=== PATIENT | male | born 1965 | race Hispanic/Latino ===

== ENCOUNTER 2018-06-25 13:35 | Inpatient (IN) | payer OTHER ==
[~2018-06-25] VITALS: Ht 177.8 cm; Wt 107.7 kg
[~2018-06-25 13:35] MED LIST: ASPIR 8181 MG PO; HUMALOG100 UNIT/1; LANTUS 3ML100 UNITS/; LASIX20 MG PO; LOSARTAN POTASS25 MG PO; METFORMIN HCL1000 MG PO; METOPROLOL SUCC50 MG PO; MUCINEX DM ER1 EACH PO; PROAIR HFA INH8.5 GM; SIMVASTATIN40 MG PO; TUSSIN100 MG/51
[2018-06-25] MEDS ORDERED: FENTANYL CITRATE/PF 100MCG/2 ML INJ IV ONE (14:45)
[2018-06-25] MEDS ORDERED: JARDIANCE PO (15:05)
[2018-06-25] MEDS ORDERED: FERROUS SULFAT325 MG PO (15:05)
[2018-06-25] MEDS ORDERED: NITROGLYCERIN0.4 MG PO (15:05)
[2018-06-25] MEDS ORDERED: LEVEMIR SC (15:05)
[2018-06-25] MEDS ORDERED: OMEGA-3-ACID PO (15:05)
[2018-06-25 15:24] LABS: BASOPHILS # (AUTO) 0.1 (0.0-0.1); BASOPHILS % 0.3 % (0.0-1.0); EOSINOPHILS % 0.2 % (0.0-6.0); HEMATOCRIT 36.1 % (38.2-49.6); LYMPHOCYTES # (AUTO) 1.3 (1.0-3.2); LYMPHOCYTES % 7.8 % (18.0-39.1); MEAN CORPUSCULAR HEMOGLOBIN 28.4 pg (28-32); MEAN CORPUSCULAR HGB CONC 33.2 g/dL (31-35); MEAN CORPUSCULAR VOLUME 85.3 fL (81-99); MONOCYTES # (AUTO) 1.4 (0.2-0.8); MONOCYTES % 8.7 % (4.4-11.3); NEUTROPHILS # (AUTO) 13.5 (2.1-6.9); NEUTROPHILS % 82.5 % (38.7-80.0); PLATELET COUNT 309 x10e3/uL (140-360); RED BLOOD COUNT 4.23 x10e6/uL (4.3-5.7); RED CELL DISTRIBUTION WIDTH 12.9 % (11.7-14.4)
[2018-06-25 15:33] LABS: BILIRUBIN,URINE NEGATIVE (NEGATIVE); CLARITY,URINE HAZY (CLEAR); COLOR,URINE YELLOW (YELLOW); KETONES,URINE NEGATIVE (NEGATIVE); LEUKOCYTE ESTERASE ,URINE TRACE (NEGATIVE); NITRITE,URINE NEGATIVE (NEGATIVE); PROTEIN,URINE DIPSTICK NEGATIVE (NEGATIVE); URINE UROBILINOGEN 0.2 mg/dL (0.2 - 1)
[2018-06-25 15:35] LABS: INR 1.14; PROTHROMBIN TIME 13.7 seconds (11.9-14.5)
[2018-06-25 15:45] LABS: ALANINE AMINOTRANSFERASE 12 IU/L (0-55); ALBUMIN 3.8 g/dL (3.5-5.0); ALKALINE PHOSPHATASE 59 IU/L (40-150); ANION GAP 13.9 mmol/L (8-16); BLOOD UREA NITROGEN 17 mg/dL (7-26); BUN/CREATININE RATIO 16 (6-25); CALCIUM 10.1 mg/dL (8.4-10.2); CARBON DIOXIDE 26 mmol/L (22-29); CHLORIDE 100 mmol/L (98-107); CREATININE, SERUM 1.04 mg/dL (0.72-1.25); EST GLOMERULAR FILTRATION RATE > 60 ML/MIN (60-); GLUCOSE 96 mg/dL (74-118); MAGNESIUM 1.8 MG/DL (1.3-2.1); PHOSPHORUS 2.2 MG/DL (2.3-4.7); POTASSIUM 3.9 mmol/L (3.5-5.1); SODIUM 136 mmol/L (136-145)
[2018-06-25 15:49] LABS: BACTERIA,URINE MANY /HPF; EPITHELIAL CELLS,URINE RARE /LPF
[2018-06-25] MEDS: CEFTRIAXONE SOD 1 GM VIAL IV SCH (16:39)
[2018-06-25] MEDS ORDERED: SPIRONOLACTONE25 MG PO (17:04)
[2018-06-25] MEDS ORDERED: FOLIC ACID1 MG PO (17:04)
[2018-06-25] MEDS ORDERED: CLOPIDOGREL75 MG PO (17:04)
[2018-06-25] MEDS ORDERED: GABAPENTIN100 MG PO (17:04)
[2018-06-25] MEDS ORDERED: NOVOLOG100 UNITS1 (17:04)
[2018-06-25] MEDS ORDERED: ATORVASTATIN CA40 MG PO (17:04)
[2018-06-25] MEDS ORDERED: ISOSORBIDE MONO30 MG PO (17:04)
--- NOTE | 2018-06-25 17:55 | Diagnostic Imaging Report ---
EXAM: CT Abdomen and Pelvis WITHOUT contrast INDICATION: \S\Hematuria, right flank pain \[id number] \S\1512 COMPARISON: Chest radiograph 12 02/03/2015 and 06/25/2018 TECHNIQUE: Abdomen and pelvis were scanned utilizing a multidetector helical scanner from the lung base to the pubic symphysis without administration of IV contrast. Absence of intravenous contrast decreases sensitivity for detection of focal lesions and vascular pathology. Coronal and sagittal reformations were obtained. Routine protocol was performed. IV CONTRAST: None. ORAL CONTRAST: Water RADIATION DOSE: Total DLP: 751.2 mGy*cm Estimated effective dose: (DLP x 0.015 x size factor) mSv COMPLICATIONS: None FINDINGS: LINES and TUBES: Partially visualized device in the left lower chest. LOWER THORAX: Trace pericardial effusion. Coronary artery calcifications. Lung bases are clear. HEPATOBILIARY: Hepatic steatosis. No focal hepatic lesions. No biliary ductal dilation. GALLBLADDER: No radio-opaque stones or sludge. No wall thickening. SPLEEN: No splenomegaly. PANCREAS: No focal masses or ductal dilatation. ADRENALS: No adrenal nodules KIDNEYS/URETERS: No hydronephrosis. No cystic or solid mass lesions. No stones. Mild bilateral perinephric fat stranding. GI TRACT: No abnormal distention, wall thickening, or evidence of bowel obstruction. Appendix is surgically absent. PELVIC ORGANS/BLADDER: Diffuse circumferential wall thickening of the urinary bladder. LYMPH NODES: No lymphadenopathy. VESSELS: Gastroesophageal varices. Abdominal aorta normal in caliber and associated with mild to moderate atherosclerotic calcifications. PERITONEUM / RETROPERITONEUM: No free air or fluid. BONES: Partially visualized median sternotomy wires. SOFT TISSUES: Fat stranding within the anterior abdominal and pelvic wall. A small right paracentral ventral fat-containing hernia. Surgical clips within the right inguinal region. IMPRESSION: 1. Diffuse circumferential wall thickening of the urinary bladder may be inflammatory, infectious, or neoplastic. Recommend consult dictation. 2. No calcified renal stones or hydronephrosis. 3. Hepatic steatosis. Signed by: Dr. Angie Squires M.D. on 06/25/2018 4:17 PM
--- NOTE | 2018-06-25 17:55 | Diagnostic Imaging Report ---
EXAMINATION: CHEST SINGLE (PORTABLE) INDICATION: \S\SOB \S\[id number] \S\1515 COMPARISON: None FINDINGS: AP view TUBES and LINES: Partially the generalized device in the left lower hemithorax with lead overlying the lower cardiac silhouette. LUNGS: Lungs are well inflated. Lungs are clear. There is no evidence of pneumonia or pulmonary edema. PLEURA: No pleural effusion or pneumothorax. HEART AND MEDIASTINUM: The cardiomediastinal silhouette is unremarkable.. BONES AND SOFT TISSUES: No acute osseous lesion. Soft tissues are unremarkable. UPPER ABDOMEN: No free air under the diaphragm. IMPRESSION: No acute thoracic abnormality. Signed by: Dr. Angie Squires M.D. on 06/25/2018 4:18 PM
[2018-06-25] MEDS ORDERED: ONDANSETRON HCL INJ 2 MG/ML VIAL IV PRN (18:15)
[2018-06-25] MEDS ORDERED: HYOSCYAMINE SULFATE 0.5 MG/ML AMP IV PRN (18:15)
[2018-06-25] MEDS ORDERED: SODIUM CHLORIDE FLUSH 10 ML SYR INJ PRN (18:15)
[2018-06-25] MEDS ORDERED: DEXTROSE 50% SYRINGE 50 ML IV PRN (18:30)
[2018-06-25] MEDS ORDERED: MORPHINE SULFATE INJ 4 MG/ML INJ IV PRN (18:30)
[2018-06-25] MEDS ORDERED: MORPHINE SULFATE 2 MG/ML SYR IV PRN (19:00)
[2018-06-25 19:42] VITALS: BP 113/65
[2018-06-25 20:16] VITALS: BP 113/65
[2018-06-25] MEDS: INSULIN REGULAR, HUMAN 100 UNIT/1 ML 3ML VIAL SQ SCH (21:43)
[2018-06-26] VITALS (9 sets, daily range): BP systolic 99–118; BP diastolic 54–71
[2018-06-26] MEDS ORDERED: ACETAMINOPHEN 325 MG TAB PO PRN (01:00)
[2018-06-26] MEDS: CEFTRIAXONE SOD 1 GM VIAL IV SCH ×2 (04:21→16:45)
[2018-06-26 05:22] LABS: BASOPHILS % 0.2 % (0.0-1.0); EOSINOPHILS # (AUTO) 0.1 (0.0-0.4); EOSINOPHILS % 0.6 % (0.0-6.0); HEMATOCRIT 34.8 % (38.2-49.6); HEMOGLOBIN 11.4 g/dL (14.0-18.0); LYMPHOCYTES # (AUTO) 2.2 (1.0-3.2); LYMPHOCYTES % 12.7 % (18.0-39.1); MEAN CORPUSCULAR HEMOGLOBIN 28.1 pg (28-32); MEAN CORPUSCULAR HGB CONC 32.8 g/dL (31-35); MEAN CORPUSCULAR VOLUME 85.7 fL (81-99); MONOCYTES # (AUTO) 1.6 (0.2-0.8); MONOCYTES % 9.2 % (4.4-11.3); NEUTROPHILS # (AUTO) 13.5 (2.1-6.9); NEUTROPHILS % 76.5 % (38.7-80.0); PLATELET COUNT 272 x10e3/uL (140-360); RED BLOOD COUNT 4.06 x10e6/uL (4.3-5.7); RED CELL DISTRIBUTION WIDTH 12.8 % (11.7-14.4)
[2018-06-26 05:47] LABS: BLOOD UREA NITROGEN 19 mg/dL (7-26); BUN/CREATININE RATIO 19 (6-25); CALCIUM 9.9 mg/dL (8.4-10.2); CARBON DIOXIDE 25 mmol/L (22-29); CHLORIDE 102 mmol/L (98-107); EST GLOMERULAR FILTRATION RATE > 60 ML/MIN (60-); GLUCOSE 144 mg/dL (74-118); SODIUM 140 mmol/L (136-145)
[2018-06-26] MEDS: INSULIN REGULAR, HUMAN 100 UNIT/1 ML 3ML VIAL SQ SCH ×4 (07:30→20:23)
[2018-06-26 08:03] LABS: EOSINOPHILS % (MANUAL) 3 % (0-7); LYMPHOCYTES % (MANUAL) 13 % (19-48); MONOCYTES % (MANUAL) 8 % (3.4-9.0); NEUTROPHILS % (MANUAL) 76 % (40-74)
[2018-06-26 08:04] LABS: PLATELET ESTIMATE ADEQUATE; PLATELET MORPHOLOGY COMMENT NORMAL; RBC MORPHOLOGY COMMENT NORMAL
[2018-06-26] MEDS ORDERED: NITROGLYCERIN 0.4 MG SUBL SL SCH (08:15)
[2018-06-26] MEDS ORDERED: CLOPIDOGREL BISULFATE 75 MG TAB PO SCH (09:00)
[2018-06-26] MEDS ORDERED: ASPIRIN 81 MG CHEW TAB PO SCH (09:00)
[2018-06-26] MEDS: LOSARTAN POTASSIUM 25 MG TAB PO SCH (09:00)
[2018-06-26] MEDS: METOPROLOL SUCCINATE 50 MG TAB XL PO SCH (09:00)
[2018-06-26] MEDS: SPIRONOLACTONE 25 MG TAB PO SCH (09:00)
[2018-06-26] MEDS: FOLIC ACID 1 MG TAB PO SCH (09:00)
[2018-06-26] MEDS: FUROSEMIDE 20 MG TAB PO SCH (09:00)
[2018-06-26] MEDS: OMEGA 3 POLYUNSAT FATTY ACIDS 1000 MG SOFTGEL PO SCH ×2 (09:00→17:00)
[2018-06-26] MEDS: FERROUS SULFATE 325 MG TAB PO SCH (09:00)
[2018-06-26] MEDS: ISOSORBIDE MONONITRATE 30 MG TAB CR PO SCH (09:13)
--- NOTE | 2018-06-26 16:26 | History and Physical ---
HISTORY OF PRESENT ILLNESS: This is a 53-year-old male with past medical history positive for hypertension, diabetes, coronary artery disease, hyperlipidemia. He came to the hospital because he was passing blood in the stools. REVIEW OF SYSTEMS CARDIOVASCULAR: No chest pain or palpitations. RESPIRATORY: No shortness of breath. No cough. GASTROINTESTINAL: No nausea. No vomiting. No diarrhea. GENITOURINARY: He was passing blood in the stools but not anymore. No frequency. No dysuria. PAST MEDICAL HISTORY: Positive for coronary artery disease, hypertension, diabetes mellitus, hyperlipidemia. SOCIAL HISTORY: He does not smoke and does not drink. PHYSICAL EXAMINATION VITAL SIGNS: Blood pressure 117/60, temperature 98.2, heart rate 92 per minute, respiratory rate 20 per minute. Oxygen saturation 95%. HEART: Regular rhythm. Normal S1, S2 sounds. LUNGS: Clear bilaterally. ABDOMEN: Soft, no tenderness, no distention, no visceromegaly. EXTREMITIES: No evidence of cyanosis, edema or trauma. LABS: On the BMP, sodium 140, potassium 4.0, chloride 102, CO2 25, BUN 19, creatinine 1.00. Glucose 144. On the CBC, white blood count 17,600, hemoglobin 11.4, hematocrit 34.8, platelet count 272,000. PT 13.7, INR 1.14, PTT 32.0. AST 12, ALT 12, total bilirubin 0.9, alkaline phosphatase 59. He also had a CT of the abdomen and pelvis which showed diffuse circumferential wall thickening of the urinary bladder. It may be inflammatory, infection, or neoplastic. Recommend consultation. No calcified stones or hydronephrosis. Hepatic steatosis. Also, he had a chest x-ray done which showed normal. FINAL IMPRESSION 1. Hematuria. 2. Uncontrolled diabetes mellitus, type 2, with diabetic neuropathy. 3. History of coronary artery disease. 4. Hypertension. 5. Hyperlipidemia. PLAN OF TREATMENT 1. Continue ceftriaxone 1 gram IV twice a day. 2. Hyoscyamine sulfate 0.25 mg q.6 h. as needed. 3. Zofran 4 mg IV q.4 h. as needed. 4. Continue aspirin 81 mg daily because of history of coronary artery disease. 5. Continue furosemide 20 mg daily. 6. Aldactone 25 mg daily. 7. [place]-3 fatty acid 2,000 mg twice a day. 8. Continue Plavix 75 mg daily. 9. Isosorbide mononitrate 30 mg daily. 10. Gabapentin 100 mg at bedtime. 11. Morphine 4 mg IV q.4 h. as needed. 12. Continue monitoring blood sugar a.c. and at bedtime. 13. Continue ferrous sulfate 325 mg daily. 14. Losartan 25 mg daily. 15. Nitroglycerin 0.4 mg q.5 minutes p.r.n. for chest pain, no more than 3 tablets. 16. Continue Tylenol 650 mg IV q.6 h. as needed. 17. Folic acid 1 mg daily. 18. Metoprolol 50 mg daily. 19. Lipitor 60 mg daily. 20. We are going to resume the home medications also, which are metformin 1,000 mg twice a day, Jardiance 25 mg daily, Levemir 50 units at bedtime. 21. The diet is 1800-calorie diabetic diet. 22. We are going to also consult Dr. Wayne for urology because of hemorrhagic cystitis and Dr. Wallis of cardiology, who was supposed to see him also. Job#: [id number]
[2018-06-26] MEDS: METFORMIN HCL 500 MG TAB PO SCH (17:00)
--- NOTE | 2018-06-26 18:30 | Consultation ---
DATE OF CONSULTATION: June 26, 2018 UROLOGY CONSULTATION REASON FOR CONSULTATION: Gross hematuria. HISTORY OF PRESENT ILLNESS: Pardeep Dumas is a 53-year-old man who has had gross hematuria over the last several months. The patient has an appointment to see us in the office in mid July for an initial evaluation. The patient had worsening hematuria and blood clots. He presented to the emergency room where he was subsequently admitted. The emergency room did not put in a consultation for us. Consultation was placed by the admitting physician following the initial evaluation. The patient denies previous urinary tract infection. Denies any urolithiasis. Denies any urinary incontinence. He reports good urinary force of stream. He does have erectile dysfunction and has seldom erections. He approximately 15 years ago underwent a circumcision. That circumcision "went bad," and attempt at reconstruction of the penile shaft skin resulted in significant penile scarring. The patient denies any urinary incontinence. PAST MEDICAL AND SURGICAL HISTORY 1. Hypertension. 2. Congestive heart failure. 3. Status post defibrillator implantation. 4. Hypercholesterolemia. 5. Status post appendectomy. ALLERGIES: NONE KNOWN. CURRENT MEDICATIONS: Please refer to the MAR. SOCIAL HISTORY: The patient denies smoking, ethanol and drug use. He used to work at a [employer]. He is currently in the process of attempting to obtain disability status. FAMILY HISTORY: Noncontributory to the active urological problems. REVIEW OF SYSTEMS: As discussed above in the history of present illness and past medical history, otherwise negative for all systems. PHYSICAL EXAMINATION GENERAL: Deceptively healthy-appearing, 53-year-old man sitting up in bed and walking around the room in no apparent distress. VITALS: He is currently afebrile, and the vital signs are currently stable. ABDOMEN: Soft, nondistended and nontender without costovertebral angle tenderness. The kidneys are not palpable without hepatosplenomegaly. The patient is obese. GENITOURINARY: Testes are descended bilaterally. Testes and epididymides bilaterally palpably normal. 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 It is difficult to discern the exact location of the meatus, but I think it is in the middle of what is the glans penis. RECTAL: Digital rectal exam is deferred at the present time. For the remaining physical examination systems, please refer to the admission history and physical on the chart. LABORATORY STUDIES: White blood cell count is 17,600, hemoglobin 11.4, platelets 272,000. The patient's creatinine is 1.0. PT is slightly elevated at 13.7 with an INR of 1.14. CT scan of the abdomen and pelvis shows a thick bladder. Urinalysis is significant for pyuria and bacteriuria. Urine culture is positive, but sensitivities are pending. ASSESSMENT 1. Gross hematuria. 2. Urinary tract infection. 3. Erectile dysfunction. 4. 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 5. Obesity. 6. Anemia. 7. Leukocytosis. PLAN 1. We need cardiac clearance to go to the operating room for cystoscopy and retrogrades and indicated procedures. 2. Hold blood thinners due to the fact that the patient is actively bleeding. 3. Recommend awaiting culture and sensitivity and adjusting the patient's antibiotics accordingly. 4. We will follow the patient. Thank you very much for involving us in the care of your patient. We will be happy to follow him along with you, as well as an outpatient. Job#: [id number] cc:DO HYDE MD
[2018-06-26] MEDS: INSULIN DETEMIR 100 UNIT/ML PEN SQ SCH (20:23)
[2018-06-26] MEDS: ATORVASTATIN 40 MG TAB PO SCH (20:24)
[2018-06-26] MEDS: GABAPENTIN 100 MG CAP PO SCH (20:25)
--- NOTE | 2018-06-26 20:30 | Consultation ---
DATE OF CONSULTATION: June 26, 2018 CARDIOLOGY CONSULTATION REQUESTING PHYSICIAN: Dr. Galvan REASON FOR CONSULTATION: Coronary artery disease. HISTORY OF PRESENT ILLNESS: This is a 53-year-old man with severe coronary artery disease, not amenable to revascularization, chronic systolic heart failure status post subcutaneous ICD, diabetes mellitus, and hyperlipidemia, who presented with lightheadedness and hematuria. The patient reports he was in his usual state of health until about 2 weeks ago when he first noted a foul odor from his urine. Last week, he began experiencing dysuria. On Thursday, he noticed his urine was bloody in appearance and he subsequently began to pass clots in his urine on with development of lower abdominal pain. Yesterday, be began to feel lightheaded and dizzy for which he presented to the ER for further evaluation. Of note, he also noted chest pain on Thursday more severe than his baseline, which he described as 7/10 in severity. The pain lasted minutes at a time and was not associated with shortness of breath, nausea, or diaphoresis. REVIEW OF SYSTEMS: Negative except as per HPI. PAST MEDICAL HISTORY: 1. Coronary artery disease, severe, not amenable to revascularization. 2. Chronic systolic heart failure status post subcutaneous ICD. 3. Diabetes mellitus. 4. Hyperlipidemia. PAST SURGICAL HISTORY: Appendectomy. ALLERGIES: PLEASE SEE EMR. MEDICATIONS: Please see medication list. SOCIAL HISTORY: Denies tobacco, alcohol, or illicit drugs. FAMILY HISTORY: Pertinent for siblings with heart disease. PHYSICAL EXAMINATION: VITAL SIGNS: Temperature 97.6 degrees, pulse 86, respiratory rate 20, blood pressure 99/56, oxygen saturation 95% on room air. GENERAL: Obese gentleman, awake and alert, in no acute distress. LUNGS: Clear to auscultation bilaterally. No wheezes or crackles. CARDIOVASCULAR: Normal rate and regular rhythm. 3/6 systolic murmur at left sternal border. Normal S1 and S2. ABDOMEN: Soft, nontender. EXTREMITIES: No edema. NEURO: Nonfocal exam. LABS: WBC 17.61, hemoglobin 11.4, hematocrit 34.8, platelets 272,000. Sodium 140, potassium 4, chloride 102, CO2 25, BUN 19, creatinine 1. PSA 8.2. Troponin 0.008. Urine culture growing gram-negative rods. A chest x-ray, no acute thoracic abnormality. CT abdomen and pelvis, diffuse circumferential wall thickening of the urinary bladder may be inflammatory, infectious, or neoplastic, recommend consult dictation. No calcified renal stones or hydronephrosis, hepatic steatosis. EKG, sinus tachycardia with LVH with QRS widening and repolarization abnormality. IMPRESSIONS: 1. Gram-negative evangelina urinary tract infection, suspect sepsis secondary to above. 2. Hematuria. 3. Lightheadedness. 4. Chronic systolic heart failure status post subcutaneous implantable cardioverter-defibrillator. 5. Severe coronary artery disease, not amenable to revascularization. 6. Diabetes mellitus. 7. Hyperlipidemia. 8. Chest pain. RECOMMENDATIONS: Repeat troponin to rule out myocardial infarction. Check orthostatic vitals. Continue aspirin and Plavix for now given patient's severe coronary artery disease. We will evaluate patient's coronary anatomy on patient's most recent cardiac catheterization. In the meantime, monitor on telemetry, watch blood pressure closely given urinary tract infection. Suspect patient's lightheadedness was due to sepsis. Antibiotics per primary service. Pending urology evaluation. Thank you for this consult. We will continue to follow. Job#: [id number]
[2018-06-27] VITALS (7 sets, daily range): BP systolic 107–126; BP diastolic 59–70
[2018-06-27] MEDS: CEFTRIAXONE SOD 1 GM VIAL IV SCH ×2 (04:40→16:45)
[2018-06-27] MEDS: INSULIN REGULAR, HUMAN 100 UNIT/1 ML 3ML VIAL SQ SCH ×4 (07:30→20:47)
[2018-06-27] MEDS: METFORMIN HCL 500 MG TAB PO SCH ×2 (08:00→17:00)
[2018-06-27] MEDS: FERROUS SULFATE 325 MG TAB PO SCH (09:00)
[2018-06-27] MEDS: ISOSORBIDE MONONITRATE 30 MG TAB CR PO SCH (09:00)
[2018-06-27] MEDS: METOPROLOL SUCCINATE 50 MG TAB XL PO SCH (09:00)
[2018-06-27] MEDS: FOLIC ACID 1 MG TAB PO SCH (09:00)
[2018-06-27] MEDS: FUROSEMIDE 20 MG TAB PO SCH (09:00)
[2018-06-27] MEDS: OMEGA 3 POLYUNSAT FATTY ACIDS 1000 MG SOFTGEL PO SCH ×2 (09:00→17:00)
[2018-06-27] MEDS: LOSARTAN POTASSIUM 25 MG TAB PO SCH (09:00)
[2018-06-27] MEDS: JARDIANCE 25MG PO SCH (09:00)
[2018-06-27] MEDS: SPIRONOLACTONE 25 MG TAB PO SCH (09:00)
--- NOTE | 2018-06-27 15:27 | Progress Note ---
DATE: June 27, 2018 CARDIOLOGY PROGRESS NOTE SUBJECTIVE: Patient denies chest pain or shortness of breath. He reports his urine has cleared up. OBJECTIVE VITAL SIGNS: Temperature 97 degrees, pulse 75, respiratory rate 20, blood pressure 122/65. Oxygen saturation 97% on room air. GENERAL: Obese gentleman in no acute distress, awake and alert. LUNGS: Clear to auscultation bilaterally. No wheezes or crackles. CARDIOVASCULAR: Normal rate and regular rhythm. A 3/6 systolic murmur at left sternal border. Normal S1 and S2. ABDOMEN: Soft, nontender. EXTREMITIES: No edema. CARDIAC MEDICATIONS 1. Fish oil 2,000 mg p.o. b.i.d. 2. Spironolactone 25 mg p.o. daily. 3. Metoprolol succinate 50 mg p.o. daily. 4. Losartan 25 mg p.o. daily. 5. Isosorbide mononitrate 30 mg p.o. daily. 6. Furosemide 20 mg p.o. daily. 7. Atorvastatin 60 mg p.o. nightly. LABS: Urine culture growing Proteus mirabilis. TELEMETRY: Normal sinus rhythm. IMPRESSION 1. Proteus mirabilis urinary tract infection. 2. Sepsis secondary to above. 3. Hematuria. 4. Lightheadedness. 5. Chronic systolic heart failure status post subcutaneous implantable cardioverter-defibrillator. 6. Severe coronary artery disease, not amenable to revascularization. 7. Diabetes mellitus. 8. Hyperlipidemia. 9. Chest pain. RECOMMENDATIONS: Patient ruled out for myocardial infarction with serial cardiac biomarkers. Patient was initially scheduled for echocardiogram in the office tomorrow. We will order while admitted. Urology plans to take the patient for cystoscopy. Once echo is done and the patient's most recent cardiac catheterization is reviewed, we will make determination regarding the patient's surgical risks. In the meantime, continue current cardiac medications. Antibiotics per primary service. Thank you for this consult. We will continue to follow. Job#: [id number]
--- NOTE | 2018-06-27 19:37 | Progress Note ---
DATE: June 27, 2018 INTERNAL MEDICINE PROGRESS NOTE SUBJECTIVE: A 53-year-old male, who came in with hematuria. He is going to go for a cystoscopy once he is cleared by cardiology. PHYSICAL EXAM VITAL SIGNS: Blood pressure 130/62. Temperature 97.0. Heart rate 79 per minute. Respiratory rate is 20 per minute. Oxygen saturation 97%. ABDOMEN: Soft. No tension distention or visceromegaly. EXTREMITIES: Show no evidence of cyanosis or trauma. On the BMP, sodium 140, potassium 4.0, chloride 102, CO2 25. BUN 19, creatinine 1.00, glucose 144, and the CBC, white blood count is elevated at 17,600, hemoglobin 11.4, hematocrit 34.8, platelet count 272,000. PT 13.7, INR 1.14, PTT 32.0. AST 12, ALT 12, total bilirubin 0.9, alkaline phosphatase 59. IMPRESSIONS 1. Episode of hematuria, most likely secondary to hemorrhagic cystitis. 2. Mild anemia. 3. Uncontrolled diabetes mellitus, type 2, with diabetic neuropathy. 4. History of coronary artery disease. 5. History of hypertension. 6. Hyperlipidemia. PLAN OF TREATMENT 1. Continue Rocephin 1 g IV twice a day. 2. Hyoscyamine sulfate 0.5 mg q.6 h. 3. Zofran 4 mg IV q.4 h as needed. 4. Continue ferrous sulfate 325 mg daily. 5. Losartan 25 mg daily. 1. Nitroglycerin 0.4 mg q.5 minutes p.r.n. for chest pain, no more than 3 tablets. 2. Continue with 1 tablet daily. 3. Continue folic acid 1 mg daily. 4. Continue metoprolol 50 mg daily. 5. Lipitor 60 mg at bedtime. 6. Continue Levemir 50 mg at bedtime. 7. Continue monitoring blood sugar a.c. and nightly. 8. Continue diabetic diet. 9. Continue furosemide 20 mg daily. 10. Aldactone 25 mg daily. 11. [place] 3 fatty acid 2000 units q.12 h. 12. Morphine 4 mg IV q.4 h as needed. 13. Tylenol 650 mg q.6 h as needed. 14. Isosorbide mononitrate 30 mg daily. 15. Gabapentin 100 mg at bedtime. 16. Metformin 1000 mg twice a day. Case has been discussed with the family. The patient and the at the bedside. TIME SPENT: 45 minutes. Job#: [id number] CQ
[2018-06-27] MEDS: GABAPENTIN 100 MG CAP PO SCH (20:47)
[2018-06-27] MEDS: ATORVASTATIN 40 MG TAB PO SCH (20:47)
[2018-06-27] MEDS: INSULIN DETEMIR 100 UNIT/ML PEN SQ SCH (20:48)
--- NOTE | 2018-06-27 23:00 | Discharge Summary ---
TRINIDAD ARNDT (00:01) CHRISTIN TOBAR MD Job#: [id number] CQ
[2018-06-28] VITALS (11 sets, daily range): BP systolic 112–151; BP diastolic 56–75
[2018-06-28] MEDS: CEFTRIAXONE SOD 1 GM VIAL IV SCH ×2 (04:59→16:53)
[2018-06-28 05:00] LABS: BASOPHILS % 0.4 % (0.0-1.0); EOSINOPHILS # (AUTO) 0.4 (0.0-0.4); EOSINOPHILS % 3.5 % (0.0-6.0); HEMATOCRIT 34.7 % (38.2-49.6); HEMOGLOBIN 11.4 g/dL (14.0-18.0); LYMPHOCYTES # (AUTO) 2.3 (1.0-3.2); LYMPHOCYTES % 22.9 % (18.0-39.1); MEAN CORPUSCULAR HEMOGLOBIN 28.4 pg (28-32); MEAN CORPUSCULAR HGB CONC 32.9 g/dL (31-35); MEAN CORPUSCULAR VOLUME 86.5 fL (81-99); MONOCYTES # (AUTO) 0.9 (0.2-0.8); MONOCYTES % 9.2 % (4.4-11.3); NEUTROPHILS # (AUTO) 6.3 (2.1-6.9); NEUTROPHILS % 62.7 % (38.7-80.0); PLATELET COUNT 354 x10e3/uL (140-360); RED BLOOD COUNT 4.01 x10e6/uL (4.3-5.7); RED CELL DISTRIBUTION WIDTH 12.6 % (11.7-14.4)
[2018-06-28 05:23] LABS: ANION GAP 13.2 mmol/L (8-16); BLOOD UREA NITROGEN 17 mg/dL (7-26); BUN/CREATININE RATIO 20 (6-25); CALCIUM 9.6 mg/dL (8.4-10.2); CARBON DIOXIDE 26 mmol/L (22-29); CHLORIDE 103 mmol/L (98-107); CREATININE, SERUM 0.87 mg/dL (0.72-1.25); EST GLOMERULAR FILTRATION RATE > 60 ML/MIN (60-); GLUCOSE 130 mg/dL (74-118); POTASSIUM 4.2 mmol/L (3.5-5.1); SODIUM 138 mmol/L (136-145)
[2018-06-28] MEDS: INSULIN REGULAR, HUMAN 100 UNIT/1 ML 3ML VIAL SQ SCH ×4 (07:30→21:00)
[2018-06-28] MEDS: SPIRONOLACTONE 25 MG TAB PO SCH (08:24)
[2018-06-28] MEDS: METFORMIN HCL 500 MG TAB PO SCH ×2 (08:24→16:53)
[2018-06-28] MEDS: FOLIC ACID 1 MG TAB PO SCH (08:25)
[2018-06-28] MEDS: LOSARTAN POTASSIUM 25 MG TAB PO SCH (08:25)
[2018-06-28] MEDS: FERROUS SULFATE 325 MG TAB PO SCH (08:25)
[2018-06-28] MEDS: OMEGA 3 POLYUNSAT FATTY ACIDS 1000 MG SOFTGEL PO SCH ×2 (08:26→16:53)
[2018-06-28] MEDS: FUROSEMIDE 20 MG TAB PO SCH (08:26)
[2018-06-28] MEDS: ISOSORBIDE MONONITRATE 30 MG TAB CR PO SCH (08:26)
[2018-06-28] MEDS: JARDIANCE 25MG PO SCH (08:26)
[2018-06-28] MEDS: METOPROLOL SUCCINATE 50 MG TAB XL PO SCH (08:27)
--- NOTE | 2018-06-28 12:42 | Progress Note ---
DATE: June 28, 2018 CARDIOLOGY PROGRESS NOTE SUBJECTIVE: No major events overnight. No more hematuria. No chest pain. REVIEW OF SYSTEMS: As above, otherwise negative. OBJECTIVE VITAL SIGNS: Temperature 96.6 degrees, pulse 81, respiratory rate 19, blood pressure 116/71. Satting 98% on room air. GENERAL: man, well developed, in no acute distress. CARDIOVASCULAR: Regular rate and rhythm. No murmurs, rubs or gallops. Palpable carotid pulses. Palpable radial pulses. Palpable pedal pulses. RESPIRATORY: Lungs are clear to auscultation bilaterally. No respiratory distress. ABDOMEN: Obese, soft, nontender. No masses. NEURO AND PSYCH: Alert and oriented to person, place and time. Normal affect. LABORATORY DATA: Reviewed. White count improving. IMAGING DATA: Reviewed. CT of the abdomen and pelvis shows thickening of the bladder. TELEMETRY DATA: Reviewed. Shows normal sinus rhythm. MEDICATIONS: Reviewed. IMPRESSION 1. [id number]-bqm urinary tract infection. 2. Hematuria. 3. Chronic systolic heart failure status post subcutaneous implantable cardioverter-defibrillator. 4. Severe coronary artery disease not amenable to revascularization. 5. Diabetes. 6. Hyperlipidemia. 7. Chronic stable angina. RECOMMENDATIONS: Patient has been ruled out for acute myocardial infarction with serial troponins. He is well compensated as far as his heart failure symptoms go. His anginal symptoms are stable with no features of unstable angina. Echo assessment is pending. At this point, the patient is planned for cystoscopy. Patient would be a moderate cardiovascular risk for this procedure. The risk is nonmodifiable, and I do not recommend any further tests or therapies from a cardiovascular standpoint at this time. It is acceptable to hold the patient's Plavix for periprocedural period. Would prefer to continue aspirin if possible. However, if absolutely necessary, can also hold aspirin in the periprocedural period. Continue his statin as well as other cardiovascular medications. Thank you for this consult. We will continue to follow. Job#: [id number]
[2018-06-28] MEDS: INSULIN DETEMIR 100 UNIT/ML PEN SQ SCH (21:00)
[2018-06-28] MEDS: GABAPENTIN 100 MG CAP PO SCH (21:20)
[2018-06-28] MEDS: ATORVASTATIN 40 MG TAB PO SCH (21:20)
[2018-06-29] MEDS: CEFTRIAXONE SOD 1 GM VIAL IV SCH (04:21)
[2018-06-29 07:30] VITALS: BP 140/65
[2018-06-29] MEDS: INSULIN REGULAR, HUMAN 100 UNIT/1 ML 3ML VIAL SQ SCH (07:30)
[2018-06-29 08:00] VITALS: BP 140/65
[2018-06-29] MEDS: SPIRONOLACTONE 25 MG TAB PO SCH (08:27)
[2018-06-29] MEDS: METFORMIN HCL 500 MG TAB PO SCH (08:27)
[2018-06-29] MEDS: LOSARTAN POTASSIUM 25 MG TAB PO SCH (08:30)
[2018-06-29] MEDS: FOLIC ACID 1 MG TAB PO SCH (08:30)
[2018-06-29] MEDS: FERROUS SULFATE 325 MG TAB PO SCH (08:30)
[2018-06-29] MEDS: JARDIANCE 25MG PO SCH (08:31)
[2018-06-29] MEDS: FUROSEMIDE 20 MG TAB PO SCH (08:31)
[2018-06-29] MEDS: OMEGA 3 POLYUNSAT FATTY ACIDS 1000 MG SOFTGEL PO SCH (08:31)
[2018-06-29] MEDS: ISOSORBIDE MONONITRATE 30 MG TAB CR PO SCH (08:31)
[2018-06-29] MEDS: METOPROLOL SUCCINATE 50 MG TAB XL PO SCH (08:32)
== END 2018-06-29 12:25 | disposition home or self-care (01) | DRG 872 ==
LOC: ER 13:35 → ERHOLD 18:35 → MED/SURG2 19:43
DX: A41.89 Other specified sepsis (principal); I50.22 Chronic systolic (congestive) heart failure; E87.1 Hypo-osmolality and hyponatremia; I11.0 Hypertensive heart disease with heart failure; E86.0 Dehydration; R31.0 Gross hematuria; N52.9 Male erectile dysfunction, unspecified; B96.4 Proteus (mirabilis) (morganii) as the cause of diseases classified elsewhere; Z95.810 Presence of automatic (implantable) cardiac defibrillator; E78.5 Hyperlipidemia, unspecified; N48.89 Other specified disorders of penis; E66.9 Obesity, unspecified; Z68.34 Body mass index [BMI] 34.0-34.9, adult; B96.1 Klebsiella pneumoniae [K. pneumoniae] as the cause of diseases classified elsewhere; N30.80 Other cystitis without hematuria; E11.65 Type 2 diabetes mellitus with hyperglycemia; E11.40 Type 2 diabetes mellitus with diabetic neuropathy, unspecified; K76.0 Fatty (change of) liver, not elsewhere classified; I25.119 Atherosclerotic heart disease of native coronary artery with unspecified angina pectoris; D64.9 Anemia, unspecified; Z79.4 Long term (current) use of insulin
CPT/HCPCS: 36415; 71045; 74176; 80048; 80053; 81001; 82948; 83735; 83880; 84100; 84152; 84484; 85025; 85610; 85730; 87040; 87086; 87186; 93005; 93306; 99284; J0696

== ENCOUNTER → 2018-07-23 | Day surgery (SDC) | payer OTHER ==
[~2018-07-23] MED LIST changes: +ASCORBIC ACID500 MG PO; +ATORVASTATIN CA40 MG PO; +CEFTRIAXONE SOD 1 GM VIAL ONE; +CLOPIDOGREL75 MG PO; +DEXAMETHASONE SOD PHOS INJ 4 MG/ML VIAL ONE; +FENTANYL CITRATE/PF 100MCG/2 ML INJ ONE; +FERROUS SULFAT325 MG PO; +FOLIC ACID1 MG PO; +GABAPENTIN100 MG PO; +GENTAMICIN 80MG/NS 100 ML 100 ML IV ONE; +IOPAMIDOL 300MG/ML 50ML INFUS..BTL IV ONE; +ISOSORBIDE MONO30 MG PO; +JARDIANCE PO; +LEVEMIR SC; +LIDOCAINE HCL 2% LOCAL INJ 5 ML SDV VIAL INJ ONE; +MIDAZOLAM HCL 2 MG/2 ML VIAL ONE; +NITROGLYCERIN0.4 MG PO; +NOVOLOG100 UNITS1 SC; +OMEGA-3-ACID PO; +ONDANSETRON HCL INJ 2 MG/ML VIAL ONE; +PROPOFOL IV EMULSION 10 MG/ML 20 ML VIAL ONE; +SEVOFLURANE INHAL SOLN 250 ML PEN BTL ONE; +SPIRONOLACTONE25 MG PO; +TURMERIC PO
[2018-07-23 11:00] VITALS: BP 124/66
--- OUTSIDE RECORDS SUMMARY | 2018-08-17 05:36 | XMS REPORT | Clinical Summary ---
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
--- NOTE | 2018-09-13 04:20 | Operative Report ---
DATE OF PROCEDURE: July 23, 2018 PREOPERATIVE DIAGNOSES: 1. Urethral stricture disease. 2. Gross hematuria. 3. Urinary tract infections. POSTOPERATIVE DIAGNOSES: 1. Urethral stricture disease. 2. Gross hematuria. 3. Urinary tract infections. OPERATIONS PERFORMED: 1. Cystourethroscopy with direct vision internal urethrotomy and urethral stricture dilation that was a very complicated procedure (separate procedure performed for the stricture). 2. Cystourethroscopy with bilateral ureteral catheterization and retrograde ureteropyelography (separate procedure performed for the hematuria and urinary tract infection). 3. Interpretation of retrograde ureteropyelography. 4. Supervision of fluoroscopy, no radiologist present. 5. Very complicated urethral catheterization. ANESTHESIA: General. COMPLICATIONS: None. CLINICAL SUMMARY: Pardeep Dumas is a very complicated 53-year-old man who has urethral stricture disease and severely abnormal penile skin in appearance. The patient underwent a 13-hour surgery that involved the 9 surgeons to what sounds like procedure which sounds like harvesting of dura and reconstruction of the penile shaft. This resulted in distorted skin implants as well as questionable functionality of the patient's penis as far as facilitating his urination. The patient also had multiple cardiac issues and we elected not to stop his aspirin for this procedure. He is aware of the risks of bleeding, infection, injury to adjacent structures, need for additional procedures, and elected to proceed. We are awaiting the patient's successful attempt to obtain medical records from his previous operative report several decades ago at [facility]. OPERATIVE PROCEDURE IN DETAIL: Informed consent was verified. Pardeep Dumas was properly identified, taken to the operating room, and placed on the cystoscopy table in supine position. Anesthesia was uneventfully begun. The patient was then carefully and gently repositioned in the dorsal lithotomy position with all pressure points well padded. His genitalia were prepared and draped in usual sterile fashion. The 22.5-Macanese cystoscope sheath with the visual obturator in place was atraumatically inserted into the patient's urethra where we encountered a stricture. We negotiated a guidewire into this stricture which allowed us to get into the patient's bladder. There were multiple false channels from prior catheterizations attempts. We utilized the cold knife to incise this stricture and create a channel. The 22.5-Macanese cystoscope sheath with the visual obturator in place was atraumatically inserted into patient's urethra. It was guided down the urethra with the stricture disease and we dilated through this dense scar tissue that remained problematic despite being DVIU. We dilated across this region and were able to negotiate through the patient's prostate bed and into the patient's bladder, which exhibited trabeculations throughout. An 8-Macanese catheter was used to cannulate each ureter, and retrograde ureteral pyelograms were performed. Interpretation of retrograde ureteropyelography: Contrast was instilled in retrograde fashion bilaterally. There were no tumors, no stones, and no diverticula. Unobstructed drainage was observed bilaterally fluoroscopically. Throughout this procedure, multiple dilators were required prior to our final and successful attempt of obtaining cystoscopic access to the patient's bladder. Guidewire was left in place and the cystoscope was withdrawn. A 20-Macanese Ojeda catheter that was modified into a [place]-tip was then placed over the guidewire into the patient's bladder, filled with 20 mL of sterile water. Digital rectal examination revealed a 20 g prostate that is smooth, non-fluctuant, and without any nodules; and the patient was uneventfully reversed from anesthesia and taken to recovery room in stable condition. There were no complications to the procedure. He tolerated the procedure well. Plans will be to bring him back to the office in several weeks to remove his Ojeda catheter. We also plan on making additional attempts to obtain his previous operative reports from [facility] in the [facility]. Job#: [id number]
== END | disposition home or self-care (01) ==
LOC: OR 06:50
PROVIDERS: ATTEND Urology
DX: N35.9 Urethral stricture, unspecified (principal); N39.0 Urinary tract infection, site not specified; N32.89 Other specified disorders of bladder; N36.8 Other specified disorders of urethra; N52.9 Male erectile dysfunction, unspecified; N48.89 Other specified disorders of penis; I11.0 Hypertensive heart disease with heart failure; I50.9 Heart failure, unspecified; I25.10 Atherosclerotic heart disease of native coronary artery without angina pectoris; E11.9 Type 2 diabetes mellitus without complications; Z01.812 Encounter for preprocedural laboratory examination; Z79.02 Long term (current) use of antithrombotics/antiplatelets; Z79.82 Long term (current) use of aspirin; Z79.4 Long term (current) use of insulin; Z95.810 Presence of automatic (implantable) cardiac defibrillator
CPT/HCPCS: 36415; 52005; 52276; 74420; 82948; J0696; J1100; J1580; J2001; J2250; J2405; Q9967

== ENCOUNTER → 2018-11-26 | Day surgery (SDC) | payer OTHER ==
[2018-11-23 13:17] LABS: BASOPHILS # (AUTO) 0.1 (0.0-0.1); BASOPHILS % 0.6 % (0.0-1.0); EOSINOPHILS # (AUTO) 0.3 (0.0-0.4); EOSINOPHILS % 3.5 % (0.0-6.0); HEMATOCRIT 40.2 % (38.2-49.6); HEMOGLOBIN 13.1 g/dL (14.0-18.0); LYMPHOCYTES # (AUTO) 2.3 (1.0-3.2); LYMPHOCYTES % 27.5 % (18.0-39.1); MEAN CORPUSCULAR HEMOGLOBIN 27.6 pg (28-32); MEAN CORPUSCULAR HGB CONC 32.6 g/dL (31-35); MEAN CORPUSCULAR VOLUME 84.8 fL (81-99); MONOCYTES # (AUTO) 0.8 (0.2-0.8); MONOCYTES % 9.5 % (4.4-11.3); NEUTROPHILS # (AUTO) 4.8 (2.1-6.9); NEUTROPHILS % 58.4 % (38.7-80.0); PLATELET COUNT 284 x10e3/uL (140-360); RED BLOOD COUNT 4.74 x10e6/uL (4.3-5.7); RED CELL DISTRIBUTION WIDTH 13.3 % (11.7-14.4)
[2018-11-23 13:45] LABS: ANION GAP 14.1 mmol/L (8-16); BLOOD UREA NITROGEN 13 mg/dL (7-26); BUN/CREATININE RATIO 15 (6-25); CALCIUM 9.6 mg/dL (8.4-10.2); CARBON DIOXIDE 25 mmol/L (22-29); CHLORIDE 104 mmol/L (98-107); CREATININE, SERUM 0.87 mg/dL (0.72-1.25); EST GLOMERULAR FILTRATION RATE > 60 ML/MIN (60-); GLUCOSE 73 mg/dL (74-118); POTASSIUM 4.1 mmol/L (3.5-5.1); SODIUM 139 mmol/L (136-145)
[~2018-11-26] MED LIST changes: +BELLADONNA/OPIUM 30 MG SUPP RC ONE; -CEFTRIAXONE SOD 1 GM VIAL ONE; +CEFTRIAXONE SOD 1 GM/NS 50 ML 50 ML IV ONE; -IOPAMIDOL 300MG/ML 50ML INFUS..BTL IV ONE; +IOPAMIDOL 610MG/1ML 300 MG/ML VIAL IV ONE; +METOPROLOL TART50 MG PO; -ONDANSETRON HCL INJ 2 MG/ML VIAL ONE; +ONDANSETRON HCL INJ 2MG/ML 2ML 2 MG/ML VIAL ONE
--- OUTSIDE RECORDS SUMMARY | 2018-11-26 09:51 | XMS REPORT | Clinical Summary ---
Author Author SALLY [facility] Address Unknown Phone Unavailable Care Team Providers Care Mainframe Systems Programmer Name Role Phone PCP Unavailable Allergies No Known Allergies Medications Not on file Active Problems Not on file Social History Date Tobacco Use Types Packs/Day Years Used Never Assessed Sex Assigned at Date Recorded Not on file Industry Job Start Date Occupation Not on file Not on file Not on file Travel End Travel History Travel Start No recent travel history available. Last Filed Vital Signs Not on file Plan of Treatment Not on file Results Not on fileafter 11/25/2017 Insurance Payer Benefit Subscriber ID Type Phone Address Plan / Group [facility] xxxxxxxxxxxx HMO/POS [phone] [facility] CHOICE EXCHANGE
--- OUTSIDE RECORDS SUMMARY | 2018-11-26 09:51 | XMS REPORT | Continuity of Care Document ---
Author Author [facility] Interface Address Unknown Phone Unavailable Problems Problem Status Onset Date Classification Date Reported Comments Source CHF Active 10/06/2015 Problem 06/29/2018 [facility] Acute hemorrhagic cystitis Active Problem 06/29/2018 [facility] Medications Medication Details Route Status Patient Instructions Ordering Provider Order Date Source Albuterol Sulfate (Proair Hfa Inhaler*) 8.5 Gm Inh, Active 06/25/2018 [facility] Insulin Glargine (Lantus 3ML Pen) 100 Units/1 Ml Inj, Active 06/25/2018 [facility] Insulin Lispro (Humalog) 100 Unit/1 Ml Cartridge, Active 06/25/2018 [facility] Simvastatin 40 Mg Tablet, 40 Mg Oral Bedtime Active 06/25/2018 [facility] Furosemide (Lasix) 20 Mg Table[facility] Metoprolol Succinate 50 Mg Tab.er.24h Daily [facility] 10/07/2015 [facility] Guaifenesin (Tussin) 100 Mg/5 Ml Liquid, Active 10/07/2015 [facility] Guaifenesin/Dextromethorphan (Mucinex Dm Er 600-30 Mg Tablet) 1 Each Tab.er.12h, 1 Each Oral Every 12 Hours Active 10/07/2015 [facility] Aspirin (Aspir 81) 81 Mg Tablet.dr Daily Active [facility] Atorvastatin Calcium 40 Mg Tablet Daily Active [facility] Clopidogrel Bisulfate (Clopidogrel) 75 Mg Tablet Daily Active [facility] Ferrous Sulfate 325 Mg Tablet Daily Active [facility] Folic Acid 1 Mg Tablet Daily Active [facility] Gabapentin 100 Mg Capsule Bedtime Active [facility] Insulin Aspart (Novolog) Unknown Strength Inj Active [facility] Isosorbide Mononitrate (Isosorbide Mononitrate Er) 30 Mg Tab.er.24h Daily Active [facility] Jardiance 25MG Daily Active [facility] Levemir Bedtime Active [facility] Losartan Potassium 25 Mg Tablet Daily Active [facility] Metformin Hcl 1,000 Mg Tablet Twice A Day Active [facility] Nitroglycerin 0.4 Mg Tab.subl As Needed Active [facility] Oqlse-0-Psgf Twice A Day Active [facility] Spironolactone 25 Mg Tablet Daily Active [facility] Allergies, Adverse Reactions, Alerts Substance Category Reaction Severity Reaction type Status Date Reported Comments Source Immunizations Immunization Date Given Site Status Last Updated Comments Source Results Order Name Results Value Reference Range Date Interpretation Comments Source Capillary blood glucose measurement by glucometer (mass/volume) Capillary blood glucose measurement by glucometer (mass/volume) 148 70 - 120 06/29/2018 [facility] Automated blood basophil count (count/volume) Automated blood basophil count (count/volume) 0.0 0.0 - 0.1 06/28/2018 [facility] Automated blood basophil count as percentage of total leukocytes Automated blood basophil count as percentage of total leukocytes 0.4 0.0 - 1.0 06/28/2018 [facility] Automated blood eosinophil count Automated blood eosinophil count 0.4 0.0 - 0.4 06/28/2018 [facility] Automated blood eosinophil count as percentage of total leukocytes Automated blood eosinophil count as percentage of total leukocytes 3.5 0.0 - 6.0 06/28/2018 [facility] Automated blood hematocrit (volume fraction) Automated blood hematocrit (volume fraction) 34.7 38.2 - 49.6 06/28/2018 [facility] Automated blood lymphocyte count as percentage ot total leukocytes Automated blood lymphocyte count as percentage ot total leukocytes 22.9 18.0 - 39.1 06/28/2018 [facility] Automated blood monocyte count as percentage of total leukocytes Automated blood monocyte count as percentage of total leukocytes 9.2 4.4 - 11.3 06/28/2018 [facility] Automated blood neutrophil count Automated blood neutrophil count 6.3 2.1 - 6.9 06/28/2018 [facility] Automated blood platelet count (count/volume) Automated blood platelet count (count/volume) 354 140 - 360 06/28/2018 [facility] Automated blood segmented neutrophil count as percentage of total leukocytes Automated blood segmented neutrophil count as percentage of total leukocytes 62.7 38.7 - 80.0 06/28/2018 [facility] Automated erythrocyte mean corpuscular hemoglobin (mass per erythrocyte) Automated erythrocyte mean corpuscular hemoglobin (mass per erythrocyte) 28.4 28 - 32 06/28/2018 [facility] Automated erythrocyte mean corpuscular hemoglobin concentration measurement (mass/volume) Automated erythrocyte mean corpuscular hemoglobin concentration measurement (mass/volume) 32.9 31 - 35 06/28/2018 [facility] Automated erythrocyte mean corpuscular volume Automated erythrocyte mean corpuscular volume 86.5 81 - 99 06/28/2018 [facility] Blood erythrocytes automated count (number/volume) Blood erythrocytes automated count (number/volume) 4.01 4.3 - 5.7 06/28/2018 [facility] Blood hemoglobin measurement (moles/volume) Blood hemoglobin measurement (moles/volume) 11.4 14.0 - 18.0 06/28/2018 [facility] Blood leukocytes automated count (number/volume) Blood leukocytes automated count (number/volume) 10.04 4.8 - 10.8 06/28/2018 [facility] Blood lymphocytes count (number/volume) Blood lymphocytes count (number/volume) 2.3 1.0 - 3.2 06/28/2018 [facility] Blood monocytes automated count (number/volume) Blood monocytes automated count (number/volume) 0.9 0.2 - 0.8 06/28/2018 [facility] Estimated glomerular filtration rate (GFR) determination Estimated glomerular filtration rate (GFR) determination null 60 06/28/2018 [facility] Glucose measurement Glucose measurement 130 74 - 118 06/28/2018 [facility] Serum or plasma anion gap Serum or plasma anion gap 13.2 8 - 16 06/28/2018 [facility] Serum or plasma calcium measurement (mass/volume) Serum or plasma calcium measurement (mass/volume) 9.6 8.4 - 10.2 06/28/2018 [facility] Serum or plasma carbon dioxide, total measurement (moles/volume) Serum or plasma carbon dioxide, total measurement (moles/volume) 26 22 - 29 06/28/2018 [facility] Serum or plasma chloride measurement (moles/volume) Serum or plasma chloride measurement (moles/volume) 103 98 - 107 06/28/2018 [facility] Serum or plasma creatinine measurement (mass/volume) Serum or plasma creatinine measurement (mass/volume) 0.87 0.72 - 1.25 06/28/2018 [facility] Serum or plasma potassium measurement (moles/volume) Serum or plasma potassium measurement (moles/volume) 4.2 3.5 - 5.1 06/28/2018 [facility] Serum or plasma sodium measurement (moles/volume) Serum or plasma sodium measurement (moles/volume) 138 136 - 145 06/28/2018 [facility] Serum or plasma urea nitrogen measurement (mass/volume) Serum or plasma urea nitrogen measurement (mass/volume) 17 7 - 26 06/28/2018 [facility] Serum or plasma urea nitrogen/creatinine mass ratio Serum or plasma urea nitrogen/creatinine mass ratio 20 6 - 25 06/28/2018 [facility] Red Cell Distribution Width 12.6 11.7 - 14.4 06/28/2018 [facility] IM GRANULOCYTES % 1.3 0.0 - 1.0 06/28/2018 [facility] Absolute Immature Granulocyte (auto 0.13 0 - 0.1 06/28/2018 [facility] Blood culture Blood culture NO GROWTH AFTER 48 HOURS 06/26/2018 [facility] Troponin I measurement by highly sensitive enzyme immunoassay Troponin I measurement by highly sensitive enzyme immunoassay 0.006 0 - 0.300 06/26/2018 [facility] Blood platelets count by estimate (number/volume) Blood platelets count by estimate (number/volume) ADEQUATE 06/26/2018 [facility] Manual blood eosinophil count as percentage of total leukocytes Manual blood eosinophil count as percentage of total leukocytes 3 0 - 7 06/26/2018 [facility] Manual blood lymphocytes/100 leukocytes Manual blood lymphocytes/100 leukocytes 13 19 - 48 06/26/2018 [facility] Manual blood monocytes/100 leukocytes Manual blood monocytes/100 leukocytes 8 3.4 - 9.0 06/26/2018 [facility] Manual blood neutrophils/100 leukocytes Manual blood neutrophils/100 leukocytes 76 40 - 74 06/26/2018 [facility] Platelet morphology Platelet morphology NORMAL 06/26/2018 [facility] RBC morphology RBC morphology NORMAL 06/26/2018 [facility] Differential Total Cells Counted 100 06/26/2018 [facility] Activated partial thromboplastin time (aPTT) in platelet poor plasma bycoagulation assay Activated partial thromboplastin time (aPTT) in platelet poor plasma bycoagulation assay 32.0 23.8 - 35.5 06/25/2018 [facility] INR in Platelet poor plasma by Coagulation assay INR in Platelet poor plasma by Coagulation assay 1.14 06/25/2018 [facility] Phosphorus measurement Phosphorus measurement 2.2 2.3 - 4.7 06/25/2018 [facility] Plasma globulin measurement (mass/volume) Plasma globulin measurement (mass/volume) 3.9 2.3 - 3.5 06/25/2018 [facility] Prothrombin time (PT) in platelet poor plasma by coagulation assay Prothrombin time (PT) in platelet poor plasma by coagulation assay 13.7 11.9 - 14.5 06/25/2018 [facility] Serum or plasma alanine aminotransferase measurement (enzymatic activity/volume) Serum or plasma alanine aminotransferase measurement (enzymatic activity/volume) 12 0 - 55 06/25/2018 [facility] Serum or plasma albumin measurement (mass/volume) Serum or plasma albumin measurement (mass/volume) 3.8 3.5 - 5.0 06/25/2018 [facility] Serum or plasma albumin/globulin mass ratio Serum or plasma albumin/globulin mass ratio 1.0 0.8 - 2.0 06/25/2018 [facility] Serum or plasma alkaline phosphatase measurement (enzymatic activity/volume) Serum or plasma alkaline phosphatase measurement (enzymatic activity/volume) 59 40 - 150 06/25/2018 [facility] Serum or plasma magnesium measurement (mass/volume) Serum or plasma magnesium measurement (mass/volume) 1.8 1.3 - 2.1 06/25/2018 [facility] Serum or plasma natriuretic peptide B prohormone N-terminal measurement(mass/volume) Serum or plasma natriuretic peptide B prohormone N-terminal measurement(mass/volume) 568 0 - 121 06/25/2018 [facility] Serum or plasma prostate specific antigen measurement (mass/volume) Serum or plasma prostate specific antigen measurement (mass/volume) 8.2 0.0 - 4.0 06/25/2018 [facility] Serum or plasma protein measurement (mass/volume) Serum or plasma protein measurement (mass/volume) 7.7 6.5 - 8.1 06/25/2018 [facility] Serum or plasma total bilirubin measurement (mass/volume) Serum or plasma total bilirubin measurement (mass/volume) 0.9 0.2 - 1.2 06/25/2018 [facility] Aspartate Amino Transf (AST/SGOT) 12 5 - 34 06/25/2018 [facility] Automated urine sediment leukocyte count by microscopy (number/high power field) Automated urine sediment leukocyte count by microscopy (number/high power field) null 0 - 5 06/25/2018 [facility] Bacteria detection in urine sediment by light microscopy Bacteria detection in urine sediment by light microscopy MANY NONE 06/25/2018 [facility] Epithelial cells detection in urine sediment by light microscopy Epithelial cells detection in urine sediment by light microscopy RARE NONE 06/25/2018 [facility] Erythrocytes detection in urine sediment by light microscopy Erythrocytes detection in urine sediment by light microscopy NONE 0 - 5 06/25/2018 [facility] Specific gravity of Urine by Test strip Specific gravity of Urine by Test strip 1.010 1.010 - 1.025 06/25/2018 [facility] Urine clarity Urine clarity HAZY CLEAR 06/25/2018 [facility] Urine color determination Urine color determination YELLOW YELLOW 06/25/2018 [facility] Urine erythrocytes detection Urine erythrocytes detection TRACE NEGATIVE 06/25/2018 [facility] Urine glucose detection Urine glucose detection 3+ NEGATIVE 06/25/2018 [facility] Urine ketones detection by automated test strip Urine ketones detection by automated test strip NEGATIVE NEGATIVE 06/25/2018 [facility] Urine leukocyte esterase detection by dipstick Urine leukocyte esterase detection by dipstick TRACE NEGATIVE 06/25/2018 [facility] Urine nitrite detection Urine nitrite detection NEGATIVE NEGATIVE 06/25/2018 [facility] Urine pH measurement by automated test strip Urine pH measurement by automated test strip 6 5 - 7 06/25/2018 [facility] Urine protein measurement by test strip (mass/volume) Urine protein measurement by test strip (mass/volume) NEGATIVE NEGATIVE 06/25/2018 [facility] Urine total bilirubin measurement (mass/volume) Urine total bilirubin measurement (mass/volume) NEGATIVE NEGATIVE 06/25/2018 [facility] Urine urobilinogen measurement by test strip (mass/volume) Urine urobilinogen measurement by test strip (mass/volume) 0.2 0.2 - 1 06/25/2018 [facility] Bacterial urine culture Bacterial urine culture Urine Culture [facility] Vital Signs Vital Sign Value Date Comments Source Encounters Location Location Details Encounter Type Encounter Number Reason For Visit Attending Provider ADM Date DC Date Status Source Discharged Inpatient [id number] BARBARA SHAH MD 06/25/2018 06/29/2018 [facility] Procedures Procedure Code Date Perfomer Comments Source CT of abdomen and pelvis without contrast [id number] 06/25/2018 ELIECER [facility]
[2018-11-26 13:30] VITALS: BP 119/63
--- NOTE | 2018-11-26 17:46 | Diagnostic Imaging Report ---
Bilateral retrograde urography Indications: ^[id number] ^[id number] ^C-ARM RETROGRADE PYELOGRAMS, URETHRAL DILATION. Comparison: CT abdomen/pelvis 06/25/2018 RADIATION DOSE: Fluoroscopy Time: 00:00:16 hh:mm:ss Dose (Kerma) Area Product: 233.53 mGycm2 Air Kerma ([place]) value has been reviewed. It is below the limits set by the Radiation Protocol Committee (RPC) committee. Findings: Contrast was injected into the left ureter in a retrograde fashion.The caliber of the left ureter appear normal. Left renal collecting system also filled unremarkably. Contrast was injected into the right ureter in a retrograde fashion.The caliber of the right ureter appear normal. Right renal collecting system also filled unremarkably. IMPRESSION: Unremarkable bilateral retrograde urography. Signed by: Dr. Berny Javier MD on 11/26/2018 5:43 PM
--- NOTE | 2018-12-27 10:08 | Operative Report ---
DATE OF PROCEDURE: 11/26/2018 SURGEON: Andrea Devine MD PREOPERATIVE DIAGNOSES: 1. Urethral stricture disease. 2. Urinary tract infections. POSTOPERATIVE DIAGNOSES: 1. Urethral stricture disease. 2. Urinary tract infections. OPERATIONS PERFORMED: 1. Cystourethroscopy with dilation of urethral stricture (Surgery was performed for the diagnosis of stricture). 2. Cystourethroscopy with bilateral ureteral catheterization and retrograde ureteropyelography (surgery was performed for the urinary tract infections). 3. Interpretation of retrograde ureteropyelography. 4. Supervision of fluoroscopy, no radiologist was present. ANESTHESIA: General. COMPLICATIONS: None. CLINICAL SUMMARY: Pardeep Dumas is a 53-year-old man with complex and recurrent urethral stricture disease. He is brought for dilation. He is aware of the risks of bleeding, infection, injury to the adjacent structures, and need for additional procedures. He also understands that we plan on placing him on a regimen of intermittent catheterizations to prevent stricture recurrence. He understood all of these risks and the future plans and he elected to proceed. PROCEDURE IN DETAIL: Informed consent was verified. Pardeep Dumas was properly identified, taken to the operating room, and placed on the cystoscopy table in the supine position. Anesthesia was uneventfully begun. The 22.5-Wolof cystoscope sheath with the visual obturator in place was atraumatically inserted into the distal urethra. We identified the severe and long stricture. We then placed guidewire and guided the guidewire under direct vision and under fluoroscopic guidance into the region of patient's bladder. We then utilized the cystoscope sheath and dilated the stents urethral stricture to the size of the sheath along side the guidewire, we passed to normal sphincteric region, went through the prostate bed and into the patient's bladder. Panendoscopy revealed trabeculations with no suspicious lesions. An 8-Wolof catheter was used to cannulate each ureter and retrograde ureteropyelograms were performed. Interpretation of Retrograde Ureteropyelography: Contrast was instilled in a retrograde fashion bilaterally. There were no tumors, no stones, and no diverticula. An obstructive drainage was observed bilaterally fluoroscopically. Over the guidewire, it was felt that the Ojeda catheter was placed. It was guided into the patient's bladder and irrigated to further ensure it works properly. Belladonna and Opium suppository was then placed revealing a 30 g prostate that is smooth, nonfunctional without any nodules. The patient was then uneventfully reversed from anesthesia and taken to the recovery room in stable condition. There were no complications with procedure. He tolerated the procedure well. Plans will be to follow the patient up in several weeks to remove his Ojeda and began his regimen of intermittent catheterizations. Andrea MD [place]/MODL /[id number] cc: Lewis Toney MD
== END | disposition home or self-care (01) ==
LOC: OR 09:49
PROVIDERS: ATTEND Urology
DX: N35.919 Unspecified urethral stricture, male, unspecified site (principal); N39.0 Urinary tract infection, site not specified; N32.89 Other specified disorders of bladder; N52.9 Male erectile dysfunction, unspecified; R81 Glycosuria; N45.3 Epididymo-orchitis; E11.9 Type 2 diabetes mellitus without complications; G47.33 Obstructive sleep apnea (adult) (pediatric); I25.10 Atherosclerotic heart disease of native coronary artery without angina pectoris; I11.0 Hypertensive heart disease with heart failure; I50.9 Heart failure, unspecified; E78.5 Hyperlipidemia, unspecified; E78.00 Pure hypercholesterolemia, unspecified; Z01.812 Encounter for preprocedural laboratory examination; Z79.4 Long term (current) use of insulin; Z79.82 Long term (current) use of aspirin; Z79.02 Long term (current) use of antithrombotics/antiplatelets; Z68.34 Body mass index [BMI] 34.0-34.9, adult; Z95.810 Presence of automatic (implantable) cardiac defibrillator
CPT/HCPCS: 36415 ×2; 52281; 74420; 80048; 82948; 85025; 87086; 87186; C1758; J0696; J1100; J1580; J2001; J2250; J2405; J2704; Q9967

== ENCOUNTER 2018-12-31 06:05 | Observation (INO) | payer OTHER ==
[2018-12-30 12:23] LABS: BASOPHILS # (AUTO) 0.1 (0.0-0.1); BASOPHILS % 0.6 % (0.0-1.0); EOSINOPHILS # (AUTO) 0.4 (0.0-0.4); EOSINOPHILS % 4.3 % (0.0-6.0); HEMATOCRIT 39.9 % (38.2-49.6); LYMPHOCYTES # (AUTO) 2.4 (1.0-3.2); LYMPHOCYTES % 24.5 % (18.0-39.1); MEAN CORPUSCULAR HGB CONC 32.6 g/dL (31-35); MEAN CORPUSCULAR VOLUME 82.8 fL (81-99); MONOCYTES # (AUTO) 0.9 (0.2-0.8); MONOCYTES % 8.8 % (4.4-11.3); NEUTROPHILS # (AUTO) 5.9 (2.1-6.9); NEUTROPHILS % 61.4 % (38.7-80.0); PLATELET COUNT 274 x10e3/uL (140-360); RED BLOOD COUNT 4.82 x10e6/uL (4.3-5.7); RED CELL DISTRIBUTION WIDTH 13.7 % (11.7-14.4)
[2018-12-30 12:45] LABS: INR 0.86; PROTHROMBIN TIME 12.6 seconds (11.9-14.5)
[2018-12-30 12:52] LABS: ANION GAP 13.1 mmol/L (8-16); BLOOD UREA NITROGEN 17 mg/dL (7-26); BUN/CREATININE RATIO 15 (6-25); CARBON DIOXIDE 26 mmol/L (22-29); CHLORIDE 102 mmol/L (98-107); CREATININE, SERUM 1.12 mg/dL (0.72-1.25); EST GLOMERULAR FILTRATION RATE > 60 ML/MIN (60-); GLUCOSE 83 mg/dL (74-118); POTASSIUM 4.1 mmol/L (3.5-5.1); SODIUM 137 mmol/L (136-145)
[~2018-12-31] VITALS: Ht 177.8 cm; Wt 111.6 kg
[2018-12-31] VITALS (10 sets, daily range): BP systolic 100–131; BP diastolic 51–67
[~2018-12-31 06:05] MED LIST changes: +AZO STANDARD95 MG PO; -BELLADONNA/OPIUM 30 MG SUPP RC ONE; -CEFTRIAXONE SOD 1 GM/NS 50 ML 50 ML IV ONE; -DEXAMETHASONE SOD PHOS INJ 4 MG/ML VIAL ONE; +ENTRESTO PO; -FENTANYL CITRATE/PF 100MCG/2 ML INJ ONE; -GENTAMICIN 80MG/NS 100 ML 100 ML IV ONE; -IOPAMIDOL 610MG/1ML 300 MG/ML VIAL IV ONE; -LIDOCAINE HCL 2% LOCAL INJ 5 ML SDV VIAL INJ ONE; -MIDAZOLAM HCL 2 MG/2 ML VIAL ONE; -NITROGLYCERIN0.4 MG PO; +NITROGLYCERIN0.4 MG SL; -ONDANSETRON HCL INJ 2MG/ML 2ML 2 MG/ML VIAL ONE; -PROPOFOL IV EMULSION 10 MG/ML 20 ML VIAL ONE; -SEVOFLURANE INHAL SOLN 250 ML PEN BTL ONE
--- OUTSIDE RECORDS SUMMARY | 2018-12-31 06:09 | XMS REPORT | Clinical Summary ---
Author Author SALLY [facility] Address Unknown Phone Unavailable Care Team Providers Care Laundry Agent Name Role Phone PCP Unavailable Allergies No [...] Not on file Results Not on fileafter 12/30/2017 Insurance Payer Benefit Subscriber ID Type Phone Address Plan / Group [facility] xxxxxxxxxxxx HMO/POS [phone] [facility] CHOICE EXCHANGE
[2018-12-31] MEDS ORDERED: MIDAZOLAM HCL 2 MG/2 ML VIAL ONE ×4 (06:37→08:41)
[2018-12-31] MEDS ORDERED: SODIUM CHLORIDE 0.9% 1000ML 2,000 ML ONE (06:37)
[2018-12-31] MEDS ORDERED: SODIUM CHLORIDE 0.9% 500ML 500 ML ONE (06:37)
[2018-12-31] MEDS ORDERED: BACITRACIN 50,000 UNIT VIAL ONE (06:37)
[2018-12-31] MEDS ORDERED: FENTANYL CITRATE/PF 100MCG/2 ML INJ ONE ×3 (06:37→08:42)
[2018-12-31] MEDS ORDERED: LIDOCAINE HCL 1% LOCAL INJ 20 ML VIAL ONE (06:38)
[2018-12-31] MEDS ORDERED: VANCOMYCIN 1GM/NS 250 ML 250 ML ONE (07:31)
[2018-12-31] MEDS ORDERED: SODIUM BICARBONATE 8.4% SYRING 50 ML ONE (08:04)
--- NOTE | 2018-12-31 09:21 | NUR ---
0921 Received pt form veterinarian laboratory animal care Identifierx2 Report from Nate VAZ pt states 9/10 penile pain from castro #[address] Devine Received orders to get Coude #18 for pt dc home. Orientation back to RICCARDO CHAPMAN Family at bedside. Pacer implant with new lead. Resp shallow and regular sat 98% RA . Abdomen Denies necessity to defecate Bilateral PP present. Left iv infusing well w/o s/s infiltration. CXR done Bed order placed receiving room #189 called report to ТАТЬЯНА Mora awaiting clean for trasfer Pacer Dressing left side dry and intact Sling in place.[facility] form sign per family. Catheter order in place. ds/rn
--- NOTE | 2018-12-31 09:55 | NUR ---
Notified Jong in admissions to place patient in virtual bed.
--- NOTE | 2018-12-31 10:13 | NUR ---
Followed up with Freya in admitting. she stated she will place patient into virtual bed.
--- NOTE | 2018-12-31 10:15 | NUR ---
1015 Called report to floor staff in RM 186 Pacemaker insertion completed transported to room on stretcher with tel and nurse Abby given telephone and face to face report. For dc in am Ojeda in place and brush clearing laborer team delivered 18foley for home discharge.Monitor shows pacer rythm1:1. Iv infusing well w/o s/s infiltration.Back to baseline orientation and family at bedside. POC discussed with family and they have discharge info.Pt did received 225 Fentanyl and 7 Versed as well as 1gm vancomycin in brush clearing laborer and delivered by Nate VAZ. CXR was completed and diet tray has been ordered. stable vs and EKG with pacer dressing intact and sling in place. Family and Pt aware of importance to keep arm in sling w/o movement. Left in floor care with bed height down, siderails up and call light at bedside. brad/chu
--- OUTSIDE RECORDS SUMMARY | 2018-12-31 10:17 | XMS REPORT | Clinical Summary ---
Author Author SALLY [facility] Address Unknown Phone Unavailable Care Team Providers Care Gis Administrator Name Role Phone PCP Unavailable Allergies No [...] ID Type Phone Address Plan / Group [facility] xxxxxxxxxxxx HMO/POS [phone] [facility] CHOICE EXCHANGE
--- NOTE | 2018-12-31 10:35 | Diagnostic Imaging Report ---
EXAM: CHEST SINGLE (PORTABLE), AP Portable DATE: 12/31/2018 Time stamp on exam: 10:04 AM INDICATION: Pacemaker insertion COMPARISON: None FINDINGS: LINES/TUBES: Left chest wall triple lead cardiac device noted. LUNGS: No consolidations or edema. PLEURA: No effusions or pneumothorax. HEART AND MEDIASTINUM: Normal size and contour. BONES AND SOFT TISSUES: No acute findings. IMPRESSION: No acute thoracic abnormality. Signed by: Dr. Raghu Urias DO on 12/31/2018 10:32 AM
--- NOTE | 2018-12-31 10:45 | NUR ---
Pt received from recovery s/p BiV ICD lead revision. Dressing to left upper chest wall is clean, dry, and intact. Pt with 20FR Ojeda draining clear, sara urine. Alert and oriented x4. Oriented to staff and surroundings, encouraged to press call [place] if help needed. Emotional support given. Fall precautions maintained. Will monitor
[2018-12-31] MEDS ORDERED: MORPHINE SULFATE INJ 4 MG/ML INJ 1ML IV PRN (11:45)
[2018-12-31] MEDS: MINOCYCLINE HCL 50 MG CAP PO SCH ×2 (12:30→20:36)
[2018-12-31] MEDS ORDERED: NITROGLYCERIN 0.4 MG SUBL SL PRN (15:15)
[2018-12-31] MEDS ORDERED: NON-FORMULARY MEDICATION ([Entresto] 1 TAB) PO SCH (17:00)
[2018-12-31] MEDS ORDERED: NON-FORMULARY MEDICATION (Metformin Hcl 1,000 MG) PO SCH (17:00)
[2018-12-31] MEDS ORDERED: OMEGA ACID PO SCH (17:00)
[2018-12-31] MEDS: METFORMIN HCL 500 MG TAB PO SCH (17:06)
[2018-12-31] MEDS: ASCORBIC ACID 500 MG TAB PO SCH (17:06)
[2018-12-31] MEDS: OMEGA 3 POLYUNSAT FATTY ACIDS 1000 MG SOFTGEL PO SCH (17:06)
[2018-12-31] MEDS: INSULIN LISPRO 100 UNIT/1 ML 3ML VIAL SQ SCH (17:06)
[2018-12-31] MEDS: METOPROLOL TARTRATE 50 MG TAB PO SCH (17:06)
[2018-12-31] MEDS: FERROUS SULFATE 325 MG TAB PO SCH (17:06)
[2018-12-31] MEDS: ACETAMINOPHEN/CODEINE 300MG - 30MG TAB PO PRN ×2 (17:07→21:20)
[2018-12-31] MEDS: PHENAZOPYRIDINE HCL 100 MG TAB PO SCH (17:07)
[2018-12-31] MEDS: ENTRESTO PO SCH (18:00)
[2018-12-31] MEDS ORDERED: ATORVASTATIN 20 MG TAB PO SCH (21:00)
[2018-12-31] MEDS ORDERED: LEVEMIR 50 UNIT SC SCH (21:00)
[2018-12-31] MEDS ORDERED: PHENAZOPYRIDINE HCL PO SCH (21:00)
[2018-12-31] MEDS ORDERED: GABAPENTIN 100 MG CAP PO SCH (21:00)
[2018-12-31] MEDS ORDERED: INSULIN GLARGINE 100 UNITS/ML VIAL SQ SCH (21:00)
[2019-01-01] VITALS: BP 109/54
--- NOTE | 2019-01-01 03:52 | NUR ---
Received patient from day nurse, patient is alert and oriented x 3, patient is on room air. introduced self to patient and patient made aware of the plans for the shift. castro care done, safety and fall precautions maintained as per hospital protocol: bed in lowest position and locked, needed items beside bed and call [place] placed within patient reach, patient instructed to use it to call nurses for any assistance needed, patient verbalized understanding. patient is currently stable will continue to monitor.2000: patient rounded and stable. 2200: patient rounded and stable. 01/01/19: 0200: patient rounded and stable. 0400: patient rounded and stable.
[2019-01-01 04:00] VITALS: BP 148/70
--- NOTE | 2019-01-01 07:20 | NUR ---
patient endorsed to next shift for continuity of care.
[2019-01-01 08:04] VITALS: BP 154/79
[2019-01-01] MEDS ORDERED: NON-FORMULARY MEDICATION ([Jardiance] 25 MG) PO SCH (09:00)
[2019-01-01] MEDS ORDERED: ATORVASTATIN CALCIUM PO SCH (09:00)
[2019-01-01] MEDS ORDERED: ASPIRIN 81 MG CHEW TAB PO SCH (09:00)
[2019-01-01] MEDS ORDERED: SPIRONOLACTONE 25 MG TAB PO SCH (09:00)
[2019-01-01] MEDS ORDERED: CLOPIDOGREL BISULFATE 75 MG TAB PO SCH (09:00)
[2019-01-01] MEDS ORDERED: FOLIC ACID 1 MG TAB PO SCH (09:00)
[2019-01-01] MEDS ORDERED: TURMERIC PO SCH (09:00)
[2019-01-01] MEDS ORDERED: FUROSEMIDE 20 MG TAB PO SCH (09:00)
[2019-01-01] MEDS: ENTRESTO PO SCH ×2 (09:00→17:00)
[2019-01-01] MEDS ORDERED: ISOSORBIDE MONONITRATE 30 MG TAB CR PO SCH (09:00)
[2019-01-01] MEDS: METFORMIN HCL 500 MG TAB PO SCH ×2 (09:13→17:28)
[2019-01-01] MEDS: FERROUS SULFATE 325 MG TAB PO SCH ×2 (09:32→17:28)
[2019-01-01] MEDS: MINOCYCLINE HCL 50 MG CAP PO SCH (09:33)
[2019-01-01] MEDS: ASCORBIC ACID 500 MG TAB PO SCH ×2 (09:33→17:28)
[2019-01-01] MEDS: OMEGA 3 POLYUNSAT FATTY ACIDS 1000 MG SOFTGEL PO SCH ×2 (09:33→17:28)
[2019-01-01] MEDS: METOPROLOL TARTRATE 50 MG TAB PO SCH ×2 (09:33→17:28)
[2019-01-01] MEDS: PHENAZOPYRIDINE HCL 100 MG TAB PO SCH ×2 (09:33→13:41)
[2019-01-01] MEDS: ACETAMINOPHEN/CODEINE 300MG - 30MG TAB PO PRN (09:46)
--- NOTE | 2019-01-01 10:07 | NUR ---
RIVERS CATHETER REMOVED AT THIS TIME. SMALL AMOUNT OF BLOOD OBSERVED AFTER REMOVAL. PRESSURE APPLIED TO SITE.
--- NOTE | 2019-01-01 10:25 | NUR ---
PT AND PT'S REQUESTED FOR NURSE TO INFORM DR. MONK IN REGARDS TO BLEEDING FROM CATHETER REMOVAL.
--- NOTE | 2019-01-01 10:26 | NUR ---
DR. MONK NOTIFIED AT THIS TIME REGARDING BLEEDING FROM PENIS DUE TO CATHETER REMOVAL OF PT. DR MONK GAVE ORDERS TO REINSERT RIVERS CATH WITH 20FR OR AND 18FR COUDE OR TO HAVE PT VOID (2) TIMES BEFORE ABLE TO BE DISCHARGED. DR. MONK INFORMED NURSE THAT PT CAN GO HOME WITH RIVERS CATHETER. PT IS ON TWO ANTICOAGULATION MEDICATIONS AT THIS TIME.
--- NOTE | 2019-01-01 10:30 | NUR ---
NURSE INFORMED PT REGARDING ORDERS FROM DR. MONK. PT STATED HE WILL WAIT AND SEE IF HE CAN PEE BECAUSE HE DOES NOT WANT TO HAVE RIVERS CATHETER REINSERTED. PT IS APPLYING PRESSURE TO PENIS, PT STATED AMOUNT OF BLEEDING HAS GONE DOWN FROM APPLYING PRESSURE. NO C/O PAIN AT THIS TIME.
[2019-01-01 11:31] VITALS: BP 154/79
[2019-01-01] MEDS: INSULIN LISPRO 100 UNIT/1 ML 3ML VIAL SQ SCH ×3 (11:37→18:00)
[2019-01-01 12:04] VITALS: BP 107/60
--- NOTE | 2019-01-01 12:50 | NUR ---
PT INFORMED NURSE FEELING OF PRESSURE IN SUBRAPUBIC AREA, AND FEELING LIKE NEEDING TO VOID BUT UNABLE TO. PT REINSTATED TO NURSE THAT HE WILL NOT HAVE RIVERS CATHETER REINSERTED UNLESS PT IS SEDATED DUE TO PAIN TOLERANCE. PT'S REQUESTED FOR NURSE TO CONTACT DR. MONK OR DR. SCHUSTER INFORMING THEM ABOUT SITUATION. NURSE PAGED DR. SCHUSTER AT THIS TIME.
--- NOTE | 2019-01-01 13:15 | NUR ---
DR. SCHUSTER INFORMED ABOUT PT NOT BEING ABLE TO VOID AND THAT PT REQUESTED TO BE SEDATED FOR CATHETER. DR. SCHUSTER STATED THAT PT WILL NOT BE DUE TO VOID TILL 1600 AND TO CALL BACK IF PT HAS NOT VOIDED BY THEN.
[2019-01-01 15:19] VITALS: BP 128/56
[2019-01-01] MEDS ORDERED: MINOCYCLINE HCL50 MG PO (17:31)
[2019-01-01] MEDS ORDERED: TYLENOL WITH C1 EACH PO (17:33)
--- NOTE | 2019-02-25 18:11 | Operative Report ---
DATE OF PROCEDURE: 12/31/2018 SURGEON: Melvina Ellis MD PREPROCEDURAL DIAGNOSES: 1. Dislodgement of right ventricular pace/sense lead. 2. History of nonischemic cardiomyopathy with left bundle-branch block, QRS duration of 140 milliseconds. 3. History of previous subcutaneous implantable cardioverter-defibrillator, status post explant. POSTPROCEDURAL DIAGNOSES: 1. Dislodgement of right ventricular pace/sense lead. 2. History of nonischemic cardiomyopathy with left bundle-branch block, QRS duration of 140 milliseconds. 3. History of previous subcutaneous implantable cardioverter-defibrillator, status post explant. PROCEDURES PERFORMED: 1. Insertion of new right ventricular single coil implantable cardioverter- defibrillator lead. 2. Explant of old right ventricular implantable cardioverter-defibrillator lead. PROCEDURE IN DETAIL: Mr. Dumas was brought to the cathode builder at [facility] in the fasting and un-sedated state. The left pectoral region was prepped and draped in a sterile manner. The pocket was reopened along the previous incision line with combination of electrocautery, blunt, and sharp dissection. The generator removed from the pocket and the leads freed up from the underlying scar tissue. The right ventricular ICD lead was noted to be dislodged on the fluoroscopy and it was disconnected from the generator. Active fixation was withdrawn and after the lead was removed without complications. Access to the axillary vein was then made through the pocket and a guidewire was placed in the vein with tip in the IVC. A 9-Serbian sheath was then placed over the guidewire through which a [place] 4-Site single coil ICD lead, model #0292, serial #[id number], was implanted in the right ventricular apex without complications. Adequate pacing and sensing parameters were observed and the sheath was peeled away and lead secured to the underlying fascia with 0-silk. Pocket was irrigated with antibiotic containing normal saline and the leads and generators were then placed into the pocket and secured to the underlying fascia with 0-silk. The pocket was closed in 3 layers with 2-0 Vicryl for the deeper subcutaneous layers and 4-0 Vicryl for the skin. Dermabond was placed for additional skin approximation. DEVICE DATA: The right ventricular lead has R waves of 17.6 millivolts with threshold of 0.8 volts with pulse width of 0.4 milliseconds and pacing impedance of 185 ohms. Shock impedance of 70 ohms. Of note, all other device parameters were within normal limits and unchanged from previous device implant. CONCLUSION: 1. Right ventricular ICD lead was noted to be dislodged. 2. Success explant of the right ventricular ICD lead. 3. Success implant of new right ventricular ICD lead. 4. No complications. MD TEETEE Ny/MODSoheila /[id number] MTDD
--- NOTE | 2019-02-26 04:07 | Discharge Summary ---
DISCHARGE CONDITION: Good. REASON FOR ADMISSION: Revision of right ventricular ICD lead. HOSPITAL COURSE: Mr. Pardeep Dumas was brought to the slab depiler operator at [facility] for RV lead revision. He had explant of his old RV lead, which was dislodged and the new RV ICD lead implanted. He tolerated the procedure well and was transferred to his room in stable condition. He had a device interrogated in the morning and was discharged without complications. DISCHARGE DISPOSITION: Home. DISCHARGE CONDITION: Good. DISCHARGE INSTRUCTIONS: Discharge instructions were given to the patient. The patient tolerated the procedure well. DISCHARGE MEDICATIONS: Please see MAR for discharge medications. MD TEETEE Ny/HITESH /[id number]
== END 2019-01-01 18:08 | disposition home or self-care (01) ==
LOC: CATH LAB 06:05 → CATH LAB V 09:02 → IMCU 10:49
PROVIDERS: ADMIT Internal Medicine Clinical Cardiac Electrophysiology; ATTEND Internal Medicine Clinical Cardiac Electrophysiology
DX: T82.110A Breakdown (mechanical) of cardiac electrode, initial encounter (principal); I50.22 Chronic systolic (congestive) heart failure; I42.0 Dilated cardiomyopathy; I44.7 Left bundle-branch block, unspecified; Z95.810 Presence of automatic (implantable) cardiac defibrillator
CPT/HCPCS: 33216; 33234; 36415 ×3; 71045; 80048; 82948 ×2; 85025; 85610; C1769; C1777; G0378 ×2; J1815; J2001; J2250; J2270; J3370; J7030; J7040

== ENCOUNTER 2019-01-02 21:06 | Emergency (ER) | payer OTHER ==
[~2019-01-02] VITALS: Ht 177.8 cm; Wt 111.6 kg
[~2019-01-02 21:06] MED LIST changes: +MINOCYCLINE HCL50 MG PO; +TYLENOL WITH C1 EACH PO
--- OUTSIDE RECORDS SUMMARY | 2019-01-02 21:08 | XMS REPORT | Clinical Summary ---
Author Author SALLY [facility] Address Unknown Phone Unavailable Care Team Providers Care Photographic Equipment Assembler Name Role Phone PCP Unavailable Allergies No [...] Not on file Results Not on fileafter 01/01/2018 Insurance Payer Benefit Subscriber ID Type Phone Address Plan / Group [facility] xxxxxxxxxxxx HMO/POS [phone] [facility] CHOICE EXCHANGE
[2019-01-02] MEDS ORDERED: DIPHENHYDRAMINE HCL INJ 50 MG/ML VIAL IV ONE (21:30)
[2019-01-02] MEDS ORDERED: METHYLPREDNISOLONE SOD SUCC 125 MG/2ML VIAL IV ONE (21:30)
[2019-01-02 21:43] LABS: BASOPHILS % 0.5 % (0.0-1.0); EOSINOPHILS # (AUTO) 0.3 (0.0-0.4); EOSINOPHILS % 3.9 % (0.0-6.0); HEMATOCRIT 39.1 % (38.2-49.6); HEMOGLOBIN 12.7 g/dL (14.0-18.0); LYMPHOCYTES # (AUTO) 1.9 (1.0-3.2); LYMPHOCYTES % 22.3 % (18.0-39.1); MEAN CORPUSCULAR HEMOGLOBIN 27.4 pg (28-32); MEAN CORPUSCULAR HGB CONC 32.5 g/dL (31-35); MEAN CORPUSCULAR VOLUME 84.3 fL (81-99); MONOCYTES # (AUTO) 0.5 (0.2-0.8); MONOCYTES % 5.9 % (4.4-11.3); NEUTROPHILS # (AUTO) 5.6 (2.1-6.9); PLATELET COUNT 261 x10e3/uL (140-360); RED BLOOD COUNT 4.64 x10e6/uL (4.3-5.7)
[2019-01-02 21:53] LABS: INR 0.88; PROTHROMBIN TIME 12.4 seconds (11.9-14.5)
[2019-01-02 21:54] LABS: PARTIAL THROMBOPLASTIN TIME 32.4 seconds (23.8-35.5)
[2019-01-02 22:03] LABS: ALANINE AMINOTRANSFERASE 13 IU/L (0-55); ALBUMIN 3.9 g/dL (3.5-5.0); ALKALINE PHOSPHATASE 69 IU/L (40-150); ANION GAP 14.1 mmol/L (8-16); BLOOD UREA NITROGEN 16 mg/dL (7-26); BUN/CREATININE RATIO 15 (6-25); CALCIUM 9.8 mg/dL (8.4-10.2); CARBON DIOXIDE 26 mmol/L (22-29); CHLORIDE 102 mmol/L (98-107); CREATINE KINASE 64 IU/L (30-200); CREATININE, SERUM 1.09 mg/dL (0.72-1.25); EST GLOMERULAR FILTRATION RATE > 60 ML/MIN (60-); GLUCOSE 182 mg/dL (74-118); POTASSIUM 4.1 mmol/L (3.5-5.1); SODIUM 138 mmol/L (136-145)
--- NOTE | 2019-01-02 22:08 | Diagnostic Imaging Report ---
EXAMINATION: CHEST SINGLE (PORTABLE) COMPARISON: Chest x-ray 12/31/2018 INDICATION: Recent pacemaker pouch adjustment, pain, shortness of breath ^chest pain/sob ^[id number] ^2130 ^Y DISCUSSION: Frontal view of the chest obtained at 2130 hours. HEART AND MEDIASTINUM: Stable cardiomegaly and aortic ectasia. LINES: Pacer/defibrillator battery pack is in stable orientation. Multiple pacer leads in the right atrium and right ventricle are stable. LUNGS: The lungs are well inflated and clear. No pneumonia or pulmonary edema. PLEURA: No pleural effusion or pneumothorax. BONES AND SOFT TISSUES: No focal osseous lesion. The soft tissues are normal. IMPRESSION: No new cardiopulmonary process. Stable pacemaker. Signed by: Dr. Berny Javier MD on 01/02/2019 10:05 PM
[2019-01-02 22:53] VITALS: BP 112/70
== END 2019-01-02 23:23 | disposition home or self-care (01) ==
LOC: ER 21:06
DX: R07.89 Other chest pain (principal); L24.5 Irritant contact dermatitis due to other chemical products; Z95.0 Presence of cardiac pacemaker; I10 Essential (primary) hypertension; E11.9 Type 2 diabetes mellitus without complications; I50.9 Heart failure, unspecified; K86.89 Other specified diseases of pancreas
CPT/HCPCS: 36415; 71045; 80053; 82550; 82553; 83880; 84484; 85025; 85610; 85730; 93005; 99283; J1200; J2930

== ENCOUNTER 2019-01-08 23:36 | Observation (INO) | payer OTHER ==
[~2019-01-08] VITALS: Ht 177.8 cm; Wt 108.9 kg
--- OUTSIDE RECORDS SUMMARY | 2019-01-08 23:39 | XMS REPORT | Clinical Summary ---
Author Author SALLY [facility] Address Unknown Phone Unavailable Care Team Providers Care Risk Management Analyst Name Role Phone PCP Unavailable Allergies No [...] Not on file Results Not on fileafter 01/07/2018 Insurance Payer Benefit Subscriber ID Type Phone Address Plan / Group [facility] xxxxxxxxxxxx HMO/POS [phone] [facility] CHOICE EXCHANGE
--- OUTSIDE RECORDS SUMMARY | 2019-01-08 23:40 | XMS REPORT | Continuity of Care Document ---
Author Author [facility] Interface Address Unknown Phone Unavailable Problems Problem Status Onset Date Classification Date Reported Comments Source CHF Active 10/06/2015 Problem 01/03/2019 [facility] Acute hemorrhagic cystitis Active Problem 01/03/2019 [facility] Medications Medication Details Route Status Patient Instructions Ordering Provider Order Date Source Losartan Potassium 25 Mg Tablet, 25 Mg Oral Daily Active 12/30/2018 [facility] Albuterol Sulfate (Proair Hfa Inhaler*) 8.5 Gm Inh, Active 06/25/2018 [facility] Insulin Glargine (Lantus 3ML Pen) 100 Units/1 Ml Inj, Active 06/25/2018 [facility] Insulin Lispro (Humalog) 100 Unit/1 Ml Cartridge, Active 06/25/2018 [facility] Simvastatin 40 Mg Tablet, 40 Mg Oral Bedtime Active 06/25/2018 [facility] Insulin Glargine (Lantus 3ML Pen) 100 Units/1 Ml Inj, Active 06/25/2018 [facility] Simvastatin 40 Mg Tablet, 40 Mg Oral Bedtime Active 06/25/2018 [facility] Furosemide (Lasix) 20 Mg Tablet Daily Active [facility] 10/07/2015 [facility] Metoprolol Succinate 50 Mg Tab.er.24h Daily Active [facility] 10/07/2015 [facility] Guaifenesin (Tussin) 100 Mg/5 Ml Liquid, Active 10/07/2015 [facility] Guaifenesin/Dextromethorphan (Mucinex Dm Er 600-30 Mg Tablet) 1 Each Tab.er.12h, 1 Each Oral Every 12 Hours Active 10/07/2015 [facility] Furosemide (Lasix) 20 Mg Tablet Daily Active [facility] 10/07/2015 [facility] Guaifenesin (Tussin) 100 Mg/5 Ml Liquid, Active 10/07/2015 [facility] Metoprolol Succinate 50 Mg Tab.er.24h, 50 Mg Oral Daily Active [facility] 10/07/2015 [facility] Aspirin (Aspir 81) 81 Mg Tablet. Daily Active [facility] Atorvastatin Calcium 40 Mg Tablet Daily Active [facility] Clopidogrel Bisulfate (Clopidogrel) 75 Mg Tablet Daily Active [facility] Ferrous Sulfate 325 Mg Tablet Twice A Day Active [facility] Folic Acid 1 Mg Tablet Daily Active [facility] Gabapentin 100 Mg Capsule Bedtime Active [facility] Insulin Aspart (Novolog) Unknown Strength Inj Active [facility] Isosorbide Mononitrate (Isosorbide Mononitrate Er) 30 Mg Tab.er.24h Daily Active [facility] Jardiance 25MG Daily Active [facility] Levemir Bedtime Active [facility] Losartan Potassium 25 Mg Tablet Daily Active [facility] Metformin Hcl 1,000 Mg Tablet Twice A Day Active [facility] Nitroglycerin 0.4 Mg Tab.subl As Needed Active [facility] Ekspo-5-Gyqu Twice A Day Active [facility] Spironolactone 25 Mg Tablet Daily Active [facility] Acetaminophen With Codeine (Tylenol With Codeine #3 Tablet) 1 Each Tablet Every 6 Hours as needed for Pain Active [facility] Ascorbic Acid 500 Mg Tablet Twice A Day Active [facility] Aspirin (Aspir 81) 81 Mg Tablet. Daily Active [facility] Atorvastatin Calcium 40 Mg Tablet Daily Active [facility] Clopidogrel Bisulfate (Clopidogrel) 75 Mg Tablet Daily Active [facility] Entresto 24MG-26MG Tab Twice A Day Active [facility] Folic Acid 1 Mg Tablet Daily Active [facility] Gabapentin 100 Mg Capsule Bedtime Active [facility] Insulin Aspart (Novolog) Unknown Strength Inj Three Times Daily With Meals Active [facility] Isosorbide Mononitrate (Isosorbide Mononitrate Er) 30 Mg Tab.er.24h Daily Active [facility] Metformin Hcl 1,000 Mg Tablet Twice A Day Active [facility] Metoprolol Tartrate 50 Mg Tablet Twice A Day Active [facility] Minocycline Hcl 50 Mg Capsule Twice A Day Active [facility] Nitroglycerin 0.4 Mg Tab.subl As Needed as needed for Chest Pain Active [facility] Phenazopyridine Hcl (Azo Standard) 95 Mg Tablet Three Times A Day Active [facility] Spironolactone 25 Mg Tablet Daily Active [facility] Turmeric Daily Active [facility] Allergies, Adverse Reactions, Alerts Substance Category Reaction Severity Reaction type Status Date Reported Comments Source Immunizations Immunization Date Given Site Status Last Updated Comments Source Results Order Name Results Value Reference Range Date Interpretation Comments Source Blood leukocytes automated count (number/volume) 8.37 4.8 - 10.8 01/02/2019 [facility] Blood erythrocytes automated count (number/volume) 4.64 4.3 - 5.7 01/02/2019 [facility] Blood hemoglobin measurement (moles/volume) 12.7 14.0 - 18.0 01/02/2019 [facility] Automated blood hematocrit (volume fraction) 39.1 38.2 - 49.6 01/02/2019 [facility] Automated erythrocyte mean corpuscular volume 84.3 81 - 99 01/02/2019 [facility] Automated erythrocyte mean corpuscular hemoglobin (mass per erythrocyte) 27.4 28 - 32 01/02/2019 [facility] Automated erythrocyte mean corpuscular hemoglobin concentration measurement (mass/volume) 32.5 31 - 35 01/02/2019 [facility] RDW BldCo-Rto 14.0 11.7 - 14.4 01/02/2019 [facility] Automated blood platelet count (count/volume) 261 140 - 360 01/02/2019 [facility] Automated blood segmented neutrophil count as percentage of total leukocytes 67.0 38.7 - 80.0 01/02/2019 [facility] Automated blood lymphocyte count as percentage ot total leukocytes 22.3 18.0 - 39.1 01/02/2019 [facility] Automated blood monocyte count as percentage of total leukocytes 5.9 4.4 - 11.3 01/02/2019 [facility] Automated blood eosinophil count as percentage of total leukocytes 3.9 0.0 - 6.0 01/02/2019 [facility] Automated blood basophil count as percentage of total leukocytes 0.5 0.0 - 1.0 01/02/2019 [facility] IM GRANULOCYTES % 0.4 0.0 - 1.0 01/02/2019 [facility] Automated blood neutrophil count 5.6 2.1 - 6.9 01/02/2019 [facility] Blood lymphocytes count (number/volume) 1.9 1.0 - 3.2 01/02/2019 [facility] Blood monocytes automated count (number/volume) 0.5 0.2 - 0.8 01/02/2019 [facility] Automated blood eosinophil count 0.3 0.0 - 0.4 01/02/2019 [facility] Automated blood basophil count (count/volume) 0.0 0.0 - 0.1 01/02/2019 [facility] Absolute Immature Granulocyte (auto 0.03 0 - 0.1 01/02/2019 [facility] Prothrombin time (PT) in platelet poor plasma by coagulation assay 12.4 11.9 - 14.5 01/02/2019 [facility] INR in Platelet poor plasma by Coagulation assay 0.88 01/02/2019 [facility] Activated partial thromboplastin time (aPTT) in platelet poor plasma bycoagulation assay 32.4 23.8 - 35.5 01/02/2019 [facility] Serum or plasma sodium measurement (moles/volume) 138 136 - 145 01/02/2019 [facility] Serum or plasma potassium measurement (moles/volume) 4.1 3.5 - 5.1 01/02/2019 [facility] Serum or plasma chloride measurement (moles/volume) 102 98 - 107 01/02/2019 [facility] Serum or plasma carbon dioxide, total measurement (moles/volume) 26 22 - 29 01/02/2019 [facility] Serum or plasma anion gap 14.1 8 - 16 01/02/2019 [facility] Serum or plasma urea nitrogen measurement (mass/volume) 16 7 - 26 01/02/2019 [facility] Serum or plasma creatinine measurement (mass/volume) 1.09 0.72 - 1.25 01/02/2019 [facility] Serum or plasma urea nitrogen/creatinine mass ratio 15 6 - 25 01/02/2019 [facility] Estimated glomerular filtration rate (GFR) determination > 60 60 01/02/2019 [facility] Glucose measurement 182 74 - 118 01/02/2019 [facility] Serum or plasma calcium measurement (mass/volume) 9.8 8.4 - 10.2 01/02/2019 [facility] Serum or plasma total bilirubin measurement (mass/volume) 0.3 0.2 - 1.2 01/02/2019 [facility] Aspartate Amino Transf (AST/SGOT) 13 5 - 34 01/02/2019 [facility] Serum or plasma alanine aminotransferase measurement (enzymatic activity/volume) 13 0 - 55 01/02/2019 [facility] Serum or plasma protein measurement (mass/volume) 7.7 6.5 - 8.1 01/02/2019 [facility] Serum or plasma albumin measurement (mass/volume) 3.9 3.5 - 5.0 01/02/2019 [facility] Plasma globulin measurement (mass/volume) 3.8 2.3 - 3.5 01/02/2019 [facility] Serum or plasma albumin/globulin mass ratio 1.0 0.8 - 2.0 01/02/2019 [facility] Serum or plasma alkaline phosphatase measurement (enzymatic activity/volume) 69 40 - 150 01/02/2019 [facility] BNP Bld-mCnc 71.8 0 - 100 01/02/2019 [facility] Serum or plasma creatine kinase measurement (enzymatic activity/volume) 64 30 - 200 01/02/2019 [facility] Serum or plasma creatine kinase MB measurement (mass/volume) 1.20 0 - 5.0 01/02/2019 [facility] Troponin I measurement by highly sensitive enzyme immunoassay 0.008 0 - 0.300 01/02/2019 [facility] Capillary blood glucose measurement by glucometer (mass/volume) 190 70 - 120 01/01/2019 [facility] Capillary blood glucose measurement by glucometer (mass/volume) Capillary blood glucose measurement by glucometer (mass/volume) 148 70 - 120 06/29/2018 [facility] Automated blood basophil count (count/volume) Automated blood basophil count (count/volume) 0.0 0.0 - 0.1 06/28/2018 [facility] Automated blood basophil count as percentage of total leukocytes Automated blood basophil count as percentage of total leukocytes 0.4 0.0 - 1.0 06/28/2018 [facility] Automated blood eosinophil count Automated blood eosinophil count 0.4 0.0 - 0.4 06/28/2018 [facility] Automated blood eosinophil count as percentage of total leukocytes Automated blood eosinophil count as percentage of total leukocytes 3.5 0.0 - 6.0 06/28/2018 [facility] Automated blood hematocrit (volume fraction) Automated blood hematocrit (volume fraction) 34.7 38.2 - 49.6 06/28/2018 [facility] Automated blood lymphocyte count as percentage ot total leukocytes Automated blood lymphocyte count as percentage ot total leukocytes 22.9 18.0 - 39.1 06/28/2018 [facility] Automated blood monocyte count as percentage of total leukocytes Automated blood monocyte count as percentage of total leukocytes 9.2 4.4 - 11.3 06/28/2018 [facility] Automated blood neutrophil count Automated blood neutrophil count 6.3 2.1 - 6.9 06/28/2018 [facility] Automated blood platelet count (count/volume) Automated blood platelet count (count/volume) 354 140 - 360 06/28/2018 [facility] Automated blood segmented neutrophil count as percentage of total leukocytes Automated blood segmented neutrophil count as percentage of total leukocytes 62.7 38.7 - 80.0 06/28/2018 [facility] Automated erythrocyte mean corpuscular hemoglobin (mass per erythrocyte) Automated erythrocyte mean corpuscular hemoglobin (mass per erythrocyte) 28.4 28 - 32 06/28/2018 [facility] Automated erythrocyte mean corpuscular hemoglobin concentration measurement (mass/volume) Automated erythrocyte mean corpuscular hemoglobin concentration measurement (mass/volume) 32.9 31 - 35 06/28/2018 [facility] Automated erythrocyte mean corpuscular volume Automated erythrocyte mean corpuscular volume 86.5 81 - 99 06/28/2018 [facility] Blood erythrocytes automated count (number/volume) Blood erythrocytes automated count (number/volume) 4.01 4.3 - 5.7 06/28/2018 [facility] Blood hemoglobin measurement (moles/volume) Blood hemoglobin measurement (moles/volume) 11.4 14.0 - 18.0 06/28/2018 [facility] Blood leukocytes automated count (number/volume) Blood leukocytes automated count (number/volume) 10.04 4.8 - 10.8 06/28/2018 [facility] Blood lymphocytes count (number/volume) Blood lymphocytes count (number/volume) 2.3 1.0 - 3.2 06/28/2018 [facility] Blood monocytes automated count (number/volume) Blood monocytes automated count (number/volume) 0.9 0.2 - 0.8 06/28/2018 [facility] Estimated glomerular filtration rate (GFR) determination Estimated glomerular filtration rate (GFR) determination null 60 06/28/2018 [facility] Glucose measurement Glucose measurement 130 74 - 118 06/28/2018 [facility] Serum or plasma anion gap Serum or plasma anion gap 13.2 8 - 16 06/28/2018 [facility] Serum or plasma calcium measurement (mass/volume) Serum or plasma calcium measurement (mass/volume) 9.6 8.4 - 10.2 06/28/2018 [facility] Serum or plasma carbon dioxide, total measurement (moles/volume) Serum or plasma carbon dioxide, total measurement (moles/volume) 26 22 - 29 06/28/2018 [facility] Serum or plasma chloride measurement (moles/volume) Serum or plasma chloride measurement (moles/volume) 103 98 - 107 06/28/2018 [facility] Serum or plasma creatinine measurement (mass/volume) Serum or plasma creatinine measurement (mass/volume) 0.87 0.72 - 1.25 06/28/2018 [facility] Serum or plasma potassium measurement (moles/volume) Serum or plasma potassium measurement (moles/volume) 4.2 3.5 - 5.1 06/28/2018 [facility] Serum or plasma sodium measurement (moles/volume) Serum or plasma sodium measurement (moles/volume) 138 136 - 145 06/28/2018 [facility] Serum or plasma urea nitrogen measurement (mass/volume) Serum or plasma urea nitrogen measurement (mass/volume) 17 7 - 26 06/28/2018 [facility] Serum or plasma urea nitrogen/creatinine mass ratio Serum or plasma urea nitrogen/creatinine mass ratio 20 6 - 25 06/28/2018 [facility] Red Cell Distribution Width 12.6 11.7 - 14.4 06/28/2018 [facility] IM GRANULOCYTES % 1.3 0.0 - 1.0 06/28/2018 [facility] Absolute Immature Granulocyte (auto 0.13 0 - 0.1 06/28/2018 [facility] Blood culture NO GROWTH AFTER 5 DAYS, FINAL REPORT 06/26/2018 [facility] Blood culture Blood culture NO GROWTH AFTER 48 HOURS 06/26/2018 [facility] Troponin I measurement by highly sensitive enzyme immunoassay Troponin I measurement by highly sensitive enzyme immunoassay 0.006 0 - 0.300 06/26/2018 [facility] Differential Total Cells Counted 100 06/26/2018 [facility] Manual blood neutrophils/100 leukocytes 76 40 - 74 06/26/2018 [facility] Manual blood lymphocytes/100 leukocytes 13 - 06/26/2018 [facility] Manual blood monocytes/100 leukocytes 8 3.4 - 9.0 06/26/2018 [facility] Manual blood eosinophil count as percentage of total leukocytes 3 0 - 7 06/26/2018 [facility] Blood platelets count by estimate (number/volume) ADEQUATE 06/26/2018 [facility] Platelet morphology NORMAL 06/26/2018 [facility] RBC morphology NORMAL 06/26/2018 [facility] Blood platelets count by estimate (number/volume) Blood platelets count by estimate (number/volume) ADEQUATE 06/26/2018 [facility] Manual blood eosinophil count as percentage of total leukocytes Manual blood eosinophil count as percentage of total leukocytes 3 0 - 7 06/26/2018 [facility] Manual blood lymphocytes/100 leukocytes Manual blood lymphocytes/100 leukocytes 13 19 - 48 06/26/2018 [facility] Manual blood monocytes/100 leukocytes Manual blood monocytes/100 leukocytes 8 3.4 - 9.0 06/26/2018 [facility] Manual blood neutrophils/100 leukocytes Manual blood neutrophils/100 leukocytes 76 40 - 74 06/26/2018 [facility] Platelet morphology Platelet morphology NORMAL 06/26/2018 [facility] RBC morphology RBC morphology NORMAL 06/26/2018 [facility] Differential Total Cells Counted 100 06/26/2018 [facility] Phosphorus measurement 2.2 2.3 - 4.7 06/25/2018 [facility] Serum or plasma magnesium measurement (mass/volume) 1.8 1.3 - 2.1 06/25/2018 [facility] Serum or plasma natriuretic peptide B prohormone N-terminal measurement(mass/volume) 568 0 - 121 06/25/2018 [facility] Serum or plasma prostate specific antigen measurement (mass/volume) 8.2 0.0 - 4.0 06/25/2018 [facility] Activated partial thromboplastin time (aPTT) in platelet poor plasma bycoagulation assay Activated partial thromboplastin time (aPTT) in platelet poor plasma bycoagulation assay 32.0 23.8 - 35.5 06/25/2018 [facility] INR in Platelet poor plasma by Coagulation assay INR in Platelet poor plasma by Coagulation assay 1.14 06/25/2018 [facility] Phosphorus measurement Phosphorus measurement 2.2 2.3 - 4.7 06/25/2018 [facility] Plasma globulin measurement (mass/volume) Plasma globulin measurement (mass/volume) 3.9 2.3 - 3.5 06/25/2018 [facility] Prothrombin time (PT) in platelet poor plasma by coagulation assay Prothrombin time (PT) in platelet poor plasma by coagulation assay 13.7 11.9 - 14.5 06/25/2018 [facility] Serum or plasma alanine aminotransferase measurement (enzymatic activity/volume) Serum or plasma alanine aminotransferase measurement (enzymatic activity/volume) 12 0 - 55 06/25/2018 [facility] Serum or plasma albumin measurement (mass/volume) Serum or plasma albumin measurement (mass/volume) 3.8 3.5 - 5.0 06/25/2018 [facility] Serum or plasma albumin/globulin mass ratio Serum or plasma albumin/globulin mass ratio 1.0 0.8 - 2.0 06/25/2018 [facility] Serum or plasma alkaline phosphatase measurement (enzymatic activity/volume) Serum or plasma alkaline phosphatase measurement (enzymatic activity/volume) 59 40 - 150 06/25/2018 [facility] Serum or plasma magnesium measurement (mass/volume) Serum or plasma magnesium measurement (mass/volume) 1.8 1.3 - 2.1 06/25/2018 [facility] Serum or plasma natriuretic peptide B prohormone N-terminal measurement(mass/volume) Serum or plasma natriuretic peptide B prohormone N-terminal measurement(mass/volume) 568 0 - 121 06/25/2018 [facility] Serum or plasma prostate specific antigen measurement (mass/volume) Serum or plasma prostate specific antigen measurement (mass/volume) 8.2 0.0 - 4.0 06/25/2018 [facility] Serum or plasma protein measurement (mass/volume) Serum or plasma protein measurement (mass/volume) 7.7 6.5 - 8.1 06/25/2018 [facility] Serum or plasma total bilirubin measurement (mass/volume) Serum or plasma total bilirubin measurement (mass/volume) 0.9 0.2 - 1.2 06/25/2018 [facility] Aspartate Amino Transf (AST/SGOT) 12 5 - 34 06/25/2018 [facility] Urine color determination YELLOW YELLOW 06/25/2018 [facility] Urine clarity HAZY CLEAR 06/25/2018 [facility] Specific gravity of Urine by Test strip 1.010 1.010 - 1.025 06/25/2018 [facility] Urine pH measurement by automated test strip 6 5 - 7 06/25/2018 [facility] Urine leukocyte esterase detection by dipstick TRACE NEGATIVE 06/25/2018 [facility] Urine nitrite detection NEGATIVE NEGATIVE 06/25/2018 [facility] Urine protein measurement by test strip (mass/volume) NEGATIVE NEGATIVE 06/25/2018 [facility] Urine glucose detection 3+ NEGATIVE 06/25/2018 [facility] Urine ketones detection by automated test strip NEGATIVE NEGATIVE 06/25/2018 [facility] Urine urobilinogen measurement by test strip (mass/volume) 0.2 0.2 - 1 06/25/2018 [facility] Urine total bilirubin measurement (mass/volume) NEGATIVE NEGATIVE 06/25/2018 [facility] Urine erythrocytes detection TRACE NEGATIVE 06/25/2018 [facility] Automated urine sediment leukocyte count by microscopy (number/high power field) 11-20 0 - 5 06/25/2018 [facility] Erythrocytes detection in urine sediment by light microscopy NONE 0 - 5 06/25/2018 [facility] Bacteria detection in urine sediment by light microscopy MANY NONE 06/25/2018 [facility] Epithelial cells detection in urine sediment by light microscopy RARE NONE 06/25/2018 [facility] Automated urine sediment leukocyte count by microscopy (number/high power field) Automated urine sediment leukocyte count by microscopy (number/high power field) null 0 - 5 06/25/2018 [facility] Bacteria detection in urine sediment by light microscopy Bacteria detection in urine sediment by light microscopy MANY NONE 06/25/2018 [facility] Epithelial cells detection in urine sediment by light microscopy Epithelial cells detection in urine sediment by light microscopy RARE NONE 06/25/2018 [facility] Erythrocytes detection in urine sediment by light microscopy Erythrocytes detection in urine sediment by light microscopy NONE 0 - 5 06/25/2018 [facility] Specific gravity of Urine by Test strip Specific gravity of Urine by Test strip 1.010 1.010 - 1.025 06/25/2018 [facility] Urine clarity Urine clarity HAZY CLEAR 06/25/2018 [facility] Urine color determination Urine color determination YELLOW YELLOW 06/25/2018 [facility] Urine erythrocytes detection Urine erythrocytes detection TRACE NEGATIVE 06/25/2018 [facility] Urine glucose detection Urine glucose detection 3+ NEGATIVE 06/25/2018 [facility] Urine ketones detection by automated test strip Urine ketones detection by automated test strip NEGATIVE NEGATIVE 06/25/2018 [facility] Urine leukocyte esterase detection by dipstick Urine leukocyte esterase detection by dipstick TRACE NEGATIVE 06/25/2018 [facility] Urine nitrite detection Urine nitrite detection NEGATIVE NEGATIVE 06/25/2018 [facility] Urine pH measurement by automated test strip Urine pH measurement by automated test strip 6 5 - 7 06/25/2018 [facility] Urine protein measurement by test strip (mass/volume) Urine protein measurement by test strip (mass/volume) NEGATIVE NEGATIVE 06/25/2018 [facility] Urine total bilirubin measurement (mass/volume) Urine total bilirubin measurement (mass/volume) NEGATIVE NEGATIVE 06/25/2018 [facility] Urine urobilinogen measurement by test strip (mass/volume) Urine urobilinogen measurement by test strip (mass/volume) 0.2 0.2 - 1 06/25/2018 [facility] Bacterial urine culture Urine Culture [facility] Vital Signs Vital Sign Value Date Comments Source Encounters Location Location Details Encounter Type Encounter Number Reason For Visit Attending Provider ADM Date DC Date Status Source Discharged Inpatient [id number] BARBARA SHAH MD 06/25/2018 06/29/2018 [facility] Registered Surgical Day [facility] [id number] JOSE MONK MD 07/23/2018 [facility] Registered Surgical Day Care [id number] JOSE MONK MD 11/26/2018 [facility] Discharged Inpatient (obs) [id number] BALDEV BENJAMIN MD 12/31/2018 01/01/2019 [facility] Departed Emergency Room [id number] RUBEN HAYES MD 01/02/2019 01/02/2019 [facility] Procedures Procedure Code Date Perfomer Comments Source CYSTOSCOPY AND TREATMENT [id number] 11/26/2018 [facility] CYSTOSCOPY & URETER CATHETER [id number] 07/23/2018 [facility] CYSTOSCOPY AND TREATMENT [id number] 07/23/2018 [facility] CT of abdomen and pelvis without contrast [id number] 06/25/2018 ELIECER ZAVALA [facility]
[2019-01-09] MEDS ORDERED: ASPIRIN 81 MG CHEW TAB PO ONE ×2 (00:15→00:30)
[2019-01-09 00:26] LABS: BASOPHILS # (AUTO) 0.1 (0.0-0.1); BASOPHILS % 0.6 % (0.0-1.0); EOSINOPHILS # (AUTO) 0.4 (0.0-0.4); EOSINOPHILS % 4.1 % (0.0-6.0); HEMATOCRIT 39.2 % (38.2-49.6); HEMOGLOBIN 12.5 g/dL (14.0-18.0); LYMPHOCYTES # (AUTO) 2.8 (1.0-3.2); LYMPHOCYTES % 26.4 % (18.0-39.1); MEAN CORPUSCULAR HEMOGLOBIN 27.2 pg (28-32); MEAN CORPUSCULAR HGB CONC 31.9 g/dL (31-35); MEAN CORPUSCULAR VOLUME 85.4 fL (81-99); MONOCYTES # (AUTO) 0.8 (0.2-0.8); MONOCYTES % 7.5 % (4.4-11.3); NEUTROPHILS # (AUTO) 6.3 (2.1-6.9); NEUTROPHILS % 60.3 % (38.7-80.0); PLATELET COUNT 333 x10e3/uL (140-360); RED BLOOD COUNT 4.59 x10e6/uL (4.3-5.7); RED CELL DISTRIBUTION WIDTH 13.9 % (11.7-14.4)
[2019-01-09 00:47] LABS: ALANINE AMINOTRANSFERASE 11 IU/L (0-55); ALBUMIN 3.9 g/dL (3.5-5.0); ALBUMIN/GLOBULIN RATIO 1.2 (0.8-2.0); ALKALINE PHOSPHATASE 77 IU/L (40-150); ANION GAP 14.8 mmol/L (8-16); BLOOD UREA NITROGEN 20 mg/dL (7-26); BUN/CREATININE RATIO 22 (6-25); CALCIUM 9.7 mg/dL (8.4-10.2); CARBON DIOXIDE 23 mmol/L (22-29); CHLORIDE 104 mmol/L (98-107); CREATINE KINASE 105 IU/L (30-200); EST GLOMERULAR FILTRATION RATE > 60 ML/MIN (60-); GLUCOSE 125 mg/dL (74-118); POTASSIUM 3.8 mmol/L (3.5-5.1); SODIUM 138 mmol/L (136-145)
[2019-01-09] MEDS ORDERED: TYLENOL # 31 EA PO (03:00)
--- NOTE | 2019-01-09 03:25 | NUR ---
SPOKE TO KARL AT [employer], , KARL STATES INTERROGATION FROM [employer] WAS RECEIVED, REP WILL CALL BACK SOON POSSIBLE.
--- OUTSIDE RECORDS SUMMARY | 2019-01-09 04:15 | XMS REPORT | Clinical Summary ---
Author Author SALLY [facility] Address Unknown Phone Unavailable Care Team Providers Care Summer Nanny Name Role Phone PCP Unavailable Allergies No [...] Not on file Results Not on fileafter 01/08/2018 Insurance Payer Benefit Subscriber ID Type Phone Address Plan / Group [facility]LY [facility] xxxxxxxxxxxx HMO/POS [phone] [facility] CHOICE EXCHANGE
--- NOTE | 2019-01-09 06:56 | NUR ---
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
--- NOTE | 2019-01-09 06:56 | NUR ---
REPORT TO ТАТЬЯНА NAZARIO
[2019-01-09] MEDS ORDERED: DEXTROSE 50% SYRINGE 50 ML IV PRN ×2 (07:30→14:45)
[2019-01-09] MEDS ORDERED: ACETAMINOPHEN/CODEINE 300MG - 30MG TAB PO PRN (07:30)
[2019-01-09] MEDS: INSULIN REGULAR, HUMAN 100 UNIT/1 ML 3ML VIAL SQ SCH ×2 (08:25→12:06)
[2019-01-09 08:37] LABS: CREATINE KINASE MB 1.2 ng/mL (0-5.0)
[2019-01-09] MEDS: CLOPIDOGREL BISULFATE 75 MG TAB PO SCH (09:04)
[2019-01-09] MEDS: ISOSORBIDE MONONITRATE 30 MG TAB CR PO SCH (09:04)
[2019-01-09] MEDS: ASPIRIN 81 MG CHEW TAB PO SCH (09:04)
[2019-01-09] MEDS: FERROUS SULFATE 325 MG TAB PO SCH ×2 (09:04→17:47)
[2019-01-09] MEDS: FOLIC ACID 1 MG TAB PO SCH (09:04)
[2019-01-09] MEDS: ASCORBIC ACID 500 MG TAB PO SCH ×2 (09:04→17:48)
[2019-01-09] MEDS: METOPROLOL TARTRATE 50 MG TAB PO SCH ×2 (09:05→17:00)
--- NOTE | 2019-01-09 09:20 | Diagnostic Imaging Report ---
EXAMINATION: CHEST SINGLE (PORTABLE) COMPARISON: Chest x-ray 01/02/2019. INDICATION: DISCUSSION: LINES: Left-sided AICD device with a new AICD lead overlying the right atrium. Additional leads project over the right atrium and right ventricle. LUNGS: Low lung volumes. No pneumonia or pulmonary edema. PLEURA: No pleural effusion or pneumothorax. HEART AND MEDIASTINUM: Stable cardiomegaly and aortic ectasia. BONES AND SOFT TISSUES: No acute osseous abnormality. IMPRESSION: No acute radiographic abnormality. Left-sided AICD device with leads as above. Signed by: Dr. Michelle Olea MD on 01/09/2019 9:17 AM
[2019-01-09] MEDS: FUROSEMIDE 20 MG TAB PO SCH (10:28)
[2019-01-09] MEDS: SPIRONOLACTONE 25 MG TAB PO SCH (10:29)
--- NOTE | 2019-01-09 13:23 | NUR ---
Patient admitted to unit from ER. Patient arrived via stretcher. Patient is AAOx3. Patient c/o his Defibrillator shocking him last night when he was playing pool. Patient had defibrillator placed a week and a half ago. Left chest wall incision noted to be clean and dry. No c/o pain. No chest pain noted. No dizziness. Lung cedeno clear to auscultation. Bowel sounds present x4. No edema noted. Patient ambulates on his own
[2019-01-09 13:40] VITALS: BP 110/54
[2019-01-09] MEDS ORDERED: NITROGLYCERIN 0.4 MG SUBL SL PRN (14:45)
--- NOTE | 2019-01-09 15:00 | NUR ---
[employer] in room interrogating defibrillator. wires noted to be out of place and defibrillator turned off at this time. Will monitor patient
[2019-01-09] MEDS: OMEGA 3 POLYUNSAT FATTY ACIDS 1000 MG SOFTGEL PO SCH (17:00)
[2019-01-09 17:28] VITALS: BP 118/59
[2019-01-09] MEDS: ENTRESTO PO SCH (17:47)
[2019-01-09] MEDS: INSULIN LISPRO 100 UNIT/1 ML 3ML VIAL SQ SCH ×3 (17:54→22:25)
[2019-01-09 18:41] VITALS: BP 110/54
[2019-01-09 19:41] VITALS: BP 116/55
[2019-01-09 21:32] VITALS: BP 116/55
[2019-01-09] MEDS: INSULIN GLARGINE 100 UNITS/ML VIAL SQ SCH (22:25)
[2019-01-09] MEDS: GABAPENTIN 100 MG CAP PO SCH (22:25)
[2019-01-09] MEDS: ATORVASTATIN 40 MG TAB PO SCH (22:25)
[2019-01-09 23:46] LABS: BILIRUBIN,URINE NEGATIVE (NEGATIVE); CLARITY,URINE SL CLOUDY (CLEAR); COLOR,URINE YELLOW (YELLOW); KETONES,URINE NEGATIVE (NEGATIVE); LEUKOCYTE ESTERASE ,URINE 1+ (NEGATIVE); NITRITE,URINE NEGATIVE (NEGATIVE); PROTEIN,URINE DIPSTICK NEGATIVE (NEGATIVE); URINE UROBILINOGEN 0.2 mg/dL (0.2 - 1)
[2019-01-10] VITALS (8 sets, daily range): BP systolic 99–138; BP diastolic 53–61
[2019-01-10 00:14] LABS: BACTERIA,URINE MANY /HPF; EPITHELIAL CELLS,URINE FEW /LPF; TRANSITIONAL EPI CELLS,URINE FEW; WBC,URINE (MAN) >50 /HPF (0-5)
--- NOTE | 2019-01-10 02:17 | Consultation ---
DATE OF CONSULTATION: 01/09/2019 Cardiology Consult Note REASON FOR CONSULTATION: ICD shock. CHIEF COMPLAINT: "My ICD shocked me." HISTORY OF PRESENT ILLNESS: The patient is a 53-year-old man with history of systolic heart failure status post ICD placement and recent ICD lead revision, who presents with ICD shock. Denies any palpitations, dizziness, or syncope. Device was interrogated and there was noted to be dislodgement. Currently, feeling fine. No heart failure symptoms. REVIEW OF SYSTEMS: As above, otherwise, negative. SOCIAL HISTORY: He does not smoke, drink, or abuse drugs. FAMILY HISTORY: Noncontributory. OUTPATIENT MEDICATIONS: Reviewed. ALLERGIES: NO KNOWN DRUG ALLERGIES. OBJECTIVE: VITAL SIGNS: Temperature 96.8, pulse 88, respiratory rate 18, blood pressure 116/55, and saturating 96% on room air. GENERAL: man, in no acute distress, well developed and well nourished. CARDIOVASCULAR: Regular rate and rhythm. No murmurs, rubs, or gallops. Palpable cardiac pulses. Palpable radial pulses. No lower extremity edema or ulceration. LUNGS: Clear to auscultation bilaterally. ABDOMEN: Soft, nontender, nondistended. Obese. NEURO AND PSYCH: Alert and oriented to person, place, and time. Normal affect. INPATIENT MEDICATIONS: Reviewed. LABORATORY DATA: Reviewed. Telemetry data reviewed, shows normal sinus rhythm. ICD interrogation reviewed. IMAGING DATA: Reviewed. ASSESSMENT: 1. Chronic systolic and diastolic heart failure. Ejection fraction 35%. 2. ICD lead dislodgement. 3. Inappropriate ICD shock. PLAN: Continue his home cardiovascular medications for his heart failure. Okay to hold beta blockers if his heart rate is less than 60. Discussed with EP, they will consider lead revision. ICD in the meantime has been turned off to prevent any further inappropriate shocks. We will monitor on telemetry closely. Thank you for this consult. We will continue to follow. MD MILADIS Buck/HITESH /[id number]
[2019-01-10 06:49] LABS: BASOPHILS % 0.5 % (0.0-1.0); EOSINOPHILS # (AUTO) 0.4 (0.0-0.4); EOSINOPHILS % 4.4 % (0.0-6.0); HEMOGLOBIN 11.6 g/dL (14.0-18.0); LYMPHOCYTES # (AUTO) 2.1 (1.0-3.2); LYMPHOCYTES % 25.2 % (18.0-39.1); MEAN CORPUSCULAR HEMOGLOBIN 27.1 pg (28-32); MEAN CORPUSCULAR HGB CONC 32.2 g/dL (31-35); MEAN CORPUSCULAR VOLUME 84.1 fL (81-99); MONOCYTES # (AUTO) 0.7 (0.2-0.8); MONOCYTES % 8.8 % (4.4-11.3); NEUTROPHILS # (AUTO) 4.9 (2.1-6.9); NEUTROPHILS % 60.4 % (38.7-80.0); PLATELET COUNT 266 x10e3/uL (140-360); RED BLOOD COUNT 4.28 x10e6/uL (4.3-5.7); RED CELL DISTRIBUTION WIDTH 13.8 % (11.7-14.4)
[2019-01-10 07:19] LABS: INR 0.97; PROTHROMBIN TIME 13.4 seconds (11.9-14.5)
[2019-01-10] MEDS: INSULIN LISPRO 100 UNIT/1 ML 3ML VIAL SQ SCH ×7 (07:30→21:10)
[2019-01-10 07:34] LABS: CHOL/HDL RATIO 4.1 (3.9-4.7)
[2019-01-10 07:41] LABS: ALANINE AMINOTRANSFERASE 8 IU/L (0-55); ALBUMIN 3.4 g/dL (3.5-5.0); ALBUMIN/GLOBULIN RATIO 1.2 (0.8-2.0); ALKALINE PHOSPHATASE 52 IU/L (40-150); BLOOD UREA NITROGEN 10 mg/dL (7-26); BUN/CREATININE RATIO 14 (6-25); CALCIUM 9.1 mg/dL (8.4-10.2); CARBON DIOXIDE 28 mmol/L (22-29); CHLORIDE 105 mmol/L (98-107); CREATININE, SERUM 0.73 mg/dL (0.72-1.25); EST GLOMERULAR FILTRATION RATE > 60 ML/MIN (60-); GLUCOSE 98 mg/dL (74-118); MAGNESIUM 2.5 MG/DL (1.3-2.1); SODIUM 138 mmol/L (136-145)
[2019-01-10 07:46] LABS: THYROID STIMULATING HORMONE 1.084 uIU/mL (0.350-4.940)
[2019-01-10 08:04] LABS: CREATINE KINASE MB 0.8 ng/mL (0-5.0)
[2019-01-10] MEDS: METOPROLOL TARTRATE 50 MG TAB PO SCH ×2 (08:16→16:28)
[2019-01-10] MEDS: ASPIRIN 81 MG CHEW TAB PO SCH (08:16)
[2019-01-10] MEDS: CLOPIDOGREL BISULFATE 75 MG TAB PO SCH (08:17)
[2019-01-10] MEDS: ISOSORBIDE MONONITRATE 30 MG TAB CR PO SCH (08:54)
[2019-01-10] MEDS: OMEGA 3 POLYUNSAT FATTY ACIDS 1000 MG SOFTGEL PO SCH ×2 (08:54→16:28)
[2019-01-10] MEDS: ASCORBIC ACID 500 MG TAB PO SCH ×2 (08:54→16:28)
[2019-01-10] MEDS: FOLIC ACID 1 MG TAB PO SCH (08:54)
[2019-01-10] MEDS: SPIRONOLACTONE 25 MG TAB PO SCH (08:54)
[2019-01-10] MEDS: ENTRESTO PO SCH ×2 (08:54→16:28)
[2019-01-10] MEDS: JARDIANCE 25MG PO SCH (08:54)
[2019-01-10] MEDS: FUROSEMIDE 20 MG TAB PO SCH (08:54)
[2019-01-10] MEDS: FERROUS SULFATE 325 MG TAB PO SCH ×2 (08:54→16:28)
--- NOTE | 2019-01-10 09:22 | History and Physical ---
LOCATION: Room #108. PRESENTING COMPLAINT: Chest discomfort with feeling of discharge from the defibrillator last night. HISTORY OF PRESENT ILLNESS: A 53-year-old male, who was admitted from the ER. The patient came with his to the ER for chest discomfort with palpitation. The patient told that he felt shock from AICD last night. He denied any shortness of breath. He had defibrillator checkup by Dr. Ellis, clinical specialist earlier this month at this hospital per the patient statement. The patient felt pressure-like sensation about his substernal area without any radiation. He denied any fever, cough, shortness of breath, nausea, vomiting, or dizziness. The patient had a long history of cardiac ailments with multivessel disease, not amenable to surgery , on medical management, along with dilated cardiomyopathy. He had an AICD placed initially 3 years ago, was changed last year as per the patient's statement. The patient is now sitting in chair at the bedside. Denied any symptom. He was initially admitted under Dr. Hummel. The patient tells that his PCP is Dr. Lewis Toney, which he was changed this morning under Dr. Toney. REVIEW OF SYSTEMS: CONSTITUTIONAL: No fevers, chills, or rigors. ENT: No nasal congestion. No sore throat. No earache. CARDIOVASCULAR: Chest discomfort with palpitation and shock from AICD as per HPI. No shortness of breath. PULMONARY: No cough. No hemoptysis. No shortness of breath. GASTROINTESTINAL: No abdominal pain, nausea, or vomiting. There is no bloody stool or black stool. GENITOURINARY: No dysuria. No hematuria. The patient had hematuria due to hemorrhagic cystitis in July 2018 as per electronic medical record. MUSCULOSKELETAL: No joint pain. No joint swelling. No skin rash. No swelling. NEUROLOGIC: No loss of consciousness, seizures, or headache. No dizziness. HISTORY PAST MEDICAL ILLNESS: 1. Chronic systolic CHF. His CAD is not amenable to revascularization, dysrhythmia, status post AICD. 2. Diabetes mellitus type 2. 3. Hyperlipidemia. 4. Hemorrhagic cystitis in July 2018. 5. Urethral stricture on cystoscopy. HISTORY OF PAST SURGERY: Appendectomy, AICD placement and replacement, in December 2018. ALLERGIES: NO KNOWN MEDICATION ALLERGY. HOME MEDICATIONS: As per med reconciliation sheet. List includes Lipitor 60 mg daily, NovoLog 40 units t.i.d. a.c., metformin 1000 mg b.i.d., Jardiance 25 mg daily, Levemir 50 units subcutaneous q.h.s., and Entresto. SOCIAL HISTORY: The patient lives at home with his . is at bedside. HABITS: Denies smoking, drinking, or substance abuse history. FAMILY HISTORY: Positive for diabetes mellitus and hypertension. PHYSICAL EXAMINATION: VITAL SIGNS: Today, blood pressure 110/54, pulse 69, temperature 87.9, T-max 98.9, respirations 18, and SpO2 98% at room air. GENERAL: Alert. Not in acute distress, sitting at bedside in the chair, now feeling better than last night. HEENT: No pallor. No icterus. Pupils equally reacting. Oral mucosa moist. NECK: No JVD. No carotid bruit. No lymphadenopathy. No thyromegaly. HEART: S1 and S2. Regular. AICD palpable in the left infraclavicular subcutaneous location. LUNGS: Clear to auscultation. ABDOMEN: Soft. Nontender. No palpable mass. EXTREMITIES: No edema, cyanosis, or clubbing. NEUROLOGICAL: Motor grossly equal on both sides. LABORATORY DATA: CBC, WBC 10.5, hemoglobin 12.5, hematocrit 39, platelets 333, MCV 85, RDW 13, neutrophils 60, and lymphocytes 26. Chemistry panel, sodium 130, potassium 3.8, chloride 104, CO2 of 23, anion gap 11, BUN 20, creatinine 0.9, glucose 125, and calcium 9.7. Total bilirubin 0.3, AST 13, ALT 11, and alkaline phosphatase 77. CK 89. CK-MB 1.2. Troponin-I 0.054 and 0.022. Total protein 7.2, albumin 3.9, and globulin 3.1. . RADIOLOGICAL DATA: EKG, normal sinus rhythm at the rate of 90 beats per minute, LVH and QRS widening. T-wave inversion in anterolateral leads. No ST-elevation. X-ray, chest, two views, left-sided AICD device with a new AICD lead overlying the right atrium. No consolidation. No effusion or pneumothorax. Cardiomegaly, stable with aortic ectasia. ASSESSMENT AND PLAN: 1. Palpitation and chest discomfort due to AICD malfunctioning. The patient's troponin level is normal. He is kept on telemetry. His EKG did not show any acute change. The patient feels better than last night. His regular cardiology doctor, Dr. Wallis and clinical specialist Dr. Ellis are consulted. We would follow their recommendation. Continue telemetry. 2. Chronic systolic congestive heart failure. The patient does not have any shortness of breath at this time. He has stable chronic congestive heart failure. We will monitor for now. Continue his regular medications. 3. Multivessel coronary artery disease, not amenable to revascularization as per old Cardiology record. We would follow Cardiology's recommendation. Continue aspirin. The patient was also on Plavix in the past. He would continue his regular medication. 4. Hypertension. Continue regular medication. 5. Hyperlipidemia. Continue regular medication. 6. Diabetes mellitus type 2. Continue the patient on his regular anti-diabetic medication. 7. DVT prophylaxis. The patient is ambulatory. If no plan for surgery, we will keep him on DVT prophylaxis with heparin. 8. Advance directive. 9. The patient is full code. 10. Discharge plan would depend upon the patient's response to treatment and Cardiology and an clinical specialist's recommendation. MD MURPHY Kelly/HITESH /[id number] ZACHARY
[2019-01-10 09:26] LABS: B-TYPE NATRIURETIC PEPTIDE2 67.9 pg/mL (0-100)
--- NOTE | 2019-01-10 10:08 | NUR ---
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 PAGED DR. SHARMA AT THIS TIME FOR PROCEDURE ORDERS. SPOKE TO NELLY AWAITING CALL BACK.
--- NOTE | 2019-01-10 11:54 | NUR ---
PER DR. SHARMA PT WILL NOT HAVE A PROCEDURE TODAY. HE CAN D/C HOME FROM HIS STANDPOINT BUT WILL NEED LIFEVEST BEFORE DISCHARGE. PER DR. SHARMA HE WILL HAVE HIS OFFICE SET IT UP.
--- NOTE | 2019-01-10 12:31 | NUR ---
PAGED DR. MORSE, PT WANTS TO KNOW IF HE NEEDS TO CONTINUE HOLDING METOPROLOL AT HOME. AWAITING CALL BACK.
--- NOTE | 2019-01-10 12:40 | NUR ---
PT WANTS TO KNOW IF HE CAN CONTINUE METFORMIN. PAGED DR. Nathaniel HYDE AWAITING CALL BACK.
--- NOTE | 2019-01-10 13:18 | NUR ---
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 STATES WILL VISIT LATER TODAY.
--- NOTE | 2019-01-10 19:13 | NUR ---
BEDSIDE SHIFT REPORT PERFORMED WITH Martha GILL RN. RECEIVED PT SITTING IN CHAIR, AAOX3, RR EVEN AND NON-LABORED, ON RA. NO S/SX OF DISTRESS NOTED. LEFT PT SITTING IN CHAIR, CALL LIGHT WITHIN REACH. FAMILY AT BEDSIDE.
[2019-01-10] MEDS: INSULIN GLARGINE 100 UNITS/ML VIAL SQ SCH (21:10)
[2019-01-10] MEDS: GABAPENTIN 100 MG CAP PO SCH (21:10)
[2019-01-10] MEDS: ATORVASTATIN 40 MG TAB PO SCH (21:10)
[2019-01-11] VITALS (8 sets, daily range): BP systolic 99–124; BP diastolic 51–65
[2019-01-11] MEDS: INSULIN LISPRO 100 UNIT/1 ML 3ML VIAL SQ SCH ×7 (07:30→21:30)
[2019-01-11] MEDS: JARDIANCE 25MG PO SCH (09:00)
[2019-01-11] MEDS ORDERED: NON-FORMULARY MEDICATION (Metformin Hcl 1,000 MG) PO SCH (09:00)
[2019-01-11] MEDS: ENTRESTO PO SCH ×2 (09:00→16:26)
[2019-01-11] MEDS: METOPROLOL TARTRATE 50 MG TAB PO SCH (09:00)
--- NOTE | 2019-01-11 09:20 | NUR ---
PER DR. TOBAR CONTINUE HOLDING METOPROLOL.
[2019-01-11] MEDS ORDERED: METFORMIN HCL 500 MG TAB ONE (09:51)
[2019-01-11] MEDS: ISOSORBIDE MONONITRATE 30 MG TAB CR PO SCH (10:10)
[2019-01-11] MEDS: FOLIC ACID 1 MG TAB PO SCH (10:10)
[2019-01-11] MEDS: SPIRONOLACTONE 25 MG TAB PO SCH (10:10)
[2019-01-11] MEDS: FUROSEMIDE 20 MG TAB PO SCH (10:10)
[2019-01-11] MEDS: OMEGA 3 POLYUNSAT FATTY ACIDS 1000 MG SOFTGEL PO SCH ×2 (10:10→16:26)
[2019-01-11] MEDS: ASPIRIN 81 MG CHEW TAB PO SCH (10:10)
[2019-01-11] MEDS: ASCORBIC ACID 500 MG TAB PO SCH ×2 (10:10→16:26)
[2019-01-11] MEDS: CLOPIDOGREL BISULFATE 75 MG TAB PO SCH (10:10)
[2019-01-11] MEDS: FERROUS SULFATE 325 MG TAB PO SCH ×2 (10:10→16:26)
[2019-01-11] MEDS: METFORMIN HCL 500 MG TAB PO SCH ×2 (10:11→16:26)
--- NOTE | 2019-01-11 13:33 | NUR ---
LINDA WITH [employer] OBTAINING SIGNATURE FROM DR. Kaitlyn HYDE ON HIS PROGRESS NOTE SO HE CAN GET LIFEVEST FOR PT.
--- NOTE | 2019-01-11 13:55 | Consultation ---
DATE OF CONSULTATION: 01/10/2019 REASON FOR CONSULTATION: Defibrillator lead dislodgement. HISTORY OF PRESENT ILLNESS: This is a 53-year-old gentleman with history of nonischemic cardiomyopathy, who underwent biventricular cardiac defibrillator placement in September 2018. The patient was recently evaluated because he had a lead dislodgement. He underwent lead revision; however, he had difficult anatomy and limited amount of branches for coronary sinus lead placement. He presented with an episode of ICD shock. Interrogation demonstrated the RV lead both sensing and delivered the shock. The patient is currently hemodynamically stable. The ICD was found to be completely dislodged. REVIEW OF SYSTEMS: See chart for details. PAST MEDICAL HISTORY: See chart for details. PHYSICAL EXAMINATION: VITAL SIGNS: As per chart. GENERAL: No acute distress. HEENT: Moist mucous membranes. CARDIOVASCULAR: Regular. RESPIRATORY: Clear. ABDOMEN: Soft and nontender. IMPRESSION: 1. ICD dislodgement with right ventricular and left ventricular leads dislodged. 2. History of nonischemic cardiomyopathy and left bundle-branch block. RECOMMENDATIONS: The patient has been evaluated previously by Dr. Ellis, who is planning for a procedure that is on the works to be scheduled in the [facility] for an epicardial lead placement, so explained to the family that at this time the ICD detections and therapies are turned off. The patient can be discharged from the Electrophysiology standpoint. We will order a LifeVest before discharge and he is to follow up with Dr. Ellis to arrange for procedure. Thank you for letting us participate in [place]. MD BABAK Lopes/HITESH /[id number] MTDCourtney
--- NOTE | 2019-01-11 15:15 | Progress Note ---
DATE: 01/11/2019 Cardiology Progress Note SUBJECTIVE: The patient denies chest pain or shortness of breath. OBJECTIVE: VITAL SIGNS: Temperature 97.2 degrees, pulse 73, respiratory rate 18, blood pressure 112/50, and oxygen 96% on room air. GENERAL: Awake, alert, in no acute distress. LUNGS: Clear to auscultation bilaterally. No wheezes or crackles. CARDIOVASCULAR: Normal rate, regular rhythm. No murmur. Normal S1, S2. ABDOMEN: Soft, nontender. EXTREMITIES : No edema. CARDIAC MEDICATIONS: Isosorbide mononitrate 30 mg p.o. daily, spironolactone 25 mg p.o. daily, fish oil 2000 mg p.o. b.i.d., Plavix 75 mg p.o. daily, aspirin 81 mg p.o. daily, and atorvastatin 60 mg p.o. at bedtime. LABORATORY DATA: None today. Telemetry, normal sinus rhythm. IMPRESSION: 1. Chronic systolic and diastolic heart failure. 2. ICD lead dislodgement. 3. Inappropriate ICD shock. RECOMMENDATIONS: The patient's ICD has been turned off. He is pending delivery on [facility] for discharge. Plan is for the patient to follow up as an outpatient with EP for lead extraction and ICD implantation. Thank you for this consult. We will continue to follow. Milla Magaña MD ABS/MODL /[id number]
--- NOTE | 2019-01-11 15:30 | NUR ---
JUAN R MCKEON WITH LIFEVEST, AWAITING APPROVAL FROM INSURANCE.
--- NOTE | 2019-01-11 16:30 | NUR ---
Nutrition Screen Note RD Recommendation for Physician: -Rec adding cardiac to ADA diet as medically appropriate Plan of Care: RD following, monitoring for tolerance and adequacy Nutrition reason for involvement: Nutrition Risk Trigger MST Primary Diagnose(s): 1. Chronic systolic and diastolic heart failure. 2. ICD lead dislodgement. 3. Inappropriate ICD shock. PMH: CHF, DM, HLD Ht: 70in Wt: 240lb BMI: 34.4kg/m2 IBW: 166lb RD Assessment: (01/11) Chart reviewed. Labs and meds reviewed. 53yo M, who was admitted for chest discomfort. Pt was discussed during AM rounds. Pending delivery on [place] for discharge. 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 Pt denied chewing/swallowing problems and nausea/vomiting. Tech recorded 75-100% meal intake since admission. Will cont to monitor. Please consult as needed. Current Diet: ADA diet Malnutrition Evaluation (01/11) The patient does not meet criteria for a specified degree of malnutrition at this time. Will re-evaluate at follow-up as appropriate. Diet Education Needs Assessment: Diet education not indicated. Nutrition Care Level: low Signed: Lynette Godfrey, MS, RD, LD
[2019-01-11] MEDS ORDERED: METFORMIN HCL 500 MG TAB PO SCH ×2 (17:00)
--- NOTE | 2019-01-11 19:03 | NUR ---
BEDSIDE SHIFT REPORT PERFORMED WITH Martha GILL RN. RECEIVED PT AMBULATING IN [place] WITH FAMILY AT SIDE, STEADY GAIT NOTED, AAOX3, RR EVEN AND NON-LABORED, ON RA. NO S/SX OF DISTRESS NOTED. LEFT PT AMBULATING IN FAMILY.
--- NOTE | 2019-01-11 19:20 | NUR ---
PAGE PLACED FOR MD Nathaniel HYDE CONCERNING PT REPORTS ITCHING FROM TELEMETRY ELECTRODE. WAITING FOR CALLBACK.
--- NOTE | 2019-01-11 19:38 | NUR ---
SPOKE WITH MD Nathaniel HYDE CONCERNING PT REPORTS OF ITCHING. NEW ORDERS RECEIVED.
[2019-01-11] MEDS: INSULIN GLARGINE 100 UNITS/ML VIAL SQ SCH (21:30)
[2019-01-11] MEDS: DIPHENHYDRAMINE HCL 25 MG CAP PO PRN (21:30)
[2019-01-11] MEDS: ATORVASTATIN 40 MG TAB PO SCH (21:30)
[2019-01-11] MEDS: GABAPENTIN 100 MG CAP PO SCH (21:30)
[2019-01-12] VITALS: BP 99/50
[2019-01-12 04:00] VITALS: BP 111/55
--- NOTE | 2019-01-12 07:17 | NUR ---
Rcvd patient in report this am. Patient is asleep in bed at this time. No s/s of distress noted
[2019-01-12] MEDS: INSULIN LISPRO 100 UNIT/1 ML 3ML VIAL SQ SCH ×4 (07:30→12:41)
[2019-01-12 08:00] VITALS: BP 103/53
[2019-01-12] MEDS: JARDIANCE 25MG PO SCH (08:44)
[2019-01-12] MEDS: SPIRONOLACTONE 25 MG TAB PO SCH (08:44)
[2019-01-12] MEDS: ENTRESTO PO SCH (08:44)
[2019-01-12] MEDS: ASPIRIN 81 MG CHEW TAB PO SCH (08:44)
[2019-01-12] MEDS: FOLIC ACID 1 MG TAB PO SCH (08:44)
[2019-01-12] MEDS: FERROUS SULFATE 325 MG TAB PO SCH (08:44)
[2019-01-12] MEDS: METFORMIN HCL 500 MG TAB PO SCH (08:44)
[2019-01-12] MEDS: ISOSORBIDE MONONITRATE 30 MG TAB CR PO SCH (08:44)
[2019-01-12] MEDS: ASCORBIC ACID 500 MG TAB PO SCH (08:45)
[2019-01-12] MEDS: FUROSEMIDE 20 MG TAB PO SCH (08:45)
[2019-01-12] MEDS: OMEGA 3 POLYUNSAT FATTY ACIDS 1000 MG SOFTGEL PO SCH (08:45)
[2019-01-12] MEDS: CLOPIDOGREL BISULFATE 75 MG TAB PO SCH (08:45)
[2019-01-12] MEDS ORDERED: METOPROLOL SUCCINATE 25 MG TAB XL PO SCH (09:00)
[2019-01-12] MEDS: DIPHENHYDRAMINE HCL 25 MG CAP PO PRN (09:08)
--- NOTE | 2019-01-12 10:00 | NUR ---
Patient is AAOx3. Patient lung cedeno clear to auscultation. Bowel sounds present x4. No edema noted. No c/o chest pain. Patient waiting for a life vest at this time.
[2019-01-12 10:11] VITALS: BP 103/53
[2019-01-12 12:00] VITALS: BP 107/55
[2019-01-12] MEDS ORDERED: METOPROLOL SUCC25 MG PO (14:46)
--- NOTE | 2019-01-12 15:41 | NUR ---
Patient discharged from facility. Patient received his life vest. Removed IV from right AC. Pressure dressing applied. Reviewed all discharge instructions, follow up appts, and RX's given.
--- NOTE | 2019-01-12 18:27 | Progress Note ---
DATE: 01/12/2019 Cardiology Progress Note SUBJECTIVE: The patient denies chest pain or shortness of breath. His LifeVest will be delivered today. OBJECTIVE: VITAL SIGNS: Temperature 97.2 degrees, pulse 75, respiratory rate 16, blood pressure 107/55, and oxygen saturation 98% on room air. GENERAL: Obese gentleman, in no acute distress, awake and alert. LUNGS: Clear to auscultation bilaterally. No wheezes or crackles. CARDIOVASCULAR: Normal rate. Regular rhythm. No murmur. Normal S1, S2. ABDOMEN: Soft, nontender. EXTREMITIES: No edema. CARDIAC MEDICATIONS: Fish oil 2000 mg p.o. b.i.d., furosemide 20 mg p.o. daily, Plavix 75 mg p.o. daily, spironolactone 25 mg p.o. daily, isosorbide mononitrate 30 mg p.o. daily, aspirin 81 mg p.o. daily, atorvastatin 60 mg p.o. at bedtime, and metoprolol succinate 25 mg p.o. daily. LABORATORY DATA: None today. TELEMETRY: Normal sinus rhythm. IMPRESSION: 1. Chronic systolic and diastolic heart failure. 2. Implantable cardioverter-defibrillator lead dislodgement. 3. Inappropriate implantable cardioverter-defibrillator shock. RECOMMENDATIONS: The patient's ICD has been turned off. LifeVest is to be delivered today. The patient was instructed to follow up as an outpatient with EP for lead extraction and ICD reimplantation. Continue current cardiac medications. He was instructed to follow up in the office with Dr. Wallis in two weeks. Thank you for this consult. We will continue to follow. Milla Magaña MD ABS/MODL /[id number]
== END 2019-01-12 15:42 | disposition home or self-care (01) ==
LOC: ER 23:36 → ERHOLD 01-09 03:43 → MED/SURG 01-09 13:24
PROVIDERS: ADMIT Internal Medicine; ATTEND Internal Medicine
DX: T82.110A Breakdown (mechanical) of cardiac electrode, initial encounter (principal); R00.2 Palpitations; I11.0 Hypertensive heart disease with heart failure; E11.9 Type 2 diabetes mellitus without complications; E78.5 Hyperlipidemia, unspecified; I25.10 Atherosclerotic heart disease of native coronary artery without angina pectoris; I50.42 Chronic combined systolic (congestive) and diastolic (congestive) heart failure; Z95.810 Presence of automatic (implantable) cardiac defibrillator; Z79.4 Long term (current) use of insulin
CPT/HCPCS: 36415 ×4; 71045; 80053 ×2; 80061; 81001; 82550 ×2; 82553 ×2; 82948 ×4; 83036; 83735; 83880; 84152; 84443; 84484 ×2; 85025 ×2; 85610; 93005; 99284; G0378 ×4; J1815; J1817

== ENCOUNTER 2019-04-29 15:12 | Observation (INO) | payer OTHER ==
[~2019-04-29] VITALS: Ht 177.8 cm; Wt 104.3 kg
[~2019-04-29 15:12] MED LIST changes: +METOPROLOL SUCC25 MG PO; +TYLENOL # 31 EA PO
--- OUTSIDE RECORDS SUMMARY | 2019-04-29 15:16 | XMS REPORT | Clinical Summary ---
Author Author SALLY [facility] Address Unknown Phone Unavailable Care Team Providers Care Hub Lead Name Role Phone PCP Unavailable Allergies No [...] Not on file Results Not on fileafter 04/28/2018 Insurance Payer Benefit Subscriber ID Type Phone Address Plan / Group [facility] COMMUNITY xxxxxxxxxxxx HMO/POS [phone] [facility] CHOICE EXCHANGE
--- OUTSIDE RECORDS SUMMARY | 2019-04-29 15:19 | XMS REPORT | Continuity of Care Document ---
Author Author [facility] Address Unknown Phone Unavailable Care Team Providers Care Lab Rep Name Role Phone [employer] Unavailable Unavailable Problems Problem Status Onset Date Classification Date Reported Comments Source DX: URINARY TRACT INFECTION, SITE NOT SP Active 03/30/2019 [facility] FOLLOW UP SURGERY ON 02/09 Active 02/28/2019 [facility] DISPLACEMENT OF CARDIAC ELECTRODE, INITI Active 01/17/2019 [facility] PER DR/PALPITATIONS Active 01/17/2019 [facility] Dilated cardiomyopathy 10/19/2018 04/21/2019 [facility] Atherosclerotic heart disease of [place] coronary artery without angina pectoris 10/01/2018 04/13/2019 [facility] ACUTE CHEST PAIN Active 09/23/2018 [facility] CHEST PAINS Active 09/23/2018 [facility] ICD UPGRADE Active 09/17/2018 [facility] LT HEART CATH Active 09/13/2018 [facility] Benign neoplasm of colon, unspecified 05/25/2018 12/06/2018 [facility] D50.9 / A04.8 / D12.6 / E66.9 / I25.10 / Active 04/28/2018 [facility] UNK Active 01/28/2018 [facility] Discharge Diagnosis: Change in blood pressure 09/17/2017 09/20/2017 [facility] SENT BY PCP/LOW BLOOD PRESSURE Active 09/17/2017 [facility] CHEST PAIN Active 07/21/2017 [facility] FOLLOW UP Active 07/14/2017 [facility] DX: I25.10=/ I73.9= W/VEIN MAPPING Active 07/08/2017 [facility] 3 WEEK FOLLOW UP Active 06/02/2017 [facility] FOLLOW UP. PT IS DOING A CPX ON THE SAME Active 05/25/2017 [facility] PET SCAN RESULTS Active 04/27/2017 [facility] CHF Active 02/18/2017 [facility] Discharge Diagnosis: Atypical chest pain 08/20/2016 08/23/2016 [facility] LEFT SIDE PAIN Active 08/20/2016 [facility] Discharge Diagnosis: Acute pain of right shoulder 07/13/2016 07/16/2016 [facility] BACK PAIN Active 07/12/2016 [facility] E11.9 Active 01/31/2016 [facility] I50.22/I42.0 Active 01/21/2016 [facility] CHF, CAD Active 12/12/2015 [facility] CHF Active 10/06/2015 Problem 01/12/2019 [facility] APNEA Active 11/02/2000 [facility] Appendectomy Resolved Problem 04/21/2019 [facility] Cholesterol Active Problem 04/21/2019 [facility] Diabetes Active Problem 04/21/2019 [facility] Diabetes mellitus type 2 Active Problem 04/21/2019 [facility] Hypertension Active Problem 04/21/2019 [facility] Obesity Active Problem 04/21/2019 [facility] Operation on penis Resolved Problem 02/13/2017 [facility] Chronic systolic heart failure Active Problem 04/21/2019 [facility] Final: Chest pain, unspecified 07/25/2017 [facility] Anemia Active Problem 04/21/2019 [facility] Sleep apnea Active Problem 04/21/2019 [facility] AP (Confirmed) Active Problem 04/21/2019 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 Hypertensive heart disease with heart failure 04/21/2019 [facility] Acute on chronic systolic heart failure 04/21/2019 [facility] Left bundle-branch block, unspecified 04/21/2019 [facility] Atherosclerotic heart disease of [place] coronary artery with other forms of angina pectoris 04/21/2019 [facility] Type 2 diabetes mellitus without complications 04/21/2019 [facility] Pure hypercholesterolemia, unspecified 04/21/2019 [facility] Obstructive sleep apnea (pediatric) 04/21/2019 [facility] 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 04/21/2019 [facility] half-way use of antithrombotics/antiplatelets 04/21/2019 [facility] 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 insulin 04/21/2019 [facility] Other alf drug therapy 04/21/2019 [facility] Chronic systolic heart failure 04/13/2019 [facility] Obesity, unspecified 04/13/2019 [facility] Hyperlipidemia, unspecified 04/13/2019 [facility] Chronic total occlusion of coronary artery 04/13/2019 [facility] Body mass index 34.0-34.9, adult 04/13/2019 [facility] Other specified bacterial intestinal infections 12/06/2018 [facility] Abnormal findings on diagnostic imaging of other abdominal regions, including retroperitoneum 12/06/2018 [facility] Abnormal radiologic findings on diagnostic imaging of renal pelvis, ureter, or bladder 12/06/2018 [facility] Presence of automatic cardiac defibrillator 12/06/2018 [facility] 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 anticoagulants 12/06/2018 [facility] Heart failure, unspecified 12/06/2018 [facility] Body mass index 36.0-36.9, adult 12/06/2018 [facility] Iron deficiency anemia, unspecified 12/06/2018 [facility] Acute hemorrhagic cystitis Active Problem 01/12/2019 [facility] Encounter for interrogation of cardiac pacemaker Active Problem 01/12/2019 [facility] ACUTE BRONCHITIS Active [facility] CHEST PAIN, UNSPECIFIED Active [facility] DISPLACEMENT OF CARDIAC ELECTRODE, INITI Active [facility] Medications Medication Details Route Status Patient Instructions Ordering Provider Order Date Source Omnipaque 300 injectable solution 100 mL, Route: IVP, Drug Form: SOLN, Dosing Weight 105.085, kg, ONCALL, GFR > 45 mL/min, Start date: 04/08/19 10:00:00 CDT, Duration: 1 doses or times, Stop date: 04/09/19 0:00:00 CDTNotes: (Same as:Omnipaque 300). WASTE: F/P - Black; E - Municipal Trash Bin No Longer Active 04/08/2019 [facility] Omnipaque 300 10 mL, Route: Transurethral, Dosing Weight 105.085, kg, ONCE, Start date: 04/08/19 8:40:00 CDT, Stop date: 04/08/19 8:40:00 CDT Inactive 04/08/2019 [facility] tramadol hydrochloride 50 MG Oral Tablet 50 mg=1 tab, PO, Q8H, PRN Pain Score 1-3, # 30 tab, 0 Refill(s) Active 02/16/2019 [facility] Folic Acid 1 MG Oral Tablet 1 mg=1 tab, PO, Daily, # 90 tab, 4 Refill(s) Active 02/16/2019 [facility] ferrous sulfate 325 mg oral enteric coated tablet 325 mg=1 tab, PO, BID, # 90 tab, 4 Refill(s) Active 02/16/2019 [facility] atorvastatin 40 mg oral tablet 60 mg, PO, Daily, # 90 tab, 4 Refill(s) Active 02/16/2019 [facility] Aspirin 81 MG Enteric Coated Tablet 81 mg, PO, Daily, # 90 tab, 4 Refill(s) Active 02/16/2019 [facility] ascorbic acid 1000 mg oral tablet 1,000 mg=1 tab, PO, BID, # 90 tab, 4 Refill(s) Active 02/16/2019 [facility] Docusate Sodium 100 MG Oral Capsule 100 mg=1 cap, PO, BID, # 90 cap, 4 Refill(s) Active 02/16/2019 [facility] Insulin Glargine 100 UNT/ML Injectable Solution 30 unit, SUB-Q, Daily, # 15 mL, 4 Refill(s) Active 02/16/2019 [facility] Insulin Lispro 100 UNT/ML Injectable Solution 30 unit, SUB-Q, TID-Before Meals, # 15 mL, 4 Refill(s) Active 02/16/2019 [facility] minocycline 100 mg oral capsule 100 mg=1 cap, PO, [id number], X 7 day, # 14 cap, 0 Refill(s) Active 02/16/2019 [facility] potassium chloride 20 mEq oral tablet, extended release 20 mEq=1 tab, PO, Daily, # 90 tab, 4 Refill(s) Active 02/16/2019 [facility] sennosides, FDC 8.6 MG Oral Tablet 8.6 mg=1 tab, PO, Daily, # 90 tab, 4 Refill(s) Active 02/16/2019 [facility] spironolactone 25 mg oral tablet 25 mg=1 tab, PO, Daily, # 90 tab, 4 Refill(s) Active 02/16/2019 [facility] empagliflozin 25 MG Oral Tablet [Jardiance] 25 mg=1 tab, PO, QAM, # 90 tab, 4 Refill(s) Active 02/16/2019 [facility] sacubitril 24 MG / valsartan 26 MG Oral Tablet [Entresto] 1 tab, PO, Q12H, # 180 tab, 4 Refill(s) Active 02/16/2019 [facility] 24 HR Metoprolol Tartrate 25 MG Extended Release Tablet [Toprol] 25 mg=1 tab, PO, BID, # 180 tab, 4 Refill(s) Active 02/16/2019 [facility] Furosemide 20 MG Oral Tablet 60 mg=3 tab, PO, Daily, # 270 tab, 4 Refill(s) Active 02/16/2019 [facility] gabapentin 300 MG Oral Capsule 300 mg=1 cap, PO, TID, # 90 cap, 4 Refill(s) Active 02/16/2019 [facility] 24 HR Metoprolol Tartrate 25 MG Extended Release Tablet [Toprol] 25 mg, 1 tab, Route: PO, Drug form: ERTAB, BID, Start date: 02/15/19 17:00:00 CDT, Duration: 30 day, Stop date: 03/17/19 9:00:00 CDTNotes: (Same as: Toprol XL) Do Not Crush No Longer Active 02/15/2019 [facility] ferrous sulfate 300 mg, 5 mL, Route: PO, Drug form: LIQ, BID, Dosing Weight 107.727, kg, Start date: 02/12/19 10:30:00 CDT, Duration: 30 day, Stop date: 03/14/19 9:00:00 CDTNotes: Give with food. iron elemental 12mg /af=882du/5ml as ferrous sulfate No Longer Active 02/12/2019 [facility] potassium chloride 20 mEq oral tablet, extended release 20 mEq, 1 tab, Route: PO, Drug form: ERTAB, Daily, Dosing Weight 113.778, kg, Start date: 02/12/19 9:00:00 CDT, Duration: 30 day, Stop date: 03/13/19 9:00:00 CDTNotes: (Same as: K-Dur 20) "Do Not Crush" Give with food and full glass of water For patients unable to swallow tablet, dissolve in one half glass of water. Allow about 2 minutes for the tablets to disintegrate. Stir before giving to prepare slurry and administer. Please exclude Patients with feeding tube less than 14 [place] (Dobhoff, J-tube etc) and pediatric and patients. No Longer Active 02/12/2019 [facility] tramadol hydrochloride 50 MG Oral Tablet 50 mg, 1 tab, Route: PO, Drug form: TAB, Q6H, Dosing Weight 113.778, kg, PRN Pain Score 1-3, Start date: 02/11/19 15:47:00 CDT, Duration: 30 day, Stop date: 03/13/19 15:46:00 CDTNotes: Not to exceed 400mg/day. (Same As: Ultram) No Longer Active 02/11/2019 [facility] Tylenol 1,000 mg, 100 mL, Route: IV, Drug form: INJ, ONCE, Dosing Weight 113.778, kg, Start date: 02/11/19 15:47:00 CDT, Stop date: 02/11/19 15:47:00 CDTNotes: Infuse over 15 minutes Do not exceed 4gm/day of a cetaminophen MEDICATION WASTE Product Size: 1000 mg Product Wasted: ___ mg Inactive 02/11/2019 [facility] gabapentin 100 MG Oral Capsule 300 mg, 1 cap, Route: PO, Drug form: CAP, TID, Dosing Weight 107.727, kg, Start date: 02/11/19 13:00:00 CDT, Duration: 30 day, Stop date: 03/13/19 9:00:00 CDTNotes: (Same as: Neurontin) No Longer Active 02/11/2019 [facility] sennosides, FDC 8.6 MG Oral Tablet 8.6 mg, 1 tab, Route: PO, Drug Form: TAB, Dosing Weight 113.778, kg, Daily, Start date: 02/11/19 11:03:00 CDT, Duration: 30 day, Stop date: 03/13/19 9:00:00 CDTNotes: (Same as: Senokot) No Longer Active 02/11/2019 [facility] Docusate Sodium 100 MG Oral Capsule 100 mg, 1 cap, Route: PO, Drug form: CAP, BID, Dosing Weight 113.778, kg, Start date: 02/11/19 11:03:00 CDT, Duration: 30 day, Stop date: 03/13/19 9:00:00 CDTNotes: (Same as: Colace) (Do Not Crush) No Longer Active 02/11/2019 [facility] Lidocaine 0.05 MG/MG Transdermal Patch 1 patch, Route: TOP, Daily, Drug form: FILM, Start date: 02/11/19 11:02:00 CDT, Duration: 30 day, Stop date: 03/13/19 9:00:00 CDTNotes: Apply only once for up to 12 hours in a 24-hour period (12 hours on and 12 hours off). (Same as: Lidoderm) "Remove old patch before application of new patch" No Longer Active 02/11/2019 [facility] potassium chloride 20 mEq oral tablet, extended release 40 mEq, 2 tab, Route: PO, Drug form: ERTAB, ONCE, Dosing Weight 113.778, kg, Start date: 02/11/19 11:01:00 CDT, Stop date: 02/11/19 11:01:00 CDTNotes: (Same as: K-Dur 20) "Do Not Crush" Give with food and full glass of water For patients unable to swallow tablet, dissolve in one half glass of water. Allow about 2 minutes for the tablets to disintegrate. Stir before giving to prepare slurry and administer. Please exclude Patients with feeding tube less than 14 [place] (Dobhoff, J-tube etc) and pediatric and patients. Inactive 02/11/2019 [facility] ferrous sulfate 325 mg, 1 tab, Route: PO, Drug form: ECTAB, BID, Dosing Weight 107.727, kg, Start date: 02/11/19 10:00:00 CDT, Duration: 30 day, Stop date: 03/13/19 9:00:00 CDT No Longer Active 02/11/2019 [facility] Aspirin 81 mg, 1 tab, Route: PO, Drug form: ECTAB, Daily, Dosing Weight 113.778, kg, Start date: 02/11/19 9:00:00 CDT, Duration: 30 day, Stop date: 03/12/19 9:00:00 CDTNotes: Do not crush or chew. (Same As: Ecotrin) No Longer Active 02/11/2019 [facility] Jardiance 25mg (1 tablet) Jardiance 25mg (1 tablet), 25 mg, Drug form: MISC, Route: PO, Daily, 02/11/19 9:00:00 CDT, Duration: 30 day, Stop date: 03/12/19 9:00:00 CDT No Longer Active 02/11/2019 [facility] 24 HR Metoprolol Tartrate 25 MG Extended Release Tablet [Toprol] 25 mg, 1 tab, Route: PO, Drug form: ERTAB, ONCE, Start date: 02/11/19 2:53:00 CDT, Stop date: 02/11/19 2:53:00 CDTNotes: (Same as: Toprol XL) Do Not Crush Inactive 02/11/2019 [facility] Furosemide 20 MG Oral Tablet 60 mg, 3 tab, Route: PO, Drug form: TAB, Daily, Dosing Weight 113.778, kg, Start date: 02/10/19 13:43:00 CDT, Duration: 30 day, Stop date: 03/12/19 9:00:00 CDTNotes: (Same as: Lasix) May cause GI upset. Give with food or milk. No Longer Active 02/10/2019 [facility] Benadryl 25 mg, 1 cap, Route: PO, Drug form: CAP, PRN, Dosing Weight 113.778, kg, PRN Itching, Start date: 02/10/19 12:07:00 CDT, Duration: 30 day, Stop date: 03/12/19 12:06:00 CDTNotes: (Same as: Benadryl) No Longer Active 02/10/2019 [facility] empagliflozin 25 MG Oral Tablet [Jardiance] 25 mg=1 tab, PO, QAM, 0 Refill(s) No Longer Active 02/10/2019 [facility] Insulin Lispro 5 unit, Route: SUB-Q, TID-Before Meals, Dosing Weight 113.778, kg, Start date: 02/10/19 11:30:00 CDT, Duration: 30 day, Stop date: 03/12/19 7:30:00 CDT Inactive 02/10/2019 [facility] Minocycline 100 mg, 1 cap, Route: PO, Drug form: CAP, [id number], Dosing Weight 113.778, kg, Start date: 02/10/19 10:00:00 CDT, Duration: 14 day, Stop date: 02/23/19 22:00:00 CDTNotes: (Same as:Minocin) No milk/an tacids/iron. No Longer Active 02/10/2019 [facility] Spironolactone 25 mg, 1 tab, Route: PO, Drug form: TAB, Daily, Dosing Weight 113.778, kg, Start date: 02/10/19 9:22:00 CDT, Duration: 30 day, Stop date: 03/12/19 9:00:00 CDTNotes: (Same As: Aldactone) No Longer Active 02/10/2019 [facility] 24 HR Metoprolol Tartrate 25 MG Extended Release Tablet [Toprol] 25 mg, 1 tab, Route: PO, Drug form: ERTAB, Daily, Start date: 02/10/19 9:16:00 CDT, Duration: 30 day, Stop date: 03/12/19 9:00:00 CDTNotes: (Same as: Toprol XL) Do Not Crush No Longer Active 02/10/2019 [facility] insulin glargine 30 unit, 0.3 mL, Route: SUB-Q, Drug form: SOLN, Daily, Start date: 02/10/19 9:00:00 CDT, Duration: 30 day, Stop date: 03/11/19 9:00:00 CDTNotes: (Same as: Lantus) Do not hold insulin without contacting prescriber WASTE: F/P - Black; E - Municipal Trash Bin "single patient use only" No Longer Active 02/10/2019 [facility] gabapentin 100 MG Oral Capsule 100 mg, 1 cap, Route: PO, Drug form: CAP, Daily, Dosing Weight 107.727, kg, Start date: 02/10/19 9:00:00 CDT, Duration: 30 day, Stop date: 03/11/19 9:00:00 CDTNotes: (Same as: Neurontin) No Longer Active 02/10/2019 [facility] Folic Acid 1 mg, 1 tab, Route: PO, Drug form: TAB, Daily, Dosing Weight 107.727, kg, Start date: 02/10/19 9:00:00 CDT, Duration: 30 day, Stop date: 03/11/19 9:00:00 CDTNotes: (Same as: Folvite) No Longer Active 02/10/2019 [facility] ferrous sulfate 325 mg, 1 tab, Route: PO, Drug form: ECTAB, BID, Dosing Weight 107.727, kg, Start date: 02/10/19 9:00:00 CDT, Duration: 30 day, Stop date: 03/11/19 17:00:00 CDT No Longer Active 02/10/2019 [facility] Azo-Cranberry Route: PO, Dosing Weight 107.727, kg, TID, Start date: 02/10/19 9:00:00 CDT, Duration: 30 day, Stop date: 03/11/19 17:00:00 CDT No Longer Active 02/10/2019 [facility] ascorbic acid 1,000 mg, 2 tab, Route: PO, Drug form: TAB, BID, Dosing Weight 107.727, kg, Start date: 02/10/19 9:00:00 CDT, Duration: 30 day, Stop date: 03/11/19 17:00:00 CDTNotes: (Same as: Vitamin C) No Longer Active 02/10/2019 [facility] NovoLog Route: SUB-Q, TID-Before Meals, Dosing Weight 107.727, kg, Start date: 02/10/19 7:30:00 CDT, Duration: 30 day, Stop date: 03/11/19 16:30:00 CDT No Longer Active 02/10/2019 [facility] Humalog 30 unit, 0.3 mL, Route: SUB-Q, Drug form: SOLN, TID-Before Meals, Start date: 02/10/19 7:30:00 CDT, Duration: 30 day, Stop date: 03/11/19 16:30:00 CDTNotes: (Same as: Humalog ) Roll in palms of hands ge ntly; Do not shake `vigorously. "Single Patient Use Only " WASTE: F/P - Black; E - Municipal Trash Bin Stable for 28 days at room temperature. Expires in days from Date No Longer Active 02/10/2019 [facility] sacubitril 24 MG / valsartan 26 MG Oral Tablet [Entresto] 1 tab, Route: PO, Drug Form: TAB, Dosing Weight 107.727, kg, Q12H, Start date: 02/09/19 21:00:00 CDT, Duration: 30 day, Stop date: 03/11/19 9:00:00 CDT No Longer Active 02/10/2019 [facility] Levemir 25 unit, Route: SUB-Q, Bedtime, Dosing Weight 107.727, kg, Start date: 02/09/19 21:00:00 CDT, Duration: 30 day, Stop date: 03/10/19 21:00:00 CDT Inactive 02/10/2019 [facility] atorvastatin 60 mg, 3 tab, Route: PO, Drug form: TAB, Bedtime, Dosing Weight 107.727, kg, Start date: 02/09/19 21:00:00 CDT, Duration: 30 day, Stop date: 03/10/19 21:00:00 CDTNotes: (Same As: Lipitor) No Longer Active 02/10/2019 [facility] Acetaminophen 325 MG / Hydrocodone Bitartrate 10 MG Oral Tablet [[place] 10/325] 2 tab, Route: PO, Drug Form: TAB, Dosing Weight 107.727, kg, Q6H, PRN Pain Score 7-10, Start date: 02/09/19 20:03:00 CDT, Duration: 30 day, Stop date: 03/11/19 20:02:00 CDTNotes: Do not exceed 4gm/day of acetaminophen. (Same as: [place] 325/10) No Longer Active 02/10/2019 [facility] Benadryl 25 mg, 1 cap, Route: PO, Drug form: CAP, ONCE, Dosing Weight 107.727, kg, Start date: 02/09/19 19:49:00 CDT, Stop date: 02/09/19 19:49:00 CDTNotes: (Same as: Benadryl) Inactive 02/10/2019 [facility] Calcium Gluconate 3 gm, 30 mL, Route: IVPB, Drug form: INJ, PRN, Dosing Weight 107.727, kg, PRN Abnormal Lab Result, For NON-ICU Patients Only., Start date: 02/09/19 19:40:00 CDT, Duration: 30 day, Stop date: 03/11/19 19:39:00 CDTNotes: WASTE: F/P - Sink; E - Municipal Trash Bin No Longer Active 02/10/2019 [facility] Potassium Chloride 20 mEq, 15 mL, Route: [place], Drug form: LIQ, PRN, Dosing Weight 107.727, kg, PRN Abnormal Lab Result, For NON-ICU Patients Only, Start date: 02/09/19 19:40:00 CDT, Duration: 30 day, Stop date: 03/11/19 19:39:00 CDTNotes: (Same as: Potassium Chloride) No Longer Active 02/10/2019 [facility] potassium phosphate 15 mmol, 5 mL, Route: IVPB, PRN, Dosing Weight 107.727, kg, PRN Abnormal Lab Result, For NON-ICU Patients Only., Start date: 02/09/19 19:40:00 CDT, Duration: 30 day, Stop date: 03/11/19 19:39:00 CDTN otes: (Same as: K Phosphate.) Do not infuse phosphorous concurrently in the same line as TPN or IVF that contains calcium. For double lumen central lines, phosphorous may be infused in a separate lumen from TPN. 1 mMol phoshate has 1.47 mEq potassium Infuse over 4 hours No Longer Active 02/10/2019 [facility] potassium phosphate-sodium phosphate 250 mg-280 mg-160 mg oral powder for reconstitution 2 pkt, Route: PO, Drug Form: PDR/REC, Dosing Weight 107.727, kg, PRN, PRN Abnormal Lab Result, For NON-ICU Patients Only, Start date: 02/09/19 19:40:00 CDT, Duration: 30 day, Stop date: 03/11/19 19:39:00 CDTNotes: (Same as: Phos-NaK) Each 1.5 gm pkt has 250mg phosphorous. Mix w/2.5oz water and stir. No Longer Active 02/10/2019 [facility] sodium phosphate 15 mmol, 5 mL, Route: IVPB, PRN, Dosing Weight 107.727, kg, PRN Abnormal Lab Result, For NON-ICU Patients Only., Start date: 02/09/19 19:40:00 CDT, Duration: 30 day, Stop date: 03/11/19 19:39:00 CDTN otes: Infuse over 4 hour. Do not infuse phosphorous concurrently in the same line as TPN or IVF that contains calcium. For double lumen central lines, phosphorous may be infused in a separate lumen from TPN. No Longer Active 02/10/2019 [facility] Magnesium Sulfate 2 gm, 50 mL, Route: IVPB, Drug form: INJ, PRN, Dosing Weight 107.727, kg, PRN Abnormal Lab Result, For NON-ICU Patients Only., Start date: 02/09/19 19:40:00 CDT, Duration: 30 day, Stop date: 03/11/19 19:39:00 CDTNotes: WASTE: F/P - Sink; E - Municipal Trash Bin No Longer Active 02/10/[facility] [facility] Magnesium Oxide 800 mg, 2 tab, Route: PO, Drug form: TAB, PRN, Dosing Weight 107.727, kg, PRN Abnormal Lab Result, For NON-ICU Patients Only., Start date: 02/09/19 19:40:00 CDT, Duration: 30 day, Stop date: 03/11/19 19:39:00 CDTNotes: (Same as: Mag-Ox 400) Magnesium oxide [id number] elemental magnesium Dose=____mg magnesium oxide (___mg elemental magnesium) No Longer Active 02/10/2019 [facility] Insulin Lispro 4 unit, 0.04 mL, Route: SUB-Q, Drug form: SOLN, Bedtime, Dosing Weight 107.727, kg, PRN Blood Glucose Results, Start date: 02/09/19 18:20:00 CDT, Duration: 30 day, Stop date: 03/11/19 18:19:00 CDTNotes: (Same as: Humalog ) Roll in palms of hands gently; Do not shake `vigorously. "Single Patient Use Only " WASTE: F/P - Black; E - Municipal Trash Bin Stable for 28 days at room temperature. Expires in days from Date No Longer Active 02/09/2019 [facility] Glucagon 1 mg, Route: IM, Drug form: PDR/INJ, PRN, Dosing Weight 107.727, kg, PRN Blood Glucose Results, Start date: 02/09/19 18:20:00 CDT, Duration: 30 day, Stop date: 03/11/19 18:19:00 CDT No Longer Active 02/09/2019 [facility] Dextrose 50% Syringe 12.5 gm, 25 mL, Route: IVP, Drug Form: INJ, Dosing Weight 107.727, kg, PRN, PRN Blood Glucose Results, Start date: 02/09/19 18:20:00 CDT, Duration: 30 day, Stop date: 03/11/19 18:19:00 CDT No Longer Active 02/09/2019 [facility] glycopyrrolate (ANES) Route: IV, Drug form: INJ, ONCE, Stop date: 02/09/19 16:51:00 CDT Inactive 02/09/2019 [facility] neostigmine (ANES) Route: IV, Drug form: INJ, ONCE, Stop date: 02/09/19 16:41:00 CDT Inactive 02/09/2019 [facility] ondansetron (ANES) Route: IV, Drug form: INJ, ONCE, Stop date: 02/09/19 16:01:00 CDT Inactive 02/09/2019 [facility] Hydralazine 10 mg, 0.5 mL, Route: IVP, Drug form: INJ, Q20Min, Dosing Weight 107.727, kg, PRN Elevated BP, Start date: 02/09/19 15:27:00 CDT, Duration: 2 doses or times, Stop date: 02/10/19 0:00:00 CDTNotes: (Same as: Apresoline) Push over 5 minutes No Longer Active 02/09/2019 [facility] esmolol 10 mg, 1 mL, Route: IVP, Drug form: INJ, Q5Min, Dosing Weight 107.727, kg, PRN Other -See Comment, Start date: 02/09/19 15:27:00 CDT, Duration: 5 doses or times, Stop date: 02/10/19 0:00:00 CDTNotes: (Same as: Brevibloc) No Longer Active 02/09/2019 [facility] Oxycodone 10 mg, 2 tab, Route: PO, Drug form: TAB, Q4H, Dosing Weight 107.727, kg, PRN Pain Score 7-10, Start date: 02/09/19 15:27:00 CDT, Stop date: 02/10/19 0:00:00 CDTNotes: (Same as: Roxicodone) No Longer Active 02/09/2019 [facility] Hydromorphone 0.5 mg, Route: IVP, Q5Min, Dosing Weight 107.727, kg, PRN Pain Score 7-10, Start date: 02/09/19 15:27:00 CDT, Duration: 4 doses or times, Stop date: Limited # of times Inactive 02/09/2019 [facility] Labetalol 10 mg, 2 mL, Route: IVP, Drug form: INJ, Q5Min, Dosing Weight 107.727, kg, PRN Elevated BP, Start date: 02/09/19 15:27:00 CDT, Duration: 5 doses or times, Stop date: 02/10/19 0:00:00 CDT No Longer Active 02/09/2019 [facility] Metoprolol 1 mg, 1 mL, Route: IVP, Drug form: INJ, Q5Min, Dosing Weight 107.727, kg, PRN Other -See Comment, Start date: 02/09/19 15:27:00 CDT, Duration: 5 doses or times, Stop date: 02/10/19 0:00:00 CDTNotes: (Same as: Lopressor) Push over 2 minutes No Longer Active 02/09/2019 [facility] Flumazenil 0.2 mg, 2 mL, Route: IVP, Drug form: INJ, PRN, Dosing Weight 107.727, kg, PRN Benzodiazepine Reversal, Initial dose, Start date: 02/09/19 15:27:00 CDT, Stop date: 02/10/19 0:00:00 CDTNotes: (Same as: Romazicon) No Longer Active 02/09/2019 [facility] Naloxone 0.4 mg, 1 mL, Route: IVP, Drug form: INJ, Q2MIN, Dosing Weight 107.727, kg, PRN Narcotic Reversal, Start date: 02/09/19 15:27:00 CDT, Duration: 8 doses or times, Stop date: 02/10/19 0:00:00 CDTNotes: Same as Narcan No Longer Active 02/09/2019 [facility] Ondansetron 4 mg, 2 mL, Route: IVP, Drug form: INJ, ONCE, Dosing Weight 107.727, kg, PRN Nausea & Vomiting, Start date: 02/09/19 15:27:00 CDTNotes: (Same as: Zofran) MEDICATION WASTE Product Size: 4 mg Product Wasted: ___ mg No Longer Active 02/09/2019 [facility] acetaminophen (ANES) Route: IV, Drug form: INJ, ONCE, Stop date: 02/09/19 15:16:00 CDT Inactive 02/09/2019 [facility] niCARdipine (ANES) Route: IV, Drug form: INJ, ONCE, Stop date: 02/09/19 14:21:00 CDT Inactive 02/09/2019 [facility] propofol (ANES) Route: IV, Drug form: INJ, ONCE, Stop date: 02/09/19 12:05:00 CDT Inactive 02/09/2019 [facility] lidocaine (ANES) Route: IV, Drug form: INJ, ONCE, Stop date: 02/09/19 11:30:00 CDT Inactive 02/09/2019 [facility] cisatracurium (ANES) Route: IV, Drug form: INJ, ONCE, Stop date: 02/09/19 11:30:00 CDT Inactive 02/09/2019 [facility] fentaNYL (ANES) Route: IV, Drug form: INJ, ONCE, Stop date: 02/09/19 11:30:00 CDT Inactive 02/09/2019 [facility] ceFAZolin (ANES) Route: IV, Drug form: INJ, ONCE, Stop date: 02/09/19 11:30:00 CDT Inactive 02/09/2019 [facility] midazolam (ANES) Route: IV, Drug form: SOLN, ONCE, Stop date: 02/09/19 11:15:00 CDT Inactive 02/09/2019 [facility] Sodium Chloride 0.9% IV (ANES) 1000 mL Route: IV, Total Volume: 1,000, Start date: 02/09/19 10:42:00 CDT, Stop date: 02/09/19 11:42:00 CDT Inactive 02/09/2019 [facility] ascorbic acid 1000 mg oral tablet 1,000 mg=1 tab, PO, BID, # 30 tab, 0 Refill(s) No Longer Active 02/09/2019 [facility] metoprolol succinate 25 mg oral capsule, extended release 25 mg=1 cap, PO, Daily, 0 Refill(s) No Longer Active 02/09/2019 [facility] sacubitril 24 MG / valsartan 26 MG Oral Tablet [Entresto] 1 tab, PO, BID, # 56 tab, 0 Refill(s) No Longer Active 02/09/2019 [facility] Furosemide 60 mg, PO, Daily, 0 Refill(s) No Longer Active 02/09/2019 [facility] Metoprolol Tartrate 50 Mg Tablet, 50 Mg Oral Twice A Day Active 01/12/2019 [facility] Losartan Potassium 25 Mg Tablet, 25 Mg Oral Daily Active 12/30/2018 [facility] Metformin hydrochloride 1000 MG Oral Tablet [Glucophage] 1,000 mg, 2 tab, Route: PO, Drug form: TAB, BID, Dosing Weight 109.091, kg, Start date: 10/02/18 9:00:00 [employer], Duration: 30 day, Stop date: 10/31/18 17:00:00 CSTNotes: (Same as: Glucophage) Take with meal Inactive 10/02/2018 [facility] Imdur 30 mg, 1 tab, Route: PO, Drug form: ERTAB, QAM, Dosing Weight 109.091, kg, Start date: 10/02/18 9:00:00 [employer], Duration: 30 day, Stop date: 10/31/18 9:00:00 CSTNotes: (Same as:Imdur) "Do Not Crush" Take on empty stomach/ full glass of water. Do not crush Inactive 10/02/2018 [facility] Losartan 25 mg, 1 tab, Route: PO, Drug form: TAB, Daily, Dosing Weight 109.091, kg, Start date: 10/02/18 9:00:00 [employer], Duration: 30 day, Stop date: 10/31/18 9:00:00 CSTNotes: (Same as: Ivone) Inactive 10/02/2018 [facility] Levemir 50 unit, Route: SUB-Q, Daily, Dosing Weight 109.091, kg, Start date: 10/02/18 9:00:00 [employer], Duration: 30 day, Stop date: 10/31/18 9:00:00 [employer] No Longer Active 10/02/2018 [facility] gabapentin 100 MG Oral Capsule 100 mg, 1 cap, Route: PO, Drug form: CAP, Daily, Dosing Weight 109.091, kg, Start date: 10/02/18 9:00:00 [employer], Duration: 30 day, Stop date: 10/31/18 9:00:00 CSTNotes: (Same as: Neurontin) Inactive 10/02/2018 [facility] Furosemide 20 MG Oral Tablet [Lasix] 20 mg, 1 tab, Route: PO, Drug form: TAB, Daily, Dosing Weight 109.091, kg, Start date: 10/02/18 9:00:00 [employer], Duration: 30 day, Stop date: 10/31/18 9:00:00 CSTNotes: (Same as: Lasix) May cause GI upset. Give with food or milk. Inactive 10/02/2018 [facility] Folic Acid 1 mg, 1 tab, Route: PO, Drug form: TAB, Daily, Dosing Weight 109.091, kg, Start date: 10/02/18 9:00:00 [employer], Duration: 30 day, Stop date: 10/31/18 9:00:00 CSTNotes: (Same as: Folvite) Inactive 10/02/2018 [facility] ferrous sulfate 325 mg, 1 tab, Route: PO, Drug form: ECTAB, BID, Dosing Weight 109.091, kg, Start date: 10/02/18 9:00:00 [employer], Duration: 30 day, Stop date: 10/31/18 17:00:00 CSTNotes: Give with food. "Do Not Crush" Inactive 10/02/2018 [facility] atorvastatin 60 mg, 1.5 tab, Route: PO, Drug form: TAB, Daily, Dosing Weight 109.091, kg, Start date: 10/02/18 9:00:00 [employer], Duration: 30 day, Stop date: 10/31/18 9:00:00 CSTNotes: (Same as: Lipitor) Inactive 10/02/2018 [facility] Aspirin 81 mg, 1 tab, Route: PO, Drug form: ECTAB, Daily, Dosing Weight 109.091, kg, Start date: 10/02/18 9:00:00 [employer], Duration: 30 day, Stop date: 10/31/18 9:00:00 CSTNotes: Do not crush or chew. (Same As: Ecotrin) Inactive 10/02/2018 [facility] insulin glargine 50 unit, 0.5 mL, Route: SUB-Q, Drug form: SOLN, Daily, Start date: 10/02/18 9:00:00 [employer], Duration: 30 day, Stop date: 10/31/18 9:00:00 CSTNotes: (Same as: Lantus) Do not hold insulin without contacting prescriber WASTE: F/P - Black; E - [employer] Trash Bin "single patient use only" Inactive 10/02/2018 [facility] Spironolactone 25 mg, 1 tab, Route: PO, Drug form: TAB, Daily, Dosing Weight 109.091, kg, Start date: 10/02/18 9:00:00 [employer], Duration: 30 day, Stop date: 10/31/18 9:00:00 CSTNotes: (Same As: Aldactone) Inactive 10/02/2018 [facility] 24 HR Metoprolol Tartrate 50 MG Extended Release Tablet [Toprol] 50 mg, 1 tab, Route: PO, Drug form: ERTAB, Daily, Start date: 10/02/18 9:00:00 [employer], Duration: 30 day, Stop date: 10/31/18 9:00:00 CSTNotes: (Same as: Toprol XL) May split tab, but do not crush. Inactive 10/02/2018 [facility] Minocycline 100 mg, 2 cap, Route: PO, Drug form: CAP, [id number], Dosing Weight 109.091, kg, Start date: 10/02/18 9:00:00 [employer], Duration: 7 day, Stop date: 10/08/18 21:00:00 CSTNotes: (Same as:Minocin) No milk/antacids/iron. Inactive 10/02/2018 [facility] NovoLog Route: SUB-Q, TID-Before Meals, Dosing Weight 109.091, kg, Start date: 10/02/18 7:30:00 [employer], Duration: 30 day, Stop date: 10/31/18 16:30:00 [employer] No Longer Active 10/02/2018 [facility] Humalog 40 unit, 0.4 mL, Route: SUB-Q, Drug form: SOLN, TID-Before Meals, Start date: 10/02/18 7:30:00 [employer], Duration: 30 day, Stop date: 10/31/18 16:30:00 CSTNotes: (Same as: Humalog ) Roll in palms of hands ge ntly; Do not shake `vigorously. "Single Patient Use Only " WASTE: F/P - Black; E - Municipal Trash Bin Stable for 28 days at room temperature. Expires in days from Date Inactive 10/02/2018 [facility] Cefazolin 1 gm, Route: IVP, [id number], Dosing Weight 109.091, kg, Start date: 10/01/18 20:00:00 [employer], Duration: 3 doses or times, Stop date: 10/02/18 12:00:00 [employer], ABX Indication: Surgical ProphylaxisNotes: (Same As: Andrew Torres) MEDICATION WASTE Product Size: 1000 mg Product Wasted: ___ mg No Longer Active 10/02/2018 [facility] minocycline 100 mg oral tablet 100 mg, PO, Q12H, X 7 day, # 14 tab, 0 Refill(s) No Longer Active 10/02/2018 [facility] Acetaminophen 300 MG / Codeine Phosphate 30 MG Oral Tablet 2 tab, PO, Q6H, PRN Pain Score 7-10, X 7 day, # 56 tab, 0 Refill(s) No Longer Active 10/02/2018 [facility] acetaminophen-codeine #3 2 tab, Route: PO, Drug Form: TAB, Dosing Weight 109.091, kg, Q4H, PRN Pain Score 7-10, Start date: 10/01/18 19:24:00 [employer], Duration: 30 day, Stop date: 10/31/18 19:23:00 CSTNotes: Do not exceed 4gm/day of acetaminophen. (Same as: Tylenol with Codeine # 3) No Longer Active 10/02/2018 [facility] Morphine 2 mg, 1 mL, Route: IVP, Drug form: SOLN, Q4H, Dosing Weight 109.091, kg, PRN Pain Score 4-6, Start date: 10/01/18 19:24:00 [employer], Duration: 30 day, Stop date: 10/31/18 19:23:00 [employer] No Longer Active 10/02/2018 [facility] Tramadol 100 mg, 2 tab, Route: PO, Drug form: TAB, Q6H, Dosing Weight 109.091, kg, PRN Pain Score 7-10, Start date: 10/01/18 19:24:00 [employer], Duration: 30 day, Stop date: 10/31/18 19:23:00 CSTNotes: Not to exceed 400mg/day. (Same As: Ultram) No Longer Active 10/02/2018 [facility] Bupivacaine liposome 20 mL, Route: InFILtration(local), Drug Form: INJ, Dosing Weight 109.091, kg, ONCE, For Hemorrhoidectomy, NOW, Start date: 10/01/18 12:54:00 [employer], Stop date: 10/01/18 12:54:00 CSTNotes: (Same as: Exparel) NOT FOR IV use Postoperative analgesia: Infiltration (local): Dose is based on surgical site and volume required to cover the area (in general, the maximum total dose is 266 mg). Bunionectomy: 7 mL into the tissues surrounding the osteotomy and 1 mL into the subcutaneous tissue of the surgical site (total dose=8 mL [106 mg]) Hemorrhoidectomy: 30 mL (20 mL vial diluted with 10 mL NS) divided and administered as 6 injections of 5 mL each (total dose=30 mL [266 mg]) Inactive 10/01/2018 [facility] Saline Flush 0.9% 10 ml, Route: IVP, Drug Form: INJ, Dosing Weight 110, kg, Q12H, Start date: 09/24/18 21:00:00 [employer], Duration: 30 day, Stop date: 10/24/18 9:00:00 CSTNotes: (Same as: BD Posiflush) Inactive 09/25/2018 [facility] Saline Flush 0.9% 10 ml, Route: IVP, Drug Form: INJ, Dosing Weight 110, kg, PRN, PRN Line Flush, Start date: 09/24/18 9:12:00 [employer], Duration: 30 day, Stop date: 10/24/18 9:11:00 CSTNotes: (Same as: BD Posiflush) Inactive 09/24/2018 [facility] Acetaminophen 325 MG / Hydrocodone Bitartrate 5 MG Oral Tablet 1 tab, Route: PO, Drug Form: TAB, Dosing Weight 110, kg, Q4H, PRN Pain Score 1-3, Start date: 09/24/18 9:12:00 [employer], Duration: 30 day, Stop date: 10/24/18 9:11:00 CSTNotes: (Same as: [place] 325/5) Do not exceed 4gm/day of acetaminophen. Inactive 09/24/2018 [facility] Morphine 4 mg, 1 mL, Route: IVP, Drug form: SOLN, Q2H, Dosing Weight 110, kg, PRN Pain Score 7-10, Start date: 09/24/18 9:12:00 [employer], Duration: 30 day, Stop date: 10/24/18 9:11:00 CSTNotes: (Same as:MORPhine S ulfate) Inactive 09/24/2018 [facility] Nitroglycerin 0.4 mg, 1 tab, Route: SL, Drug form: TAB, Q5Min, Dosing Weight 110, kg, PRN Chest Pain, Start date: 09/24/18 9:12:00 [employer], Duration: 3 doses or times, Stop date: Limited # of timesNotes: (Same as:Nitroqu ick, Nitrostat) "Do Not Crush" Sublingual tablet Inactive 09/24/2018 [facility] Famotidine 20 mg, 1 tab, Route: PO, Drug form: TAB, Q12H, Dosing Weight 110, kg, Start date: 09/24/18 9:00:00 [employer], Duration: 30 day, Stop date: 10/23/18 21:00:00 CSTNotes: (Same as: Pepcid) Inactive 09/24/2018 [facility] gabapentin 100 MG Oral Capsule 100 mg, 1 cap, Route: PO, Drug form: CAP, Daily, Dosing Weight 110, kg, Start date: 09/24/18 9:00:00 [employer], Duration: 30 day, Stop date: 10/23/18 9:00:00 CSTNotes: (Same as: Neurontin) Inactive 09/24/2018 [facility] Spironolactone 25 mg, 1 tab, Route: PO, Drug form: TAB, Daily, Dosing Weight 110, kg, Start date: 09/24/18 9:00:00 [employer], Duration: 30 day, Stop date: 10/23/18 9:00:00 CSTNotes: (Same As: Aldactone) Inactive 09/24/2018 [facility] [place]-3 Acid Ethyl Esters (FDC) 1000 MG Oral Capsule [Lovaza] 2,000 mg, 2 cap, Route: PO, Drug Form: CAP, Dosing Weight 110, kg, BID, Start date: 09/24/18 9:00:00 [employer], Duration: 30 day, Stop date: 10/23/18 17:00:00 CSTNotes: (Same as: MaxEPA, [place] 3 fish oil ) Non-Formulary Drug Inactive 09/24/2018 [facility] 24 HR Metoprolol Tartrate 50 MG Extended Release Tablet [Toprol] 50 mg, 1 tab, Route: PO, Drug form: ERTAB, Daily, Start date: 09/24/18 9:00:00 [employer], Duration: 30 day, Stop date: 10/23/18 9:00:00 CSTNotes: (Same as: Toprol XL) May split tab, but do not crush. Inactive 09/24/2018 [facility] Losartan 25 mg, 1 tab, Route: PO, Drug form: TAB, Daily, Dosing Weight 110, kg, Start date: 09/24/18 9:00:00 [employer], Duration: 30 day, Stop date: 10/23/18 9:00:00 CSTNotes: (Same as: Cozaar) Inactive 09/24/2018 [facility] Levemir 50 unit, Route: SUB-Q, Daily, Dosing Weight 110, kg, Start date: 09/24/18 9:00:00 [employer], Duration: 30 day, Stop date: 10/23/18 9:00:00 [employer] WORKER Inactive 09/24/2018 [facility] Furosemide 20 MG Oral Tablet [Lasix] 20 mg, 1 tab, Route: PO, Drug form: TAB, Daily, Dosing Weight 110, kg, Start date: 09/24/18 9:00:00 [employer], Duration: 30 day, Stop date: 10/23/18 9:00:00 CSTNotes: (Same as: Lasix) May cause GI upset. Give with food or milk. Inactive 09/24/2018 [facility] Folic Acid 1 mg, 1 tab, Route: PO, Drug form: TAB, Daily, Dosing Weight 110, kg, Start date: 09/24/18 9:00:00 [employer], Duration: 30 day, Stop date: 10/23/18 9:00:00 CSTNotes: (Same as: Folvite) Inactive 09/24/2018 [facility] Plavix 75 mg, 1 tab, Route: PO, Drug form: TAB, Daily, Dosing Weight 110, kg, Start date: 09/24/18 9:00:00 [employer], Duration: 30 day, Stop date: 10/23/18 9:00:00 CSTNotes: (Same As: Plavix) Inactive 09/24/2018 [facility] atorvastatin 60 mg, 1.5 tab, Route: PO, Drug form: TAB, Daily, Dosing Weight 110, kg, Start date: 09/24/18 9:00:00 [employer], Duration: 30 day, Stop date: 10/23/18 9:00:00 CSTNotes: (Same as: Lipitor) Inactive 09/24/2018 [facility] Vitamin C 500 mg, 1 tab, Route: PO, Drug form: TAB, Daily, Dosing Weight 110, kg, Start date: 09/24/18 9:00:00 [employer], Duration: 30 day, Stop date: 10/23/18 9:00:00 CSTNotes: (Same as: Vitamin C) Inactive 09/24/2018 [facility] insulin glargine 50 unit, 0.5 mL, Route: SUB-Q, Drug form: SOLN, Daily, Start date: 09/24/18 9:00:00 [employer], Duration: 30 day, Stop date: 10/23/18 9:00:00 CSTNotes: (Same as: Lantus) Do not hold insulin without contacting prescriber WASTE: F/P - Black; E - [employer] Trash Bin "single patient use only" Inactive 09/24/2018 [facility] ferrous sulfate 325 mg, 1 tab, Route: PO, Drug form: ECTAB, BID-Meals, Dosing Weight 110, kg, Start date: 09/24/18 8:00:00 [employer], Duration: 30 day, Stop date: 10/23/18 17:00:00 CSTNotes: Give with food. "Do Not Crush" Inactive 09/24/2018 [facility] NovoLog Route: SUB-Q, TID-Before Meals, Dosing Weight 110, kg, Start date: 09/24/18 7:30:00 [employer], Duration: 30 day, Stop date: 10/23/18 16:30:00 [employer] WORKER Inactive 09/24/2018 [facility] Humalog 40 unit, 0.4 mL, Route: SUB-Q, Drug form: SOLN, TID-Before Meals, Start date: 09/24/18 7:30:00 [employer] WORK[employer], Duration: 30 day, Stop date: 10/23/18 16:30:00 CSTNotes: (Same as: Humalog ) Roll in palms of hands ge ntly; Do not shake `vigorously. "Single Patient Use Only " WASTE: F/P - Black; E - [employer] Trash Bin Stable for 28 days at room temperature. Expires in days from Date Inactive 09/24/2018 [facility] Imdur 30 mg, 1 tab, Route: PO, Drug form: ERTAB, QAM, Dosing Weight 110, kg, Start date: 09/24/18 6:30:00 [employer] WORK[employer], Duration: 30 day, Stop date: 10/23/18 6:30:00 CSTNotes: (Same as:Imdur) "Do Not Crush" Take on empty stomach/ full glass of water. Do not crush Inactive 09/24/2018 [facility] Lovenox 40 mg, 0.4 mL, Route: SUB-Q, Drug form: INJ, [id number], Dosing Weight 110, kg, Start date: 09/24/18 6:00:00 [employer] RO[employer] WORK[employer], Duration: 30 day, Stop date: 10/23/18 6:00:00 CSTNotes: (Same as: Lovenox) Inactive 09/24/2018 [facility] Insulin Lispro 8 unit, 0.08 mL, Route: SUB-Q, Drug form: SOLN, TID-Before Meals, Dosing Weight 110, kg, PRN Blood Glucose Results, Start date: 09/24/18 5:51:00 [employer], Duration: 30 day, Stop date: 10/24/18 5:50:00 [employer] WORK[employer] Notes: (Same as: Humalog ) Roll in palms of hands gently; Do not shake `vigorously. "Single Patient Use Only " WASTE: F/P - Black; E - [employer] Trash Bin Stable for 28 days at room temperature. Expires in days from Date Inactive 09/24/2018 [facility] Dextrose 50% Syringe 25 gm, 50 mL, Route: IVP, Drug Form: INJ, Dosing Weight 110, kg, PRN, PRN Blood Glucose Results, Start date: 09/24/18 5:51:00 [employer] WORK[employer], Duration: 30 day, Stop date: 10/24/18 5:50:00 [employer] WORKER Inactive 09/24/2018 [facility] Glucagon 1 mg, Route: IM, Drug form: PDR/INJ, PRN, Dosing Weight 110, kg, PRN Blood Glucose Results, Start date: 09/24/18 5:51:00 [employer] RO[employer] WORK[employer], Duration: 30 day, Stop date: 10/24/18 5:50:00 [employer] WORKER Inactive 09/24/2018 [facility] Aspirin 81 MG Chewable Tablet 81 mg, 1 tab, Route: PO, Drug form: CHEWTAB, Daily, Dosing Weight 110, kg, Start date: 09/24/18 3:05:00 [employer], Duration: 30 day, Stop date: 10/23/18 9:00:00 CSTNotes: Take with food. Inactive 09/24/2018 [facility] Morphine 2 mg, 0.5 mL, Route: IVP, Drug form: SOLN, Q2H, Dosing Weight 110, kg, PRN Pain Score 4-6, Start date: 09/24/18 2:55:00 [employer] RO[employer] WORK[employer], Duration: 30 day, Stop date: 10/24/18 2:54:00 CSTNotes: (Same as:MORPhine Sulfate) Inactive 09/24/2018 [facility] Nitroglycerin 0.4 mg, 1 tab, Route: SL, Drug form: TAB, Q5Min, Dosing Weight 110, kg, PRN Chest Pain, Start date: 09/24/18 2:55:00 [employer] RO[employer] WORK[employer], Duration: 3 doses or times, Stop date: Limited # of timesNotes: (Same as:Celena Millertaenzo) "Do Not Crush" Sublingual tablet Inactive 09/24/2018 [facility] Ondansetron 4 mg, Route: IVP, Drug form: INJ, ONCE, Dosing Weight 110, kg, Priority: STAT, Start date: 09/24/18 0:15:00 [employer], Stop date: 09/24/18 0:15:00 [employer] WORKER Inactive 09/24/2018 [facility] Morphine 4 mg, Route: IVP, ONCE, Dosing Weight 110, kg, Priority: STAT, Start date: 09/24/18 0:15:00 [employer] RO[employer] WORKER, Stop date: 09/24/18 0:15:00 [employer] RO[employer] WORKER Inactive 09/24/2018 [facility] Saline Flush 0.9% 10 mL, Route: IVP, Drug Form: INJ, Dosing Weight 110.091, kg, PRN, PRN Line Flush, Start date: 09/23/18 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, Duration: 30 day, Stop date: 10/23/18 23:50:00 CSTNotes: (Same as: BD Posiflush) No Longer Active 09/24/2018 [facility] atorvastatin 60 mg, PO, Daily, 0 Refill(s) No Longer Active 09/16/2018 [facility] empagliflozin 25 MG Oral Tablet [Jardiance] 25 mg=1 tab, PO, QAM, 0 Refill(s) No Longer Active 09/16/2018 [facility] [place]-3 oral capsule 2 tab, PO, BID, 0 Refill(s) Inactive 09/16/2018 [facility] Azo-Cranberry PO, TID, 0 Refill(s) No Longer Active 09/16/2018 [facility] Albuterol Sulfate (Proair Hfa Inhaler*) 8.5 Gm Inh, Active 06/25/2018 [facility] Insulin Glargine (Lantus 3ML Pen) 100 Units/1 Ml Inj, Active 06/25/2018 [facility] Insulin Lispro (Humalog) 100 Unit/1 Ml Cartridge, Active 06/25/2018 [facility] Simvastatin 40 Mg Tablet, 40 Mg Oral Bedtime Active 06/25/2018 [facility] Insulin Glargine (Lantus 3ML Pen) 100 Units/1 Ml Inj, Active 06/25/2018 [facility] Simvastatin 40 Mg Tablet, 40 Mg Oral Bedtime Active 06/25/2018 [facility] Omnipaque 300 injectable solution 100 mL, Route: IVP, Drug Form: SOLN, Dosing Weight 114.545, kg, ONCALL, GFR > 45 mL/min, Start date: 05/19/18 10:00:00 CDT, Duration: 1 day, Stop date: 05/20/18 9:59:00 CDTNotes: (Same as:Omnipaque 300). WASTE: F/P - Black; E - [employer] Trash Bin No Longer Active 05/19/2018 [facility] 24 HR Isosorbide Mononitrate 30 MG Extended Release Tablet [Imdur] 30 mg=1 tab, PO, QAM, # 30 tab, 6 Refill(s), Pharmacy: [facility] Active 10/19/2017 [facility] Heart Failure heparin 5,000 unit, 1 mL, Route: SUB-Q, Drug form: INJ, Q8H, Start date: 07/22/17 16:00:00 CDT, Duration: 30 day, Stop date: 08/21/17 8:00:00 CDTNotes: porcine heparin Inactive 07/22/2017 [facility] clopidogrel 75 MG Oral Tablet [Plavix] 75 mg=1 tab, PO, Daily, # 90 tab, 3 Refill(s) Active 07/22/2017 [facility] Spironolactone 25 mg, 1 tab, Route: PO, Drug form: TAB, Daily, Dosing Weight 114.602, kg, Start date: 07/22/17 9:00:00 CDT, Duration: 30 day, Stop date: 08/20/17 9:00:00 CDTNotes: (Same As: Aldactone) Inactive 07/22/2017 [facility] [place]-3 Acid Ethyl Esters (FDC) 1000 MG Oral Capsule [Lovaza] 2,000 mg, 2 cap, Route: PO, Drug Form: CAP, Dosing Weight 114.602, kg, BID, Start date: 07/22/17 9:00:00 CDT, Duration: 30 day, Stop date: 08/20/17 17:00:00 CDTNotes: (Same as: MaxEPA, [place] 3 fish oil ) Non-Formulary Drug Inactive 07/22/2017 [facility] 24 HR Metoprolol Tartrate 50 MG Extended Release Tablet [Toprol] 50 mg, 1 tab, Route: PO, Drug form: ERTAB, Daily, Start date: 07/22/17 9:00:00 CDT, Duration: 30 day, Stop date: 08/20/17 9:00:00 CDTNotes: (Same as: Toprol XL) May split tab, but do not crush. Inactive 07/22/2017 [facility] Losartan 25 mg, 1 tab, Route: PO, Drug form: TAB, Daily, Dosing Weight 114.602, kg, Start date: 07/22/17 9:00:00 CDT, Duration: 30 day, Stop date: 08/20/17 9:00:00 CDTNotes: (Same as: Cozaar) Inactive 07/22/2017 [facility] Imdur 30 mg, 1 tab, Route: PO, Drug form: ERTAB, QAM, Dosing Weight 114.602, kg, Start date: 07/22/17 9:00:00 CDT, Duration: 30 day, Stop date: 08/20/17 9:00:00 CDTNotes: (Same as:Imdur) "Do Not Crush" Take on empty stomach/ full glass of water. Do not crush Inactive 07/22/2017 [facility] Levemir 40 unit, 0.4 mL, Route: SUB-Q, Drug form: SOLN, Daily, Dosing Weight 114.602, kg, Start date: 07/22/17 9:00:00 CDT, Duration: 30 day, Stop date: 08/20/17 9:00:00 CDTNotes: Non-Formulary Drug (Same as Le vemir) Do not hold insulin without contacting prescriber WASTE: F/P - Black; E - Municipal Trash Bin "single patient use only" Inactive 07/22/2017 [facility] gabapentin 100 MG Oral Capsule 300 mg, 3 cap, Route: PO, Drug form: CAP, Daily, Dosing Weight 114.602, kg, Start date: 07/22/17 9:00:00 CDT, Duration: 30 day, Stop date: 08/20/17 9:00:00 CDTNotes: (Same as: Neurontin) Inactive 07/22/2017 [facility] Furosemide 20 MG Oral Tablet [Lasix] 20 mg, 1 tab, Route: PO, Drug form: TAB, Daily, Dosing Weight 114.602, kg, Start date: 07/22/17 9:00:00 CDT, Duration: 30 day, Stop date: 08/20/17 9:00:00 CDTNotes: (Same as: Lasix) May cause GI upset. Give with food or milk. Inactive 07/22/2017 [facility] Folic Acid 1 mg, 1 tab, Route: PO, Drug form: TAB, Daily, Dosing Weight 114.602, kg, Start date: 07/22/17 9:00:00 CDT, Duration: 30 day, Stop date: 08/20/17 9:00:00 CDTNotes: (Same as: Folvite) Inactive 07/22/2017 [facility] ferrous sulfate 325 mg, 1 tab, Route: PO, Drug form: ECTAB, Daily, Dosing Weight 114.602, kg, Start date: 07/22/17 9:00:00 CDT, Duration: 30 day, Stop date: 08/20/17 9:00:00 CDTNotes: Give with food. "Do Not Crush" Inactive 07/22/2017 [facility] Vitamin C 500 mg, 1 tab, Route: PO, Drug form: TAB, Daily, Dosing Weight 114.602, kg, Start date: 07/22/17 9:00:00 CDT, Duration: 30 day, Stop date: 08/20/17 9:00:00 CDTNotes: (Same as: Vitamin C) Inactive 07/22/2017 [facility] Aspirin 81 mg, 1 tab, Route: PO, Drug form: ECTAB, Daily, Dosing Weight 114.602, kg, Start date: 07/22/17 9:00:00 CDT, Duration: 30 day, Stop date: 08/20/17 9:00:00 CDTNotes: Do not crush or chew. (Same As: Ecotrin) Inactive 07/22/2017 [facility] heparin sodium, porcine 2500 UNT/ML Injectable Solution 5,000 unit, Route: SUB-Q, Drug form: INJ, Q8H, Dosing Weight 114.602, kg, Start date: 07/22/17 8:00:00 CDT, Duration: 30 day, Stop date: 08/21/17 0:00:00 CDT Inactive 07/22/2017 [facility] Magnesium Sulfate 2 gm, 50 mL, Route: IVPB, Drug form: INJ, ONCE, Dosing Weight 114.602, kg, Start date: 07/22/17 6:20:00 CDT, Duration: 2 hr, Stop date: 07/22/17 6:20:00 CDTNotes: WASTE: F/P - Sink; E - Municipal Trash Bin Inactive 07/22/2017 [facility] Levemir 20 unit, 0.2 mL, Route: SUB-Q, Drug form: SOLN, ONCE, Dosing Weight 114.602, kg, Start date: 07/22/17 3:59:00 CDT, Stop date: 07/22/17 3:59:00 CDTNotes: Non-Formulary Drug (Same as Levemir) Do not hold insulin without contacting prescriber WASTE: F/P - Black; E - Municipal Trash Bin "single patient use only" Inactive 07/22/2017 [facility] Dextrose 50% Syringe 12.5 gm, 25 mL, Route: IVP, Drug Form: INJ, Dosing Weight 114.602, kg, PRN, PRN Blood Glucose Results, Start date: 07/22/17 2:32:00 CDT, Duration: 30 day, Stop date: 08/21/17 2:31:00 CDT Inactive 07/22/2017 [facility] Glucagon 1 mg, Route: IM, Drug form: PDR/INJ, PRN, Dosing Weight 114.602, kg, PRN Blood Glucose Results, Priority: STAT, Start date: 07/22/17 2:32:00 CDT, Duration: 30 day, Stop date: 08/21/17 2:31:00 CDT Inactive 07/22/2017 [facility] Insulin regular 5 unit, 0.05 mL, Route: SUB-Q, Drug form: SOLN, Sliding Scale, Dosing Weight 114.602, kg, PRN Blood Glucose Results, Start date: 07/22/17 2:32:00 CDT, Duration: 30 day, Stop date: 08/21/17 2:31:00 CDTNotes: (Same as: Humulin R) Roll in palms of hands gently; Do not shake vigorously. "single patient use only" (Restricted to patients requiring a dose > 60 units) WASTE: F/P - Black; E - Municipal Trash Bin Stable for 28 days at room temperature Expires in days from Date Inactive 07/22/2017 [facility] Nitroglycerin 0.4 MG Sublingual Tablet 0.4 mg, 1 tab, Route: SL, Drug form: TAB, Q5Min, Dosing Weight 114.602, kg, PRN Chest Pain, Start date: 07/22/17 2:16:00 CDT, Duration: 30 day, Stop date: 08/21/17 2:15:00 CDTNotes: (Same as:Nitroquick, Nitrostat) "Do Not Crush" Sublingual tablet Inactive 07/22/2017 [facility] atorvastatin 40 mg, 1 tab, Route: PO, Drug form: TAB, Daily, Dosing Weight 114.602, kg, Start date: 07/22/17 2:16:00 CDT, Duration: 30 day, Stop date: 08/20/17 21:00:00 CDTNotes: (Same as: Lipitor) Inactive 07/22/2017 [facility] Saline Flush 0.9% 5 ml, Route: IVP, Drug Form: INJ, Dosing Weight 114, kg, Q12H, Start date: 07/21/17 21:00:00 CDT, Duration: 30 day, Stop date: 08/20/17 9:00:00 CDTNotes: (Same as: BD Posiflush) No Longer Active 07/22/2017 [facility] Cefazolin 2 gm, 100 mL, Route: IVPB, Drug form: INJ, ONCALL, Dosing Weight 114, kg, Start date: 07/21/17 18:00:00 CDT, Duration: 1 doses or times, ABX Indication: Surgical ProphylaxisNotes: Same as: Ancef No Longer Active 07/21/2017 [facility] Saline Flush 0.9% 5 ml, Route: IVP, Drug Form: INJ, Dosing Weight 114, kg, PRN, PRN Line Flush, Start date: 07/21/17 17:02:00 CDT, Duration: 30 day, Stop date: 08/20/17 17:01:00 CDTNotes: (Same as: BD Posiflush) No Longer Active 07/21/2017 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 Metoprolol 2 mg, 2 mL, Route: IVP, Drug form: INJ, ONCE, Dosing Weight 114, kg, Start date: 07/21/17 17:02:00 CDT, Duration: 1 doses or times, Stop date: 07/21/17 17:02:00 CDTNotes: (Same as: Lopressor) Push over 2 minutes Inactive 07/21/2017 [facility] Vitamin C 500 mg oral capsule 500 mg=1 cap, PO, Daily, 0 Refill(s) Active 06/02/2017 [facility] gabapentin 100 MG Oral Capsule 300 mg=3 cap, PO, Daily, 0 Refill(s) Active 06/02/2017 [facility] ferrous sulfate 325 mg oral enteric coated tablet 325 mg=1 tab, PO, Daily, 0 Refill(s) Active 06/02/2017 [facility] Folic Acid 1 MG Oral Tablet 1 mg=1 tab, PO, Daily, 0 Refill(s) Active 06/02/2017 [facility] atorvastatin 40 mg oral tablet 40 mg=1 tab, PO, Daily, 0 Refill(s) Active 06/02/2017 [facility] ciprofloxacin 500 mg oral tablet 500 mg=1 tab, PO, BID, 0 Refill(s) Active 06/02/2017 [facility] gabapentin 100 MG Oral Capsule 300 mg=3 cap, PO, Daily, 0 Refill(s) Active 05/12/2017 [facility] Nitroglycerin 0.4 MG Sublingual Tablet 0.4 mg=1 tab, SL, Q5Min, PRN Chest Pain, Give up to 3 doses. Call 911 or go to ER if pain persists., # 25 tab, 3 Refill(s), Pharmacy: [facility], PLEASE FAX ALL FUTURE REFILL REQUESTS TO: [phone] Active 03/23/2017 [facility] Heart Failure [place]-3 Acid Ethyl Esters (FDC) 1000 MG Oral Capsule [Lovaza] 2,000 mg=2 cap, PO, BID, # 60 cap, 6 Refill(s), Pharmacy: [facility] Active 03/09/2017 [facility] 24 HR Isosorbide Mononitrate 30 MG Extended Release Tablet [Imdur] 30 mg=1 tab, PO, QAM, # 30 tab, 6 Refill(s), Pharmacy: [facility] Active 03/09/2017 [facility] Nitroglycerin 0.4 MG Sublingual Tablet 0.4 mg=1 tab, SL, Q5Min, PRN Chest Pain, Give up to 3 doses. Call 911 if pain persists., # 25 tab, 3 Refill(s), Pharmacy: [facility] Active 03/09/2017 [facility] omega-3 polyunsaturated fatty acids =1 tab, PO, Daily, 0 Refill(s) Active 03/09/2017 [facility] Nitroglycerin 0.4 mg, 1 tab, Route: SL, Drug form: TAB, Q5Min, Dosing Weight 118.182, kg, PRN Chest Pain, Start date: 02/10/17 12:18:00 CDT, Duration: 3 doses or times, Stop date: Limited # of timesNotes: (Same as :Nitroquick, Nitrostat) "Do Not Crush" Sublingual tablet No Longer Active 02/10/2017 [facility] Sodium Chloride 0.154 MEQ/ML Injectable Solution 250 mL, Rate: 20 ml/hr, Infuse over: 12.5 hr, Route: IV, Dosing Weight 118.182 kg, Total Volume: 250, Start date: 02/10/17 12:18:00 CDT, Duration: 24 hr, Stop date: 02/11/17 12:17:00 CDT No Longer Active 02/10/2017 [facility] sodium chloride 0.9% 1000 ml INJ 1,000 mL 1,000 mL, Rate: 100 ml/hr, Infuse over: 10 hr, Route: IV, Dosing Weight 118.182 kg, Total Volume: 1,000, Start date: 02/10/17 9:50:00 CDT, Duration: 30 day, Stop date: 03/12/17 9:49:00 CDT No Longer Active 02/10/2017 [facility] tramadol hydrochloride 50 MG Oral Tablet [Ultram] 50 mg=1 tab, PO, Q4H, PRN pain, X 3 day, # 20 tab, 0 Refill(s) Active 08/20/2016 [facility] Aspirin 324 mg, Route: PO, ONCE, Dosing Weight 113.636, kg, Priority: STAT, Start date: 08/20/16 8:28:00 CDT, Stop date: 08/20/16 8:28:00 CDT Inactive 08/20/2016 [facility] Ondansetron 4 mg, 2 mL, Route: IVP, Drug form: INJ, ONCE, Dosing Weight 113.636, kg, Priority: STAT, Start date: 08/20/16 8:28:00 CDT, Stop date: 08/20/16 8:28:00 CDTNotes: (Same as: Alfonso) MEDICATION WASTE Product Size: 4 mg Product Wasted: ___ mg Inactive 08/20/2016 [facility] Metoprolol 5 mg, Route: IVP, Q5Min, Dosing Weight 113.636, kg, Priority: STAT, Start date: 08/20/16 8:28:00 CDT, Duration: 3 doses or times, Stop date: 08/20/16 8:38:00 CDT Inactive 08/20/2016 [facility] Saline Flush 0.9% 10 mL, Route: IVP, Drug Form: INJ, Dosing Weight 113.636, kg, PRN, PRN Line Flush, Start date: 08/20/16 8:28:00 CDT, Duration: 30 day, Stop date: 09/19/16 7:27:00 [employer]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/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 [facility] Diazepam 5 MG Oral Tablet [Valium] 5 mg=1 tab, PO, QID, PRN msk spasm, X 7 day, # 20 tab, 0 Refill(s) Active 07/13/2016 [facility] Acetaminophen 300 MG / Codeine Phosphate 30 MG Oral Tablet [Tylenol with Codeine #3] 1 tab, PO, Q6H, PRN Pain Score 4-6, X 5 day, # 30 tab, 0 Refill(s) Active 07/13/2016 [facility] Valium 5 mg, Route: PO, ONCE, Dosing Weight 113.636, kg, Priority: STAT, Start date: 07/13/16 1:17:00 CDT, Stop date: 07/13/16 1:17:00 CDT Inactive 07/13/2016 [facility] Tylenol 975 mg, Route: PO, Drug form: TAB, ONCE, Dosing Weight 113.636, kg, Priority: STAT, Start date: 07/13/16 1:17:00 CDT, Stop date: 07/13/16 1:17:00 CDT Inactive 07/13/2016 [facility] 24 HR Metoprolol Tartrate 50 MG Extended Release Tablet [Toprol] 50 mg, 1 tab, Route: PO, Drug form: ERTAB, Daily, Start date: 02/02/16 9:00:00, Duration: 30 day, Stop date: 03/02/16 9:00:00Notes: (Same as: Toprol XL) May split tab, but do not crush. Inactive 02/02/2016 [facility] Metformin 1,000 mg, 2 tab, Route: PO, Drug form: TAB, BID, Dosing Weight 113.636, kg, Start date: 02/02/16 9:00:00, Duration: 30 day, Stop date: 03/02/16 17:00:00Notes: (Same as: Glucophage) Take with meal Inactive 02/02/2016 [facility] Losartan 25 mg, 1 tab, Route: PO, Drug form: TAB, Daily, Dosing Weight 113.636, kg, Start date: 02/02/16 9:00:00, Duration: 30 day, Stop date: 03/02/16 9:00:00Notes: (Same as: Cozaar) Inactive 02/02/2016 [facility] Furosemide 20 MG Oral Tablet [Lasix] 20 mg, 1 tab, Route: PO, Drug form: TAB, Daily, Dosing Weight 113.636, kg, Start date: 02/02/16 9:00:00, Duration: 30 day, Stop date: 03/02/16 9:00:00Notes: (Same as: Lasix) May cause GI upset. Give with food or milk. Inactive 02/02/2016 [facility] Spironolactone 25 mg, 1 tab, Route: PO, Drug form: TAB, Daily, Dosing Weight 113.636, kg, Start date: 02/02/16 9:00:00, Duration: 30 day, Stop date: 03/02/16 9:00:00Notes: (Same As: Aldactone) Inactive 02/02/2016 [facility] NovoLog 30 unit, 0.3 mL, Route: SUB-Q, Drug form: SOLN, TID-Before Meals, Dosing Weight 113.636, kg, Start date: 02/02/16 7:30:00, Duration: 30 day, Stop date: 03/02/16 16:30:00Notes: Roll in palms of hands gen tly; Do not shake vigorously. (Same as: NovoLOG) "single patient use only" WASTE: F/P - Black; E - Municipal Trash Bin Stable for 28 days at room temperature. Expires in days from Date Inactive 02/02/2016 [facility] Vancomycin 1.5 gm, 250 mL, Route: IV, Drug form: INJ, ONCE, Dosing Weight 113.636, kg, Start date: 02/02/16 7:00:00, Stop date: 02/02/16 7:00:00Notes: TIME CRITICAL MEDICATION Same as: Vancocin-NS (premixed) Infusion rate 2001 mg: infuse over 2.5 hours Inactive 02/02/2016 [facility] nitroglycerin 0.4 mg sublingual tablet 0.4 mg, 1 tab, Route: SL, Drug form: TAB, Q5Min, PRN Chest Pain, Start date: 02/02/16 3:57:00, Duration: 30 day, Stop date: 03/03/16 3:56:00Notes: (Same as:Nitroquick, Nitrostat) "Do Not Crush" Sublingual tablet Inactive 02/02/2016 [facility] atropine 0.5 mg, 5 mL, Route: IVP, Drug form: INJ, PRN, PRN Bradycardia, Start date: 02/02/16 3:57:00, Duration: 30 day, Stop date: 03/03/16 3:56:00 Inactive 02/02/2016 [facility] Lantus Route: SUB-Q, Bedtime, Dosing Weight 113.636, kg, Start date: 02/01/16 21:00:00, Duration: 30 day, Stop date: 03/01/16 21:00:00 Inactive 02/02/2016 [facility] Levemir FlexPen 40 unit, 0.4 mL, Route: SUB-Q, Drug form: INJ, Bedtime, Start date: 02/01/16 21:00:00, Duration: 30 day, Stop date: 03/01/16 21:00:00Notes: Same as Levemir Do not hold insulin without contacting prescriber WASTE: F/P - Black; E - [employer] Trash Bin "single patient use only" No Longer Active 02/02/2016 [facility] Simvastatin 40 mg, 1 tab, Route: PO, Drug form: TAB, Bedtime, Dosing Weight 113.636, kg, Start date: 02/01/16 21:00:00, Duration: 30 day, Stop date: 03/01/16 21:00:00Notes: (Same as: Zocor) No Longer Active 02/02/2016 [facility] Zofran 4 mg, Route: IVP, Drug form: INJ, ONCE, Dosing Weight 113.636, kg, Start date: 02/01/16 18:07:00, Stop date: 02/01/16 18:07:00 Inactive 02/01/2016 [facility] Fentanyl 50 microgram, Route: IVP, ONCE, Dosing Weight 113.636, kg, Start date: 02/01/16 18:03:00, Stop date: 02/01/16 18:03:00 Inactive 02/01/2016 [facility] Fentanyl 50 microgram, Route: IVP, ONCE, Dosing Weight 113.636, kg, Start date: 02/01/16 17:57:00, Stop date: 02/01/16 17:57:00 Inactive 02/01/2016 [facility] 24 HR Metoprolol Tartrate 50 MG Extended Release Tablet [Toprol] 50 mg=1 tab, PO, Daily, 0 Refill(s) Active 02/01/2016 [facility] minocycline 100 mg oral tablet 100 mg=1 tab, PO, Daily, # 10 tab, 0 Refill(s), given to patient Active 02/01/2016 [facility] Acetaminophen 300 MG / Codeine Phosphate 30 MG Oral Tablet [Tylenol with Codeine #3] 1 tab, Route: PO, Drug Form: TAB, Dosing Weight 113.636, kg, Q4H, PRN Pain Score 1-3, Start date: 02/01/16 17:46:00, Duration: 30 day, Stop date: 03/02/16 17:45:00Notes: Do not exceed 4gm/day of acetaminophen. (Same as: Tylenol with Codeine # 3) No Longer Active 02/01/2016 [facility] Morphine 4 mg, 2 mL, Route: IVP, Drug form: INJ, Q4H, Dosing Weight 113.636, kg, PRN Pain Score 7-10, Start date: 02/01/16 17:45:00, Duration: 30 day, Stop date: 03/02/16 17:44:00Notes: (Same as:MORPhine Sulfate) No Longer Active 02/01/2016 [facility] Marcaine HCl 150 mg, 30 mL, Route: INJ, Drug Form: INJ, Dosing Weight 113.636, kg, ONCE, Start date: 02/01/16 14:19:00, Stop date: 02/01/16 14:19:00Notes: Preservative free. (Same As: Marcaine-MPF) Inactive 02/01/2016 [facility] metoprolol tartrate 50 mg oral tablet 50 mg=1 tab, PO, Bedtime, 0 Refill(s) No Longer Active 01/31/2016 [facility] spironolactone 25 mg oral tablet 25 mg=1 tab, PO, Daily, # 30 tab, 3 Refill(s) Active 01/31/2016 [facility] Nitroglycerin 0.4 mg, 1 tab, Route: SL, Drug form: TAB, Q5Min, Dosing Weight 115.455, kg, PRN Chest Pain, Start date: 11/27/15 11:08:00, Duration: 3 doses or times, Stop date: Limited # of timesNotes: (Same as:Nitroquick, Nitrostat) "Do Not Crush" Sublingual tablet Inactive 11/27/2015 [facility] Morphine 2 mg, 1 mL, Route: IVP, Drug form: INJ, Q15Min, Dosing Weight 115.455, kg, PRN Chest Pain, Start date: 11/27/15 11:08:00, Duration: 2 doses or times, Stop date: Limited # of timesNotes: (Same as:MORP chiquis Sulfate) Inactive 11/27/2015 [facility] Acetaminophen 325 MG / Hydrocodone Bitartrate 5 MG Oral Tablet 2 tab, Route: PO, Drug Form: TAB, Dosing Weight 115.455, kg, Q4H, PRN Pain Score 6-10, Start date: 11/27/15 11:08:00, Duration: 30 day, Stop date: 12/27/15 11:07:00Notes: (Same as: [place] 325/5) Do not exceed 4gm/day of acetaminophen. Inactive 11/27/2015 [facility] Metformin 1,000 mg, PO, BID, 0 Refill(s) Active 11/27/2015 [facility] Lantus 40 units, SUB-Q, Bedtime, 0 Refill(s) Active 11/27/2015 [facility] Aspirin 81 mg, PO, Daily, 0 Refill(s) Active 11/27/2015 [facility] simvastatin 40 mg oral tablet 40 mg=1 tab, PO, Bedtime, 0 Refill(s) Active 11/27/2015 [facility] Tussin 100 mg/5 mL oral liquid 100 mg=5 mL, PO, Daily, 0 Refill(s) Active 11/27/2015 [facility] losartan 25 mg oral tablet 25 mg=1 tab, PO, Daily, # 30 tab, 0 Refill(s) Active 11/27/2015 [facility] NovoLog 25 unit, SUB-Q, TID-Before Meals, 0 Refill(s) Active 11/27/2015 [facility] Furosemide 20 MG Oral Tablet [Lasix] 20 mg=1 tab, PO, Daily, 0 Refill(s) Active 11/27/2015 [facility] metoprolol tartrate 25 mg oral tablet 25 mg=1 tab, PO, Daily, 0 Refill(s) Active 11/27/2015 [facility] Furosemide (Lasix) 20 Mg Tablet Daily Active [facility] 10/07/2015 [facility] Metoprolol Succinate 50 Mg Tab.er.24h Daily Active [facility] 10/07/2015 [facility] Guaifenesin (Tussin) 100 Mg/5 Ml Liquid, Active 10/07/2015 [facility] Guaifenesin/Dextromethorphan (Mucinex Dm Er 600-30 Mg Tablet) 1 Each Tab.er.12h, 1 Each Oral Every 12 Hours Active 10/07/2015 [facility] Furosemide (Lasix) 20 Mg Tablet Daily Active [facility] 10/07/2015 [facility] Guaifenesin (Tussin) 100 Mg/5 Ml Liquid, Active 10/07/2015 [facility] Metoprolol Succinate 50 Mg Tab.er.24h, 50 Mg Oral Daily Active [facility] 10/07/2015 [facility] Aspirin (Aspir 81) 81 Mg Tablet. Daily Active [facility] Atorvastatin Calcium 40 Mg Tablet Daily Active [facility] Clopidogrel Bisulfate (Clopidogrel) 75 Mg Tablet Daily Active [facility] [facility] Ferrous Sulfate 325 Mg Tablet Twice A Day Active [facility] Folic Acid 1 Mg Tablet Daily Active [facility] Gabapentin 100 Mg Capsule Bedtime Active [facility] Insulin Aspart (Novolog) Unknown Strength Inj Active [facility] Isosorbide Mononitrate (Isosorbide Mononitrate Er) 30 Mg Tab.er.24h Daily Active [facility] Jardiance 25MG Daily Active [facility] Levemir Bedtime Active [facility] Losartan Potassium 25 Mg Tablet Daily Active [facility] Metformin Hcl 1,000 Mg Tablet Twice A Day Active [facility] Nitroglycerin 0.4 Mg Tab.subl As Needed Active [facility] Xaxyy-[id number] Twice A Day Active [facility] Spironolactone 25 Mg Tablet Daily Active [facility] Acetaminophen With Codeine (Tylenol With Codeine #3 Tablet) 1 Each Tablet Every 6 Hours as needed for Pain Active [facility] Ascorbic Acid 500 Mg Tablet Twice A Day Active [facility] Aspirin (Aspir 81) 81 Mg Tablet.dr Daily Active [facility] Atorvastatin Calcium 40 Mg Tablet Daily Active [facility] Clopidogrel Bisulfate (Clopidogrel) 75 Mg Tablet Daily Active [facility] Entresto 24MG-26MG Tab Twice A Day Active [facility] Folic Acid 1 Mg Tablet Daily Active [facility] Gabapentin 100 Mg Capsule Bedtime Active [facility] Insulin Aspart (Novolog) Unknown Strength Inj Three Times Daily With Meals Active [facility] Isosorbide Mononitrate (Isosorbide Mononitrate Er) 30 Mg Tab.er.24h Daily Active [facility] Metformin Hcl 1,000 Mg Tablet Twice A Day Active [facility] Metoprolol Tartrate 50 Mg Tablet Twice A Day Active [facility] Minocycline Hcl 50 Mg Capsule Twice A Day Active [facility] Nitroglycerin 0.4 Mg Tab.subl As Needed as needed for Chest Pain Active [facility] Phenazopyridine Hcl (Azo Standard) 95 Mg Tablet Three Times A Day Active [facility] Spironolactone 25 Mg Tablet Daily Active [facility] Turmeric Daily Active [facility] Acetaminophen/Codeine Phosphate (Tylenol # 3*) 1 Ea Tab Every 6 Hours as needed for Pain Active [facility] Metoprolol Succinate 25 Mg Tab.er.24h Daily Active [facility] Allergies, Adverse Reactions, Alerts Substance Category Reaction Severity Reaction type Status Date Reported Comments Source No Known Medication Allergies Assertion Drug allergy [facility] Immunizations No Data Provided for This Section Results Order Name Results Value Reference Range Date Interpretation Comments Source CHEM PANEL eGFR 108 04/08/2019 Result Comment: The eGFR is calculated using the CKD-EPI formula. In most young, healthy individuals the eGFR will be >90 mL/min/1.73m2. The eGFR declines with age. An eGFR of 60-89 may be normal in some populations, particularly the elderly, for whom the CKD-EPI formula has not been extensively validated. Use of the eGFR is not recommended in the following populations:

Individuals with unstable creatinine concentrations, including patients and those with serious co-morbid conditions.

Patients with extremes in muscle mass or diet.

The data above are obtained from the National Kidney Disease Education Program (NKDEP) which additionally recommends that when the eGFR is used in patients with extremes of body mass index for purposes of drug dosing, the eGFR should be multiplied by the estimated BMI. [facility] CHEM PANEL POC Creatinine 0.7 0.5 - 1.4 04/08/2019 [facility] CHEM PANEL Magnesium Lvl 2.5 1.8 - 2.4 02/16/2019 [facility] CHEM PANEL eGFR 106 02/16/2019 Result Comment: The eGFR is calculated using the CKD-EPI formula. In most young, healthy individuals the eGFR will be >90 mL/min/1.73m2. The eGFR declines with age. An eGFR of 60-89 may be normal in some populations, particularly the elderly, for whom the CKD-EPI formula has not been extensively validated. Use of the eGFR is not recommended in the following populations:

Individuals with unstable creatinine concentrations, including patients and those with serious co-morbid conditions.

Patients with extremes in muscle mass or diet.

The data above are obtained from the National Kidney Disease Education Program (NKDEP) which additionally recommends that when the eGFR is used in patients with extremes of body mass index for purposes of drug dosing, the eGFR should be multiplied by the estimated BMI. [facility] CHEM PANEL CO2 28 24 - 32 02/16/2019 [facility] CHEM PANEL Chloride Lvl 105 95 - 109 02/16/2019 [facility] CHEM PANEL Calcium Lvl 8.6 8.5 - 10.5 02/16/2019 [facility] CHEM PANEL Sodium Lvl 138 135 - 145 02/16/2019 [facility] CHEM PANEL Potassium Lvl 4.6 3.5 - 5.1 02/16/2019 [facility] CHEM PANEL Glucose Lvl 104 70 - 99 02/16/2019 [facility] CHEM PANEL BUN 21 7 - 22 02/16/2019 [facility] CHEM PANEL Creatinine Lvl 0.74 0.50 - 1.40 02/16/2019 [facility] CHEM PANEL AGAP 9.6 10.0 - 20.0 02/16/2019 [facility] CHEM PANEL Phosphorus 4.1 2.5 - 4.5 02/16/2019 [facility] HEMATOLOGY Hgb 10.4 14.0 - 18.0 02/16/2019 [facility] HEMATOLOGY Hct 31.9 42.0 - 54.0 02/16/2019 [facility] HEMATOLOGY MCV 82.7 80.0 - 94.0 02/16/2019 [facility] HEMATOLOGY RDW 15.2 11.5 - 14.5 02/16/2019 [facility] HEMATOLOGY Platelet 407 133 - 450 02/16/2019 [facility] HEMATOLOGY MCH 26.8 27.0 - 31.0 02/16/2019 [facility] HEMATOLOGY MCHC 32.4 32.0 - 36.0 02/16/2019 [facility] HEMATOLOGY MPV 6.3 7.4 - 10.4 02/16/2019 [facility] HEMATOLOGY WBC 12.1 3.7 - 10.4 02/16/2019 [facility] HEMATOLOGY RBC 3.86 4.70 - 6.10 02/16/2019 [facility] HEMATOLOGY Basophils 0.5 0.0 - 1.0 02/16/2019 [facility] HEMATOLOGY Basophils # 0.1 0.0 - 0.2 02/16/2019 [facility] HEMATOLOGY Segs 67.6 45.0 - 75.0 02/16/2019 [facility] HEMATOLOGY Lymphocytes 20.5 20.0 - 40.0 02/16/2019 [facility] HEMATOLOGY Monocytes 8.7 2.0 - 12.0 02/16/2019 [facility] HEMATOLOGY Eosinophils 2.7 0.0 - 4.0 02/16/2019 [facility] HEMATOLOGY Neutrophils # 8.2 1.5 - 8.1 02/16/2019 [facility] HEMATOLOGY Lymphocytes # 2.5 1.0 - 5.5 02/16/2019 [facility] HEMATOLOGY Monocytes # 1.1 0.0 - 0.8 02/16/2019 [facility] HEMATOLOGY Eosinophils # 0.3 0.0 - 0.5 02/16/2019 [facility] CHEM PANEL Magnesium Lvl 2.5 1.8 - 2.4 02/15/2019 [facility] CHEM PANEL Phosphorus 4.4 2.5 - 4.5 02/15/2019 [facility] ELECTROLYTES CO2 29 24 - 32 02/15/2019 [facility] ELECTROLYTES Calcium Lvl 9.1 8.5 - 10.5 02/15/2019 [facility] ELECTROLYTES Chloride Lvl 103 95 - 109 02/15/2019 [facility] ELECTROLYTES eGFR 94 02/15/2019 Result Comment: The eGFR is calculated using the CKD-EPI formula. In most young, healthy individuals the eGFR will be >90 mL/min/1.73m2. The eGFR declines with age. An eGFR of 60-89 may be normal in some populations, particularly the elderly, for whom the CKD-EPI formula has not been extensively validated. Use of the eGFR is not recommended in the following populations:

Individuals with unstable creatinine concentrations, including patients and those with serious co-morbid conditions.

Patients with extremes in muscle mass or diet.

The data above are obtained from the National Kidney Disease Education Program (NKDEP) which additionally recommends that when the eGFR is used in patients with extremes of body mass index for purposes of drug dosing, the eGFR should be multiplied by the estimated BMI. [facility] ELECTROLYTES Glucose Lvl 136 70 - 99 02/15/2019 [facility] ELECTROLYTES BUN 25 7 - 22 02/15/2019 [facility] ELECTROLYTES Creatinine Lvl 0.93 0.50 - 1.40 02/15/2019 [facility] ELECTROLYTES Sodium Lvl 137 135 - 145 02/15/2019 [facility] ELECTROLYTES Potassium Lvl 3.9 3.5 - 5.1 02/15/2019 [facility] ELECTROLYTES AGAP 8.9 10.0 - 20.0 02/15/2019 [facility] HEMATOLOGY MCHC 33.2 32.0 - 36.0 02/15/2019 [facility] HEMATOLOGY MCH 27.2 27.0 - 31.0 02/15/2019 [facility] HEMATOLOGY RDW 15.2 11.5 - 14.5 02/15/2019 [facility] HEMATOLOGY MPV 6.5 7.4 - 10.4 02/15/2019 [facility] HEMATOLOGY Platelet 462 133 - 450 02/15/2019 [facility] HEMATOLOGY WBC 10.4 3.7 - 10.4 02/15/2019 [facility] HEMATOLOGY RBC 3.90 4.70 - 6.10 02/15/2019 [facility] HEMATOLOGY Hgb 10.6 14.0 - 18.0 02/15/2019 [facility] HEMATOLOGY Hct 32.0 42.0 - 54.0 02/15/2019 [facility] HEMATOLOGY MCV 82.0 80.0 - 94.0 02/15/2019 [facility] HEMATOLOGY Neutrophils # 6.6 1.5 - 8.1 02/15/2019 [facility] HEMATOLOGY Lymphocytes # 2.5 1.0 - 5.5 02/15/2019 [facility] HEMATOLOGY Monocytes # 0.9 0.0 - 0.8 02/15/2019 [facility] HEMATOLOGY Eosinophils # 0.3 0.0 - 0.5 02/15/2019 [facility] HEMATOLOGY Basophils # 0.1 0.0 - 0.2 02/15/2019 [facility] HEMATOLOGY Basophils 0.8 0.0 - 1.0 02/15/2019 [facility] HEMATOLOGY Eosinophils 2.6 0.0 - 4.0 02/15/2019 [facility] HEMATOLOGY Monocytes 9.0 2.0 - 12.0 02/15/2019 [facility] HEMATOLOGY Lymphocytes 24.4 20.0 - 40.0 02/15/2019 [facility] HEMATOLOGY Segs 63.2 45.0 - 75.0 02/15/2019 [facility] CHEM PANEL Magnesium Lvl 2.6 1.8 - 2.4 02/14/2019 [facility] CHEM PANEL Phosphorus 3.4 2.5 - 4.5 02/14/2019 [facility] CHEM PANEL eGFR 105 02/14/2019 Result Comment: The eGFR is calculated using the CKD-EPI formula. In most young, healthy individuals the eGFR will be >90 mL/min/1.73m2. The eGFR declines with age. An eGFR of 60-89 may be normal in some populations, particularly the elderly, for whom the CKD-EPI formula has not been extensively validated. Use of the eGFR is not recommended in the following populations:

Individuals with unstable creatinine concentrations, including patients and those with serious co-morbid conditions.

Patients with extremes in muscle mass or diet.

The data above are obtained from the National Kidney Disease Education Program (NKDEP) which additionally recommends that when the eGFR is used in patients with extremes of body mass index for purposes of drug dosing, the eGFR should be multiplied by the estimated BMI. [facility] CHEM PANEL AGAP 9.2 10.0 - 20.0 02/14/2019 [facility] CHEM PANEL Calcium Lvl 8.6 8.5 - 10.5 02/14/2019 [facility] CHEM PANEL Potassium Lvl 4.2 3.5 - 5.1 02/14/2019 [facility] CHEM PANEL CO2 28 24 - 32 02/14/2019 [facility] CHEM PANEL Chloride Lvl 106 95 - 109 02/14/2019 [facility] CHEM PANEL Creatinine Lvl 0.75 0.50 - 1.40 02/14/2019 [facility] CHEM PANEL Sodium Lvl 139 135 - 145 02/14/2019 [facility] CHEM PANEL BUN 19 7 - 22 02/14/2019 [facility] CHEM PANEL Glucose Lvl 52 70 - 99 02/14/2019 [facility] HEMATOLOGY Eosinophils # 0.2 0.0 - 0.5 02/14/2019 [facility] HEMATOLOGY Monocytes # 0.8 0.0 - 0.8 02/14/2019 [facility] HEMATOLOGY Lymphocytes # 1.9 1.0 - 5.5 02/14/2019 [facility] HEMATOLOGY Lymphocytes 20.7 20.0 - 40.0 02/14/2019 [facility] HEMATOLOGY Eosinophils 1.7 0.0 - 4.0 02/14/2019 [facility] HEMATOLOGY Monocytes 9.3 2.0 - 12.0 02/14/2019 [facility] HEMATOLOGY Neutrophils # 6.1 1.5 - 8.1 02/14/2019 [facility] HEMATOLOGY Basophils 0.5 0.0 - 1.0 02/14/2019 [facility] HEMATOLOGY Segs 67.8 45.0 - 75.0 02/14/2019 [facility] HEMATOLOGY RDW 15.5 11.5 - 14.5 02/14/2019 [facility] HEMATOLOGY MCHC 33.3 32.0 - 36.0 02/14/2019 [facility] HEMATOLOGY Hct 30.6 42.0 - 54.0 02/14/2019 [facility] HEMATOLOGY MPV 6.8 7.4 - 10.4 02/14/2019 [facility] HEMATOLOGY Platelet 426 133 - 450 02/14/2019 [facility] HEMATOLOGY MCH 27.4 27.0 - 31.0 02/14/2019 [facility] HEMATOLOGY MCV 82.1 80.0 - 94.0 02/14/2019 [facility] HEMATOLOGY Hgb 10.2 14.0 - 18.0 02/14/2019 [facility] HEMATOLOGY RBC 3.73 4.70 - 6.10 02/14/2019 [facility] HEMATOLOGY WBC 9.0 3.7 - 10.4 02/14/2019 [facility] PARATHYROID PROFILE Ca Norm WB 1.08 1.05 - 1.25 02/12/2019 [facility] PARATHYROID PROFILE Ca Ion WB 1.08 1.05 - 1.25 02/12/2019 [facility] CHEM PANEL ALT 12 0 - 65 02/12/2019 [facility] CHEM PANEL AST 11 0 - 37 02/12/2019 [facility] CHEM PANEL Total Protein 6.4 6.4 - 8.4 02/12/2019 [facility] CHEM PANEL Albumin Lvl 2.7 3.5 - 5.0 02/12/2019 [facility] CHEM PANEL Alk Phos 43 39 - 136 02/12/2019 [facility] CHEM PANEL Bili Total 0.4 0.2 - 1.3 02/12/2019 [facility] CHEM PANEL Globulin 3.7 2.7 - 4.2 02/12/2019 [facility] CHEM PANEL B/C Ratio 33 6 - 25 02/12/2019 [facility] CHEM PANEL A/G Ratio 0.7 0.7 - 1.6 02/12/2019 [facility] CHEM PANEL ALT 14 0 - 65 02/11/2019 [facility] CHEM PANEL AST 17 0 - 37 02/11/2019 [facility] CHEM PANEL A/G Ratio 0.9 0.7 - 1.6 02/11/2019 [facility] CHEM PANEL Globulin 3.2 2.7 - 4.2 02/11/2019 [facility] CHEM PANEL Alk Phos 43 39 - 136 02/11/2019 [facility] CHEM PANEL Bili Total 0.3 0.2 - 1.3 02/11/2019 [facility] CHEM PANEL Total Protein 6.2 6.4 - 8.4 02/11/2019 [facility] CHEM PANEL Albumin Lvl 3.0 3.5 - 5.0 02/11/2019 [facility] CHEM PANEL B/C Ratio 37 6 - 25 02/11/2019 [facility] HEMATOLOGY PT 13.7 12.0 - 14.7 02/11/2019 [facility] HEMATOLOGY PTT 33.1 22.9 - 35.8 02/11/2019 [facility] HEMATOLOGY INR 1.07 0.85 - 1.17 02/11/2019 [facility] LIPIDS VLDL 23 02/11/2019 [facility] LIPIDS LDL (Calculated) 44 <=99 mg/dL 02/11/2019 [facility] LIPIDS HDL 45 >=61 mg/dL 02/11/2019 [facility] LIPIDS Chol 112 <=199 mg/dL 02/11/2019 [facility] LIPIDS Trig 116 <=149 mg/dL 02/11/2019 [facility] LIPIDS CHD Risk 2.49 4.00 - 7.30 02/11/2019 [facility] CHEM PANEL Alk Phos 46 39 - 136 02/10/2019 [facility] CHEM PANEL Bili Total 0.5 0.2 - 1.3 02/10/2019 [facility] CHEM PANEL AST 19 0 - 37 02/10/2019 [facility] CHEM PANEL ALT 14 0 - 65 02/10/2019 [facility] CHEM PANEL A/G Ratio 1.0 0.7 - 1.6 02/10/2019 [facility] CHEM PANEL B/C Ratio 26 6 - 25 02/10/2019 [facility] CHEM PANEL Total Protein 6.6 6.4 - 8.4 02/10/2019 [facility] CHEM PANEL Globulin 3.3 2.7 - 4.2 02/10/2019 [facility] CHEM PANEL Albumin Lvl 3.3 3.5 - 5.0 02/10/2019 [facility] HEMATOLOGY PTT 31.5 22.9 - 35.8 02/10/2019 [facility] HEMATOLOGY PT 14.1 12.0 - 14.7 02/10/2019 [facility] HEMATOLOGY INR 1.11 0.85 - 1.17 02/10/2019 [facility] SPECIAL CHEMISTRY Hgb A1C 6.1 <=5.6 % 02/10/2019 [facility] HEMATOLOGY POC Activated Clotting Time 139 02/10/2019 [facility] BLOOD BANK RESULTS FFP product Product available (02/09/19 1:49 PM) 02/09/2019 [facility] BLOOD BANK RESULTS RBC product Product available (02/09/19 1:48 PM) 02/09/2019 [facility] BLOOD BANK RESULTS Antibody Scrn Negative (02/09/19 8:04 AM) 02/09/2019 [facility] BLOOD BANK RESULTS ABO/Rh O POS 02/09/2019 [facility] HEMATOLOGY PTT 33.0 22.9 - 35.8 02/09/2019 [facility] HEMATOLOGY PT 13.2 12.0 - 14.7 02/09/2019 [facility] HEMATOLOGY INR 1.02 0.85 - 1.17 02/09/2019 [facility] CARDIAC ENZYMES Troponin-I 0.05 0.00 - 0.40 01/18/2019 [facility] CARDIAC ENZYMES CK MB 1.5 0.5 - 3.6 01/18/2019 [facility] CARDIAC ENZYMES BNP 75 <=100 pg/mL 01/18/2019 [facility] CHEM PANEL eGFR 87 01/18/2019 Result Comment: The eGFR is calculated using the CKD-EPI formula. In most young, healthy individuals the eGFR will be >90 mL/min/1.73m2. The eGFR declines with age. An eGFR of 60-89 may be normal in some populations, particularly the elderly, for whom the CKD-EPI formula has not been extensively validated. Use of the eGFR is not recommended in the following populations:

Individuals with unstable creatinine concentrations, including patients and those with serious co-morbid conditions.

Patients with extremes in muscle mass or diet.

The data above are obtained from the National Kidney Disease Education Program (NKDEP) which additionally recommends that when the eGFR is used in patients with extremes of body mass index for purposes of drug dosing, the eGFR should be multiplied by the estimated BMI. [facility] CHEM PANEL Bili Total 0.2 0.2 - 1.3 01/18/2019 [facility] CHEM PANEL Alk Phos 101 39 - 136 01/18/2019 [facility] CHEM PANEL Potassium Lvl 4.3 3.5 - 5.1 01/18/2019 [facility] CHEM PANEL Sodium Lvl 138 135 - 145 01/18/2019 [facility] CHEM PANEL Creatinine Lvl 0.99 0.50 - 1.40 01/18/2019 [facility] CHEM PANEL BUN 13 7 - 22 01/18/2019 [facility] CHEM PANEL ALT 17 0 - 65 01/18/2019 [facility] CHEM PANEL Albumin Lvl 3.8 3.5 - 5.0 01/18/2019 [facility] CHEM PANEL Total Protein 7.4 6.4 - 8.4 01/18/2019 [facility] CHEM PANEL AST 16 0 - 37 01/18/2019 [facility] CHEM PANEL CO2 29 24 - 32 01/18/2019 [facility] CHEM PANEL Chloride Lvl 107 95 - 109 01/18/2019 [facility] CHEM PANEL Calcium Lvl 8.9 8.5 - 10.5 01/18/2019 [facility] CHEM PANEL Glucose Lvl 163 70 - 99 01/18/2019 [facility] CHEM PANEL A/G Ratio 1.1 0.7 - 1.6 01/18/2019 [facility] CHEM PANEL AGAP 6.3 10.0 - 20.0 01/18/2019 [facility] CHEM PANEL Globulin 3.6 2.7 - 4.2 01/18/2019 [facility] CHEM PANEL B/C Ratio 13 6 - 25 01/18/2019 [facility] HEMATOLOGY PT 12.4 12.0 - 14.7 01/18/2019 [facility] HEMATOLOGY INR 0.94 0.85 - 1.17 01/18/2019 [facility] HEMATOLOGY RDW 15.4 11.5 - 14.5 01/18/2019 [facility] HEMATOLOGY MCV 84.3 80.0 - 94.0 01/18/2019 [facility] HEMATOLOGY MCHC 32.1 32.0 - 36.0 01/18/2019 [facility] MCH 27.0 27.0 - 31.0 01/18/2019 [facility] HEMATOLOGY Hct 39.0 42.0 - 54.0 01/18/2019 [facility] Hgb 12.5 14.0 - 18.0 01/18/2019 [facility] RBC 4.63 4.70 - 6.10 01/18/2019 [facility] HEMATOLOGY WBC 7.9 3.7 - 10.4 01/18/2019 [facility] Platelet 317 133 - 450 01/18/2019 [facility] MPV 6.6 7.4 - 10.4 01/18/2019 [facility] PTT 30.8 22.9 - 35.8 01/18/2019 [facility] Eosinophils # 0.5 0.0 - 0.5 01/18/2019 [facility] Basophils # 0.1 0.0 - 0.2 01/18/2019 [facility] Monocytes 9.9 2.0 - 12.0 01/18/2019 [facility] Neutrophils # 4.6 1.5 - 8.1 01/18/2019 [facility] Lymphocytes 25.4 20.0 - 40.0 01/18/2019 [facility] Segs 57.9 45.0 - 75.0 01/18/2019 [facility] Basophils 0.9 0.0 - 1.0 01/18/2019 [facility] Eosinophils 5.9 0.0 - 4.0 01/18/2019 [facility] Monocytes # 0.8 0.0 - 0.8 01/18/2019 [facility] Lymphocytes # 2.0 1.0 - 5.5 01/18/2019 [facility] Capillary blood glucose measurement by glucometer (mass/volume) 103 70 - 120 01/12/2019 [facility] Blood leukocytes automated count (number/volume) 8.14 4.8 - 10.8 01/10/2019 [facility] Blood erythrocytes automated count (number/volume) 4.28 4.3 - 5.7 01/10/2019 [facility] Blood hemoglobin measurement (moles/volume) 11.6 14.0 - 18.0 01/10/2019 [facility] Automated blood hematocrit (volume fraction) 36.0 38.2 - 49.6 01/10/2019 [facility] Automated erythrocyte mean corpuscular volume 84.1 81 - 99 01/10/2019 [facility] Automated erythrocyte mean corpuscular hemoglobin (mass per erythrocyte) 27.1 28 - 32 01/10/2019 [facility] Automated erythrocyte mean corpuscular hemoglobin concentration measurement (mass/volume) 32.2 31 - 35 01/10/2019 [facility] RDW BldCo-Rto 13.8 11.7 - 14.4 01/10/2019 [facility] Automated blood platelet count (count/volume) 266 140 - 360 01/10/2019 [facility] Automated blood segmented neutrophil count as percentage of total leukocytes 60.4 38.7 - 80.0 01/10/2019 [facility] Automated blood lymphocyte count as percentage ot total leukocytes 25.2 18.0 - 39.1 01/10/2019 [facility] Automated blood monocyte count as percentage of total leukocytes 8.8 4.4 - 11.3 01/10/2019 [facility] Automated blood eosinophil count as percentage of total leukocytes 4.4 0.0 - 6.0 01/10/2019 [facility] Automated blood basophil count as percentage of total leukocytes 0.5 0.0 - 1.0 01/10/2019 [facility] IM GRANULOCYTES % 0.7 0.0 - 1.0 01/10/2019 [facility] Automated blood neutrophil count 4.9 2.1 - 6.9 01/10/2019 [facility] Blood lymphocytes count (number/volume) 2.1 1.0 - 3.2 01/10/2019 [facility] Blood monocytes automated count (number/volume) 0.7 0.2 - 0.8 01/10/2019 [facility] Automated blood eosinophil count 0.4 0.0 - 0.4 01/10/2019 [facility] Automated blood basophil count (count/volume) 0.0 0.0 - 0.1 01/10/2019 [facility] Absolute Immature Granulocyte (auto 0.06 0 - 0.1 01/10/2019 [facility] Prothrombin time (PT) in platelet poor plasma by coagulation assay 13.4 11.9 - 14.5 01/10/2019 [facility] INR in Platelet poor plasma by Coagulation assay 0.97 01/10/2019 [facility] Serum or plasma sodium measurement (moles/volume) 138 136 - 145 01/10/2019 [facility] Serum or plasma potassium measurement (moles/volume) 4.0 3.5 - 5.1 01/10/2019 [facility] Serum or plasma chloride measurement (moles/volume) 105 98 - 107 01/10/2019 [facility] Serum or plasma carbon dioxide, total measurement (moles/volume) 28 22 - 29 01/10/2019 [facility] Serum or plasma anion gap 9.0 8 - 16 01/10/2019 [facility] Serum or plasma urea nitrogen measurement (mass/volume) 10 7 - 26 01/10/2019 [facility] Serum or plasma creatinine measurement (mass/volume) 0.73 0.72 - 1.25 01/10/2019 [facility] Serum or plasma urea nitrogen/creatinine mass ratio 14 6 - 25 01/10/2019 [facility] Estimated glomerular filtration rate (GFR) determination > 60 60 01/10/2019 [facility] Glucose measurement 98 74 - 118 01/10/2019 [facility] Serum or plasma calcium measurement (mass/volume) 9.1 8.4 - 10.2 01/10/2019 [facility] Hemoglobin A1c Percent 6.3 4.0 - 7.0 01/10/2019 [facility] Serum or plasma magnesium measurement (mass/volume) 2.5 1.3 - 2.1 01/10/2019 [facility] Serum or plasma total bilirubin measurement (mass/volume) 0.4 0.2 - 1.2 01/10/2019 [facility] Aspartate Amino Transf (AST/SGOT) 12 5 - 34 01/10/2019 [facility] Serum or plasma alanine aminotransferase measurement (enzymatic activity/volume) 8 0 - 55 01/10/2019 [facility] Serum or plasma protein measurement (mass/volume) 6.3 6.5 - 8.1 01/10/2019 [facility] Serum or plasma albumin measurement (mass/volume) 3.4 3.5 - 5.0 01/10/2019 [facility] Plasma globulin measurement (mass/volume) 2.9 2.3 - 3.5 01/10/2019 [facility] Serum or plasma albumin/globulin mass ratio 1.2 0.8 - 2.0 01/10/2019 [facility] Serum or plasma alkaline phosphatase measurement (enzymatic activity/volume) 52 40 - 150 01/10/2019 [facility] Serum or plasma triglyceride measurement (mass/volume) 101 0 - 149 01/10/2019 [facility] Serum or plasma cholesterol measurement (mass/volume) 182 0 - 199 01/10/2019 [facility] Serum or plasma cholesterol in LDL measurement (mass/volume) 118 60 - 130 01/10/2019 [facility] Serum or plasma cholesterol in HDL measurement (mass/volume) 44 40 - 60 01/10/2019 [facility] Serum or plasma total cholesterol/cholesterol in HDL mass ratio 4.1 3.9 - 4.7 01/10/2019 [facility] BNP Bld-mCnc 67.9 0 - 100 01/10/2019 [facility] Serum or plasma creatine kinase measurement (enzymatic activity/volume) 61 30 - 200 01/10/2019 [facility] Serum or plasma creatine kinase MB measurement (mass/volume) 0.80 0 - 5.0 01/10/2019 [facility] Troponin I measurement by highly sensitive enzyme immunoassay 0.005 0 - 0.300 01/10/2019 [facility] Serum or plasma thyrotropin measurement by detection limit <=0.005 miu/l (units/volume) 1.084 0.350 - 4.940 01/10/2019 [facility] Serum or plasma prostate specific antigen measurement (mass/volume) 0.4 0.0 - 4.0 01/10/2019 [facility] Urine color determination YELLOW YELLOW 01/09/2019 [facility] Urine clarity SL CLOUDY CLEAR 01/09/2019 [facility] Specific gravity of Urine by Test strip 1.005 1.010 - 1.025 01/09/2019 [facility] Urine pH measurement by automated test strip 6 5 - 7 01/09/2019 [facility] Urine leukocyte esterase detection by dipstick 1+ NEGATIVE 01/09/2019 [facility] Urine nitrite detection NEGATIVE NEGATIVE 01/09/2019 [facility] Urine protein measurement by test strip (mass/volume) NEGATIVE NEGATIVE 01/09/2019 [facility] Urine glucose detection 3+ NEGATIVE 01/09/2019 [facility] Urine ketones detection by automated test strip NEGATIVE NEGATIVE 01/09/2019 [facility] Urine urobilinogen measurement by test strip (mass/volume) 0.2 0.2 - 1 01/09/2019 [facility] Urine total bilirubin measurement (mass/volume) NEGATIVE NEGATIVE 01/09/2019 [facility] Urine erythrocytes detection TRACE NEGATIVE 01/09/2019 [facility] Automated urine sediment leukocyte count by microscopy (number/high power field) >50 0 - 5 01/09/2019 [facility] Erythrocytes detection in urine sediment by light microscopy 11-20 0 - 5 01/09/2019 [facility] Bacteria detection in urine sediment by light microscopy MANY NONE 01/09/2019 [facility] Epithelial cells detection in urine sediment by light microscopy FEW NONE 01/09/2019 [facility] Transitional cells detection in urine sediment by light microscopy FEW NONE 01/09/2019 [facility] Blood leukocytes automated count (number/volume) 8.37 4.8 - 10.8 01/02/2019 [facility] Blood erythrocytes automated count (number/volume) 4.64 4.3 - 5.7 01/02/2019 [facility] Blood hemoglobin measurement (moles/volume) 12.7 14.0 - 18.0 01/02/2019 [facility] Automated blood hematocrit (volume fraction) 39.1 38.2 - 49.6 01/02/2019 [facility] Automated erythrocyte mean corpuscular volume 84.3 81 - 99 01/02/2019 [facility] Automated erythrocyte mean corpuscular hemoglobin (mass per erythrocyte) 27.4 28 - 32 01/02/2019 [facility] Automated erythrocyte mean corpuscular hemoglobin concentration measurement (mass/volume) 32.5 31 - 35 01/02/2019 [facility] RDW BldCo-Rto 14.0 11.7 - 14.4 01/02/2019 [facility] Automated blood platelet count (count/volume) 261 140 - 360 01/02/2019 [facility] Automated blood segmented neutrophil count as percentage of total leukocytes 67.0 38.7 - 80.0 01/02/2019 [facility] Automated blood lymphocyte count as percentage ot total leukocytes 22.3 18.0 - 39.1 01/02/2019 [facility] Automated blood monocyte count as percentage of total leukocytes 5.9 4.4 - 11.3 01/02/2019 [facility] Automated blood eosinophil count as percentage of total leukocytes 3.9 0.0 - 6.0 01/02/2019 [facility] Automated blood basophil count as percentage of total leukocytes 0.5 0.0 - 1.0 01/02/2019 [facility] IM GRANULOCYTES % 0.4 0.0 - 1.0 01/02/2019 [facility] Automated blood neutrophil count 5.6 2.1 - 6.9 01/02/2019 [facility] Blood lymphocytes count (number/volume) 1.9 1.0 - 3.2 01/02/2019 [facility] Blood monocytes automated count (number/volume) 0.5 0.2 - 0.8 01/02/2019 [facility] Automated blood eosinophil count 0.3 0.0 - 0.4 01/02/2019 [facility] Automated blood basophil count (count/volume) 0.0 0.0 - 0.1 01/02/2019 [facility] Absolute Immature Granulocyte (auto 0.03 0 - 0.1 01/02/2019 [facility] Prothrombin time (PT) in platelet poor plasma by coagulation assay 12.4 11.9 - 14.5 01/02/2019 [facility] INR in Platelet poor plasma by Coagulation assay 0.88 01/02/2019 [facility] Activated partial thromboplastin time (aPTT) in platelet poor plasma bycoagulation assay 32.4 23.8 - 35.5 01/02/2019 [facility] Serum or plasma sodium measurement (moles/volume) 138 136 - 145 01/02/2019 [facility] Serum or plasma potassium measurement (moles/volume) 4.1 3.5 - 5.1 01/02/2019 [facility] Serum or plasma chloride measurement (moles/volume) 102 98 - 107 01/02/2019 [facility] Serum or plasma carbon dioxide, total measurement (moles/volume) 26 22 - 29 01/02/2019 [facility] Serum or plasma anion gap 14.1 8 - 16 01/02/2019 [facility] Serum or plasma urea nitrogen measurement (mass/volume) 16 7 - 26 01/02/2019 [facility] Serum or plasma creatinine measurement (mass/volume) 1.09 0.72 - 1.25 01/02/2019 [facility] Serum or plasma urea nitrogen/creatinine mass ratio 15 6 - 25 01/02/2019 [facility] Estimated glomerular filtration rate (GFR) determination > 60 60 01/02/2019 [facility] Glucose measurement 182 74 - 118 01/02/2019 [facility] Serum or plasma calcium measurement (mass/volume) 9.8 8.4 - 10.2 01/02/2019 [facility] Serum or plasma total bilirubin measurement (mass/volume) 0.3 0.2 - 1.2 01/02/2019 [facility] Aspartate Amino Transf (AST/SGOT) 13 5 - 34 01/02/2019 [facility] Serum or plasma alanine aminotransferase measurement (enzymatic activity/volume) 13 0 - 55 01/02/2019 [facility] Serum or plasma protein measurement (mass/volume) 7.7 6.5 - 8.1 01/02/2019 [facility] Serum or plasma albumin measurement (mass/volume) 3.9 3.5 - 5.0 01/02/2019 [facility] Plasma globulin measurement (mass/volume) 3.8 2.3 - 3.5 01/02/2019 [facility] Serum or plasma albumin/globulin mass ratio 1.0 0.8 - 2.0 01/02/2019 [facility] Serum or plasma alkaline phosphatase measurement (enzymatic activity/volume) 69 40 - 150 01/02/2019 [facility] BNP Bld-mCnc 71.8 0 - 100 01/02/2019 [facility] Serum or plasma creatine kinase measurement (enzymatic activity/volume) 64 30 - 200 01/02/2019 [facility] Serum or plasma creatine kinase MB measurement (mass/volume) 1.20 0 - 5.0 01/02/2019 [facility] Troponin I measurement by highly sensitive enzyme immunoassay 0.008 0 - 0.300 01/02/2019 [facility] Activated partial thromboplastin time (aPTT) in platelet poor plasma bycoagulation assay 32.4 23.8 - 35.5 01/02/2019 [facility] Capillary blood glucose measurement by glucometer (mass/volume) 190 70 - 120 01/01/2019 [facility] ELECTROLYTES AGAP 13.1 10.0 - 20.0 10/02/2018 [facility] ELECTROLYTES BUN 16 7 - 22 10/02/2018 [facility] ELECTROLYTES Creatinine Lvl 0.68 0.50 - 1.40 10/02/2018 [facility] ELECTROLYTES Sodium Lvl 141 135 - 145 10/02/2018 [facility] ELECTROLYTES Chloride Lvl 106 95 - 109 10/02/2018 [facility] ELECTROLYTES Potassium Lvl 4.1 3.5 - 5.1 10/02/2018 [facility] ELECTROLYTES eGFR 110 10/02/2018 Result Comment: The eGFR is calculated using the CKD-EPI formula. In most young, healthy individuals the eGFR will be >90 mL/min/1.73m2. The eGFR declines with age. An eGFR of 60-89 may be normal in some populations, particularly the elderly, for whom the CKD-EPI formula has not been extensively validated. Use of the eGFR is not recommended in the following populations:

Individuals with unstable creatinine concentrations, including patients and those with serious co-morbid conditions.

Patients with extremes in muscle mass or diet.

The data above are obtained from the National Kidney Disease Education Program (NKDEP) which additionally recommends that when the eGFR is used in patients with extremes of body mass index for purposes of drug dosing, the eGFR should be multiplied by the estimated BMI. [facility] ELECTROLYTES Calcium Lvl 8.2 8.5 - 10.5 10/02/2018 [facility] ELECTROLYTES CO2 26 24 - 32 10/02/2018 [facility] ELECTROLYTES Glucose Lvl 117 70 - 99 10/02/2018 [facility] CHEM PANEL eGFR 97 09/28/2018 Result Comment: The eGFR is calculated using the CKD-EPI formula. In most young, healthy individuals the eGFR will be >90 mL/min/1.73m2. The eGFR declines with age. An eGFR of 60-89 may be normal in some populations, particularly the elderly, for whom the CKD-EPI formula has not been extensively validated. Use of the eGFR is not recommended in the following populations:

Individuals with unstable creatinine concentrations, including patients and those with serious co-morbid conditions.

Patients with extremes in muscle mass or diet.

The data above are obtained from the National Kidney Disease Education Program (NKDEP) which additionally recommends that when the eGFR is used in patients with extremes of body mass index for purposes of drug dosing, the eGFR should be multiplied by the estimated BMI. [facility] CHEM PANEL Sodium Lvl 141 135 - 145 09/28/2018 [facility] CHEM PANEL Potassium Lvl 4.4 3.5 - 5.1 09/28/2018 [facility] CHEM PANEL Creatinine Lvl 0.91 0.50 - 1.40 09/28/2018 [facility] CHEM PANEL BUN 14 7 - 22 09/28/2018 [facility] CHEM PANEL CO2 29 24 - 32 09/28/2018 [facility] CHEM PANEL Chloride Lvl 105 95 - 109 09/28/2018 [facility] CHEM PANEL Calcium Lvl 9.4 8.5 - 10.5 09/28/2018 [facility] CHEM PANEL Glucose Lvl 132 70 - 99 09/28/2018 [facility] CHEM PANEL AGAP 11.4 10.0 - 20.0 09/28/2018 [facility] HEMATOLOGY Basophils # 0.1 0.0 - 0.2 09/28/2018 [facility] HEMATOLOGY Eosinophils # 0.4 0.0 - 0.5 09/28/2018 [facility] HEMATOLOGY Monocytes # 0.7 0.0 - 0.8 09/28/2018 [facility] HEMATOLOGY Lymphocytes # 2.2 1.0 - 5.5 09/28/2018 [facility] HEMATOLOGY Neutrophils # 5.1 1.5 - 8.1 09/28/2018 [facility] HEMATOLOGY Eosinophils 5.1 0.0 - 4.0 09/28/2018 [facility] HEMATOLOGY Basophils 0.8 0.0 - 1.0 09/28/2018 [facility] HEMATOLOGY Monocytes 7.8 2.0 - 12.0 09/28/2018 [facility] HEMATOLOGY Lymphocytes 25.6 20.0 - 40.0 09/28/2018 [facility] HEMATOLOGY Segs 60.7 45.0 - 75.0 09/28/2018 [facility] HEMATOLOGY MPV 6.9 7.4 - 10.4 09/28/2018 [facility] HEMATOLOGY Platelet 317 133 - 450 09/28/2018 [facility] HEMATOLOGY RDW 15.1 11.5 - 14.5 09/28/2018 [facility] MCH 27.4 27.0 - 31.0 09/28/2018 [facility] HEMATOLOGY MCV 84.3 80.0 - 94.0 09/28/2018 [facility] HEMATOLOGY Hct 41.4 42.0 - 54.0 09/28/2018 [facility] HEMATOLOGY Hgb 13.5 14.0 - 18.0 09/28/2018 [facility] HEMATOLOGY WBC 8.4 3.7 - 10.4 09/28/2018 [facility] HEMATOLOGY MCHC 32.5 32.0 - 36.0 09/28/2018 [facility] HEMATOLOGY RBC 4.90 4.70 - 6.10 09/28/2018 [facility] HEMATOLOGY INR 0.98 0.85 - 1.17 09/28/2018 [facility] HEMATOLOGY PTT 32.7 22.9 - 35.8 09/28/2018 [facility] HEMATOLOGY PT 12.8 12.0 - 14.7 09/28/2018 [facility] SPECIAL CHEMISTRY Hgb A1C 6.1 <=5.6 % 09/28/2018 [facility] CARDIAC ENZYMES Troponin-I <0.02 0.00 - 0.40 09/24/2018 [facility] CARDIAC ENZYMES BNP 66 <=100 pg/mL 09/24/2018 [facility] CARDIAC ENZYMES Troponin-I <0.02 0.00 - 0.40 09/24/2018 [facility] CARDIAC ENZYMES Total CK 81 12 - 191 09/24/2018 [facility] CHEM PANEL A/G Ratio 1.0 0.7 - 1.6 09/24/2018 [facility] CHEM PANEL B/C Ratio 17 6 - 25 09/24/2018 [facility] CHEM PANEL Globulin 3.8 2.7 - 4.2 09/24/2018 [facility] CHEM PANEL AGAP 14.1 10.0 - 20.0 09/24/2018 [facility] CHEM PANEL ALT 20 0 - 65 09/24/2018 [facility] CHEM PANEL AST 15 0 - 37 09/24/2018 [facility] CHEM PANEL Albumin Lvl 3.7 3.5 - 5.0 09/24/2018 [facility] CHEM PANEL Total Protein 7.5 6.4 - 8.4 09/24/2018 [facility] CHEM PANEL BUN 18 7 - 22 09/24/2018 [facility] CHEM PANEL Creatinine Lvl 1.03 0.50 - 1.40 09/24/2018 [facility] CHEM PANEL Sodium Lvl 138 135 - 145 09/24/2018 [facility] CHEM PANEL Glucose Lvl 172 70 - 99 09/24/2018 [facility] CHEM PANEL Alk Phos 83 39 - 136 09/24/2018 [facility] CHEM PANEL Bili Total 0.2 0.2 - 1.3 09/24/2018 [facility] CHEM PANEL eGFR 83 09/24/2018 Result Comment: The eGFR is calculated using the CKD-EPI formula. In most young, healthy individuals the eGFR will be >90 mL/min/1.73m2. The eGFR declines with age. An eGFR of 60-89 may be normal in some populations, particularly the elderly, for whom the CKD-EPI formula has not been extensively validated. Use of the eGFR is not recommended in the following populations:

Individuals with unstable creatinine concentrations, including patients and those with serious co-morbid conditions.

Patients with extremes in muscle mass or diet.

The data above are obtained from the National Kidney Disease Education Program (NKDEP) which additionally recommends that when the eGFR is used in patients with extremes of body mass index for purposes of drug dosing, the eGFR should be multiplied by the estimated BMI. [facility] CHEM PANEL CO2 25 24 - 32 09/24/2018 [facility] CHEM PANEL Calcium Lvl 9.1 8.5 - 10.5 09/24/2018 [facility] CHEM PANEL Potassium Lvl 4.1 3.5 - 5.1 09/24/2018 [facility] CHEM PANEL Chloride Lvl 103 95 - 109 09/24/2018 [facility] MCHC 33.4 32.0 - 36.0 09/24/2018 [facility] Hct 37.3 42.0 - 54.0 09/24/2018 [facility] Hgb 12.5 14.0 - 18.0 09/24/2018 [facility] MCH 28.0 27.0 - 31.0 09/24/2018 [facility] MCV 84.0 80.0 - 94.0 09/24/2018 [facility] WBC 9.0 3.7 - 10.4 09/24/2018 [facility] RBC 4.45 4.70 - 6.10 09/24/2018 [facility] RDW 14.6 11.5 - 14.5 09/24/2018 [facility] MPV 6.7 7.4 - 10.4 09/24/2018 [facility] Platelet 304 133 - 450 09/24/2018 [facility] PTT 31.0 22.9 - 35.8 09/24/2018 [facility] PT 12.6 12.0 - 14.7 09/24/2018 [facility] HEMATOLOGY INR 0.94 0.85 - 1.17 09/24/2018 [facility] HEMATOLOGY Lymphocytes # 2.4 1.0 - 5.5 09/24/2018 [facility] HEMATOLOGY Monocytes # 0.7 0.0 - 0.8 09/24/2018 [facility] HEMATOLOGY Eosinophils # 0.4 0.0 - 0.5 09/24/2018 [facility] HEMATOLOGY Basophils # 0.1 0.0 - 0.2 09/24/2018 [facility] HEMATOLOGY Monocytes 7.9 2.0 - 12.0 09/24/2018 [facility] HEMATOLOGY Lymphocytes 27.1 20.0 - 40.0 09/24/2018 [facility] HEMATOLOGY Basophils 0.9 0.0 - 1.0 09/24/2018 [facility] HEMATOLOGY Eosinophils 4.3 0.0 - 4.0 09/24/2018 [facility] HEMATOLOGY Neutrophils # 5.4 1.5 - 8.1 09/24/2018 [facility] HEMATOLOGY Segs 59.8 45.0 - 75.0 09/24/2018 [facility] CHEM PANEL eGFR 92 09/16/2018 Result Comment: The eGFR is calculated using the CKD-EPI formula. In most young, healthy individuals the eGFR will be >90 mL/min/1.73m2. The eGFR declines with age. An eGFR of 60-89 may be normal in some populations, particularly the elderly, for whom the CKD-EPI formula has not been extensively validated. Use of the eGFR is not recommended in the following populations:

Individuals with unstable creatinine concentrations, including patients and those with serious co-morbid conditions.

Patients with extremes in muscle mass or diet.

The data above are obtained from the National Kidney Disease Education Program (NKDEP) which additionally recommends that when the eGFR is used in patients with extremes of body mass index for purposes of drug dosing, the eGFR should be multiplied by the estimated BMI. [facility] CHEM PANEL ALT 22 0 - 65 09/16/2018 [facility] CHEM PANEL Alk Phos 91 39 - 136 09/16/2018 [facility] CHEM PANEL AST 16 0 - 37 09/16/2018 [facility] CHEM PANEL Albumin Lvl 3.7 3.5 - 5.0 09/16/2018 [facility] CHEM PANEL Total Protein 7.4 6.4 - 8.4 09/16/2018 [facility] CHEM PANEL Calcium Lvl 9.1 8.5 - 10.5 09/16/2018 [facility] CHEM PANEL Bili Total 0.3 0.2 - 1.3 09/16/2018 [facility] CHEM PANEL CO2 27 24 - 32 09/16/2018 [facility] CHEM PANEL Chloride Lvl 103 95 - 109 09/16/2018 [facility] [facility] PANEL Potassium Lvl 4.1 3.5 - 5.1 09/16/2018 [facility] CHEM PANEL Sodium Lvl 141 135 - 145 09/16/2018 [facility] CHEM PANEL BUN 17 7 - 22 09/16/2018 [facility] CHEM PANEL Creatinine Lvl 0.94 0.50 - 1.40 09/16/2018 [facility] CHEM PANEL Glucose Lvl 89 70 - 99 09/16/2018 [facility] CHEM PANEL Globulin 3.7 2.7 - 4.2 09/16/2018 [facility] CHEM PANEL A/G Ratio 1.0 0.7 - 1.6 09/16/2018 [facility] CHEM PANEL B/C Ratio 18 6 - 25 09/16/2018 [facility] CHEM PANEL AGAP 15.1 10.0 - 20.0 09/16/2018 [facility] HEMATOLOGY MPV 6.9 7.4 - 10.4 09/16/2018 [facility] HEMATOLOGY RDW 15.0 11.5 - 14.5 09/16/2018 [facility] HEMATOLOGY Platelet 315 133 - 450 09/16/2018 [facility] HEMATOLOGY MCV 84.0 80.0 - 94.0 09/16/2018 [facility] HEMATOLOGY MCH 28.1 27.0 - 31.0 09/16/2018 [facility] HEMATOLOGY MCHC 33.4 32.0 - 36.0 09/16/2018 [facility] HEMATOLOGY Hct 39.1 42.0 - 54.0 09/16/2018 [facility] HEMATOLOGY RBC 4.66 4.70 - 6.10 09/16/2018 [facility] HEMATOLOGY Hgb 13.1 14.0 - 18.0 09/16/2018 [facility] HEMATOLOGY WBC 8.3 3.7 - 10.4 09/16/2018 [facility] HEMATOLOGY Eosinophils # 0.4 0.0 - 0.5 09/16/2018 [facility] HEMATOLOGY Basophils # 0.1 0.0 - 0.2 09/16/2018 [facility] HEMATOLOGY Lymphocytes 26.9 20.0 - 40.0 09/16/2018 [facility] HEMATOLOGY Monocytes 9.4 2.0 - 12.0 09/16/2018 [facility] HEMATOLOGY Segs 58.4 45.0 - 75.0 09/16/2018 [facility] HEMATOLOGY Monocytes # 0.8 0.0 - 0.8 09/16/2018 [facility] HEMATOLOGY Eosinophils 4.5 0.0 - 4.0 09/16/2018 [facility] HEMATOLOGY Basophils 0.8 0.0 - 1.0 09/16/2018 [facility] HEMATOLOGY Neutrophils # 4.8 1.5 - 8.1 09/16/2018 [facility] HEMATOLOGY Lymphocytes # 2.2 1.0 - 5.5 09/16/2018 [facility] Capillary blood glucose measurement by glucometer (mass/volume) Capillary blood glucose measurement by glucometer (mass/volume) 148 70 - 120 06/29/2018 [facility] Automated blood basophil count (count/volume) Automated blood basophil count (count/volume) 0.0 0.0 - 0.1 06/28/2018 [facility] Automated blood basophil count as percentage of total leukocytes Automated blood basophil count as percentage of total leukocytes 0.4 0.0 - 1.0 06/28/2018 [facility] Automated blood eosinophil count Automated blood eosinophil count 0.4 0.0 - 0.4 06/28/2018 [facility] Automated blood eosinophil count as percentage of total leukocytes Automated blood eosinophil count as percentage of total leukocytes 3.5 0.0 - 6.0 06/28/2018 [facility] Automated blood hematocrit (volume fraction) Automated blood hematocrit (volume fraction) 34.7 38.2 - 49.6 06/28/2018 [facility] Automated blood lymphocyte count as percentage ot total leukocytes Automated blood lymphocyte count as percentage ot total leukocytes 22.9 18.0 - 39.1 06/28/2018 [facility] Automated blood monocyte count as percentage of total leukocytes Automated blood monocyte count as percentage of total leukocytes 9.2 4.4 - 11.3 06/28/2018 [facility] Automated blood neutrophil count Automated blood neutrophil count 6.3 2.1 - 6.9 06/28/2018 [facility] Automated blood platelet count (count/volume) Automated blood platelet count (count/volume) 354 140 - 360 06/28/2018 [facility] Automated blood segmented neutrophil count as percentage of total leukocytes Automated blood segmented neutrophil count as percentage of total leukocytes 62.7 38.7 - 80.0 06/28/2018 [facility] Automated erythrocyte mean corpuscular hemoglobin (mass per erythrocyte) Automated erythrocyte mean corpuscular hemoglobin (mass per erythrocyte) 28.4 28 - 32 06/28/2018 [facility] Automated erythrocyte mean corpuscular hemoglobin concentration measurement (mass/volume) Automated erythrocyte mean corpuscular hemoglobin concentration measurement (mass/volume) 32.9 31 - 35 06/28/2018 [facility] Automated erythrocyte mean corpuscular volume Automated erythrocyte mean corpuscular volume 86.5 81 - 99 06/28/2018 [facility] Blood erythrocytes automated count (number/volume) Blood erythrocytes automated count (number/volume) 4.01 4.3 - 5.7 06/28/2018 [facility] Blood hemoglobin measurement (moles/volume) Blood hemoglobin measurement (moles/volume) 11.4 14.0 - 18.0 06/28/2018 [facility] Blood leukocytes automated count (number/volume) Blood leukocytes automated count (number/volume) 10.04 4.8 - 10.8 06/28/2018 [facility] Blood lymphocytes count (number/volume) Blood lymphocytes count (number/volume) 2.3 1.0 - 3.2 06/28/2018 [facility] Blood monocytes automated count (number/volume) Blood monocytes automated count (number/volume) 0.9 0.2 - 0.8 06/28/2018 [facility] Estimated glomerular filtration rate (GFR) determination Estimated glomerular filtration rate (GFR) determination >60 60 06/28/2018 [facility] Glucose measurement Glucose measurement 130 74 - 118 06/28/2018 [facility] Serum or plasma anion gap Serum or plasma anion gap 13.2 8 - 16 06/28/2018 [facility] Serum or plasma calcium measurement (mass/volume) Serum or plasma calcium measurement (mass/volume) 9.6 8.4 - 10.2 06/28/2018 [facility] Serum or plasma carbon dioxide, total measurement (moles/volume) Serum or plasma carbon dioxide, total measurement (moles/volume) 26 22 - 29 06/28/2018 [facility] Serum or plasma chloride measurement (moles/volume) Serum or plasma chloride measurement (moles/volume) 103 98 - 107 06/28/2018 [facility] Serum or plasma creatinine measurement (mass/volume) Serum or plasma creatinine measurement (mass/volume) 0.87 0.72 - 1.25 06/28/2018 [facility] Serum or plasma potassium measurement (moles/volume) Serum or plasma potassium measurement (moles/volume) 4.2 3.5 - 5.1 06/28/2018 [facility] Serum or plasma sodium measurement (moles/volume) Serum or plasma sodium measurement (moles/volume) 138 136 - 145 06/28/2018 [facility] Serum or plasma urea nitrogen measurement (mass/volume) Serum or plasma urea nitrogen measurement (mass/volume) 17 7 - 26 06/28/2018 [facility] Serum or plasma urea nitrogen/creatinine mass ratio Serum or plasma urea nitrogen/creatinine mass ratio 20 6 - 25 06/28/2018 [facility] Red Cell Distribution Width 12.6 11.7 - 14.4 06/28/2018 [facility] IM GRANULOCYTES % 1.3 0.0 - 1.0 06/28/2018 [facility] Absolute Immature Granulocyte (auto 0.13 0 - 0.1 06/28/2018 [facility] Blood culture NO GROWTH AFTER 5 DAYS, FINAL REPORT 06/26/2018 [facility] Blood culture Blood culture NO GROWTH AFTER 48 HOURS 06/26/2018 [facility] Troponin I measurement by highly sensitive enzyme immunoassay Troponin I measurement by highly sensitive enzyme immunoassay 0.006 0 - 0.300 06/26/2018 [facility] Differential Total Cells Counted 100 06/26/2018 [facility] Manual blood neutrophils/100 leukocytes 76 40 - 74 06/26/2018 [facility] Manual blood lymphocytes/100 leukocytes 13 19 - 48 06/26/2018 [facility] Manual blood monocytes/100 leukocytes 8 3.4 - 9.0 06/26/2018 [facility] Manual blood eosinophil count as percentage of total leukocytes 3 0 - 7 06/26/2018 [facility] Blood platelets count by estimate (number/volume) ADEQUATE 06/26/2018 [facility] Platelet morphology NORMAL 06/26/2018 [facility] RBC morphology NORMAL 06/26/2018 [facility] Blood platelets count by estimate (number/volume) Blood platelets count by estimate (number/volume) ADEQUATE 06/26/2018 [facility] Manual blood eosinophil count as percentage of total leukocytes Manual blood eosinophil count as percentage of total leukocytes 3 0 - 7 06/26/2018 [facility] Manual blood lymphocytes/100 leukocytes Manual blood lymphocytes/100 leukocytes 13 19 - 48 06/26/2018 [facility] Manual blood monocytes/100 leukocytes Manual blood monocytes/100 leukocytes 8 3.4 - 9.0 06/26/2018 [facility] Manual blood neutrophils/100 leukocytes Manual blood neutrophils/100 leukocytes 76 40 - 74 06/26/2018 [facility] Platelet morphology Platelet morphology NORMAL 06/26/2018 [facility] RBC morphology RBC morphology NORMAL 06/26/2018 [facility] Differential Total Cells Counted 100 06/26/2018 [facility] Phosphorus measurement 2.2 2.3 - 4.7 06/25/2018 [facility] Serum or plasma magnesium measurement (mass/volume) 1.8 1.3 - 2.1 06/25/2018 [facility] Serum or plasma natriuretic peptide B prohormone N-terminal measurement(mass/volume) 568 0 - 121 06/25/2018 [facility] Serum or plasma prostate specific antigen measurement (mass/volume) 8.2 0.0 - 4.0 06/25/2018 [facility] Phosphorus measurement 2.2 2.3 - 4.7 06/25/2018 [facility] Serum or plasma natriuretic peptide B prohormone N-terminal measurement(mass/volume) 568 0 - 121 06/25/2018 [facility] Activated partial thromboplastin time (aPTT) in platelet poor plasma bycoagulation assay Activated partial thromboplastin time (aPTT) in platelet poor plasma bycoagulation assay 32.0 23.8 - 35.5 06/25/2018 [facility] INR in Platelet poor plasma by Coagulation assay INR in Platelet poor plasma by Coagulation assay 1.14 06/25/2018 [facility] Phosphorus measurement Phosphorus measurement 2.2 2.3 - 4.7 06/25/2018 [facility] Plasma globulin measurement (mass/volume) Plasma globulin measurement (mass/volume) 3.9 2.3 - 3.5 06/25/2018 [facility] Prothrombin time (PT) in platelet poor plasma by coagulation assay Prothrombin time (PT) in platelet poor plasma by coagulation assay 13.7 11.9 - 14.5 06/25/2018 [facility] Serum or plasma alanine aminotransferase measurement (enzymatic activity/volume) Serum or plasma alanine aminotransferase measurement (enzymatic activity/volume) 12 0 - 55 06/25/2018 [facility] Serum or plasma albumin measurement (mass/volume) Serum or plasma albumin measurement (mass/volume) 3.8 3.5 - 5.0 06/25/2018 [facility] Serum or plasma albumin/globulin mass ratio Serum or plasma albumin/globulin mass ratio 1.0 0.8 - 2.0 06/25/2018 [facility] Serum or plasma alkaline phosphatase measurement (enzymatic activity/volume) Serum or plasma alkaline phosphatase measurement (enzymatic activity/volume) 59 40 - 150 06/25/2018 [facility] Serum or plasma magnesium measurement (mass/volume) Serum or plasma magnesium measurement (mass/volume) 1.8 1.3 - 2.1 06/25/2018 [facility] Serum or plasma natriuretic peptide B prohormone N-terminal measurement(mass/volume) Serum or plasma natriuretic peptide B prohormone N-terminal measurement(mass/volume) 568 0 - 121 06/25/2018 [facility] Serum or plasma prostate specific antigen measurement (mass/volume) Serum or plasma prostate specific antigen measurement (mass/volume) 8.2 0.0 - 4.0 06/25/2018 [facility] Serum or plasma protein measurement (mass/volume) Serum or plasma protein measurement (mass/volume) 7.7 6.5 - 8.1 06/25/2018 [facility] Serum or plasma total bilirubin measurement (mass/volume) Serum or plasma total bilirubin measurement (mass/volume) 0.9 0.2 - 1.2 06/25/2018 [facility] Aspartate Amino Transf (AST/SGOT) 12 5 - 34 06/25/2018 [facility] Urine color determination YELLOW YELLOW 06/25/2018 [facility] Urine clarity HAZY CLEAR 06/25/2018 [facility] Specific gravity of Urine by Test strip 1.010 1.010 - 1.025 06/25/2018 [facility] Urine pH measurement by automated test strip 6 5 - 7 06/25/2018 [facility] Urine leukocyte esterase detection by dipstick TRACE NEGATIVE 06/25/2018 [facility] Urine nitrite detection NEGATIVE NEGATIVE 06/25/2018 [facility] Urine protein measurement by test strip (mass/volume) NEGATIVE NEGATIVE 06/25/2018 [facility] Urine glucose detection 3+ NEGATIVE 06/25/2018 [facility] Urine ketones detection by automated test strip NEGATIVE NEGATIVE 06/25/2018 [facility] Urine urobilinogen measurement by test strip (mass/volume) 0.2 0.2 - 1 06/25/2018 [facility] Urine total bilirubin measurement (mass/volume) NEGATIVE NEGATIVE 06/25/2018 [facility] Urine erythrocytes detection TRACE NEGATIVE 06/25/2018 [facility] Automated urine sediment leukocyte count by microscopy (number/high power field) 11-20 0 - 5 06/25/2018 [facility] Erythrocytes detection in urine sediment by light microscopy NONE 0 - 5 06/25/2018 [facility] Bacteria detection in urine sediment by light microscopy MANY NONE 06/25/2018 [facility] Epithelial cells detection in urine sediment by light microscopy RARE NONE 06/25/2018 [facility] Automated urine sediment leukocyte count by microscopy (number/high power field) Automated urine sediment leukocyte count by microscopy (number/high power field) <20 0 - 5 06/25/2018 [facility] Bacteria detection in urine sediment by light microscopy Bacteria detection in urine sediment by light microscopy MANY NONE 06/25/2018 [facility] Epithelial cells detection in urine sediment by light microscopy Epithelial cells detection in urine sediment by light microscopy RARE NONE 06/25/2018 [facility] Erythrocytes detection in urine sediment by light microscopy Erythrocytes detection in urine sediment by light microscopy NONE 0 - 5 06/25/2018 [facility] Specific gravity of Urine by Test strip Specific gravity of Urine by Test strip 1.010 1.010 - 1.025 06/25/2018 [facility] Urine clarity Urine clarity HAZY CLEAR 06/25/2018 [facility] Urine color determination Urine color determination YELLOW YELLOW 06/25/2018 [facility] Urine erythrocytes detection Urine erythrocytes detection TRACE NEGATIVE 06/25/2018 [facility] Urine glucose detection Urine glucose detection 3+ NEGATIVE 06/25/2018 [facility] Urine ketones detection by automated test strip Urine ketones detection by automated test strip NEGATIVE NEGATIVE 06/25/2018 [facility] Urine leukocyte esterase detection by dipstick Urine leukocyte esterase detection by dipstick TRACE NEGATIVE 06/25/2018 [facility] Urine nitrite detection Urine nitrite detection NEGATIVE NEGATIVE 06/25/2018 [facility] Urine pH measurement by automated test strip Urine pH measurement by automated test strip 6 5 - 7 06/25/2018 [facility] Urine protein measurement by test strip (mass/volume) Urine protein measurement by test strip (mass/volume) NEGATIVE NEGATIVE 06/25/2018 [facility] Urine total bilirubin measurement (mass/volume) Urine total bilirubin measurement (mass/volume) NEGATIVE NEGATIVE 06/25/2018 [facility] Urine urobilinogen measurement by test strip (mass/volume) Urine urobilinogen measurement by test strip (mass/volume) 0.2 0.2 - 1 06/25/2018 [facility] CHEM PANEL POC Creatinine 0.8 0.5 - 1.4 05/19/2018 [facility] CHEM PANEL eGFR 103 05/19/2018 Result Comment: The eGFR is calculated using the CKD-EPI formula. In most young, healthy individuals the eGFR will be >90 mL/min/1.73m2. The eGFR declines with age. An eGFR of 60-89 may be normal in some populations, particularly the elderly, for whom the CKD-EPI formula has not been extensively validated. Use of the eGFR is not recommended in the following populations:

Individuals with unstable creatinine concentrations, including patients and those with serious co-morbid conditions.

Patients with extremes in muscle mass or diet.

The data above are obtained from the National Kidney Disease Education Program (NKDEP) which additionally recommends that when the eGFR is used in patients with extremes of body mass index for purposes of drug dosing, the eGFR should be multiplied by the estimated BMI. [facility] BLOOD BANK RESULTS ABO/Rh O POS 07/22/2017 [facility] BLOOD BANK RESULTS Antibody Scrn Negative (07/22/17 2:23 AM) 07/22/2017 [facility] URINE AND STOOL UA Sq Epi RARE 07/22/2017 [facility] URINE AND STOOL UA [place] Yeast Occasional /HPF None Seen /HPF 07/22/2017 [facility] URINE AND STOOL UA WBC 10 0 - 5 07/22/2017 [facility] URINE AND STOOL UA Bacteria Occasional /HPF None Seen /HPF 07/22/2017 [facility] URINE AND STOOL UA Mucus Few /LPF None Seen /LPF 07/22/2017 [facility] URINE AND STOOL UA RBC <1 0 - 2 07/22/2017 [facility] URINE AND STOOL UA Protein Negative (07/22/17 2:19 AM) Negative 07/22/2017 [facility] URINE AND STOOL UA Ketones Negative *NA* (07/22/17 2:19 AM) Negative 07/22/2017 [facility] URINE AND STOOL UA Urobilinogen 1.0 0.1 - 1.0 07/22/2017 [facility] URINE AND STOOL UA Bili Negative *NA* (07/22/17 2:19 AM) Negative 07/22/2017 [facility] URINE AND STOOL UA Blood Negative (07/22/17 2:19 AM) Negative 07/22/2017 [facility] URINE AND STOOL UA Nitrite Negative (07/22/17 2:19 AM) Negative 07/22/2017 [facility] URINE AND STOOL UA Leuk Est Trace *ABN* (07/22/17 2:19 AM) Negative 07/22/2017 [facility] URINE AND STOOL UA Spec Grav 1.015 <=1.030 07/22/2017 [facility] URINE AND STOOL UA pH 6.0 5.0 - 8.0 07/22/2017 [facility] URINE AND STOOL UA Glucose 100 mg/dL Negative mg/dL 07/22/2017 [facility] URINE AND STOOL UA Color Yellow *NA* (07/22/17 2:19 AM) Yellow 07/22/2017 [facility] URINE AND STOOL UA Turbidity Clear (07/22/17 2:19 AM) Clear 07/22/2017 [facility] BACTERIAL - SEROLOGY MRSA by PCR Negative (07/22/17 1:00 AM) 07/22/2017 [facility] CHEM PANEL eGFR 103 07/22/2017 Result Comment: The eGFR is calculated using the CKD-EPI formula. In most young, healthy individuals the eGFR will be >90 mL/min/1.73m2. The eGFR declines with age. An eGFR of 60-89 may be normal in some populations, particularly the elderly, for whom the CKD-EPI formula has not been extensively validated. Use of the eGFR is not recommended in the following populations:

Individuals with unstable creatinine concentrations, including patients and those with serious co-morbid conditions.

Patients with extremes in muscle mass or diet.

The data above are obtained from the National Kidney Disease Education Program (NKDEP) which additionally recommends that when the eGFR is used in patients with extremes of body mass index for purposes of drug dosing, the eGFR should be multiplied by the estimated BMI. [facility] CHEM PANEL Glucose Lvl 74 70 - 99 07/22/2017 [facility] CHEM PANEL BUN 14 7 - 22 07/22/2017 [facility] CHEM PANEL Creatinine Lvl 0.81 0.50 - 1.40 07/22/2017 [facility] CHEM PANEL Potassium Lvl 3.7 3.5 - 5.1 07/22/2017 [facility] CHEM PANEL Sodium Lvl 141 135 - 145 07/22/2017 [facility] CHEM PANEL Calcium Lvl 9.1 8.5 - 10.5 07/22/2017 [facility] CHEM PANEL Chloride Lvl 105 95 - 109 07/22/2017 [facility] CHEM PANEL CO2 26 24 - 32 07/22/2017 [facility] CHEM PANEL Total Protein 6.6 6.4 - 8.4 07/22/2017 [facility] CHEM PANEL AST 9 0 - 37 07/22/2017 [facility] CHEM PANEL ALT 18 0 - 65 07/22/2017 [facility] CHEM PANEL Albumin Lvl 3.4 3.5 - 5.0 07/22/2017 [facility] CHEM PANEL Bili Total 0.2 0.2 - 1.3 07/22/2017 [facility] CHEM PANEL Alk Phos 74 39 - 136 07/22/2017 [facility] CHEM PANEL A/G Ratio 1.1 0.7 - 1.6 07/22/2017 [facility] CHEM PANEL Globulin 3.2 2.7 - 4.2 07/22/2017 [facility] CHEM PANEL AGAP 13.7 10.0 - 20.0 07/22/2017 [facility] CHEM PANEL B/C Ratio 17 6 - 25 07/22/2017 [facility] CHEM PANEL Magnesium Lvl 1.9 1.8 - 2.4 07/22/2017 [facility] CHEM PANEL Phosphorus 3.8 2.5 - 4.5 07/22/2017 [facility] HEMATOLOGY Monocytes # 0.8 0.0 - 0.8 07/22/2017 [facility] HEMATOLOGY Lymphocytes # 2.1 1.0 - 5.5 07/22/2017 [facility] HEMATOLOGY Eosinophils # 0.3 0.0 - 0.5 07/22/2017 [facility] HEMATOLOGY Basophils # 0.1 0.0 - 0.2 07/22/2017 [facility] HEMATOLOGY Monocytes 8.0 2.0 - 12.0 07/22/2017 [facility] HEMATOLOGY Eosinophils 3.4 0.0 - 4.0 07/22/2017 [facility] HEMATOLOGY Basophils 0.6 0.0 - 1.0 07/22/2017 [facility] HEMATOLOGY Segs-Bands # 6.5 1.5 - 8.1 07/22/2017 [facility] HEMATOLOGY Lymphocytes 21.4 20.0 - 40.0 07/22/2017 [facility] HEMATOLOGY Segs 66.6 45.0 - 75.0 07/22/2017 [facility] HEMATOLOGY PTT 31.8 22.9 - 35.8 07/22/2017 [facility] HEMATOLOGY MCHC 33.7 32.0 - 36.0 07/22/2017 [facility] HEMATOLOGY MCH 27.2 27.0 - 31.0 07/22/2017 [facility] HEMATOLOGY RDW 14.7 11.5 - 14.5 07/22/2017 [facility] HEMATOLOGY MPV 7.1 7.4 - 10.4 07/22/2017 [facility] HEMATOLOGY Platelet 249 133 - 450 07/22/2017 [facility] HEMATOLOGY WBC 9.7 3.7 - 10.4 07/22/2017 [facility] HEMATOLOGY MCV 80.7 80.0 - 94.0 07/22/2017 [facility] HEMATOLOGY RBC 3.97 4.70 - 6.10 07/22/2017 [facility] [facility] HEMATOLOGY Hct 32.0 42.0 - 54.0 07/22/2017 [facility] HEMATOLOGY Hgb 10.8 14.0 - 18.0 07/22/2017 [facility] HEMATOLOGY INR 0.96 0.85 - 1.17 07/22/2017 [facility] HEMATOLOGY PT 13.0 12.0 - 14.7 07/22/2017 [facility] ELECTROLYTES AGAP 14.1 10.0 - 20.0 02/10/2017 [facility] ELECTROLYTES eGFR 102 02/10/2017 Result Comment: The eGFR is calculated using the CKD-EPI formula. In most young, healthy individuals the eGFR will be >90 mL/min/1.73m2. The eGFR declines with age. An eGFR of 60-89 may be normal in some populations, particularly the elderly, for whom the CKD-EPI formula has not been extensively validated. Use of the eGFR is not recommended in the following populations:

Individuals with unstable creatinine concentrations, including patients and those with serious co-morbid conditions.

Patients with extremes in muscle mass or diet.

The data above are obtained from the National Kidney Disease Education Program (NKDEP) which additionally recommends that when the eGFR is used in patients with extremes of body mass index for purposes of drug dosing, the eGFR should be multiplied by the estimated BMI. [facility] ELECTROLYTES Calcium Lvl 8.9 8.5 - 10.5 02/10/2017 [facility] ELECTROLYTES CO2 26 24 - 32 02/10/2017 [facility] ELECTROLYTES Chloride Lvl 101 95 - 109 02/10/2017 [facility] ELECTROLYTES Potassium Lvl 4.1 3.5 - 5.1 02/10/2017 [facility] ELECTROLYTES Glucose Lvl 144 70 - 99 02/10/2017 [facility] ELECTROLYTES Creatinine Lvl 0.84 0.50 - 1.40 02/10/2017 [facility] ELECTROLYTES BUN 14 7 - 22 02/10/2017 [facility] ELECTROLYTES Sodium Lvl 137 135 - 145 02/10/2017 [facility] HEMATOLOGY Segs 69.2 45.0 - 75.0 02/10/2017 [facility] HEMATOLOGY Lymphocytes 19.7 20.0 - 40.0 02/10/2017 [facility] HEMATOLOGY Eosinophils 3.1 0.0 - 4.0 02/10/2017 [facility] HEMATOLOGY Monocytes 6.8 2.0 - 12.0 02/10/2017 [facility] HEMATOLOGY Basophils 1.2 0.0 - 1.0 02/10/2017 [facility] HEMATOLOGY Basophils # 0.1 0.0 - 0.2 02/10/2017 [facility] HEMATOLOGY Lymphocytes # 1.8 1.0 - 5.5 02/10/2017 [facility] HEMATOLOGY Segs-Bands # 6.2 1.5 - 8.1 02/10/2017 [facility] HEMATOLOGY Monocytes # 0.6 0.0 - 0.8 02/10/2017 [facility] HEMATOLOGY Eosinophils # 0.3 0.0 - 0.5 02/10/2017 [facility] Platelet 320 133 - 450 02/10/2017 [facility] RDW 15.7 11.5 - 14.5 02/10/2017 [facility] MPV 6.9 7.4 - 10.4 02/10/2017 [facility] WBC 8.9 3.7 - 10.4 02/10/2017 [facility] Hgb 11.9 14.0 - 18.0 02/10/2017 [facility] RBC 4.57 4.70 - 6.10 02/10/2017 [facility] Hct 36.2 42.0 - 54.0 02/10/2017 [facility] MCHC 33.0 32.0 - 36.0 02/10/2017 [facility] MCH 26.1 27.0 - 31.0 02/10/2017 [facility] MCV 79.2 80.0 - 94.0 02/10/2017 [facility] LIPIDS VLDL 38 02/10/2017 [facility] LIPIDS LDL (Calculated) 118 <=99 mg/dL 02/10/2017 [facility] LIPIDS HDL 43 >=61 mg/dL 02/10/2017 [facility] LIPIDS Chol 199 <=199 mg/dL 02/10/2017 [facility] LIPIDS Trig 191 <=149 mg/dL 02/10/2017 [facility] LIPIDS CHD Risk 4.63 4.00 - 7.30 02/10/2017 [facility] CARDIAC ENZYMES Troponin-I <0.02 0.00 - 0.40 08/20/2016 [facility] CARDIAC ENZYMES CK MB 2.1 0.5 - 3.6 08/20/2016 [facility] CARDIAC ENZYMES Total CK 97 12 - 191 08/20/2016 [facility] CARDIAC ENZYMES BNP 82 <=100 pg/mL 08/20/2016 [facility] CARDIAC ENZYMES CK MB Index 2.2 0.0 - 2.5 08/20/2016 [facility] CHEM PANEL A/G Ratio 0.9 0.7 - 1.6 08/20/2016 [facility] CHEM PANEL eGFR 104 08/20/2016 Result Comment: The eGFR is calculated using the CKD-EPI formula. In most young, healthy individuals the eGFR will be >90 mL/min/1.73m2. The eGFR declines with age. An eGFR of 60-89 may be normal in some populations, particularly the elderly, for whom the CKD-EPI formula has not been extensively validated. Use of the eGFR is not recommended in the following populations:

Individuals with unstable creatinine concentrations, including patients and those with serious co-morbid conditions.

Patients with extremes in muscle mass or diet.

The data above are obtained from the National Kidney Disease Education Program (NKDEP) which additionally recommends that when the eGFR is used in patients with extremes of body mass index for purposes of drug dosing, the eGFR should be multiplied by the estimated BMI. [facility] CHEM PANEL Glucose Lvl 111 70 - 99 08/20/2016 [facility] CHEM PANEL Total Protein 7.5 6.4 - 8.4 08/20/2016 [facility] CHEM PANEL Calcium Lvl 8.9 8.5 - 10.5 08/20/2016 [facility] CHEM PANEL CO2 26 24 - 32 08/20/2016 [facility] CHEM PANEL BUN 19 7 - 22 08/20/2016 [facility] CHEM PANEL ALT 14 0 - 65 08/20/2016 [facility] CHEM PANEL Albumin Lvl 3.6 3.5 - 5.0 08/20/2016 [facility] CHEM PANEL Potassium Lvl 4.1 3.5 - 5.1 08/20/2016 [facility] CHEM PANEL Chloride Lvl 102 95 - 109 08/20/2016 [facility] CHEM PANEL Sodium Lvl 135 135 - 145 08/20/2016 [facility] CHEM PANEL Creatinine Lvl 0.81 0.50 - 1.40 08/20/2016 [facility] CHEM PANEL AGAP 11.1 10.0 - 20.0 08/20/2016 [facility] CHEM PANEL B/C Ratio 23 6 - 25 08/20/2016 [facility] CHEM PANEL Bili Total 0.3 0.2 - 1.3 08/20/2016 [facility] CHEM PANEL Globulin 3.9 2.7 - 4.2 08/20/2016 [facility] CHEM PANEL Alk Phos 73 39 - 136 08/20/2016 [facility] CHEM PANEL AST 12 0 - 37 08/20/2016 [facility] HEMATOLOGY MPV 6.6 7.4 - 10.4 08/20/2016 [facility] HEMATOLOGY MCH 26.2 27.0 - 31.0 08/20/2016 [facility] HEMATOLOGY MCV 80.7 80.0 - 94.0 08/20/2016 [facility] HEMATOLOGY RDW 14.0 11.5 - 14.5 08/20/2016 [facility] HEMATOLOGY MCHC 32.5 32.0 - 36.0 08/20/2016 [facility] HEMATOLOGY RBC 4.39 4.70 - 6.10 08/20/2016 [facility] HEMATOLOGY Hgb 11.5 14.0 - 18.0 08/20/2016 [facility] HEMATOLOGY Hct 35.4 42.0 - 54.0 08/20/2016 [facility] HEMATOLOGY WBC 8.6 3.7 - 10.4 08/20/2016 [facility] HEMATOLOGY Platelet 313 133 - 450 08/20/2016 [facility] HEMATOLOGY Segs 71.7 45.0 - 75.0 08/20/2016 [facility] HEMATOLOGY Segs-Bands # 6.1 1.5 - 8.1 08/20/2016 [facility] HEMATOLOGY Lymphocytes # 1.5 1.0 - 5.5 08/20/2016 [facility] HEMATOLOGY Eosinophils # 0.3 0.0 - 0.5 08/20/2016 [facility] HEMATOLOGY Monocytes # 0.6 0.0 - 0.8 08/20/2016 [facility] HEMATOLOGY Basophils # 0.1 0.0 - 0.2 08/20/2016 [facility] HEMATOLOGY Lymphocytes 17.1 20.0 - 40.0 08/20/2016 [facility] HEMATOLOGY Eosinophils 2.9 0.0 - 4.0 08/20/2016 [facility] HEMATOLOGY Monocytes 7.4 2.0 - 12.0 08/20/2016 [facility] HEMATOLOGY Basophils 0.9 0.0 - 1.0 08/20/2016 [facility] URINE AND STOOL UA pH 5.0 5.0 - 8.0 08/20/2016 [facility] URINE AND STOOL UA Spec Grav 1.010 <=1.030 08/20/2016 [facility] URINE AND STOOL UA Turbidity Clear (08/20/16 8:43 AM) Clear 08/20/2016 [facility] URINE AND STOOL UA Protein Negative mg/dL Negative mg/dL 08/20/2016 [facility] URINE AND STOOL UA Color Ltyellow 08/20/2016 [facility] URINE AND STOOL UA Urobilinogen <=1.0 mg/dL 0.1 - 1.0 08/20/2016 [facility] URINE AND STOOL UA RBC 2 0 - 2 08/20/2016 [facility] URINE AND STOOL UA WBC 2 0 - 5 08/20/2016 [facility] URINE AND STOOL UA Blood Negative (08/20/16 8:43 AM) Negative 08/20/2016 [facility] URINE AND STOOL UA Bili Negative *NA* (08/20/16 8:43 AM) Negative 08/20/2016 [facility] URINE AND STOOL UA Ketones Negative mg/dL Negative mg/dL 08/20/2016 [facility] URINE AND STOOL UA Glucose Negative mg/dL Negative mg/dL 08/20/2016 [facility] URINE AND STOOL UA Sq Epi Occasional /LPF Few /LPF 08/20/2016 [facility] URINE AND STOOL UA Leuk Est Negative (08/20/16 8:43 AM) Negative 08/20/2016 [facility] URINE AND STOOL UA Nitrite Negative (08/20/16 8:43 AM) Negative 08/20/2016 [facility] HEMATOLOGY Segs-Bands # 6.9 1.5 - 8.1 02/02/2016 [facility] HEMATOLOGY Lymphocytes # 1.3 1.0 - 5.5 02/02/2016 [facility] HEMATOLOGY Monocytes # 0.8 0.0 - 0.8 02/02/2016 [facility] HEMATOLOGY Basophils 0.5 0.0 - 1.0 02/02/2016 [facility] HEMATOLOGY Eosinophils 2.3 0.0 - 4.0 02/02/2016 [facility] HEMATOLOGY Monocytes 8.5 2.0 - 12.0 02/02/2016 [facility] HEMATOLOGY Eosinophils # 0.2 0.0 - 0.5 02/02/2016 [facility] HEMATOLOGY Segs 74.3 45.0 - 75.0 02/02/2016 [facility] HEMATOLOGY Lymphocytes 14.4 20.0 - 40.0 02/02/2016 [facility] Hct 33.7 42.0 - 54.0 02/02/2016 [facility] RBC 4.23 4.70 - 6.10 02/02/2016 [facility] HEMATOLOGY Hgb 11.2 14.0 - 18.0 02/02/2016 [facility] WBC 9.3 3.7 - 10.4 02/02/2016 [facility] HEMATOLOGY Platelet 240 133 - 450 02/02/2016 [facility] HEMATOLOGY MPV 7.3 7.4 - 10.4 02/02/2016 [facility] MCV 79.7 80.0 - 94.0 02/02/2016 [facility] MCH 26.5 27.0 - 31.0 02/02/2016 [facility] RDW 16.4 11.5 - 14.5 02/02/2016 [facility] MCHC 33.3 32.0 - 36.0 02/02/2016 [facility] CHEM PANEL Bili Indirect 0.6 0.0 - 1.0 01/31/2016 [facility] CHEM PANEL Bili Total 0.7 0.2 - 1.3 01/31/2016 [facility] CHEM PANEL Bili Direct 0.1 0.0 - 0.3 01/31/2016 [facility] CHEM PANEL ALT 21 0 - 65 01/31/2016 [facility] CHEM PANEL A/G Ratio 0.9 0.7 - 1.6 01/31/2016 [facility] CHEM PANEL Total Protein 7.6 6.4 - 8.4 01/31/2016 [facility] CHEM PANEL Globulin 4.0 2.0 - 4.0 01/31/2016 [facility] CHEM PANEL Albumin Lvl 3.6 3.5 - 5.0 01/31/2016 [facility] CHEM PANEL Alk Phos 82 39 - 136 01/31/2016 [facility] CHEM PANEL AST 11 0 - 37 01/31/2016 [facility] LIPIDS CHD Risk 5.76 4.00 - 7.30 01/31/2016 [facility] LIPIDS LDL (Calculated) 103 <=99 mg/dL 01/31/2016 [facility] LIPIDS VLDL 73 01/31/2016 [facility] LIPIDS Trig 364 <=149 mg/dL 01/31/2016 [facility] LIPIDS Chol 213 <=199 mg/dL 01/31/2016 [facility] LIPIDS HDL 37 >=61 mg/dL 01/31/2016 [facility] SPECIAL CHEMISTRY Hgb A1C 8.2 <=5.6 % 01/31/2016 [facility] CHEM PANEL eGFR 102 01/31/2016 Result Comment: The eGFR is calculated using the CKD-EPI formula. In most young, healthy individuals the eGFR will be >90 mL/min/1.73m2. The eGFR declines with age. An eGFR of 60-89 may be normal in some populations, particularly the elderly, for whom the CKD-EPI formula has not been extensively validated. Use of the eGFR is not recommended in the following populations:

Individuals with unstable creatinine concentrations, including patients and those with serious co-morbid conditions.

Patients with extremes in muscle mass or diet.

The data above are obtained from the National Kidney Disease Education Program (NKDEP) which additionally recommends that when the eGFR is used in patients with extremes of body mass index for purposes of drug dosing, the eGFR should be multiplied by the estimated BMI. [facility] CHEM PANEL CO2 27 24 - 32 01/31/2016 [facility] CHEM PANEL Chloride Lvl 103 95 - 109 01/31/2016 [facility] CHEM PANEL Potassium Lvl 4.3 3.5 - 5.1 01/31/2016 [facility] CHEM PANEL Calcium Lvl 8.6 8.5 - 10.5 01/31/2016 [facility] CHEM PANEL Glucose Lvl 168 70 - 99 01/31/2016 [facility] CHEM PANEL BUN 19 7 - 22 01/31/2016 [facility] CHEM PANEL Sodium Lvl 139 135 - 145 01/31/2016 [facility] CHEM PANEL Creatinine Lvl 0.85 0.50 - 1.40 01/31/2016 [facility] CHEM PANEL AGAP 13.3 10.0 - 20.0 01/31/2016 [facility] HEMATOLOGY Platelet 272 133 - 450 01/31/2016 [facility] MCHC 32.8 32.0 - 36.0 01/31/2016 [facility] RDW 15.8 11.5 - 14.5 01/31/2016 [facility] HEMATOLOGY MPV 7.3 7.4 - 10.4 01/31/2016 [facility] MCV 80.0 80.0 - 94.0 01/31/2016 [facility] Hct 38.6 42.0 - 54.0 01/31/2016 [facility] Hgb 12.6 14.0 - 18.0 01/31/2016 [facility] RBC 4.82 4.70 - 6.10 01/31/2016 [facility] WBC 9.3 3.7 - 10.4 01/31/2016 [facility] MCH 26.2 27.0 - 31.0 01/31/2016 [facility] HEMATOLOGY INR 0.97 0.85 - 1.17 01/31/2016 [facility] HEMATOLOGY PT 13.2 12.0 - 14.7 01/31/2016 [facility] HEMATOLOGY PTT 32.9 22.9 - 35.8 01/31/2016 [facility] Lymphocytes # 1.7 1.0 - 5.5 01/31/2016 [facility] Eosinophils # 0.4 0.0 - 0.5 01/31/2016 [facility] Basophils # 0.1 0.0 - 0.2 01/31/2016 [facility] HEMATOLOGY Monocytes # 0.7 0.0 - 0.8 01/31/2016 [facility] HEMATOLOGY Basophils 0.9 0.0 - 1.0 01/31/2016 [facility] Segs-Bands # 6.5 1.5 - 8.1 01/31/2016 [facility] HEMATOLOGY Eosinophils 3.9 0.0 - 4.0 01/31/2016 [facility] Segs 69.5 45.0 - 75.0 01/31/2016 [facility] HEMATOLOGY Monocytes 7.4 2.0 - 12.0 01/31/2016 [facility] Lymphocytes 18.3 20.0 - 40.0 01/31/2016 [facility] CHEM PANEL eGFR 88 12/17/2015 Result Comment: The eGFR is calculated using the CKD-EPI formula. In most young, healthy individuals the eGFR will be >90 mL/min/1.73m2. The eGFR declines with age. An eGFR of 60-89 may be normal in some populations, particularly the elderly, for whom the CKD-EPI formula has not been extensively validated. Use of the eGFR is not recommended in the following populations:

Individuals with unstable creatinine concentrations, including patients and those with serious co-morbid conditions.

Patients with extremes in muscle mass or diet.

The data above are obtained from the National Kidney Disease Education Program (NKDEP) which additionally recommends that when the eGFR is used in patients with extremes of body mass index for purposes of drug dosing, the eGFR should be multiplied by the estimated BMI. [facility] CHEM PANEL POC Creatinine 1.0 0.5 - 1.4 12/17/2015 [facility] CHEM PANEL eGFR 100 11/27/2015 Result Comment: The eGFR is calculated using the CKD-EPI formula. In most young, healthy individuals the eGFR will be >90 mL/min/1.73m2. The eGFR declines with age. An eGFR of 60-89 may be normal in some populations, particularly the elderly, for whom the CKD-EPI formula has not been extensively validated. Use of the eGFR is not recommended in the following populations:

Individuals with unstable creatinine concentrations, including patients and those with serious co-morbid conditions.

Patients with extremes in muscle mass or diet.

The data above are obtained from the National Kidney Disease Education Program (NKDEP) which additionally recommends that when the eGFR is used in patients with extremes of body mass index for purposes of drug dosing, the eGFR should be multiplied by the estimated BMI. [facility] CHEM PANEL Creatinine Lvl 0.89 0.50 - 1.40 11/27/2015 [facility] CHEM PANEL BUN 19 7 - 22 11/27/2015 [facility] CHEM PANEL Glucose Lvl 174 70 - 99 11/27/2015 [facility] CHEM PANEL CO2 30 24 - 32 11/27/2015 [facility] CHEM PANEL Potassium Lvl 5.3 3.5 - 5.1 11/27/2015 [facility] CHEM PANEL Chloride Lvl 107 95 - 109 11/27/2015 [facility] CHEM PANEL Sodium Lvl 139 135 - 145 11/27/2015 [facility] CHEM PANEL Calcium Lvl 8.4 8.5 - 10.5 11/27/2015 [facility] CHEM PANEL AGAP 7.3 10.0 - 20.0 11/27/2015 [facility] HEMATOLOGY Platelet 269 133 - 450 11/27/2015 [facility] MPV 7.4 7.4 - 10.4 11/27/2015 [facility] Hgb 11.9 14.0 - 18.0 11/27/2015 [facility] Hct 37.6 42.0 - 54.0 11/27/2015 [facility] MCV 79.6 80.0 - 94.0 11/27/2015 [facility] RBC 4.72 4.70 - 6.10 11/27/2015 [facility] WBC 7.4 3.7 - 10.4 11/27/2015 [facility] MCHC 31.7 32.0 - 36.0 11/27/2015 [facility] MCH 25.3 27.0 - 31.0 11/27/2015 [facility] RDW 15.8 11.5 - 14.5 11/27/2015 [facility] Segs-Bands # 4.7 1.5 - 8.1 11/27/2015 [facility] Monocytes # 0.7 0.0 - 0.8 11/27/2015 [facility] Lymphocytes # 1.6 1.0 - 5.5 11/27/2015 [facility] HEMATOLOGY Eosinophils # 0.3 0.0 - 0.5 11/27/2015 [facility] Basophils # 0.1 0.0 - 0.2 11/27/2015 [facility] HEMATOLOGY Segs 63.1 45.0 - 75.0 11/27/2015 [facility] HEMATOLOGY Monocytes 9.8 2.0 - 12.0 11/27/2015 [facility] HEMATOLOGY Eosinophils 3.5 0.0 - 4.0 11/27/2015 [facility] HEMATOLOGY Basophils 1.4 0.0 - 1.0 11/27/2015 [facility] HEMATOLOGY Lymphocytes 22.2 20.0 - 40.0 11/27/2015 [facility] LIPIDS VLDL 29 11/27/2015 [facility] LIPIDS LDL (Calculated) 118 <=99 mg/dL 11/27/2015 [facility] HDL 41 >=61 mg/dL 11/27/2015 [facility] LIPIDS Chol 188 <=199 mg/dL 11/27/2015 [facility] LIPIDS Trig 146 <=149 mg/dL 11/27/2015 [facility] LIPIDS CHD Risk 4.59 4.00 - 7.30 11/27/2015 [facility] Bacterial urine culture Urine Culture [facility] Pathology Reports No Data Provided for This Section Diagnostic Reports Report Value Date Source Abdomen/Pelvis w/wo IV contrast CT CT ABDOMEN PELVIS PRE AND POST CONTRAST: HISTORY: Ureteral stricture, urinary tract infection. TECHNIQUE: Multislice axial acquisitions of the abdomen and pelvis was done before and after IV contrast. Sagittal and coronal reconstructions were done. Delayed images through the urinary tract were also obtained. Oral contrast was not administered. DLP 3152 mGycm. FINDINGS: There is no evidence of urinary tract calculus or hydronephrosis. Tiny cysts in the kidneys are noted without other significant renal abnormalities. There is faint opacification of urine in the bladder related to the earlier retrograde urethrogram. There is mild thickening of the bladder wall. There are no other significant bladder abnormalities. The prostate is mildly enlarged. The liver appears normal in size without focal abnormalities or surface nodularity. The portal veins are patent. There appears to be a distal splenic vein occlusion with multiple perigastric varices. These findings are unchanged compared to the previous abdominal CT on 05/19/2018. No significant lower esophageal varices are seen. The remainder of the portal system is unremarkable. The spleen is normal in size. There is no ascites. The gallbladder is within normal limits. There is no evidence of biliary dilatation. There are stable changes in the tail the pancreas suggesting previous pancreatitis, unchanged from previous abdominal CT. There are no other significant pancreatic abnormalities. Small calcified soft tissue nodules are seen in the left anterior pararenal space, unchanged from the previous CT. There is no other intra-abdominal mass or free fluid. There is mild atherosclerotic calcification in the aorta and iliac arteries without other significant retroperitoneal abnormalities. There are no significant gastrointestinal tract abnormalities. There is a 5 mm lung nodule in the peripheral lateral right upper lobe not included on the previous abdominal CT, but stable compared to the recent chest CT of 02/12/2019. There is another 2 mm nodule in the lateral right lower lobe showing no change from previous abdominal study. There are no other significant abnormalities in the visible lung bases or lower pleural spaces. There are no significant osseous abnormalities. A presternal lead is noted with a generator pack in the left lateral chest wall. IMPRESSION: 1. No significant upper urinary tract abnormalities. See the retrograde urethrogram report on the same date for additional findings. 2. 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 There is no CT evidence of cirrhosis. 3. 5 mm lung nodule in the right upper lobe. See the previous CT chest report of 02/12/2019 for follow-up recommendations. 4. No other acute CT abnormalities in the abdomen or pelvis. DLAWRENCE-PC 04/08/2019 [facility] Urethrogram retrograde DX EXAM: Retrograde urethrogram HISTORY: Urethral stricture COMPARISON: None TECHNIQUE: Approximately 20 mL Omnipaque administered. Fluoroscopy time 46 seconds. Reference air kerma 58 mGy FINDINGS: Focal approximately 4 cm stricture of the proximal penile urethra. The remainder of the urethra appears intact. Contrast opacifies the bladder. 13 04/08/2019 [facility] Chest 1view DX EXAM: XR CHEST 1 VIEW DATE: 02/15/2019 10:36 CDT INDICATION: - follow up COMPARISON: 02/14/2019 TECHNIQUE: AP chest. FINDINGS: Stable cardiomediastinal silhouette, life support lines and tubes. Stable small left pleural effusion. Improved patchy left lower lobe opacities may represent atelectasis, aspiration or pneumonia. Displaced fracture of the left 6th rib laterally. IMPRESSION: 1. Stable small left pleural effusion. 2. Improved patchy left lower lobe opacities may represent atelectasis, aspiration or pneumonia. 3. Displaced fracture of the left 6th rib laterally. 02/15/2019 [facility] Chest 1view DX EXAM: XR CHEST 1 VIEW DATE: 02/14/2019 11:17 CDT INDICATION: - Post-op, eval L pleural effusion COMPARISON: 02/13/2019 TECHNIQUE: AP chest IMPRESSION: 1. Left chest wall cardiac pacing devices are stable in position. 2. While evaluation is limited given semi-erect positioning, no distinct pneumothorax is identified. 3. Cardiomediastinal silhouette is enlarged, unchanged. 4. Small left pleural effusion is again seen is left basilar atelectatic changes. 5. Osseous structures are stable including the left lower rib fractures. 02/14/2019 [facility] Chest 1view DX EXAM: XR CHEST 1 VIEW DATE: 02/13/2019 3:00 CDT INDICATION: - Recent thoracotomy. FINDINGS: Comparison is made to yesterday. Cardiomediastinal silhouette, life support lines and tubes are stable. There is a small left pleural effusion. Patchy left lower lobe opacity could be due to atelectasis, aspiration or pneumonia. There is platelike atelectasis in the left upper lobe and right lower lobe. Displaced fracture of the left 6th rib laterally. IMPRESSION: 1. Small left pleural effusion. 2. Patchy left lower lobe opacity could be due to atelectasis or consolidation. Left upper lobe and right lower lobe platelike atelectasis. 3. Displaced fracture of the left 6th rib laterally. 02/13/2019 [facility] Chest 1view DX EXAM: XR CHEST 1 VIEW DATE: 02/12/2019 16:00 CDT INDICATION: - removal of LP chest tube. FINDINGS: Comparison is made to yesterday. Cardiomediastinal silhouette, life support lines and tubes are stable. Subsegmental atelectasis in the bilateral lower lobes. Increasing left retrocardiac opacity. No definite pleural effusions. IMPRESSION: 1. Bilateral lower lobe subsegmental atelectasis. 2. Increasing left retrocardiac opacity could be due to atelectasis, aspiration or pneumonia. 02/12/2019 [facility] Chest wo contrast CT EXAM: CT CHEST WITHOUT CONTRAST DATE: 02/12/2019 11:40 CDT INDICATION: Hemoptysis - s/p VATS and AICD lead revision TECHNIQUE: Volumetric CT acquisition of the chest was obtained without contrast. Sagittal, coronal and axial MIP reformatted images were reconstructed and obtained at the workstation. Total Exam DLP: 757.90 mGy-- cm COMPARISON: No prior chest CT is available for comparison. FINDINGS: Cardiothoracic ratio measures 15/26.3 cm. Ascending aorta does not measure enlarged. Pulmonary trunk is borderline size at 29 mm. Calcifications throughout the left main, left anterior descending, left circumflex and right coronary arteries. Aortic calcifications. No significant pericardial effusion. A pulse generator has been implanted in the left upper anterior chest wall with surrounding soft tissue stranding and subcutaneous emphysema. One lead has its tip in the right atrial appendage and there are 2 epicardial pacing leads adjacent to the left cardiac margin. There is also a pulse generator in the left lower chest wall laterally with surrounding soft tissue stranding and subcutaneous emphysema; there is a transcutaneous ICD lead in the presternal chest wall surrounded by soft tissue stranding and subcutaneous emphysema. Several subcentimeter mediastinal lymph nodes. No significant pericardial effusion. There is a small left hemothorax associated with a few tiny foci air in the pleural space, which may be partially loculated. Subsegmental atelectasis is scattered in the lungs bilaterally, especially the bilateral lower lobes and left upper lobe, to a lesser degree the right upper lobe. Pulmonary nodules, as follows (series 5): * A 5 mm nodule in the periphery of the right upper lobe image 91 * A 3 mm nodule right lower lobe image 134 Limited imaging through the upper abdomen shows several prominent vessels adjacent to the stomach which may be varices or collaterals. There are calcified mesenteric lesions measuring 25 x 20 mm on axial image 211 and 20 x 17 mm on axial image 217, similar to the prior abdomen and pelvis CT from 05/19/2018. Mild perinephric stranding. Adrenal glands are unremarkable. Scattered thoracic spine osteophytes. There is a slightly displaced fracture of the left lateral 6th rib with mild surrounding hematoma. IMPRESSION: 1. Pulse generators in the left upper anterior chest wall and left lateral lower chest wall with their respective leads in the right atrial appendage, 2 epicardial, and one transcutaneous in the presternal chest wall. They are surrounded by soft tissue stranding and subcutaneous emphysema, presumably related to recent placement. 2. Small left hemothorax, partially loculated and containing a few tiny scattered foci of air. 3. Abundant subsegmental atelectasis scattered in the lungs bilaterally, especially the bilateral lower lobes and left upper lobe. 4. Two small pulmonary nodules identified, ranging in size from 3 to 5 mm. -- According to the Fleischner Society 2017 Guidelines for management of pulmonary nodules, a low risk patient with multiple nodules measuring less than 6 mm does not require routine follow-up. For a high risk patient, multiple nodules measuring less than 6 mm can be followed with a repeat chest CT at 12 months. 5. Cardiomegaly. Aortic and coronary artery calcifications. 6. Slightly displaced fracture of the left lateral 6th rib with mild surrounding hematoma. 02/12/2019 [facility] Chest 1view DX EXAM: XR CHEST 1 VIEW DATE: 02/12/2019 3:00 CDT INDICATION: - Recent thoracotomy. FINDINGS: Comparison is made to yesterday. Cardiomediastinal silhouette, life support lines and tubes are stable. Small left pleural effusion. Left lower lobe opacity could be due to atelectasis, aspiration or pneumonia. There is right lower lobe subsegmental atelectasis. IMPRESSION: 1. Small left pleural effusion. 2. Patchy left lower lobe opacity could be due to atelectasis or consolidation. 3. Right lower lobe subsegmental atelectasis. 02/12/2019 [facility] Chest 1view DX EXAM: XR CHEST 1 VIEW DATE: 02/11/2019 15:47 CDT INDICATION: - Post left thoracotomy. FINDINGS: Comparison is made to February 11 at 4:16 AM. Cardiomediastinal silhouette is unchanged. Life support lines and tubes remain in place. Patchy left lower lobe opacity could be due to atelectasis, aspiration or pneumonia. There is right lower lobe subsegmental atelectasis. Small left pleural effusion. Tiny left apical pneumothorax. IMPRESSION: 1. Tiny left hydropneumothorax. 2. Patchy left lower lobe opacity could be due to atelectasis or consolidation. 3. Right lower lobe subsegmental atelectasis. 02/11/2019 [facility] Chest 1view DX EXAM: XR CHEST 1 VIEW DATE: 02/11/2019 3:00 CDT INDICATION: - Recent thoracotomy COMPARISON: 02/10/2019 TECHNIQUE: AP chest IMPRESSION: 1. Left chest wall cardiac pacing devices are stable in position. 2. Left thoracostomy tube again seen with stable position. 3. While evaluation is limited given semi-erect positioning, no distinct pneumothorax is identified. 4. Cardiomediastinal silhouette is enlarged, unchanged. 5. Few bilateral lower lung zone subsegmental platelike atelectatic changes. Otherwise, lungs are clear. 6. Costophrenic sulci are sharp. 7. Osseous structures are stable. 02/11/2019 [facility] Chest 1view DX EXAM: XR CHEST 1 VIEW DATE: 02/10/2019 10:11 CDT INDICATION: - post op left thoracotomy COMPARISON: 02/09/2019 TECHNIQUE: AP chest. FINDINGS: Stable life support lines and tubes. No lung volumes with bronchovascular crowding. Increased bibasilar opacities are likely atelectatic, although superimposed infection cannot be excluded. No definitive pleural effusions. Trace left apical pneumothorax. IMPRESSION: 1. Low lung volumes with vascular crowding. 2. Increased bibasilar opacities are likely atelectatic, though superimposed infection cannot be excluded. 3. Trace left apical pneumothorax. 02/10/2019 [facility] Chest 1 v for Placement DX EXAM: XR CHEST 1 VIEW DATE: 02/09/2019 5:40 PM CDT INDICATION: Line Placement - Chest 1 view for line placement COMPARISON: 02/09/2019 at 1625 TECHNIQUE: AP chest FINDINGS: Lines and tubes: The patient has been extubated. A triple lead left chest wall cardiac pacemaker/defibrillator is visualized with lead tips projected over the right atrium and left side of the heart. Another single lead defibrillator is seen with its lead tip projected over the left mid mediastinum. A left-sided pleural drain is in place. EKG leads. Lungs and pleura: No pulmonary or pleural based abnormality is identified. No pneumothoraces or pleural effusions are seen. Heart and mediastinum: The heart size remains mildly enlarged for technique. The mediastinal contours are normal. Bones: A left sixth anterolateral rib fracture is present, possibly surgically created. IMPRESSION: 1. Lines, tubes, devices in place as above. The patient has been extubated. 2. Stable mild cardiomegaly. 3. No pneumothoraces or pleural effusions are seen. 4. Left lateral sixth rib fracture, possibly surgically created. 02/09/2019 [facility] Chest 2 views DX EXAM: Chest radiograph 1 view DATE: 02/09/2019 16:23 CDT INDICATION: OR chest radiograph, no incorrect count. COMPARISON: 01/18/2018 TECHNIQUE: One image AP view of the chest. BODY CAVITY ENTERED: Chest. SIZE/TYPE OF OBJECT FOR WHICH THERE IS AN INCORRECT COUNT: None. Previously reported missing forceps was found by OR team, according to health care technician Jl and Dr Bautista. DISCUSSION: - Lines/Tubes/devices: Partially imaged left subclavian approach pacemaker with its leads projecting over the right atrium. Automatic implantable cardiac defibrillator lead projects over the mediastinum. Tip of ET tube projects 4.0 cm above the oscar. - Other findings: Stable enlarged cardiomediastinal silhouette. Small left pleural effusion possible. Limited view of the chest without pneumothorax, given limitation of a supine study. Patchy opacities bilaterally may represent vascular crowding or edema. IMPRESSION: No unexpected radiopaque foreign object. Other findings as described above. This finding was communicated to Dr. Bautista by telephone on 02/09/2019 at 4:54 PM. 02/09/2019 [facility] Chest 1view DX Clinical Indication: - CP Comparison: 10/02/2018 FINDINGS: Single frontal radiograph of the chest is performed. Cardiac automatic implantable cardiac defibrillator leads are unchanged in position. Heart size is within normal limits. Mediastinal contours are unremarkable. Lungs are clear without infiltrate or mass. No pleural effusion or pneumothorax. No acute osseous abnormality. IMPRESSION: 1. No radiographic evidence for acute process in the chest. SL: [id number] 01/18/2019 [facility] Chest 2 views DX Study: Chest 2 views DX Clinical Indication: Line Placement - Status post PPM/ICD Implantation Comparison: Chest x-ray from 10/01/2018 FINDINGS: The cardiac silhouette is normal in size. Left-sided AICD device is noted with tips in the regions of the right atrium, right ventricle, and coronary sinus. The lungs are clear and without consolidation or congestion. No pleural effusion or pneumothorax is seen. The osseous structures are unremarkable. IMPRESSION: No acute cardiopulmonary disease. Stable appearance of a left-sided AICD device. SL: [id number] 10/02/2018 [facility] Chest 1 v for Placement DX Study: Chest x-ray, single view Clinical Indication: Line Placement - Status post PPM/ICD Implantation Comparison: Chest x-ray from 09/24/2018 FINDINGS: There has been placement of a left-sided automatic implantable cardiac defibrillator device with tips in the regions of the right atrium, right ventricle, and coronary sinus. No pneumothorax is seen. Cardiac silhouette is normal in size. Lungs are without consolidation or congestion. There is no pleural effusion. Bony thorax is unremarkable. IMPRESSION: Left-sided automatic implantable cardiac defibrillator device in position. No pneumothorax is seen. SL: [id number] 10/01/2018 [facility] Chest 1view DX Clinical Indication: Chest pain. Comparison: 12/21/2016 FINDINGS: AP view of the chest submitted for interpretation. Lungs are clear. Heart size is normal. Central pulmonary vasculature appears normal. No effusion. No pneumothorax. No radiographically apparent acute osseous abnormality. Stable appearance of presternal stimulator lead in IMPRESSION: 1. No radiographically apparent acute cardiopulmonary process. SL: [id number] 09/23/2018 [facility] Abdomen/Pelvis w/wo IV contrast CT CT ABDOMEN PELVIS PRE AND POST CONTRAST: HISTORY: Abdominal pain, history of thrombocytopenia and internal bleeding. TECHNIQUE: Multislice acquisition of the abdomen and pelvis was done before and after IV contrast. Oral contrast was also administered. Sagittal and coronal reconstructions were also done. DLP 1861 mGycm. FINDINGS: The tail of the pancreas appears truncated with adjacent changes suggesting the residua of previous pancreatitis. The splenic vein is not visualized with small varices in the splenic hilum, around the the tail of the pancreas, and left upper quadrant omentum. There is a small calcification in the tail of the pancreas and mild focal thickening of the left anterior pararenal space with small calcifications. There is no pancreatic mass, ductal dilatation or other significant pancreatic abnormalities. The liver and gallbladder are within normal limits. There is no evidence of biliary dilatation. The spleen is normal in size and otherwise unremarkable. The kidneys and adrenal glands show no significant abnormalities. There is marked circumferential thickening of the bladder wall. The prostate is normal in size. The appendix is not visualized. There is no significant diverticular disease. There are no significant gastrointestinal tract abnormalities. There is no intra-abdominal mass or free fluid. Atherosclerotic changes in the aortoiliac segment are noted without other significant retroperitoneal abnormalities. Postsurgical changes involving the anterior abdominal wall are noted without evidence of hernia. There are no significant osseous abnormalities. A presternal pacemaker lead is noted with the generator over the lower left lateral chest wall. IMPRESSION: 1. 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 This should be correlated with the history. 2. Marked circumferential thickening of the bladder wall. The differential includes muscle hypertrophy due to outlet obstruction, cystitis and neoplastic disease. 3. No other acute CT abnormalities in the abdomen or pelvis. [id number] 05/19/2018 [facility] Chest 1view DX EXAM: XR CHEST 1 VIEW DATE: 07/21/2017 5:02 PM CDT INDICATION: Respiratory distress - POSTOP COMPARISON: 08/20/2016 TECHNIQUE: AP chest IMPRESSION: 1. Cardiomediastinal silhouette is upper limit of normal size. 2. Few scattered atelectatic changes. Otherwise, lungs are clear. 3. Osseous structures are stable. 4. Costophrenic sulci are sharp. 5. Again seen is a left chest wall single presternal lead automatic implantable cardiac defibrillator. 07/21/2017 [facility] Ext Lower Venous Doppler Bilat US Patient Name: SIMI MCGILL : 1965; Age: 52 years Male MR: [id number] Study: Ext Lower Venous Doppler Bilat US 07/10/2017 1:44 PM CDT CLINICAL INDICATION: PVD. preop BLE vein mapping - PVD. preop BLE vein mapping. COMPARISON: None TECHNIQUE: Sonographic evaluation of the bilateral superficial lower extremity veins was performed. FINDINGS: Right greater saphenous vein: Removed. Right lesser saphenous vein: Nonvisualized. Left greater saphenous vein: Proximal thigh: 4.7 mm Mid thigh: 2.4 mm Distal thigh: 1.9 mm At the knee: 2.3 mm Proximal calf: 3 mm Mid calf: 2.1 mm Distal calf: 2.2 mm At the ankle: 2.4 mm Left lesser saphenous vein: Nonvisualized. All visualized veins are compressible without thrombus. IMPRESSION: Vein mapping of the bilateral lower extremity superficial veins as described. : [id number] 07/10/2017 [facility] Carotid artery Doppler bilat US Patient Name: SIMI MCGILL : 1965; Age: 52 years Male MR: [id number] Study: Carotid artery Doppler bilat US 07/10/2017 1:46 PM CDT CLINICAL INDICATION: PAD, CAD - preop for coronary artery bypass graft. COMPARISON: None TECHNIQUE: Posadas-scale, color Doppler and spectral Doppler of the carotid arteries was performed. Any reported ICA stenoses indirectly references the distal internal carotid diameter as the denominator for the stenosis measurement, utilizing consensus panel criteria. FINDINGS: RIGHT: Mild to moderate calcified plaque within the carotid bulb ICA PSV 65 cm/sec CCA PSV 87 cm/sec ICA/CCA ratio 0.74 Vertebral flow is antegrade. External carotid artery is patent. LEFT: Minimal noncalcified plaque within the left carotid bulb ICA PSV 102 cm/sec CCA PSV 106 cm/sec ICA/CCA ratio 0.96 Vertebral flow is antegrade. External carotid artery is patent. IMPRESSION: RIGHT: ICA stenosis <50% by velocity criteria. LEFT: ICA stenosis <50% by velocity criteria. Consensus panel Doppler US criteria for diagnosis of ICA stenosis: Stenosis (%) ICA PSV (cm/sec) ICA/CCA ratio <50 <125 <2.0 50-69 125-230 2.0-4.0 >70 but less than >230 >4.0 near occlusion Near occlusion High, low, or Variable undetectable SL: [id number] 07/10/2017 [facility] Chest 1view DX Patient Name: SIMI MCGILL : 1965; Age: 51 years y/o Male MR: [id number] Study: Chest 1view DX Comparison: 07/13/2016 Clinical Indication: Chest pain; A few scattered interstitial opacities and granulomatous calcifications are noted bilaterally, nonspecific, likely chronic. Cardiac silhouette is mildly enlarged. Implanted cardiac defibrillator device is noted at the ventral chest wall in the midline similar to the previous exam with generator projected over the lateral aspect of the left abdominal pelvic junction. There is no acute consolidation or pleural fluid collection noted. Marginal spurring is noted at the thoracic spine. Pulmonary vasculature is normal. IMPRESSION: No acute cardiopulmonary process. SL: [id number] 08/20/2016 [facility] Chest 2 views DX Patient Name: SIMI MCGILL DOB: 1965; Age: 51 years y/o Male MR: [id number] Study: Chest 2 views DX 07/13/2016 1:17 AM CDT Ordering Physician: Clinical Indication: Cough and fever; Comparison: 06/26/2016 2 views chest Mild cardiomegaly without overt congestive heart failure or pulmonary edema. No pleural effusion or pneumothorax. No acute osseous findings. There is an implanted implantable cardiac defibrillator device present in the left anterolateral chest wall, with a single lead anterior to the sternum, as before. IMPRESSION: No acute finding. JOSE: JUSTICE 07/13/2016 [facility] Chest 2 views DX Chest 2 views DX CLINICAL HISTORY: acute bronchitis COMPARISON: 02/02/2016 FINDINGS: LUNGS: Lungs are reasonably well inflated. No consolidation or any significant effusion. No pneumothorax is evident. CARDIOVASCULAR: Cardiomediastinal silhouette is within normal limits. Stable position of left parasternal lead. Pulmonary vasculature is within normal limits. MEDIASTINUM/JAMES: Trachea is midline. No contour abnormality is noted. OSSEOUS STRUCTURES: No significant bony abnormality is noted. SOFT TISSUES: No significant soft tissue abnormality is noted. IMPRESSION: No acute abnormality is noted in the chest. SL: [id number] 06/26/2016 [facility] Chest 2 views DX PA and lateral chest: A left parasternal lead with left lateral chest wall generator has been placed since 12/05/2013. The cardiomediastinal silhouette, pulmonary vasculature and james are within nor mal limits. The lungs and pleural spaces are clear. There are no significant osseous abnormalities. IMPRESSION: No acute radiographic abnormalities in the chest. 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 There was a dominant septal branch that was arising from the left anterior descending artery, which supplied most of the myocardium with blood. Proximal RCA occluded in its proximal portion with collaterals filling the right PDA. LV ejection fraction 20% with dilated left ventricle, LV end-diastolic pressure of 37. . COMPARISON: None. TECHNIQUE: Multiplanar, multisequence images of the heart were obtained before and after administration of intravenous contrast. The study was transferred to work station where analysis of cardiac function was performed. IV contrast: 20 mL MultiHance The heart rate=70-75 BPM. FINDINGS: Cardiac chambers: Marked enlargement of the left ventricle with mild enlargement of the right ventricle and left atrium. Myocardium: Thickness: Mildly thinned. Edema (TIR): Normal. Perfusion: Normal. Delayed enhancement: Endocardial and subendocardial at the mid and basal anterolateral and inferolateral wall, and at the apical anterior wall. Subcentimeter area of transmural involvement at the mid inferior wall. LV wall motion: Global hypokinesis with relative sparing of the anterior wall at the base and the mid septum. Myocardial Function (normal ranges below): Ejection fraction: 29% Stroke-volume: 80 mL Cardiac output: 6 liters/min Cardiac index: 2.5 liters/min/m2 End-diastolic volume: 272 mL End-systolic volume: 192 mL Normal ranges: Normal ranges for male 40-65 years old: Ejection fraction: 66+/-4 Stroke-volume: 96+/-26 End-diastolic volume: 146+/-38 End-systolic volume: 49+/-15 LV Mass: 154+/-27 Valves: Aortic valve: Normal. Mitral valve: Normal. Pulmonic valve: Normal. Tricuspid valve: Normal. Large vessels: Aorta and branches: Ascending aortic dimension (at level of pulmonary artery): 3.4 cm. Branching pattern: Conventional. Aortic outflow (q-flow) measurements: Stroke Volume: 84 mL Forward Flow: 86 mL Backward Flow: 2 mL Regurgitant Fraction: 2.5% Main pulmonary artery: Patent. MPA caliber 3.7 cm. Coronary arteries: Not evaluated. Pericardium: Normal. Extracardiac: Elsewhere, limited evaluation of the remaining mediastinum, james, lungs, pleura, regional skeleton and upper abdomen is grossly unremarkable. IMPRESSION: 1. Global hypokinesis with ejection fraction of 29%. 2. Endocardial/subendocardial scar of the mid and basal anterolateral and inferolateral wall as well as of the apical anterior wall, but involving less than 50% of the wall thickness. 3. Tiny transmural scar in the mid inferior wall. Reference: FMRI. 2002;17(3):323-9. Normal human left and right ventricular dimensions for MRI as assessed by turbo gradient echo and steady-state free precession imaging sequences. Marzena Simons, et. al. 12/17/2015 [facility] Consultation Notes No Data Provided for This Section Discharge Summaries No Data Provided for This Section History and Physicals No Data Provided for This Section Vital Signs Vital Sign Value Date Comments Source Weight 105.085 03/21/2019 [facility] BMI Calculated 33.72 03/21/2019 [facility] Height 176.53 cm 03/21/2019 [facility] Heart Rate 81 03/21/2019 [facility] Temperature Oral (F) 98.5 F 03/21/2019 [facility] Respitory Rate 18 03/21/2019 [facility] Systolic (mm Hg) 89 03/21/2019 [facility] Diastolic (mm Hg) 57 03/21/2019 [facility] Systolic (mm Hg) 102 02/16/2019 [facility] Diastolic (mm Hg) 66 02/16/2019 [facility] Respitory Rate 18 02/16/2019 [facility] Respitory Rate 18 02/16/2019 [facility] Respitory Rate 20 02/16/2019 [facility] Temperature Oral (F) 97.2 F 02/16/2019 [facility] Systolic (mm Hg) 93 02/16/2019 [facility] Diastolic (mm Hg) 55 02/16/2019 [facility] Systolic (mm Hg) 127 02/16/2019 [facility] Diastolic (mm Hg) 60 02/16/2019 [facility] Temperature Oral (F) 97.0 F 02/16/2019 [facility] Temperature Oral (F) 97.2 F 02/16/2019 [facility] Weight 107.926 02/13/2019 [facility] Weight 113.778 02/10/2019 [facility] Height 179.71 cm 02/09/2019 [facility] Weight 107.727 02/09/2019 [facility] BMI Calculated 33.36 02/09/2019 [facility] Height 177.8 cm 02/09/2019 [facility] BMI Calculated 35.37 02/09/2019 [facility] Height 177.8 cm 02/09/2019 [facility] BMI Calculated 35.37 02/09/2019 [facility] Weight 111.364 01/18/2019 [facility] 80 01/18/2019 [facility] Respitory Rate 18 01/18/2019 [facility] Temperature Oral (F) 98.3 F 01/18/2019 [facility] Systolic (mm Hg) 127 01/18/2019 [facility] Diastolic (mm Hg) 70 01/18/2019 [facility] Systolic (mm Hg) 126 10/02/2018 [facility] Diastolic (mm Hg) 68 10/02/2018 [facility] Heart Rate 72 10/02/2018 [facility] Temperature Oral (F) 98.4 F 10/02/2018 [facility] Respitory Rate 16 10/02/2018 [facility] Temperature Oral (F) 98.5 F 10/02/2018 [facility] Systolic (mm Hg) 117 10/02/2018 [facility] Diastolic (mm Hg) 72 10/02/2018 [facility] Respitory Rate 15 10/02/2018 [facility] Rate 69 10/02/2018 [facility] Systolic (mm Hg) 120 10/02/2018 [facility] Diastolic (mm Hg) 68 10/02/2018 [facility] Respitory Rate 16 10/02/2018 [facility] Rate 71 10/02/2018 [facility] Temperature Oral (F) 98.1 F 10/02/2018 [facility] Height 177.8 cm 09/28/2018 [facility] BMI Calculated 34.51 09/28/2018 [facility] Weight 109.091 09/28/2018 [facility] Rate 74 09/24/2018 [facility] Temperature Oral (F) 97.4 F 09/24/2018 [facility] Systolic (mm Hg) 118 09/24/2018 [facility] Diastolic (mm Hg) 73 09/24/2018 [facility] Respitory Rate 18 09/24/2018 [facility] Respitory Rate 18 09/24/2018 [facility] Systolic (mm Hg) 115 09/24/2018 [facility] Diastolic (mm Hg) 70 09/24/2018 [facility] Heart Rate 61 09/24/2018 [facility] Temperature Oral (F) 97.6 F 09/24/2018 [facility] Temperature Oral (F) 97.4 F 09/24/2018 [facility] Respitory Rate 18 09/24/2018 [facility] Heart Rate 66 09/24/2018 [facility] Systolic (mm Hg) 122 09/24/2018 [facility] Diastolic (mm Hg) 76 09/24/2018 [facility] Weight 110 09/24/2018 [facility] BMI Calculated 34.8 09/24/2018 [facility] Height 177.8 cm 09/24/2018 [facility] Height 177.8 cm 09/24/2018 [facility] BMI Calculated 34.8 09/24/2018 [facility] Weight 110 09/24/2018 [facility] Respitory Rate 20 09/16/2018 [facility] Heart Rate 71 09/16/2018 [facility] Systolic (mm Hg) 104 09/16/2018 [facility] Diastolic (mm Hg) 67 09/16/2018 [facility] Temperature Oral (F) 97.7 F 09/16/2018 [facility] Height 177.8 cm 09/16/2018 [facility] Weight 110.091 09/16/2018 [facility] BMI Calculated 34.82 09/16/2018 [facility] Temperature Oral (F) 98.2 F 09/18/2017 [facility] Respitory Rate 16 09/18/2017 [facility] Heart Rate 85 09/18/2017 [facility] Systolic (mm Hg) 125 09/18/2017 [facility] Diastolic (mm Hg) 72 09/18/2017 [facility] Heart Rate 82 09/17/2017 [facility] Systolic (mm Hg) 127 09/17/2017 [facility] Diastolic (mm Hg) 66 09/17/2017 [facility] Respitory Rate 18 09/17/2017 [facility] Temperature Oral (F) 98.1 F 09/17/2017 [facility] Heart Rate 80 09/17/2017 [facility] Systolic (mm Hg) 128 09/17/2017 [facility] Diastolic (mm Hg) 71 09/17/2017 [facility] Respitory Rate 18 09/17/2017 [facility] Weight 113.636 09/17/2017 [facility] Temperature Oral (F) 98.1 F 09/17/2017 [facility] Height 175.26 cm 09/17/2017 [facility] BMI Calculated 37 09/17/2017 [facility] Systolic (mm Hg) 132 07/22/2017 [facility] Diastolic (mm Hg) 71 07/22/2017 [facility] Respitory Rate 26 07/22/2017 [facility] Respitory Rate 21 07/22/2017 [facility] Temperature Oral (F) 97.4 F 07/22/2017 [facility] Respitory Rate 63 07/22/2017 [facility] Systolic (mm Hg) 138 07/22/2017 [facility] Diastolic (mm Hg) 66 07/22/2017 [facility] Temperature Oral (F) 96.4 F 07/22/2017 [facility] Systolic (mm Hg) 130 07/22/2017 [facility] Diastolic (mm Hg) 69 07/22/2017 [facility] Temperature Oral (F) 96.9 F 07/22/2017 [facility] BMI Calculated 37.31 07/22/2017 [facility] Weight 114.602 07/22/2017 [facility] Height 175.26 cm 07/22/2017 [facility] Height 175.26 cm 06/22/2017 [facility] Weight 114 06/22/2017 [facility] BMI Calculated 37.11 06/22/2017 [facility] Respitory Rate 20 06/22/2017 [facility] Heart Rate 92 06/22/2017 [facility] Temperature Oral (F) 98 F 06/22/2017 [facility] Systolic (mm Hg) 124 06/22/2017 [facility] Diastolic (mm Hg) 72 06/22/2017 [facility] Weight 114.176 06/02/2017 [facility] Systolic (mm Hg) 95 06/02/2017 [facility] Diastolic (mm Hg) 59 06/02/2017 [facility] Temperature Oral (F) 97.2 F 06/02/2017 [facility] Respitory Rate 18 06/02/2017 [facility] Heart Rate 74 06/02/2017 [facility] Height 175.26 cm 06/02/2017 [facility] BMI Calculated 37.17 06/02/2017 [facility] BMI Calculated 36.24 05/12/2017 [facility] Weight 114.574 05/12/2017 [facility] Height 177.8 cm 05/12/2017 [facility] Systolic (mm Hg) 101 05/12/2017 [facility] Diastolic (mm Hg) 60 05/12/2017 [facility] Temperature Oral (F) 97.2 F 05/12/2017 [facility] Respitory Rate 18 05/12/2017 [facility] Heart Rate 72 05/12/2017 [facility] Temperature Oral (F) 97.8 F 03/09/2017 [facility] Weight 116.42 03/09/2017 [facility] BMI Calculated 37.58 03/09/2017 [facility] Height 176.02 cm 03/09/2017 [facility] Respitory Rate 20 03/09/2017 [facility] Heart Rate 87 03/09/2017 [facility] Systolic (mm Hg) 123 03/09/2017 [facility] Diastolic (mm Hg) 75 03/09/2017 [facility] Systolic (mm Hg) 125 02/10/2017 [facility] Diastolic (mm Hg) 62 02/10/2017 [facility] Respitory Rate 20 02/10/2017 [facility] Weight 118.182 02/10/2017 [facility] BMI Calculated 37.38 02/10/2017 [facility] Height 177.8 cm 02/10/2017 [facility] Systolic (mm Hg) 116 08/20/2016 [facility] Diastolic (mm Hg) 62 08/20/2016 [facility] Respitory Rate 16 08/20/2016 [facility] Height 175.26 cm 08/20/2016 [facility] BMI Calculated 38.03 08/20/2016 [facility] Weight 116.818 08/20/2016 [facility] Respitory Rate 10 08/20/2016 [facility] Systolic (mm Hg) 113 08/20/2016 [facility] Diastolic (mm Hg) 58 08/20/2016 [facility] Heart Rate 82 08/20/2016 [facility] Temperature Oral (F) 98 F 07/13/2016 [facility] Heart Rate 78 07/13/2016 [facility] Respitory Rate 19 07/13/2016 [facility] Systolic (mm Hg) 120 07/13/2016 [facility] Diastolic (mm Hg) 69 07/13/2016 [facility] Weight 113.636 07/13/2016 [facility] Temperature Oral (F) 98.3 F 07/13/2016 [facility] Respitory Rate 20 07/13/2016 [facility] Heart Rate 90 07/13/2016 [facility] Systolic (mm Hg) 124 07/13/2016 [facility] Diastolic (mm Hg) 75 07/13/2016 [facility] Heart Rate 85 02/02/2016 [facility] Systolic (mm Hg) 130 02/02/2016 [facility] Diastolic (mm Hg) 85 02/02/2016 [facility] Respitory Rate 18 02/02/2016 [facility] Temperature Oral (F) 97.8 F 02/02/2016 [facility] Systolic (mm Hg) 132 02/02/2016 [facility] Diastolic (mm Hg) 71 02/02/2016 [facility] Respitory Rate 18 02/02/2016 [facility] Heart Rate 82 02/02/2016 [facility] Temperature Oral (F) 98.4 F 02/02/2016 [facility] Temperature Oral (F) 98.6 F 02/02/2016 [facility] Systolic (mm Hg) 116 02/02/2016 [facility] Diastolic (mm Hg) 71 02/02/2016 [facility] Heart Rate 81 02/02/2016 [facility] Respitory Rate 18 02/02/2016 [facility] Height 177.8 cm 01/31/2016 [facility] BMI Calculated 35.95 01/31/2016 [facility] Weight 113.636 01/31/2016 [facility] BMI Calculated 36.52 11/27/2015 [facility] Weight 115.455 11/27/2015 [facility] Height 177.8 cm 11/27/2015 [facility] Encounters Location Location Details Encounter Type Encounter Number Reason For Visit Attending Provider ADM Date DC Date Status Source [facility] Bedded Outpatient [id number] Corinne Awadalla 11/27/2015 11/27/2015 [facility] ([place], [place]) Outpatient [id number] Corinne Kadi 12/10/2015 12/11/2015 [facility] Outpatient [id number] Corinne Kadi 12/17/2015 12/18/2015 [facility] Outpatient [id number] Harjinder Metz 01/31/2016 02/01/2016 [facility] Bedded Outpatient [id number] Baldev Benjamin 02/01/2016 02/02/2016 [facility] Outpatient [id number] Joanne Means 06/26/2016 06/27/2016 [facility] Emergency [id number] Arcadio Hermelindaalov 07/13/2016 07/13/2016 [facility] Emergency [id number] Stacie Tran 08/20/2016 08/20/2016 [facility] Bedded Outpatient [id number] Corinne Wallis 02/10/2017 02/10/2017 [facility] Outpatient [id number] Dorinda Mai 03/09/2017 03/10/2017 [facility] Phone Message [id number] 03/23/2017 03/25/2017 [facility] Phone Message [id number] 04/01/2017 04/03/2017 [facility] Phone Message [id number] 04/01/2017 04/03/2017 [facility] Outpatient [id number] Dorinda Mai 05/12/2017 05/13/2017 [facility] Phone Message [id number] 05/19/2017 05/21/2017 [facility] Phone Message [id number] 05/19/2017 05/21/2017 [facility] Outpatient [id number] Chesterenzo Mai 06/02/2017 06/03/2017 [facility] Outpatient [id number] Chesterenzo Mai 06/22/2017 06/23/2017 [facility] Outpatient [id number] Ozzymadihamistyenzo Mai 07/10/2017 07/11/2017 [facility] Outpatient [id number] Latoya Binghami 07/16/2017 07/17/2017 [facility] Inpatient [id number] Abraham Johnson 07/22/2017 07/22/2017 [facility] Outpatient [id number] Suzanne Morales 08/08/2017 08/09/2017 [facility] Emergency [id number] Dutch Bañuelos 09/17/2017 09/18/2017 [facility] Phone Message [id number] 10/19/2017 10/21/2017 [facility] Outpatient [id number] Tremaine Noble 05/19/2018 05/20/2018 [facility] Discharged Inpatient [id number] BARBARA SHAH MD 06/25/2018 06/29/2018 [facility] [id number] JOSE MONK MD 07/23/2018 [facility] Outpatient [id number] Corinne Wallis 09/16/2018 09/16/2018 [facility] Inpatient [id number] Corinne Wallis 09/24/2018 09/24/2018 [facility] Bedded Outpatient [id number] Baldev Benjamin 10/01/2018 10/02/2018 [facility] [id number] JOSE MONK MD 11/26/2018 [facility] Discharged Inpatient (obs) [id number] BALDEV BENJAMIN MD 12/31/2018 01/01/2019 [facility] Departed Emergency Room [id number] RUBEN HAYES MD 01/02/2019 01/02/2019 [facility] Discharged Inpatient (obs) [id number] DO TONEY MD 01/09/2019 01/12/2019 [facility] Emergency [id number] [place] 01/18/2019 01/18/2019 [facility] [place] Inpatient [id number] Baldev Benjamin 02/10/2019 02/16/2019 [facility] Outpatient [id number] Dorinda Mai 03/21/2019 03/22/2019 [facility] Outpatient [id number] Elvira Gracia 04/08/2019 04/09/2019 [facility] Procedures Procedure Code Date Perfomer Comments Source CYSTOSCOPY AND TREATMENT [id number] 11/26/2018 [facility] CYSTOSCOPY & URETER CATHETER 54316 07/23/2018 [facility] CYSTOSCOPY AND TREATMENT 61692 07/23/2018 [facility] CT of abdomen and pelvis without contrast [id number] 06/25/2018 [facility] Cataract extraction and insertion of intraocular lens<sup>1</sup> [id number] 11/02/2017 bilat [facility] Cataract extraction and insertion of intraocular lens<sup>1</sup> [id number] 11/02/[address] [facility] ICD - Internal cardiac defibrillator procedure [id number] 02/01/2016 [facility] ICD - Internal cardiac defibrillator procedure [id number] 02/01/2016 [facility] Appendectomy [id number] [facility] Penis operations [id number] [facility] Appendectomy [id number] [facility] Penis operations [id number] [facility] Appendectomy [id number] [facility] Penis operations [id number] [facility] Cardiac catheterisation [id number] [facility] Cardiac catheterisation [id number] [facility] Assessment and Plan Assessment and Plan Date Source Extracted from:Title: AHF Progress Note Author: Nichelle Christine MD Date: 02/16/19 History of Present Illness Subjective: No events overnight, on room air. Hemodynamically stable. Ojeda D/Devante, good urine output. Health Status Allergies: Allergic Reactions (Selected) Severity Not Documented NKDA- No reactions were documented., Allergies (1) Active Reaction NKDA None Documented Current medications: (Selected) Inpatient Medications Ordered ANES ondansetron: 4 mg, 2 mL, IVP, ONCE, PRN: Nausea and Vomiting Benadryl: 25 mg, 1 cap, PO, TID, PRN: Itching Dextrose 50% Syringe: 12.5 gm, 25 mL, IVP, PRN, PRN: Blood Glucose Results Dextrose 50% Syringe: 25 gm, 50 mL, IVP, PRN, PRN: Blood Glucose Results Entresto 24 mg-26 mg oral tablet: 1 tab, PO, Q12H [place] unit, 0.3 mL, SUB-Q, TID-Before Meals Jardiance 25mg (1 tablet): 25 mg, PO, Daily [place] 10/325 oral tablet: 1 tab, PO, Q6H, PRN: Pain Score 4-6 [place] 10/325 oral tablet: 2 tab, PO, Q6H, PRN: Pain Score 7-10 Toprol-XL 25 mg oral tablet, extended release: 25 mg, 1 tab, PO, BID ascorbic acid: 1,000 mg, 2 tab, PO, BID aspirin: 81 mg, 1 tab, PO, Daily atorvastatin: 60 mg, 3 tab, PO, Bedtime calcium gluconate + Sodium Chloride 0.9% IV 100 mL: 2 gm, 20 mL, 120 ml/hr, IVPB, PRN, PRN: Abnormal Lab Result calcium gluconate + Sodium Chloride 0.9% IV 100 mL: 3 gm, 30 mL, 130 ml/hr, IVPB, PRN, PRN: Abnormal Lab Result docusate sodium 100 mg oral capsule: 100 mg, 1 cap, PO, BID ferrous sulfate: 300 mg, 5 mL, PO, BID folic acid: 1 mg, 1 tab, PO, Daily furosemide 20 mg oral tablet: 60 mg, 3 tab, PO, Daily gabapentin 100 mg oral capsule: 300 mg, 1 cap, PO, TID glucagon: 1 mg, IM, PRN, PRN: Blood Glucose Results insulin glargine: 30 unit, 0.3 mL, 0 ml/hr, SUB-Q, Daily insulin lispro: 1 unit, 0.01 mL, SUB-Q, Bedtime, PRN: Blood Glucose Results insulin lispro: 10 unit, 0.1 mL, SUB-Q, TID-Before Meals, PRN: Blood Glucose Results insulin lispro: 2 unit, 0.02 mL, SUB-Q, Bedtime, PRN: Blood Glucose Results insulin lispro: 2 unit, 0.02 mL, SUB-Q, TID-Before Meals, PRN: Blood Glucose Results insulin lispro: 3 unit, 0.03 mL, SUB-Q, Bedtime, PRN: Blood Glucose Results insulin lispro: 4 unit, 0.04 mL, SUB-Q, Bedtime, PRN: Blood Glucose Results insulin lispro: 4 unit, 0.04 mL, SUB-Q, TID-Before Meals, PRN: Blood Glucose Results insulin lispro: 6 unit, 0.06 mL, SUB-Q, TID-Before Meals, PRN: Blood Glucose Results insulin lispro: 8 unit, 0.08 mL, SUB-Q, TID-Before Meals, PRN: Blood Glucose Results lidocaine topical patch (5% film): 1 patch, TOP, Daily magnesium oxide: 800 mg, 2 tab, PO, PRN, PRN: Abnormal Lab Result magnesium sulfate: 1 gm, 100 mL, 100 ml/hr, IVPB, PRN, PRN: Abnormal Lab Result magnesium sulfate: 2 gm, 50 mL, 25 ml/hr, IVPB, PRN, PRN: Abnormal Lab Result minocycline: 100 mg, 1 cap, PO, [id number] potassium chloride 20 mEq oral tablet, extended release: 20 mEq, 1 tab, PO, Daily potassium chloride: 10 mEq, 50 mL, 50 ml/hr, IVPB, PRN, PRN: Abnormal Lab Result potassium chloride: 20 mEq, 1 tab, PO, PRN, PRN: Abnormal Lab Result potassium chloride: 20 mEq, 15 mL, NJ, PRN, PRN: Abnormal Lab Result potassium phosphate + Sodium Chloride 0.9% IV 250 mL: 15 mmol, 5 mL, 63.75 ml/hr, IVPB, PRN, PRN: Abnormal Lab Result potassium phosphate + Sodium Chloride 0.9% IV 250 mL: 30 mmol, 10 mL, 65 ml/hr, IVPB, PRN, PRN: Abnormal Lab Result potassium phosphate-sodium phosphate 250 mg-280 mg-160 mg oral powder for reconstitution: 2 pkt, PO, PRN, PRN: Abnormal Lab Result senna 8.6 mg oral tablet: 8.6 mg, 1 tab, PO, Daily sodium phosphate + Sodium Chloride 0.9% IV 250 mL: 15 mmol, 5 mL, 63.75 ml/hr, IVPB, PRN, PRN: Abnormal Lab Result sodium phosphate + Sodium Chloride 0.9% IV 250 mL: 30 mmol, 10 mL, 65 ml/hr, IVPB, PRN, PRN: Abnormal Lab Result spironolactone: 25 mg, 1 tab, PO, Daily tramadol 50 mg oral tablet: 50 mg, 1 tab, PO, Q6H, PRN: Pain Score 1-3 Prescriptions Prescribed Entresto 24 mg-26 mg oral tablet: 1 tab, PO, Q12H, 180 tab, 4 Refill(s) Jardiance 25 mg oral tablet: 25 mg, 1 tab, PO, QAM, 90 tab, 4 Refill(s) Toprol-XL 25 mg oral tablet, extended release: 25 mg, 1 tab, PO, BID, 180 tab, 4 Refill(s) ascorbic acid 1000 mg oral tablet: 1,000 mg, 1 tab, PO, BID, 90 tab, 4 Refill(s) aspirin 81 mg tablet, enteric coated: 81 mg, PO, Daily, 90 tab, 4 Refill(s) atorvastatin 40 mg oral tablet: 60 mg, PO, Daily, 90 tab, 4 Refill(s) docusate sodium 100 mg oral capsule: 100 mg, 1 cap, PO, BID, 90 cap, 4 Refill(s) ferrous sulfate 325 mg oral enteric coated tablet: 325 mg, 1 tab, PO, BID, 90 tab, 4 Refill(s) folic acid 1 mg oral tablet: 1 mg, 1 tab, PO, Daily, 90 tab, 4 Refill(s) furosemide 20 mg oral tablet: 60 mg, 3 tab, PO, Daily, 270 tab, 4 Refill(s) gabapentin 300 mg oral capsule: 300 mg, 1 cap, PO, TID, 90 cap, 4 Refill(s) insulin glargine 100 units/mL subcutaneous solution: 30 unit, SUB-Q, Daily, 15 mL, 4 Refill(s) insulin lispro 100 units/mL injectable solution: 30 unit, SUB-Q, TID-Before Meals, 15 mL, 4 Refill(s) minocycline 100 mg oral capsule: 100 mg, 1 cap, PO, [id number], for 7 day, 14 cap, 0 Refill(s) potassium chloride 20 mEq oral tablet, extended release: 20 mEq, 1 tab, PO, Daily, 90 tab, 4 Refill(s) senna 8.6 mg oral tablet: 8.6 mg, 1 tab, PO, Daily, 90 tab, 4 Refill(s) spironolactone 25 mg oral tablet: 25 mg, 1 tab, PO, Daily, 90 tab, 4 Refill(s) tramadol 50 mg oral tablet: 50 mg, 1 tab, PO, Q8H, PRN: Pain Score 1-3, 30 tab, 0 Refill(s), Medications (48) Active Scheduled: (18) ascorbic acid 500 mg TAB 1,000 mg 2 tab, PO, BID aspirin 81 mg ECT 81 mg 1 tab, PO, Daily atorvastatin 20 mg TAB 60 mg 3 tab, PO, Bedtime docusate sodium 100 mg CAP 100 mg 1 cap, PO, BID ferrous sulfate 300 mg/5 ml (elemental iron 12 mg/mL) UD LIQ 300 mg 5 mL, PO, BID folic acid 1 mg TAB 1 mg 1 tab, PO, Daily furosemide 20 mg TAB 60 mg 3 tab, PO, Daily gabapentin 300 mg CAP 300 mg 1 cap, PO, TID insulin GLARGINE 1 unit/0.01 mL INJ SYR 30 unit 0.3 mL, SUB-Q, Daily insulin lispro 100 unit/ml 3 ml Vial 30 unit 0.3 mL, SUB-Q, TID-Before Meals Jardiance 25mg (1 tablet) 25 mg, PO, Daily lidocaine 5% top patch 1 patch, TOP, Daily metoprolol succinate 25 mg ERT 25 mg 1 tab, PO, BID minocycline 100 mg CAP 100 mg 1 cap, PO, [id number] potassium chloride 20 mEq ERT 20 mEq 1 tab, PO, Daily sacubitril-valsartan 24-26 mg TAB 1 tab, PO, Q12H senna 8.6 mg TAB 8.6 mg 1 tab, PO, Daily spironolactone 25 mg TAB 25 mg 1 tab, PO, Daily Continuous: (0) PRN: (30) acetaminophen-hydrocodone 325 mg-10 mg TAB 1 tab, PO, Q6H acetaminophen-hydrocodone 325 mg-10 mg TAB 2 tab, PO, Q6H calcium gluconate 100mg/ml 10ml VL + sodium chloride 0.9% INJ 100 mL 2 gm 20 mL, IVPB, PRN calcium gluconate 100mg/ml 10ml VL + sodium chloride 0.9% INJ 100 mL 3 gm 30 mL, IVPB, PRN dextrose 50% vial 50ml 12.5 gm 25 mL, IVP, PRN dextrose 50% vial 50ml 25 gm 50 mL, IVP, PRN diphenhydrAMINE 25 mg CAP 25 mg 1 cap, PO, TID glucagon recombinant 1 mg PDR 1 mg, IM, PRN insulin lispro 100 unit/ml 3 ml Vial 2 unit 0.02 mL, SUB-Q, TID-Before Meals insulin lispro 100 unit/ml 3 ml Vial 4 unit 0.04 mL, SUB-Q, TID-Before Meals insulin lispro 100 unit/ml 3 ml Vial 6 unit 0.06 mL, SUB-Q, TID-Before Meals insulin lispro 100 unit/ml 3 ml Vial 8 unit 0.08 mL, SUB-Q, TID-Before Meals insulin lispro 100 unit/ml 3 ml Vial 10 unit 0.1 mL, SUB-Q, TID-Before Meals insulin lispro 100 unit/ml 3 ml Vial 1 unit 0.01 mL, SUB-Q, Bedtime insulin lispro 100 unit/ml 3 ml Vial 2 unit 0.02 mL, SUB-Q, Bedtime insulin lispro 100 unit/ml 3 ml Vial 3 unit 0.03 mL, SUB-Q, Bedtime insulin lispro 100 unit/ml 3 ml Vial 4 unit 0.04 mL, SUB-Q, Bedtime magnesium oxide (242 mg elemental) tab 800 mg 2 tab, PO, PRN magnesium sulfate 1gm/100ml D5W premix 1 gm 100 mL, IVPB, PRN magnesium sulfate 2 gm/H20 50ml soln 2 gm 50 mL, IVPB, PRN ondansetron 4 mg/2ml INJ VL 4 mg 2 mL, IVP, ONCE potassium chloride 10 mEq/50 ml PB 10 mEq 50 mL, IVPB, PRN potassium chloride 20 mEq ERT 20 mEq 1 tab, PO, PRN potassium chloride 20mEq/15ml LIQ ud 20 mEq 15 mL, NJ, PRN potassium phosphate 3mmol/1ml 15ml VL + sodium chloride 0.9% INJ 250 mL 15 mmol 5 mL, IVPB, PRN potassium phosphate 3mmol/1ml 15ml VL + sodium chloride 0.9% INJ 250 mL 30 mmol 10 mL, IVPB, PRN potassium phosphate-sodium phosphate 1.5 gm pkt 2 pkt, PO, PRN sodium phosphate 3 mmol/1 ml 15 ml vial + sodium chloride 0.9% INJ 250 mL 15 mmol 5 mL, IVPB, PRN sodium phosphate 3 mmol/1 ml 15 ml vial + sodium chloride 0.9% INJ 250 mL 30 mmol 10 mL, IVPB, PRN traMADol 50 mg TAB 50 mg 1 tab, PO, Q6H Problem list: All Problems Anemia / SNOMED CT 835900444 / Confirmed AP (angina pectoris) / SNOMED CT 659130068 / Confirmed Cholesterol / SNOMED CT 288520186 / Confirmed Chronic systolic heart failure / SNOMED CT 7691765766 / Confirmed Diabetes mellitus type 2 / SNOMED CT 270895776 / Confirmed Diabetes / SNOMED CT [id number] / Confirmed Hypertension / SNOMED CT [id number] / Confirmed Obesity / SNOMED CT 5027979239 / Confirmed Sleep apnea / SNOMED CT 037166676 / Confirmed 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 / SNOMED CT 616519802 / Confirmed Resolved: Appendectomy / SNOMED CT 527036895 Canceled: Operation on penis / SNOMED CT 146285012, Active Problems (10) Anemia AP (angina pectoris) Cholesterol Chronic systolic heart failure Diabetes Diabetes mellitus type 2 Hypertension Obesity Sleep apnea 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 Family History: Type 1 diabetes mellitus Sister Brother Mother Father Heart disease Sister Heart attack Brother Procedure history: Cataract extraction and insertion of intraocular lens ([id number]) on 11/02/2017 at 52 Years. Comments: 02/09/2019 08:29 - Kemi Kong RN bilat ICD - Internal cardiac defibrillator procedure ([id number]) on 02/01/2016 at 50 Years. Appendectomy (384821091). Penis operations (131733249). Cardiac catheterisation (557164722). Social History Social and Psychosocial Habits Alcohol 02/19/2018 Use: Never 02/09/2019 Use: Past Previous treatment: None Comment: quit 20 years ago - 01/31/2016 11:24 - Jannie Nuñez RN Employment/School 02/09/2019 Status: Unemployed Description: disabled Exercise 02/09/2019 Duration (average number of minutes): 0 Sexual 02/09/2019 What is your current gender identity? Identifies as male Substance Abuse 02/19/2018 Use: None 02/09/2019 Use: None Tobacco 02/19/2018 Use: Never smoker Exposure to Tobacco Smoke Lives with someone who sm Cigarette Smoking Last 365 Days No Reg Smoking Cessation Counseling No 09/16/2018 Use: Never smoker Exposure to Tobacco Smoke None Cigarette Smoking Last 365 Days No Reg Smoking Cessation Counseling No 09/28/2018 Use: Never smoker Exposure to Tobacco Smoke None Cigarette Smoking Last 365 Days No Reg Smoking Cessation Counseling No 02/09/2019 Use: Never smoker Exposure to Tobacco Smoke Lives with someone who sm, Unable to obtain Cigarette Smoking Last 365 Days No Reg Smoking Cessation Counseling No Comment: no chnage - 02/09/2019 08:04 - Kemi Kong RN . Physical Examination VS/Measurements Measurements from flowsheet : Measurements 02/13/2019 06:07 Heparin Dosing Weight (kg) 88.01 02/13/2019 06:06 Weight 107.926 kg Dosing Weight Difference Percent -5.143 % Dosing Weight Collection Method Measured 02/12/2019 05:33 Weight Collection Method Measured Current Weight 110.114 kg Weight Difference Percent -3.945 % , Vital Signs (last 24 hrs) Last Charted Temp Oral 97.2 DegF (FEB 16 12:08) Heart Rate Apical 79 bpm (FEB 16 16:00) Resp Rate 18 BRMIN (FEB 16 16:00) SBP 102 mmHg (FEB 16 16:00) DBP 66 mmHg (FEB 16 16:00) SpO2 99 % (FEB 16 10:00) General: Alert and oriented, No acute distress. Eye: Extraocular movements are intact. HENT: Normocephalic, Oral mucosa is moist. Neck: Supple, Non-tender. Respiratory: Lungs are clear to auscultation. Cardiovascular: Normal rate, Regular rhythm, No murmur, No edema, pressure dressing in place over thoracotomy wound. Gastrointestinal: Soft, Non-tender, Non-distended. Musculoskeletal Normal range of motion. Integumentary: Warm, Dry, Intact. Neurologic: Alert, Oriented, No focal deficits. Psychiatric: Cooperative, Appropriate mood and affect, Normal judgment. Review / Management Results review: Labs (Last four charted values) WBC H 12.1 (FEB 16) 10.4 (JAN 16) 9.0 (JAN 14) 9.9 (JAN 14) Hgb L 10.4 (JAN 17) L 10.6 (JAN 16) L 10.2 (JAN 14) L 9.8 (JAN 14) Hct L 31.9 (JAN 17) L 32.0 (JAN 16) L 30.6 (JAN 14) L 29.0 (JAN 14) Plt 407 (JAN 17) H 462 (JAN 16) 426 (JAN 14) 349 (JAN 14) Na 138 (JAN 17) 137 (JAN 16) 139 (JAN 14) 137 (JAN 14) K 4.6 (JAN 17) 3.9 (JAN 16) 4.2 (JAN 14) 4.5 (JAN 14) CO2 28 (JAN 17) 29 (JAN 16) 28 (JAN 14) 27 (JAN 14) Cl 105 (JAN 17) 103 (JAN 16) 106 (JAN 14) 104 (JAN 14) Cr 0.74 (JAN 17) 0.93 (JAN 16) 0.75 (JAN 14) 0.76 (JAN 14) BUN 21 (JAN 17) H 25 (JAN 16) 19 (JAN 14) H 23 (JAN 14) Glucose Random H 104 (JAN 17) H 136 (JAN 16) L 52 (JAN 14) H 120 (JAN 14) Mg H 2.5 (JAN 17) H 2.5 (JAN 16) H 2.6 (JAN 14) 2.4 (FEB 13) Phos 4.1 (FEB 16) 4.4 (JAN 16) 3.4 (FEB 13) 3.2 (FEB 13) Ca 8.6 (FEB 16) 9.1 (FEB 15) 8.6 (FEB 13) L 8.4 (FEB 13) PT 13.7 (FEB 11) 14.1 (FEB 10) 13.2 (FEB 09) INR 1.07 (FEB 11) 1.11 (FEB 10) 1.02 (FEB 09) PTT 33.1 (FEB 11) 31.5 (FEB 10) 33.0 (FEB 09) . Impression and Plan Mr Mcgill is a 53M with PMHx of ischemic cardiomyopathy diagnosed s/p BiV upgarde 09/2018, diabetes mellitus type II, obesity, hypertension, and CAD. He is admitted following an elective procedure of left thoracotomy, Epicardial Lead placement x2, intercostal nerve block, RV and LV Lead extraction, PPM exchange, Capsulectomy, defibrillator placement. #Chronic SHF s/p BiV Upgrade via left thoracotomy 02/09/19 - TTE with LVEF 40 - 45 % - Per patient, previous device with inappropriate firing -S/p left thoracotomy, Epicardial Lead placement x2, intercostal nerve block, RV and LV Lead extraction, PPM exchange, Capsulectomy, defibrillator placement on 02/09/19 -Pain control with gabapentin, lidocaine patches -CT Chest with displaced rib and hematoma -Continue home Spironolactone, Toprol XL, Entresto -Continue home lasix 60 mg daily -Previously determined to not be good candidate for advanced therapies due to uncontrolled DM and obesity (last seen by Dr. Mai 06/2017). Repeat HbA1C 6.1. BMI here 35.3. At this time, patient is compensated and without evidence of acute systolic heart failure. He has no e/o organ damage and is stable on medical therapy for HF -Minocycline 100 mg BID x 14 days per [facility]/EP (02/10/19 - 02/23/19) -Device interrogation with normal functioning. noted no 100 % pacing of ICD. maura interrogate ICD. -EP consulted ---> Recommend increase BB to opimized LV pacing --> increased Toprol to 25 mg q12h -Pulmonology following --> Recommend repeat CT chest in one year to f/u subcentimeter pulmonary nodules. #Multivessel CAD -Previously has been evaluated for CABG but ultimately was determined not to proceed, as caliber of vessel mid LAD-distal OM not ideal for surgical revascularization. Anatomy of coronaries not condusive to PCI -Continue home statin and ASA -Hold plavix for 30 days per [facility] #HTN: -Continue home Entresto, Toprol XL, spironolactone #Diabetes Mellitus 2 - Levemir 30 units (home dose 50), Novolog 30 u qAC (home dose 30), Jardiance home 25mg - Holding home metformin - HbA1C 6.1 #Obesity/PAYTON: PSG: moderate PAYTON, sleep related hypoventilation - noninvasive positive pressure ventilation as support during the nighttime #Urethral stricture -[facility] following -Underwent cystoscopy dilation with balloon and catheter insertion on 02/09/19- leave in place 7 days per urology - D/Devante Ojeda---> good urine output -Per , patient has dense scar tissue per home urologist and will need additional procedures-- consulted with [facility] and stated can perform as outpatient. Diet: HH/ADA Dispo: discharge today with follow up with HF, HF surgery, EP, Urology and Pulmonology Addendum by Beba Delgado MD on 02/18/2019 02:33 I saw and examined the patient withDr Patrick on 02/16/19 and agree with plan and assessment as above. I personally reviewed the labs, diagnostic imaging and documentation and discussed the plan of care with team and patient. Extracted from:Title: [facility] PCCM Consult H&P * Author: Dave Andersen NP Date: 02/12/19 Impression and Plan Hemotpysis systolic CHF s/p RV and LV Lead extraction, PPM exchange, Capsulectomy, defibrillator placement atelectasis PAYTON CAD Leukocytosis DM obesity. Patient denies prior history of tobacco abuse, recent travel, night sweats or recent weight loss. He reports worsening cough and two episodes of hemoptysis likely less than 5 cc each instance. No significant consolidations or infiltrates noted on chest xray. Given recent VATS and noted sangious chest tube output, will obtain CT chest to fully assess pleura. Cont. CPAP at HS, increase humidification. Cont. VEP add schedule nebs, PT, and ambulation as tolerated. Extracted from:Title: AHF Cardiovascular Admission H&P * Author: Beba Delgado MD Date: 02/09/19 Impression and Plan Mr Mcgill is a 53M with PMHx of ischemic cardiomyopathy diagnosed s/p BiV upgarde 09/2018, diabetes mellitus type II, obesity, hypertension, and CAD. He is admitted following an elective procedure of left thoracotomy, Epicardial Lead placement x2, intercostal nerve block, RV and LV Lead extraction, PPM exchange, Capsulectomy, defibrillator placement. #ICM s/p BiV Upgrade here for Epicardial Lead placement: doing well post procedure -Pressure dressing in place; concerned patient may have skin reaction to tape used based on prior procedures; will give benadryl overnight and wound dressing will need to be reevaluated in AM by surgical team. -Holding lasix and jardiance overnight can restart in AM if stable -Restart entresto tonight -Can restat home Spironolactone, Toprol XL in AM if stable #Multivessel CAD: Previously has been evaluated for CABG but ultimately was determine not to proceed -Continue home statin, -Hold ASA/Plavix overnight as thoracotomy today; can restart tomorrow if stable -Can restart imdur, Toprol XL, in AM if stable #HTN: Currently borderline HOTN - meds as above #Diabetes Mellitus 2 - Levemir 25 units (1/2 normal dose) in qPM as no melas today, can increase to home dose tomorrow - Novolog 40 u qAC is home dose. Will start for tomorrow - Hold Jardiance home 25mg overnight, can restart tomorrow if stable - Holding home metformin - SSI MD + accuchecks - hypoglycemia protocol #Obesity/PAYTON: PSG: moderate PAYTON, sleep related hypoventilation - noninvasive positive pressure ventilation as support during the nighttime Diet: HH/ADA PPx: holding AC overnight due to surgery can restart in AM per surgery team Code: Full Dispo: pending recovery from procedure Pt will be seen and staffed by [facility] in the AM. Pillo Zelaya MD [facility] Cardiovascular Medicine General Box Truck Driver, PGY-4 MSO #: [id number] Extracted from:Title: HF Surgery Author: Juanpablo Bean MD Date: 02/09/19 ADVANCED HEART FAILURE SURGERY BRIEF OP NOTE Preop Diagnosis: Non-ischemic cardiomyopathy, EF 25%, NYHA FC II/III, s/p BSC MOTEL MANAGER-D Postop Diagnosis: same Procedures: Left Thoracotomy, Epicardial Lead placement x2, intercostal nerve block, RV and LV Lead extraction, PPM exchange, Capsulectomy, defibrillator placement (by Dr Benjamin, will be dictated separately) Surgeon: Truong Tnoey MD Bunch Breaker Machine Operator: Juanpablo Bean MD, Marita Lewis PA-C Anesthesia: General Anesthesiologist: Burt Antibiotics: Ancef 2gr at 1306 Incision Time: 1313 Pre-op Beta Nicho: none IVF: 1700cc crystalloid EBL: 600cc Transfusions: none Cell Saver: 250cc Urine Output: 150cc Drains: 1 chest tube (left pleural) Complications: none Findings: none Specimens: leads x2, capsulectomy Meds: none Dictation #: Dr Toney Disposition: PACU 02/16/2019 [facility] Extracted from:Title: BI-VENTRICULAR PACEMAKER IMPLANTATION Author: Tomas Palacios MD Date: 10/01/18 BI-VENTRICULAR PACEMAKER IMPLANTATION PROCEDURE NOTE Procedure Date: 10/01/2018 Operators: Baldev Benjamin MD, attending Amrit Palacios MD, fellow Referring: Corinne Wallis MD History: 53 yo M with hx NICM, HFrEF who presented for new MOTEL MANAGER-D implantation and removal of previous SICD. Shared decision making took place and the case was discussed with Dr Wallis who concurred with the need for the MOTEL MANAGER-D. Pre-Op Diagnosis: Non-ischemic cardiomyopathy, EF 25%, NYHA FC II/III, QRS LBBB 148 Post-Op Diagnosis: Same s/p new BSC MOTEL MANAGER-D and removal of BSC SICD. Procedure: 1. Implantation of MOTEL MANAGER-D 2. Left arm venogram 3. Ultrasound guided access 4. Coronary sinus venogram Procedure Summary/Findings: The risks, benefits, alternatives of the device implant with sedation were explained before the procedure. Risks explained include cardiac tamponade, pneumothorax, bleeding, infection, vascular injury, TN, CVA, emergent sternotomy, intubation, . Written informed consent was obtained. The patient was reassessed prior to the procedure, including airway, physical status and vitals. The patient was deemed appropriate to proceed with moderate conscious sedation. IV antibiotics were given at the beginning of the procedure as standard protocol. Moderate conscious sedation was provided under my direct supervision by an independent sedation-trained nurse who monitored the patient and vitals throughout the procedure. About 130 minutes were spent directly supervising and monitoring the patient receiving sedation between 4:45 and 7:10PM. A total of 13.5 mg of IV Versed and 425 mcg of IV Fentanyl was used for sedation. See nurses sedation sheet that I signed for further details. The patient tolerated the sedation well. After applying standard sterile precautions, local anesthetic with 2% lidocaine with epinephrine was administered to the prepectoral region. A sided venogram showed patency from the axillary vein to the heart. The skin was incised 5 cm and dissected to fascia. A pocket was created over the pectoralis muscle using blunt dissection. Hemostasis was obtained with electrocautery. Left sided axillary venous access was obtained via the modified Seldinger technique with micropuncture technique under fluoroscopic guidance and a wire was advanced to the inferior vena cava. Two additional axillary venipuncture was performed in a similar manner and another wire was advanced to the inferior vena cava. A hemostatic peel-away sheath was inserted over one of the wires and a 9F ventricular lead was advanced. Using a slightly curved stylet, this lead was actively fixed to the right ventricular apex after seeing great injury and confirming adequate numbers on interrogation. LATVIAN showed septal position of the lead. Next a LV lead delivery long sheath was advanced over another wire to the right atrium. An AL2 catheter was used through the long sheath to cannulate the coronary sinus and a Wholey wire was advanced under fluoroscopic guidance. The outer sheath and AL2 was subsequently advanced over wire into the body of the coronary sinus. The AL2 and wire were removed and a CS venogram was performed, which revealed one suitable but small branch. Quadripolar lead was not able to cross proximal segment of the branch and ultimately, a unipolar LV lead was advanced into the branch using a 0.14 mm wire into an optimal location. Testing revealed adequate pacing numbers with no diaphragm stimulation. Fluoroscopy also revealed optimal separation between RV and LV leads. The sheath was then successfully slit without effecting lead position. Next a hemostatic peel-away sheath was advanced over the remaining wire and a 8F atrial lead was advanced. Using a J stylet, this lead was actively fixed to the right atrial appendage after seeing great injury and confirming adequate numbers on interrogation. Pacing at 10V on all these leads did not cause any chest wall or diaphragmatic stimulation. Optimal lead slack was confirmed. The leads were secured to the muscle with silk. The pocket was irrigated thoroughly with antibiotic solution and hemostasis was confirmed. A new generator was brought onto the field and connected to the leads. The generator and leads were introduced into the pocket. The generator was tied to the muscle with silk. In 3-layer standard fashion, the pocket was sutured with Stratafix to provide adequate closure. The wound was dressed with gauze and surgical tape. Pressure dressing was applied. Then we have proceeded to SICD removal. Device was located with palpation and fluoroscopy. SICD was exposed after local anesthesia was administered and disconnected from the lead. Additional midline incision in the proximity of the xyphoid was made and suture sleeve of the SICD lead was localized and released from substantial adhesions and removed. Meticulous hemostasis was ensured and both lateral pocket and midline site were closed in 3 layer fashion with Vicryl and tissue glue. Pressure dressing was applied to the lateral site. At the conclusion of the procedure, fluoroscopy revealed good lead position with no pneumothorax or retained sponges, and a normal heart border on LATVIAN view. The patient tolerated the procedure well and was returned to a telemetry bed in stable condition. Device: [facility] MOTEL MANAGER-D Model G124, Serial # [id number] RA: Model [facility] 7740, Serial # [id number] RV: Model [facility] 0292, Serial # [id number] LV: Model [facility] 4592, Serial # [id number] P wave: 5.0 mV RA pacing impedance: 862 ohms RA threshold: 1.2 V @ 0.5 ms R wave: 13.3 mV RV pacing impedance: 647 ohms RV threshold: 0.6 V @ 0.5 ms LV R wave: 18.9 mV LV pacing impedance: 449 ohms LV threshold: 0.6 V @ 0.5 ms LV tip to RV Settings: DDDR 60/120; VT 170, VF 200 EXPLANTED DEVICE: C [facility] Emblem SICD. Estimated Blood Loss: Minimal Blood Administered: None Grafts or Implants: Device as above Any Specimen Removed: None Complications: None Anesthesia: Moderate conscious sedation Medications: Versed, Fentanyl, Ancef Conclusion: 1. Successful implantation of a MOTEL MANAGER-D and removal of SICD. 2. No apparent immediate complications Post-Procedure Plan: 1. Observe patient overnight as outpatient with extended recovery. 2. Bedrest for 6 hours. 3. Resume cardiac diet. 4. EKG after procedure. 5. Portable CXR now and 2-view CXR tomorrow morning if possible. 6. Device interrogation tomorrow morning. 7. Hold anticoagulants x 48 hours. 8. Pain control: Tylenol and Tylenol #3 as needed. 9. Antibiotics: Minocycline 100mg BID x7 days. 10. Follow-up in 2 weeks in EP Clinic with Dr Benjamin. Device/Wound Care Instructions: 1. Keep wound completely dry for at least 1 week. 2. Not to elevate device-side arm past horizontal for at least 2 weeks. 3. Use sling for at least 2 weeks. 4. No lifting over 10 lbs with device arm for 2 weeks. 5. Remove dressings the day after procedure. Can re-apply fresh dressing as needed. 6. Do not remove Steri-strips or glue. They will come off by itself. 7. No driving until follow-up. CC: _, I was present for all portions of the procedure with Dr. Palacios on 10-01-18 I agree with the procedure note and assessment. 10/02/2018 Kim Extracted from:Title: Consult Note Author: Adal Chauhan MD Date: 09/24/18 53-year-old male patient admitted forworkup of chest pain 1.Acute chest pain(R07.9) This chest pain episodes have been chronic however this got worse recently. He denies any dizzy spellsas per nor did he have diaphoresisbut because of his underlying history of chronicreduced systolic ejection fraction congestive heart failureand his underlying hypertension and diabetes,he was put into the acute medicine service for medical driver evaluation for left heart cath. We will have him continued on as needed morphine for pain control, aspirin therapy and will be put on telemetry.we will trend his troponin. 2.Diabetes(E11.9) We will have him continued on sliding scale insulin for glucose control,carbohydrate restricted diet,and reviewingblood sugar checks before meals and at bedtime. 3.Hypertension(I10) We will continue him on antihypertensive medication and monitor vital signs per unit protocol. 4.Obesity(E66.9) We will have him continue on weight loss as tolerated. 5.Chronic systolic heart failure(I50.22) We will have him continue diuretic therapy as prescribed outpatient. We will continue to monitor strict input and output and weigh him daily. 09/24/2018 Kim Extracted from:Title: Heart Failure IMU H&P Author: Zena Jaramillo MD Date: 07/22/17 Impression and Plan 52 year old M with PMHx of ischemic cardiomyopathy diagnosed s/p ICD (02/2016), diabetes mellitus type II, obesity, hypertension, and CAD (90% proximal LAD, LCX, and distal 90% in both OM branches), who presents for high-risk CABG. #Multivessel CAD - [facility] 02/16: 90% proximal LAD, LCX, and distal 90% in both OM branches. There is a dominant septal branch that arises from the LAD supplying most of the myocardium with blood. The proximal RCA was occluded in the proximal portion with collaterals filling the right PDA. - Cardiac MRI 12/18: Global hypokinesis with ejection fraction of 29%, endocardial/subendocardial scar of the mid and basal anterolateral and inferolateral wall as well as of the apical anterior wall, but involving less than 50% of the wall thickness; tiny transmural scar in the mid inferior wall. - PET last month at [facility] showing inferior, basal, and inferolateral areas that are not viable with other areas of viability. Plan: - NPO after midnight - OR for CABG in AM - BB - ACEi - ARB - Statin #ICM s/p ICD - clinically euvolemic - Echo 05/18: EF 30-35%, LV mildly dilated, normal RV systolic function. Plan: - continue GDMT - Echo post CABG #HTN - BP 122/61mmHg - continue above medications #Diabetes Mellitus 2 Plan: - Levemir 20 units (1/2 normal dose) in qPM - holding short acting insulin - insulin sliding scale - hypoglycemia protocol - gabapetin #Obesity/PAYTON - PSG: moderate PAYTON, sleep related hypoventilation - Postoperatively, he is at risk for hypercapnic respiratory failure Plan: - noninvasive positive pressure ventilation as support during the nighttime after the bypass surgery. #FEN/PPx - NPO - holding Heparin SC for impending surgery - SCD Code: Home no services Dispo: pending CABG. Case discussed with Dr. Mai. Zena Jaramillo PGY 4 [employer] [facility]. #[id number] 07/22/2017 [facility] Extracted from:Title: Heart Failure Surgery Author: Radha Segal Date: 06/22/17 Assessment/Plan 52 year-old gentleman with past medical history of ischemic cardiomyopathy diagnosed s/p ICD (02/2016), diabetes mellitus type II, obesity, hypertension, and CAD with a 90% proximal LAD, LCX, and distal 90% in both OM branches. There is a dominant septal branch that arises from the LAD supplying most of the myocardium with blood. The proximal RCA was occluded in the proximal portion with collaterals filling the right PDA. He had a recent repeat cardiac PET last month at [facility] showing inferior, basal, and inferolateral areas that are not viable with other areas of viability. Patient will need 3 or 4 bypasses Following pending before surgery: vein mapping carotid doppler BL OR after 07/13/[address] sleep study Dr[address] Mai aware of plan Patient seen and discussed with Dr. Johnson. He explained to him in detail the risks and benefits of the operation and the possible need for mechanical circulatory support. STS once other testing complete. 06/23/2017 [facility] Plan of Care Plan of Care Date Source Discharge Date 01/12/19 3:42pm Disposition HOME, SELF-CARE Instructions/Education Provided Bradycardia Prescriptions See Medication Section Referrals CORINNE WALLIS MD (Cardiology) Order Date: 1-2 Weeks Entered Date: 01/12/2019 2:33pm Address: [address] [place] [address] DO TONEY MD (Internal Medicine) Order Date: 1-2 Weeks Entered Date: 01/12/2019 2:33pm Address: [address] [place] [address] BALDEV BENJAMIN MD (Cardiology) Order Date: 1-2 Weeks Entered Date: 01/12/2019 2:33pm Address: [address] [place] [address] Additional Instructions/Education ACTIVITY TOLERATED DO NOT GET THE LIFE VEST WET F/U WITH DR. BENJAMIN WHEN HE RETURNS F/U WITH DR. WALLIS IN 1-2 WEEKS NO STRENUOUS ACTIVITY NO HEAVY LIFTING 01/12/2019 [facility] Discharge Date 01/02/19 11:23pm Disposition HOME, SELF-CARE Condition at Discharge Stable Instructions/Education Provided Dermatitis (Contact) Forms Provided Work/School Excuse Prescriptions See Medication Section Additional Instructions/Education FOLLOW UP WITH DR WALLIS HE INSTRUCTED 01/02/2019 [facility] Discharge Date 06/29/18 12:25pm Disposition HOME, SELF-CARE Instructions/Education Provided Urinary Tract Infection - Men Prescriptions See Medication Section Referrals JOSE MONK MD (Urology) Order Date: 1 Month Entered Date: 06/29/2018 10:38am Address: [facility] [address] [place] [address] Reason(s) for Referral: Acute hemorrhagic cystitis Additional Instructions/Education ADA Diet Needs Cardiac clearerncce prior to Cystoscopy for anesthesia Hold ASA Plavix one week prior to procedure. 06/29/2018 [facility] Social History Social History Date Source Social History TypeResponse Substance Abuse Use: None. Sexual What is your current gender identity? Identifies as male. Exercise Exercise duration: 0. Employment/School Status: Unemployed. Work/School description: disabled. Alcohol Past, Previous treatment: None.1 Smoking Status Never smoker; Lives with someone who smokes; Exposure to Tobacco Smoke Unable to obtain; Cigarette Smoking Last 365 Days No; Reg Smoking Cessation Counseling No2 entered on: 03/21/19 1quit 20 years ago2no chnage 02/09/2019 [facility] Social History TypeResponse Substance Abuse Use: None. Sexual What is your current gender identity? Identifies as male. Exercise Exercise duration: 0. Employment/School Status: Unemployed. Work/School description: disabled. Alcohol Past, Previous treatment: None.1 Smoking Status Never smoker; Lives with someone who smokes; Exposure to Tobacco Smoke Unable to obtain; Cigarette Smoking Last 365 Days No; Reg Smoking Cessation Counseling No2 entered on: 03/21/19 1quit 20 years ago2no chnage 02/09/2019 [facility] Social History Problem Response Recorded Date/Time Onset Date Status Hx Psychiatric Problems No 10/06/2015 3:44am Not Applicable Not Applicable Hx Eating Disorder No 10/06/2015 3:44am Not Applicable Not Applicable Hx Substance Use Disorder No 12/30/2018 11:04am Not Applicable Not Applicable Hx Depression No 10/06/2015 3:44am Not Applicable Not Applicable Hx Alcohol Use No 12/30/2018 11:04am Not Applicable Not Applicable Hx Substance Use Treatment No 10/06/2015 3:44am Not Applicable Not Applicable Hx Physical Abuse No 10/06/2015 3:44am Not Applicable Not Applicable 01/12/2019 [facility] Social History TypeResponse Substance Abuse Use: None. Alcohol Past, Previous treatment: None.1 Smoking Status Never smoker; Lives with someone who smokes; Exposure to Tobacco Smoke Unable to obtain; Cigarette Smoking Last 365 Days No; Reg Smoking Cessation Counseling No 1quit 20 years ago 02/10/2017 [facility] Heart Failure Family History No Data Provided for This Section Advance Directives Order Name Results Value Date Source Advance Directives Advance Directives Directive Response Recorded Date/Time Does the patient have an advance directive? Yes 01/09/19 2:58pm If yes, is advance directive on file with [facility]? No 01/09/19 3:38am If not on file with [facility] will patient provide a copy? No 01/09/19 3:38am Do you have a Directive to Physician? No 01/09/19 3:38am Do you have a Medical Power of Wool Hat Flanger? No 01/09/19 3:38am Do you have an out of hospital Do Not Resuscitate Order? No 01/09/19 3:38am Do you have any special needs we should be aware of? No 01/09/19 3:38am Do you have a support person here with you today? Yes 01/09/19 3:38am Did patient receive Notice of Privacy Practices? Yes 01/09/19 3:38am Did patient receive patient rights and responsibilities? Yes 01/09/19 3:38am 01/12/2019 [facility] Advance Directives Advance Directives Directive Response Recorded Date/Time Does the patient have an advance directive? No 12/31/18 10:45am If yes, is advance directive on file with [facility]? No 12/31/18 10:45am If not on file with [facility] will patient provide a copy? No 12/31/18 10:45am 01/02/2019 [facility] Advance Directives Advance Directives Directive Response Recorded Date/Time Does the patient have an advance directive? Yes 06/25/18 7:42pm If yes, is advance directive on file with [facility]? No 06/25/18 7:42pm If not on file with [facility] will patient provide a copy? Yes 06/25/18 7:42pm Do you have a Directive to Physician? No 06/25/18 3:02pm Do you have a Medical Power of Wool Hat Flanger? No 06/25/18 3:02pm Do you have an out of hospital Do Not Resuscitate Order? No 06/25/18 3:02pm Do you have any special needs we should be aware of? No 06/25/18 3:02pm Do you have a support person here with you today? Yes 06/25/18 3:02pm Did patient receive Notice of Privacy Practices? Yes 06/25/18 3:02pm Did patient receive patient rights and responsibilities? Yes 06/25/18 3:02pm 06/29/2018 [facility] Functional Status No Data Provided for This Section
--- OUTSIDE RECORDS SUMMARY | 2019-04-29 15:21 | XMS REPORT | Summary of Care ---
Author Author [facility] Organization [facility] Address Unknown Phone Unavailable Encounter HQ Angelina(NILSON) [phone] Date(s): 09/23/18 - 09/24/18 [facility] [address] [place] [address]- Encounter Diagnosis Atherosclerotic heart disease of [place] coronary artery without angina pectoris (Final) - 10/01/18 Chronic systolic (congestive) heart failure (Final) - Hypertensive heart disease with heart failure (Final) - Type 2 diabetes mellitus without complications (Final) - custodial (current) use of insulin (Final) - Obesity, unspecified (Final) - Hyperlipidemia, unspecified (Final) - Obstructive sleep apnea (adult) (pediatric) (Final) - Chronic total occlusion of coronary artery (Final) - Body mass index (BMI) 34.0-34.9, adult (Final) - Discharge Disposition: Home or Self Care Attending Physician: Antonio Wallis MD Admitting Physician: Antonio Wallis MD Vital Signs 1 2 3 Most recent to oldest [Reference Range]: 177.8 cm (09/24/18 3:39 AM) 177.8 cm (09/23/18 11:47 PM) Height 97.4 DegF (09/24/18 12:40 PM) 97.6 DegF (09/24/18 8:46 AM) 97.4 DegF (09/24/18 4:00 AM) Temperature Oral [96.4-99.1 DegF] 118/73 mmHg (09/24/18 12:40 PM) 115/70 mmHg (09/24/18 8:46 AM) 122/76 mmHg (09/24/18 4:00 AM) Blood Pressure [90-140/60-90 mmHg] 18 BRMIN (09/24/18 12:40 PM) 18 BRMIN (09/24/18 8:46 AM) 18 BRMIN (09/24/18 4:00 AM) Respiratory Rate [14-20 BRMIN] 74 bpm (09/24/18 12:40 PM) 61 bpm (09/24/18 8:46 AM) 66 bpm (09/24/18 4:00 AM) Peripheral Pulse Rate [60-100 bpm] 110 kg (09/24/18 3:39 AM) 110 kg (09/23/18 11:47 PM) Weight 34.8 m2 (09/24/18 3:39 AM) 34.8 m2 (09/23/18 11:47 PM) Body Mass Index Problem List Condition Effective Dates Status Health Status Informant Anemia(Confirmed) Active AP (angina Active pectoris)(Confirmed) Appendectomy(Confirm Resolved ed) Cholesterol(Confirme Active d) Chronic systolic Active heart failure(Confirmed) Diabetes mellitus Active type 2(Confirmed) Diabetes(Confirmed) Active Hypertension(Confirm Active ed) Obesity(Confirmed) Active Sleep Active apnea(Confirmed) 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 Start Date: 09/24/18 Stop Date: 09/24/18 Status: Discontinued aspirin 81 mg tablet, chewable 81 mg, 1 tab, Route: PO, Drug form: CHEWTAB, Daily, Dosing Weight 110, kg, Start date: 09/24/18 3:05:00 GUEST ASSOCIATE, Duration: 30 day, Stop date: 10/23/18 9:00:00 GUEST ASSOCIATE Notes: Take with food. Start Date: 09/24/18 Stop Date: 09/24/18 Status: Discontinued atorvastatin 60 mg, 1.5 tab, Route: PO, Drug form: TAB, Daily, Dosing Weight 110, kg, Start d ate: 09/24/18 9:00:00 GUEST ASSOCIATE, Duration: 30 day, Stop date: 10/23/18 9:00:00 GUEST ASSOCIATE Notes: (Same as: Lipitor) Start Date: 09/24/18 Stop Date: 09/24/18 Status: Discontinued Dextrose 50% Syringe 25 gm, 50 mL, Route: IVP, Drug Form: INJ, Dosing Weight 110, kg, PRN, PRN Blood Glucose Results, Start date: 09/24/18 5:51:00 GUEST ASSOCIATE, Duration: 30 day, Stop date: 10/24/18 5:50:00 GUEST ASSOCIATE Start Date: 09/24/18 Stop Date: 09/24/18 Status: Discontinued Dextrose 50% Syringe 12.5 gm, 25 mL, Route: IVP, Drug Form: INJ, Dosing Weight 110, kg, PRN, PRN Bloo d Glucose Results, Start date: 09/24/18 5:51:00 GUEST ASSOCIATE, Duration: 30 day, Stop date : 10/24/18 5:50:00 GUEST ASSOCIATE Start Date: 09/24/18 Stop Date: 09/24/18 Status: Discontinued famotidine 20 mg, 1 tab, Route: PO, Drug form: TAB, Q12H, Dosing Weight 110, kg, Start date : 09/24/18 9:00:00 GUEST ASSOCIATE, Duration: 30 day, Stop date: 10/23/18 21:00:00 GUEST ASSOCIATE Notes: (Same as: Pepcid) Start Date: 09/24/18 Stop Date: 09/24/18 Status: Discontinued ferrous sulfate 325 mg, 1 tab, Route: PO, Drug form: ECTAB, BID-Meals, Dosing Weight 110, kg, St art date: 09/24/18 8:00:00 GUEST ASSOCIATE, Duration: 30 day, Stop date: 10/23/18 17:00:[address] Notes: Give with food. "Do Not Crush" Start Date: 09/24/18 Stop Date: 09/24/18 Status: Discontinued folic acid 1 mg, 1 tab, Route: PO, Drug form: TAB, Daily, Dosing Weight 110, kg, Start date : 09/24/18 9:00:00 GUEST ASSOCIATE, Duration: 30 day, Stop date: 10/23/18 9:00:00 GUEST ASSOCIATE Notes: (Same as: Folvite) Start Date: 09/24/18 Stop Date: 09/24/18 Status: Discontinued gabapentin 100 mg oral capsule 100 mg, 1 cap, Route: PO, Drug form: CAP, Daily, Dosing Weight 110, kg, Start da te: 09/24/18 9:00:00 GUEST ASSOCIATE, Duration: 30 day, Stop date: 10/23/18 9:00:00 GUEST ASSOCIATE Notes: (Same as: Neurontin) Start Date: 09/24/18 Stop Date: 09/24/18 Status: Discontinued glucagon 1 mg, Route: IM, Drug form: PDR/INJ, PRN, Dosing Weight 110, kg, PRN Blood Gluco se Results, Start date: 09/24/18 5:51:00 GUEST ASSOCIATE, Duration: 30 day, Stop date: 10/24 5:50:00 GUEST ASSOCIATE Start Date: 09/24/18 Stop Date: 09/24/18 Status: Discontinued Humalog 40 unit, 0.4 mL, Route: SUB-Q, Drug form: SOLN, TID-Before Meals, Start date: 7:30:00 GUEST ASSOCIATE, Duration: 30 day, Stop date: 10/23/18 16:30:00 GUEST ASSOCIATE Notes: (Same as: Humalog ) Roll in palms of hands gently; Do not shake `vigorou sly. "Single Patient Use Only " WASTE: F/P - Black; E - [facility] [address] [address] St able for 28 days at room temperature.Expires in days from Da te Start Date: 09/24/18 Stop Date: 09/24/18 Status: Discontinued Imdur 30 mg, 1 tab, Route: PO, Drug form: ERTAB, QAM, Dosing Weight 110, kg, Start kirti e: 09/24/18 6:30:00 GUEST ASSOCIATE, Duration: 30 day, Stop date: 10/23/18 6:30:00 GUEST ASSOCIATE Notes: (Same as:Imdur)"Do Not Crush" Take on empty stomach/ full glass of water . Do not crush Start Date: 09/24/18 Stop Date: 09/24/18 Status: Discontinued insulin glargine 50 unit, 0.5 mL, Route: SUB-Q, Drug form: SOLN, Daily, Start date: 09/24/18 9:00 :00 GUEST ASSOCIATE, Duration: 30 day, Stop date: 10/23/18 9:00:00 GUEST ASSOCIATE Notes: (Same as: Lantus)Do not hold insulin without contacting prescriberWASTE: F/P - Black; E - Municipal Trash Bin "single patient use only" Start Date: 09/24/18 Stop Date: 09/24/18 Status: Discontinued insulin lispro 8 unit, 0.08 mL, Route: SUB-Q, Drug form: SOLN, TID-Before Meals, Dosing Weight 110, kg, PRN Blood Glucose Results, Start date: 09/24/18 5:51:00 GUEST ASSOCIATE, Duration: 30 day, Stop date: 10/24/18 5:50:00 GUEST ASSOCIATE Notes: (Same as: Humalog ) Roll in palms of hands gently; Do not shake `vigorou sly. "Single Patient Use Only " WASTE: F/P - Black; E - [facility] [address] [address] able for 28 days at room temperature.Expires in days from Da te Start Date: 09/24/18 Stop Date: 09/24/18 Status: Discontinued insulin lispro 2 unit, 0.02 mL, Route: SUB-Q, Drug form: SOLN, TID-Before Meals, Dosing Weight 110, kg, PRN Blood Glucose Results, Start date: 09/24/18 5:51:00 GUEST ASSOCIATE, Duration: 30 day, Stop date: 10/24/18 5:50:00 GUEST ASSOCIATE Notes: (Same as: Humalog ) Roll in palms of hands gently; Do not shake `vigorou sly. "Single Patient Use Only " WASTE: F/P - Black; E - [facility] [address] able for 28 days at room temperature.Expires in days from Da te Start Date: 09/24/18 Stop Date: 09/24/18 Status: Discontinued insulin lispro 4 unit, 0.04 mL, Route: SUB-Q, Drug form: SOLN, TID-Before Meals, Dosing Weight 110, kg, PRN Blood Glucose Results, Start date: 09/24/18 5:51:00 GUEST ASSOCIATE, Duration: 30 day, Stop date: 10/24/18 5:50:00 GUEST ASSOCIATE Notes: (Same as: Humalog ) Roll in palms of hands gently; Do not shake `vigorou sly. "Single Patient Use Only " WASTE: F/P - Black; E - [facility] [address] St able for 28 days at room temperature.Expires in days from Da te Start Date: 09/24/18 Stop Date: 09/24/18 Status: Discontinued insulin lispro 2 unit, 0.02 mL, Route: SUB-Q, Drug form: SOLN, Bedtime, Dosing Weight 110, kg, PRN Blood Glucose Results, Start date: 09/24/18 5:51:00 GUEST ASSOCIATE, Duration: 30 day, S top date: 10/24/18 5:50:00 GUEST ASSOCIATE Notes: (Same as: Humalog ) Roll in palms of hands gently; Do not shake `vigorou sly. "Single Patient Use Only " WASTE: F/P - Black; E - [facility] [address] St able for 28 days at room temperature.Expires in days from Da te Start Date: 09/24/18 Stop Date: 09/24/18 Status: Discontinued insulin lispro 3 unit, 0.03 mL, Route: SUB-Q, Drug form: SOLN, Bedtime, Dosing Weight 110, kg, PRN Blood Glucose Results, Start date: 09/24/18 5:51:00 GUEST ASSOCIATE, Duration: 30 day, S top date: 10/24/18 5:50:00 GUEST ASSOCIATE Notes: (Same as: Humalog ) Roll in palms of hands gently; Do not shake `vigorou sly. "Single Patient Use Only " WASTE: F/P - Black; E - [facility] [address] able for 28 days at room temperature.Expires in days from Da te Start Date: 09/24/18 Stop Date: 09/24/18 Status: Discontinued insulin lispro 10 unit, 0.1 mL, Route: SUB-Q, Drug form: SOLN, TID-Before Meals, Dosing Weight 110, kg, PRN Blood Glucose Results, Start date: 09/24/18 5:51:00 GUEST ASSOCIATE, Duration: 30 day, Stop date: 10/24/18 5:50:00 GUEST ASSOCIATE Notes: (Same as: Humalog ) Roll in palms of hands gently; Do not shake `vigorou sly. "Single Patient Use Only " WASTE: F/P - Black; E - [facility] [address] St able for 28 days at room temperature.Expires in days from Da te Start Date: 09/24/18 Stop Date: 09/24/18 Status: Discontinued insulin lispro 6 unit, 0.06 mL, Route: SUB-Q, Drug form: SOLN, TID-Before Meals, Dosing Weight 110, kg, PRN Blood Glucose Results, Start date: 09/24/18 5:51:00 GUEST ASSOCIATE, Duration: 30 day, Stop date: 10/24/18 5:50:00 GUEST ASSOCIATE Notes: (Same as: Humalog ) Roll in palms of hands gently; Do not shake `vigorou sly. "Single Patient Use Only " WASTE: F/P - Black; E - [facility] [address] able for 28 days at room temperature.Expires in days from Da te Start Date: 09/24/18 Stop Date: 09/24/18 Status: Discontinued insulin lispro 4 unit, 0.04 mL, Route: SUB-Q, Drug form: SOLN, Bedtime, Dosing Weight 110, kg, PRN Blood Glucose Results, Start date: 09/24/18 5:51:00 GUEST ASSOCIATE, Duration: 30 day, S top date: 10/24/18 5:50:00 GUEST ASSOCIATE Notes: (Same as: Humalog ) Roll in palms of hands gently; Do not shake `vigorou sly. "Single Patient Use Only " WASTE: F/P - Black; E - [facility] [address] able for 28 days at room temperature.Expires in days from Da te Start Date: 09/24/18 Stop Date: 09/24/18 Status: Discontinued insulin lispro 1 unit, 0.01 mL, Route: SUB-Q, Drug form: SOLN, Bedtime, Dosing Weight 110, kg, PRN Blood Glucose Results, Start date: 09/24/18 5:51:00 GUEST ASSOCIATE, Duration: 30 day, S top date: 10/24/18 5:50:00 GUEST ASSOCIATE Notes: (Same as: Humalog ) Roll in palms of hands gently; Do not shake `mandeeporou sly. "Single Patient Use Only " WASTE: F/P - Black; E - [facility] [address] able for 28 days at room temperature.Expires in days from Da te Start Date: 09/24/18 Stop Date: 09/24/18 Status: Discontinued Lasix 20 mg oral tablet 20 mg, 1 tab, Route: PO, Drug form: TAB, Daily, Dosing Weight 110, kg, Start kirti e: 09/24/18 9:00:00 GUEST ASSOCIATE, Duration: 30 day, Stop date: 10/23/18 9:00:00 GUEST ASSOCIATE Notes: (Same as: Lasix) May cause GI upset. Give with food or milk. Start Date: 09/24/18 Stop Date: 09/24/18 Status: Discontinued Levemir 50 unit, Route: SUB-Q, Daily, Dosing Weight 110, kg, Start date: 09/24/18 9:00:0 0 GUEST ASSOCIATE, Duration: 30 day, Stop date: 10/23/18 9:00:00 GUEST ASSOCIATE Start Date: 09/24/18 Stop Date: 09/24/18 Status: Deleted losartan 25 mg, 1 tab, Route: PO, Drug form: TAB, Daily, Dosing Weight 110, kg, Start kirti e: 09/24/18 9:00:00 GUEST ASSOCIATE, Duration: 30 day, Stop date: 10/23/18 9:00:00 GUEST ASSOCIATE Notes: (Same as: Cozaar) Start Date: 09/24/18 Stop Date: 09/24/18 Status: Discontinued Lovaza oral capsule 2,000 mg, 2 cap, Route: PO, Drug Form: CAP, Dosing Weight 110, kg, BID, Start da te: 09/24/18 9:00:00 GUEST ASSOCIATE, Duration: 30 day, Stop date: 10/23/18 17:00:00 GUEST ASSOCIATE Notes: (Same as: MaxEPA, [place] 3 fish oil )Non-Formulary Drug Start Date: 09/24/18 Stop Date: 09/24/18 Status: Discontinued Lovenox 40 mg, 0.4 mL, Route: SUB-Q, Drug form: INJ, [id number], Dosing Weight 110, kg, St art date: 09/24/18 6:00:00 GUEST ASSOCIATE, Duration: 30 day, Stop date: 10/23/18 6:00:00 CS T Notes: (Same as: Lovenox) Start Date: 09/24/18 Stop Date: 09/24/18 Status: Discontinued morphine Sulfate 2 mg, 0.5 mL, Route: IVP, Drug form: SOLN, Q2H, Dosing Weight 110, kg, PRN Pain Score 4-6, Start date: 09/24/18 2:55:00 GUEST ASSOCIATE, Duration: 30 day, Stop date: 2:54:00 GUEST ASSOCIATE Notes: (Same as:MORPhine Sulfate) Start Date: 09/24/18 Stop Date: 09/24/18 Status: Discontinued morphine Sulfate 2 mg, 0.5 mL, Route: IVP, Drug form: SOLN, Q15Min, Dosing Weight 110, kg, PRN Ch est Pain, Start date: 09/24/18 2:55:00 GUEST ASSOCIATE, Duration: 2 doses or times, Stop kirti e: Limited # of times Notes: (Same as:MORPhine Sulfate) Start Date: 09/24/18 Stop Date: 09/24/18 Status: Discontinued morphine Sulfate 4 mg, Route: IVP, ONCE, Dosing Weight 110, kg, Priority: STAT, Start date: 09/24 0:15:00 GUEST ASSOCIATE, Stop date: 09/24/18 0:15:00 GUEST ASSOCIATE Start Date: 09/24/18 Stop Date: 09/24/18 Status: Completed morphine Sulfate 4 mg, 1 mL, Route: IVP, Drug form: SOLN, Q2H, Dosing Weight 110, kg, PRN Pain Sc ore 7-10, Start date: 09/24/18 9:12:00 GUEST ASSOCIATE, Duration: 30 day, Stop date: 8 9:11:00 GUEST ASSOCIATE Notes: (Same as:MORPhine Sulfate) Start Date: 09/24/18 Stop Date: 09/24/18 Status: Discontinued nitroglycerin SL Tab 0.4 mg, 1 tab, Route: SL, Drug form: TAB, Q5Min, Dosing Weight 110, kg, PRN Ches t Pain, Start date: 09/24/18 2:55:00 GUEST ASSOCIATE, Duration: 3 doses or times, Stop date: Limited # of times Notes: (Same as:Nitroquick, Nitrostat)"Do Not Crush" Sublingual tablet Start Date: 09/24/18 Stop Date: 09/24/18 Status: Deleted nitroglycerin SL Tab 0.4 mg, 1 tab, Route: SL, Drug form: TAB, Q5Min, Dosing Weight 110, kg, PRN Ches t Pain, Start date: 09/24/18 9:12:00 GUEST ASSOCIATE, Duration: 3 doses or times, Stop date: Limited # of times Notes: (Same as:Nitroquick, Nitrostat)"Do Not Crush" Sublingual tablet Start Date: 09/24/18 Stop Date: 09/24/18 Status: Discontinued NovoLOG Route: SUB-Q, TID-Before Meals, Dosing Weight 110, kg, Start date: 09/24/18 7:30 :00 GUEST ASSOCIATE, Duration: 30 day, Stop date: 10/23/18 16:30:00 GUEST ASSOCIATE Start Date: 09/24/18 Stop Date: 09/24/18 Status: Deleted ondansetron 4 mg, Route: IVP, Drug form: INJ, ONCE, Dosing Weight 110, kg, Priority: STAT, S tart date: 09/24/18 0:15:00 GUEST ASSOCIATE, Stop date: 09/24/18 0:15:00 GUEST ASSOCIATE Start Date: 09/24/18 Stop Date: 09/24/18 Status: Completed Plavix 75 mg, 1 tab, Route: PO, Drug form: TAB, Daily, Dosing Weight 110, kg, Start kirti e: 09/24/18 9:00:00 GUEST ASSOCIATE, Duration: 30 day, Stop date: 10/23/18 9:00:00 GUEST ASSOCIATE Notes: (Same As: Plavix) Start Date: 09/24/18 Stop Date: 09/24/18 Status: Discontinued Saline Flush 0.9% 10 mL, Route: IVP, Drug Form: INJ, Dosing Weight 110.091, kg, PRN, PRN Line Flus h, Start date: 09/23/18 23:51:00 GUEST ASSOCIATE, Duration: 30 day, Stop date: 10/23/18 23:5 0:00 GUEST ASSOCIATE Notes: (Same as: BD Posiflush) Start Date: 09/23/18 Stop Date: 09/24/18 Status: Discontinued Saline Flush 0.9% 10 ml, Route: IVP, Drug Form: INJ, Dosing Weight 110, kg, Q12H, Start date: 09/03 01/17 21:00:00 GUEST ASSOCIATE, Duration: 30 day, Stop date: 10/24/18 9:00:00 GUEST ASSOCIATE Notes: (Same as: BD Posiflush) Start Date: 09/24/18 Stop Date: 09/24/18 Status: Canceled Saline Flush 0.9% 10 ml, Route: IVP, Drug Form: INJ, Dosing Weight 110, kg, PRN, PRN Line Flush, S tart date: 09/24/18 9:12:00 GUEST ASSOCIATE, Duration: 30 day, Stop date: 10/24/18 9:11:[address] Notes: (Same as: BD Posiflush) Start Date: 09/24/18 Stop Date: 09/24/18 Status: Discontinued spironolactone 25 mg, 1 tab, Route: PO, Drug form: TAB, Daily, Dosing Weight 110, kg, Start kirti e: 09/24/18 9:00:00 GUEST ASSOCIATE, Duration: 30 day, Stop date: 10/23/18 9:00:00 GUEST ASSOCIATE Notes: (Same As: Aldactone) Start Date: 09/24/18 Stop Date: 09/24/18 Status: Discontinued Toprol-XL 50 mg oral tablet, extended release 50 mg, 1 tab, Route: PO, Drug form: ERTAB, Daily, Start date: 09/24/18 9:00:[address], Duration: 30 day, Stop date: 10/23/18 9:00:00 GUEST ASSOCIATE Notes: (Same as: Toprol XL) May split tab, but do not crush. Start Date: 09/24/18 Stop Date: 09/24/18 Status: Discontinued Vitamin C 500 mg, 1 tab, Route: PO, Drug form: TAB, Daily, Dosing Weight 110, kg, Start da te: 09/24/18 9:00:00 GUEST ASSOCIATE, Duration: 30 day, Stop date: 10/23/18 9:00:00 GUEST ASSOCIATE Notes: (Same as: Vitamin C) Start Date: 09/24/18 Stop Date: 09/24/18 Status: Discontinued Results Most recent to 1 2 oldest [Reference Range]: Neutrophils # 5.4 K/CMM [1.5-8.1 K/CMM] (09/24/18 12:26 AM) Lymphocytes # 2.4 K/CMM [1.0-5.5 K/CMM] (09/24/18 12:26 AM) Monocytes # [0.0-0.8 0.7 K/CMM K/CMM] (09/24/18 12:26 AM) Eosinophils # 0.4 K/CMM [0.0-0.5 K/CMM] (09/24/18 12:26 AM) Basophils # [0.0-0.2 0.1 K/CMM K/CMM] (09/24/18 12:26 AM) BNP [<=100 pg/mL] 66 pg/mL (09/24/18 12:26 AM) eGFR 83 mL/min/1.73m2 1 *NA* (09/24/18 12:26 AM) A/G Ratio [0.7-1.6] 1.0 (09/24/18 12:26 AM) Albumin Lvl [3.5-5.0 3.7 g/dL g/dL] (09/24/18 12:26 AM) Alk Phos [39-136 83 unit/L unit/L] (09/24/18 12:26 AM) ALT [0-65 unit/L] 20 unit/L (09/24/18 12:26 AM) AGAP [10.0-20.0 14.1 mEq/L mEq/L] (09/24/18 12:26 AM) AST [0-37 unit/L] 15 unit/L (09/24/18 12:26 AM) B/C Ratio [6-25] 17 (09/24/18 12:26 AM) Basophils [0.0-1.0 0.9 % %] (09/24/18 12:26 AM) BUN [7-22 mg/dL] 18 mg/dL (09/24/18 12:26 AM) Calcium Lvl 9.1 mg/dL [8.5-10.5 mg/dL] (09/24/18 AM) Total CK [12-191 81 unit/L unit/L] (09/24/18 AM) Chloride Lvl [95-109 103 mEq/L mEq/L] (09/24/18 AM) CO2 [24-32 mEq/L] 25 mEq/L (09/24/18 AM) Creatinine Lvl 1.03 mg/dL [0.50-1.40 mg/dL] (09/24/18 AM) Eosinophils [0.0-4.0 4.3 % %] *HI* (09/24/18) Globulin [2.7-4.2 3.8 g/dL g/dL] (09/24/18 AM) Glucose Lvl [70-99 172 mg/dL mg/dL] *HI* (09/24/18) Hct [42.0-54.0 %] 37.3 % *LOW* (09/24/18) Hgb [14.0-18.0 g/dL] 12.5 g/dL *LOW* (09/24/18) INR [0.85-1.17] 0.94 (09/24/18 AM) Potassium Lvl 4.1 mEq/L [3.5-5.1 mEq/L] (09/24/18 AM) Lymphocytes 27.1 % [20.0-40.0 %] (09/24/18 AM) MCH [27.0-31.0 pg] 28.0 pg (09/24/18 AM) MCHC [32.0-36.0 33.4 g/dL g/dL] (09/24/18 AM) MCV [80.0-94.0 fL] 84.0 fL (09/24/18 AM) Monocytes [2.0-12.0 7.9 % %] (09/24/18 AM) MPV [7.4-10.4 fL] 6.7 fL *LOW* (11/23/18 12:26 AM) Sodium Lvl [135-145 138 mEq/L mEq/L] (09/24/18 12:26 AM) Platelet [133-450 304 K/CMM K/CMM] (09/24/18 12: AM) Segs [45.0-75.0 %] 59.8 % (09/24/18 12:26 AM) Total Protein 7.5 g/dL [6.4-8.4 g/dL] (09/24/18 12:26 AM) PT [12.0-14.7 12.6 seconds seconds] (09/24/18 12: AM) PTT [22.9-35.8 31.0 seconds seconds] (09/24/18: AM) RBC [4.70-6.10 4.45 M/CMM M/CMM] *LOW* (09/24/18 12: AM) RDW [11.5-14.5 %] 14.6 % *HI* (09/24/18 12:26 AM) Bili Total [0.2-1.3 0.2 mg/dL mg/dL] (09/24/18 12:26 AM) Troponin-I <0.02 ng/mL <0.02 ng/mL [0.00-0.40 ng/mL] (09/24/18 7:11 AM) (09/24/18 12:26 AM) WBC [3.7-10.4 K/CMM] 9.0 K/CMM (09/24/18 12:26 AM) 1Result Comment: The eGFR is calculated using the [...] from the National Kidney Disease Education Program ( NKDEP) which additionally recommends that when the eGFR is used in patients with extremes of body mass index for purposes of drug dosing, the eGFR should be mul tiplied by the estimated BMI. Immunizations No data available for this section Procedures Procedure Date Related Diagnosis Body Site Status Cataract extraction and insertion of 11/02/17 Completed intraocular lens1 ICD - Internal cardiac defibrillator 02/01/16 Completed procedure Appendectomy Completed Cardiac catheterisation Completed Penis operations Completed 1bilat Social History Social History Type Response Substance Abuse Use: None. Sexual What is your current gender identity? Identifies as male. Exercise Exercise duration: 0. Employment/School Status: Unemployed. Work/School description: disabled. Alcohol Past, Previous treatment: None.1 Smoking Status Never smoker; Lives with someone who smokes; Exposure to Tobacco Smoke Unable to obtain; Cigarette Smoking Last 365 Days No; Reg Smoking Cessation Counseling No2 entered on: 03/21/19 1quit 20 years ago 2no jonn Assessment and Plan Extracted from: Title: Consult Note Author: Adal Chauhan MD Date: [...] put into the acute medicine service for research manager evaluation for left heart cath. We will [...]
--- OUTSIDE RECORDS SUMMARY | 2019-04-29 15:21 | XMS REPORT | Summary of Care ---
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 (Final) - Type 2 diabetes mellitus without complications (Final) - Pure hypercholesterolemia, unspecified (Final) - Obstructive sleep apnea (adult) (pediatric) (Final) - 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 (Final) - 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 antithrombotics/antiplatelets (Final) - care home (current) use of insulin (Final) - Other [facility] (current) drug therapy (Final) - Discharge Disposition: Home or Self Care Attending Physician: Melvina Ellis MD Referring Physician: Melvina Ellis MD Vital Signs 1 2 3 Most recent to oldest [Reference Range]: 177.8 cm (09/28/18 9:35 AM) Height 98.4 DegF (10/02/18 8:34 AM) 98.5 DegF (10/02/18 4:51 AM) 98.1 DegF (10/02/18 12:32 AM) Temperature Oral [96.4-99.1 DegF] 126/68 mmHg (10/02/18 8:34 AM) 117/72 mmHg (10/02/18 4:51 AM) 120/68 mmHg (10/02/18 12:32 AM) Blood Pressure [90-140/60-90 mmHg] 16 BRMIN (10/02/18 8:34 AM) 15 BRMIN (10/02/18 4:51 AM) 16 BRMIN (10/02/18 12:32 AM) Respiratory Rate [14-20 BRMIN] 72 bpm (10/02/18 8:34 AM) 69 bpm (10/02/18 4:51 AM) 71 bpm (10/02/18 12:32 AM) Peripheral Pulse Rate [60-100 bpm] 109.091 kg (09/28/18 9:35 AM) Weight 34.51 m2 (09/28/18 9:35 AM) Body Mass Index Problem List Condition Effective Dates Status Health Status Informant Anemia(Confirmed) Active AP (angina Active pectoris)(Confirmed) Appendectomy(Confirm Resolved ed) Cholesterol(Confirme Active d) Chronic systolic Active heart failure(Confirmed) Diabetes mellitus Active type 2(Confirmed) Diabetes(Confirmed) Active Hypertension(Confirm Active ed) Obesity(Confirmed) Active Sleep Active apnea(Confirmed) 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 (Same as: Tylenol with Codeine # 3) Start Date: 10/01/18 Stop Date: 10/02/18 Status: Discontinued acetaminophen-codeine 300 mg-30 mg oral tablet 2 tab, PO, Q6H, PRN Pain Score 7-10, X 7 day, # 56 tab, 0 Refill(s) Start Date: 10/01/18 Stop Date: 10/08/18 Status: Completed aspirin 81 mg, 1 tab, Route: PO, Drug form: ECTAB, Daily, Dosing Weight 109.091, kg, Sta rt date: 10/02/18 9:00:00 RESEARCH ELECTRICIAN, Duration: 30 day, Stop date: 10/31/18 9:00:00 RESEARCH ELECTRICIAN Notes: Do not crush or chew.(Same As: Ecotrin) Start Date: 10/02/18 Stop Date: 10/02/18 Status: Discontinued atorvastatin 60 mg, 1.5 tab, Route: PO, Drug form: TAB, Daily, Dosing Weight 109.091, kg, Sta rt date: 10/02/18 9:00:00 RESEARCH ELECTRICIAN, Duration: 30 day, Stop date: 10/31/18 9:00:00 RESEARCH ELECTRICIAN Notes: (Same as: Lipitor) Start Date: 10/02/18 Stop Date: 10/02/18 Status: Discontinued bupivacaine liposome 20 mL, Route: InFILtration(local), Drug Form: INJ, Dosing Weight 109.091, kg, ON CE, For Hemorrhoidectomy, NOW, Start date: 10/01/18 12:54:00 RESEARCH ELECTRICIAN, Stop date: 12:54:00 RESEARCH ELECTRICIAN Notes: (Same as: Exparel) NOT FOR IV use Postoperative analgesia: Infi ltration (local): Dose is based on surgical site and volume required to cover th e area (in general, the maximum total dose is 266 mg).Bunionectomy: 7 mL into th e tissues surrounding the osteotomy and 1 mL into the subcutaneous tissue of the surgical site (total dose=8 mL [106 mg])Hemorrhoidectomy: 30 mL (20 mL vial dil uted with 10 mL NS) divided and administered as 6 injections of 5 mL each (total dose=30 mL [266 mg]) Start Date: 10/01/18 Stop Date: 10/01/18 Status: Completed ceFAZolin + sterile water 10 mL 1 gm, Route: IVP, [id number], Dosing Weight 109.091, kg, Start date: 10/01/18 20:00: 00 RESEARCH ELECTRICIAN, Duration: 3 doses or times, Stop date: 10/02/18 12:00:00 RESEARCH ELECTRICIAN, ABX Indica tion: Surgical Prophylaxis Notes: (Same As: Ancgerman Kefzol) MEDICATION WASTE Product Size: 1000 mgP roduct Wasted: ___ mg Start Date: 10/01/18 Stop Date: 10/02/18 Status: Completed ferrous sulfate 325 mg, 1 tab, Route: PO, Drug form: ECTAB, BID, Dosing Weight 109.091, kg, Star t date: 10/02/18 9:00:00 RESEARCH ELECTRICIAN, Duration: 30 day, Stop date: 10/31/18 17:00:00 RESEARCH ELECTRICIAN Notes: Give with food. "Do Not Crush" Start Date: 10/02/18 Stop Date: 10/02/18 Status: Discontinued folic acid 1 mg, 1 tab, Route: PO, Drug form: TAB, Daily, Dosing Weight 109.091, kg, Start date: 10/02/18 9:00:00 RESEARCH ELECTRICIAN, Duration: 30 day, Stop date: 10/31/18 9:00:00 RESEARCH ELECTRICIAN Notes: (Same as: Folvite) Start Date: 10/02/18 Stop Date: 10/02/18 Status: Discontinued gabapentin 100 mg oral capsule 100 mg, 1 cap, Route: PO, Drug form: CAP, Daily, Dosing Weight 109.091, kg, Star t date: 10/02/18 9:00:00 RESEARCH ELECTRICIAN, Duration: 30 day, Stop date: 10/31/18 9:00:00 RESEARCH ELECTRICIAN Notes: (Same as: Neurontin) Start Date: 10/02/18 Stop Date: 10/02/18 Status: Discontinued Glucophage 1000 mg oral tablet 1,000 mg, 2 tab, Route: PO, Drug form: TAB, BID, Dosing Weight 109.091, kg, Star t date: 10/02/18 9:00:00 RESEARCH ELECTRICIAN, Duration: 30 day, Stop date: 10/31/18 17:00:00 RESEARCH ELECTRICIAN Notes: (Same as: Glucophage) Take with meal Start Date: 10/02/18 Stop Date: 10/02/18 Status: Discontinued Humalog 40 unit, 0.4 mL, Route: SUB-Q, Drug form: SOLN, TID-Before Meals, Start date: 7:30:00 RESEARCH ELECTRICIAN, Duration: 30 day, Stop date: 10/31/18 16:30:00 RESEARCH ELECTRICIAN Notes: (Same as: Humalog ) Roll in palms of hands gently; Do not shake `vigorou sly. "Single Patient Use Only " WASTE: F/P - Black; E - Municipal Trash Bin St able for 28 days at room temperature.Expires in days from Da te Start Date: 10/02/18 Stop Date: 10/02/18 Status: Discontinued Imdur 30 mg, 1 tab, Route: PO, Drug form: ERTAB, QAM, Dosing Weight 109.091, kg, Start date: 10/02/18 9:00:00 RESEARCH ELECTRICIAN, Duration: 30 day, Stop date: 10/31/18 9:00:00 RESEARCH ELECTRICIAN Notes: (Same as:Imdur)"Do Not Crush" Take on empty stomach/ full glass of water . Do not crush Start Date: 10/02/18 Stop Date: 10/02/18 Status: Discontinued insulin glargine 50 unit, 0.5 mL, Route: SUB-Q, Drug form: SOLN, Daily, Start date: 10/02/18 9:00 :00 RESEARCH ELECTRICIAN, Duration: 30 day, Stop date: 10/31/18 9:00:00 RESEARCH ELECTRICIAN Notes: (Same as: Lanenzous)Do not hold insulin without contacting prescriberWASTE: F/P - Black; E - Municipal Trash Bin "single patient use only" Start Date: 10/02/18 Stop Date: 10/02/18 Status: Discontinued Lasix 20 mg oral tablet 20 mg, 1 tab, Route: PO, Drug form: TAB, Daily, Dosing Weight 109.091, kg, Start date: 10/02/18 9:00:00 RESEARCH ELECTRICIAN, Duration: 30 day, Stop date: 10/31/18 9:00:00 RESEARCH ELECTRICIAN Notes: (Same as: Lasix) May cause GI upset. Give with food or milk. Start Date: 10/02/18 Stop Date: 10/02/18 Status: Discontinued Levemir 50 unit, Route: SUB-Q, Daily, Dosing Weight 109.091, kg, Start date: 10/02/18 9: 00:00 RESEARCH ELECTRICIAN, Duration: 30 day, Stop date: 10/31/18 9:00:00 RESEARCH ELECTRICIAN Start Date: 10/02/18 Stop Date: 10/01/18 Status: Deleted losartan 25 mg, 1 tab, Route: PO, Drug form: TAB, Daily, Dosing Weight 109.091, kg, Start date: 10/02/18 9:00:00 RESEARCH ELECTRICIAN, Duration: 30 day, Stop date: 10/31/18 9:00:00 RESEARCH ELECTRICIAN Notes: (Same as: Ivone) Start Date: 10/02/18 Stop Date: 10/02/18 Status: Discontinued minocycline 100 mg, 2 cap, Route: PO, Drug form: CAP, [id number], Dosing Weight 109.091, kg, St art date: 10/02/18 9:00:00 RESEARCH ELECTRICIAN, Duration: 7 day, Stop date: 10/08/18 21:00:00 CS T Notes: (Same as:Minocin) No milk/antacids/iron. Start Date: 10/02/18 Stop Date: 10/02/18 Status: Discontinued minocycline 100 mg oral tablet 100 mg, PO, Q12H, X 7 day, # 14 tab, 0 Refill(s) Start Date: 10/01/18 Stop Date: 10/08/18 Status: Completed morphine Sulfate 2 mg, 1 mL, Route: IVP, Drug form: SOLN, Q4H, Dosing Weight 109.091, kg, PRN Linda n Score 4-6, Start date: 10/01/18 19:24:00 RESEARCH ELECTRICIAN, Duration: 30 day, Stop date: 19:23:00 RESEARCH ELECTRICIAN Start Date: 10/01/18 Stop Date: 10/02/18 Status: Discontinued NovoLOG Route: SUB-Q, TID-Before Meals, Dosing Weight 109.091, kg, Start date: 10/02/18 7:30:00 RESEARCH ELECTRICIAN, Duration: 30 day, Stop date: 10/31/18 16:30:00 RESEARCH ELECTRICIAN Start Date: 10/02/18 Stop Date: 10/01/18 Status: Deleted spironolactone 25 mg, 1 tab, Route: PO, Drug form: TAB, Daily, Dosing Weight 109.091, kg, Start date: 10/02/18 9:00:00 RESEARCH ELECTRICIAN, Duration: 30 day, Stop date: 10/31/18 9:00:00 RESEARCH ELECTRICIAN Notes: (Same As: Aldactone) Start Date: 10/02/18 Stop Date: 10/02/18 Status: Discontinued Toprol-XL 50 mg oral tablet, extended release 50 mg, 1 tab, Route: PO, Drug form: ERTAB, Daily, Start date: 10/02/18 9:00:[address], Duration: 30 day, Stop date: 10/31/18 9:00:00 RESEARCH ELECTRICIAN Notes: (Same as: Toprol XL) May split tab, but do not crush. Start Date: 10/02/18 Stop Date: 10/02/18 Status: Discontinued tramadol 100 mg, 2 tab, Route: PO, Drug form: TAB, Q6H, Dosing Weight 109.091, kg, PRN Pa in Score 7-10, Start date: 10/01/18 19:24:00 RESEARCH ELECTRICIAN, Duration: 30 day, Stop date: 19:23:00 RESEARCH ELECTRICIAN Notes: Not to exceed 400mg/day. (Same As: Ultram) Start Date: 10/01/18 Stop Date: 10/02/18 Status: Discontinued Results Most recent to 1 2 oldest [Reference Range]: Neutrophils # 5.1 K/CMM [1.5-8.1 K/CMM] (09/28/18 10:10 AM) Lymphocytes # 2.2 K/CMM [1.0-5.5 K/CMM] (09/28/18 10:10 AM) Monocytes # [0.0-0.8 0.7 K/CMM K/CMM] (09/28/18 10:10 AM) Eosinophils # 0.4 K/CMM [0.0-0.5 K/CMM] (09/28/18 10:10 AM) Basophils # [0.0-0.2 0.1 K/CMM K/CMM] (09/28/18 10:10 AM) eGFR 110 mL/min/1.73m2 1 97 mL/min/1.73m2 2 *NA* *NA* (10/02/18 4:52 AM) (09/28/18 10:10 AM) AGAP [10.0-20.0 13.1 mEq/L 11.4 mEq/L mEq/L] (10/02/18 4:52 AM) (09/28/18 10:10 AM) Basophils [0.0-1.0 0.8 % %] (09/28/18 10:10 AM) BUN [7-22 mg/dL] 16 mg/dL 14 mg/dL (10/02/18 4:52 AM) (09/28/18 10:10 AM) Calcium Lvl 8.2 mg/dL 9.4 mg/dL [8.5-10.5 mg/dL] *LOW* (09/28/18 10:10 AM) (10/02/18 4:52 AM) Chloride Lvl [95-109 106 mEq/L 105 mEq/L mEq/L] (10/02/18 4:52 AM) (09/28/18 10:10 AM) CO2 [24-32 mEq/L] 26 mEq/L 29 mEq/L (10/02/18 4:52 AM) (09/28/18 10:10 AM) Creatinine Lvl 0.68 mg/dL 0.91 mg/dL [0.50-1.40 mg/dL] (10/02/18 4:52 AM) (09/28/18 10:10 AM) Eosinophils [0.0-4.0 5.1 % %] *HI* (09/28/18 10:10 AM) Glucose Lvl [70-99 117 mg/dL 132 mg/dL mg/dL] *HI* *HI* (10/02/18 4:52 AM) (09/28/18 10:10 AM) Hct [42.0-54.0 %] 41.4 % *LOW* (09/28/18 10:10 AM) Hgb [14.0-18.0 g/dL] 13.5 g/dL *LOW* (09/28/18 10:10 AM) Hgb A1C [<=5.6 %] 6.1 % *HI* (09/28/18 10:10 AM) INR [0.85-1.17] 0.98 (09/28/18 10:10 AM) Potassium Lvl 4.1 mEq/L 4.4 mEq/L [3.5-5.1 mEq/L] (10/02/18 4:52 AM) (09/28/18 10:10 AM) Lymphocytes 25.6 % [20.0-40.0 %] (09/28/18 10:10 AM) MCH [27.0-31.0 pg] 27.4 pg (09/28/18 10:10 AM) MCHC [32.0-36.0 32.5 g/dL g/dL] (09/28/18 10:10 AM) MCV [80.0-94.0 fL] 84.3 fL (09/28/18 10:10 AM) Monocytes [2.0-12.0 7.8 % %] (09/28/18 10:10 AM) MPV [7.4-10.4 fL] 6.9 fL *LOW* (09/28/18 10:10 AM) Sodium Lvl [135-145 141 mEq/L 141 mEq/L mEq/L] (10/02/18 4:52 AM) (09/28/18 10:10 AM) Platelet [133-450 317 K/CMM K/CMM] (09/28/18 10:10 AM) Segs [45.0-75.0 %] 60.7 % (09/28/18 10:10 AM) PT [12.0-14.7 12.8 seconds seconds] (09/28/18 10:10 AM) PTT [22.9-35.8 32.7 seconds seconds] (09/28/18 10:10 AM) RBC [4.70-6.10 4.90 M/CMM M/CMM] (09/28/18 10:10 AM) RDW [11.5-14.5 %] 15.1 % *HI* (09/28/18 10:10 AM) WBC [3.7-10.4 K/CMM] 8.4 K/CMM (09/28/18 10:10 AM) 1Result Comment: The eGFR is calculated [...] be mul tiplied by the estimated BMI. 2Result Comment: The eGFR is calculated using the [...] on: 03/21/19 1quit 20 years ago 2no chnage Assessment and Plan Extracted from: Title: BI-VENTRICULAR PACEMAKER Author: Tomas Palacios MD Date: 10/01/18 IMPLANTATION BI-VENTRICULAR PACEMAKER IMPLANTATION PROCEDURE NOTE Procedure Date: 10/01/2018 Operators: Melvina Ellis MD, attending Amrit Palacios MD, fellow Referring: Antonio Wallis MD History: 53 yo M with hx NICM, HFrEF who presented for new NECKTIE OPERATOR POCKETS AND PIECES-D implantation and removal of previous SICD. Shared decision making took place and the case was discussed with Dr Wallis who concurred with the need for the NECKTIE OPERATOR POCKETS AND PIECES-D. Pre-Op Diagnosis: Non-ischemic cardiomyopathy, EF 25%, NYHA FC II/III, QRS LBBB 148 Post-Op Diagnosis: Same s/p new BSC NECKTIE OPERATOR POCKETS AND PIECES-D and removal of BSC SICD. Procedure: 1. Implantation of NECKTIE OPERATOR POCKETS AND PIECES-D 2. Left arm venogram 3. Ultrasound guided access 4. Coronary sinus venogram Procedure Summary/Findings: The risks, benefits, alternatives of the device implant with sedation were explained before the procedure. Risks explained include cardiac tamponade, pneumothorax, bleeding, infection, vascular injury, AL, CVA, emergent sternotomy, intubation, . Written informed consent was obtained. The patient was reassessed prior to the procedure, including airway, physical status & vitals. The patient was deemed appropriate to proceed with moderate conscious sedation. IV antibiotics were given at the beginning of the procedure as standard protocol. Moderate conscious sedation was provided under my direct supervision by an independent sedation-trained nurse who monitored the patient & vitals throughout the procedure. About 130 minutes were spent directly supervising & monitoring the patient receiving sedation between 4:45 and 7:10PM. A total of 13.5 mg of IV Versed & 425 mcg of IV Fentanyl was used for sedation. See nurse s sedation sheet that I signed for further details. The patient tolerated the sedation well. After applying standard sterile precautions, local anesthetic with 2% lidocaine with epinephrine was administered to the prepectoral region. A sided venogram showed patency from the axillary vein to the heart. The skin was incised 5 cm & dissected to fascia. A pocket was created [...] right ventricular apex after seeing great injury & confirming adequate numbers on interrogation. CONGOLESE showed septal position of the lead. Next a LV lead delivery long sheath was advanced over another wire to the right atrium. An AL2 catheter was used through the long sheath to cannulate the coronary sinus and a Wholey wire was advanced under fluoroscopic guidance. The outer sheath & AL2 was subsequently advanced over wire into the body of the coronary sinus. The AL2 & wire were removed and a CS venogram [...] Fluoroscopy also revealed optimal separation between RV & LV leads. The sheath was then successfully slit without effecting lead position. Next a hemostatic peel-away sheath was advanced over the remaining wire and a 8F atrial lead was advanced. Using a J stylet, this lead was actively fixed to the right atrial appendage after seeing great injury & confirming adequate numbers on interrogation. Pacing at [...] closure. The wound was dressed with gauze & surgical tape. Pressure dressing was applied. Then [...] sponges, and a normal heart border on CONGOLESE view. The patient tolerated the procedure well and was returned to a telemetry bed in stable condition. Device: [facility] NECKTIE OPERATOR POCKETS AND PIECES-D Model G124, Serial # [id number] RA: Model [facility] 7740, Serial # [id number] RV: Model [facility] 0292, Serial # [id number] LV: Model [facility] 4592, Serial # [id number] P wave: 5.0 mV RA pacing impedance: 862 ohms RA threshold: 1.2 V @ 0.5 ms R wave: 13.3 mV RV pacing impedance: 647 ohms RV threshold: 0.6 V @ 0.5 ms LV R wave: 18.9 mV LV pacing impedance: 449 ohms LV threshold: 0.6 V @ 0.5 ms LV tip to RV Settings: DDDR 60/120; VT 170, VF 200 EXPLANTED DEVICE: [facility] Emblem SICD. Estimated Blood Loss: Minimal Blood Administered: None Grafts or Implants: Device as above Any Specimen Removed: None Complications: None Anesthesia: Moderate conscious sedation Medications: Versed, Fentanyl, Ancef Conclusion: 1. Successful implantation of a NECKTIE OPERATOR POCKETS AND PIECES-D and removal of SICD. 2. No apparent immediate complications Post-Procedure Plan: 1. Observe patient overnight as outpatient with extended recovery. 2. Bedrest for 6 hours. 3. Resume cardiac diet. 4. EKG after procedure. 5. Portable CXR now & 2-view CXR tomorrow morning if possible. 6. Device interrogation tomorrow morning. 7. Hold anticoagulants x 48 hours. 8. Pain control: Tylenol & Tylenol #3 as needed. 9. Antibiotics: Minocycline 100mg BID x7 days. 10. Follow-up in 2 weeks in EP [facility] with Dr Ellis. Device/Wound Care Instructions: 1. Keep wound completely [...]
--- OUTSIDE RECORDS SUMMARY | 2019-04-29 15:21 | XMS REPORT | Summary of Care ---
Author Author [facility] Organization [facility] Address Unknown Phone Unavailable Encounter HQ Angelina(FIN) [id number] Date(s): 09/16/18 - 09/16/18 [facility] [address] [place] [address]- [phone] Encounter Diagnosis Encounter for other preprocedural examination (Final) - 10/15/18 Discharge Disposition: Home or Self Care Attending Physician: Antonio Wallis MD Referring Physician: Antonio Wallis MD Vital Signs Most recent to 1 oldest [Reference Range]: Height 177.8 cm (09/16/18 2:55 PM) Temperature Oral 97.7 DegF [96.4-99.1 DegF] (09/16/18 2:59 PM) Blood Pressure 104/67 mmHg [90-140/60-90 mmHg] (09/16/18 2:59 PM) Respiratory Rate 20 BRMIN [14-20 BRMIN] (09/16/18 2:59 PM) Peripheral Pulse 71 bpm Rate [60-100 bpm] (09/16/18 2:59 PM) Weight 110.091 kg (09/16/18 2:55 PM) Body Mass Index 34.82 m2 (09/16/18 2:55 PM) Problem List Condition Effective Dates Status Health Status Informant Anemia(Confirmed) Active AP (angina Active pectoris)(Confirmed) Appendectomy(Confirm Resolved ed) Cholesterol(Confirme Active d) Chronic systolic Active heart failure(Confirmed) Diabetes mellitus Active type 2(Confirmed) Diabetes(Confirmed) Active Hypertension(Confirm Active ed) Obesity(Confirmed) Active Sleep Active apnea(Confirmed) 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) Allergies, Adverse Reactions, Alerts No Known Medication Allergies Medications atorvastatin 60 mg, PO, Daily, 0 Refill(s) Start Date: 09/16/18 Stop Date: 02/16/19 Status: Discontinued Azo-Cranberry PO, TID, 0 Refill(s) Start Date: 09/16/18 Stop Date: 02/16/19 Status: Discontinued Jardiance 25 mg oral tablet 25 mg=1 tab, PO, QAM, 0 Refill(s) Start Date: 09/16/18 Stop Date: 02/16/19 Status: Discontinued [place]-3 oral capsule 2 tab, PO, BID, 0 Refill(s) Start Date: 09/16/18 Stop Date: 09/16/18 Status: Deleted Results Most recent to 1 oldest [Reference Range]: Neutrophils # 4.8 K/CMM [1.5-8.1 K/CMM] (09/16/18 3:32 PM) Lymphocytes # 2.2 K/CMM [1.0-5.5 K/CMM] (09/16/18 3:32 PM) Monocytes # [0.0-0.8 0.8 K/CMM K/CMM] (09/16/18 3:32 PM) Eosinophils # 0.4 K/CMM [0.0-0.5 K/CMM] (09/16/18 3:32 PM) Basophils # [0.0-0.2 0.1 K/CMM K/CMM] (09/16/18 3:32 PM) eGFR 92 mL/min/1.73m2 1 *NA* (09/16/18 3:32 PM) A/G Ratio [0.7-1.6] 1.0 (09/16/18 3:32 PM) Albumin Lvl [3.5-5.0 3.7 g/dL g/dL] (09/16/18 3:32 PM) Alk Phos [39-136 91 unit/L unit/L] (09/16/18 3:32 PM) ALT [0-65 unit/L] 22 unit/L (09/16/18 3:32 PM) AGAP [10.0-20.0 15.1 mEq/L mEq/L] (09/16/18 3:32 PM) AST [0-37 unit/L] 16 unit/L (09/16/18 3:32 PM) B/C Ratio [6-25] 18 (09/16/18 3:32 PM) Basophils [0.0-1.0 0.8 % %] (09/16/18 3:32 PM) BUN [7-22 mg/dL] 17 mg/dL (09/16/18 3:32 PM) Calcium Lvl 9.1 mg/dL [8.5-10.5 mg/dL] (09/16/18 3:32 PM) Chloride Lvl [95-109 103 mEq/L mEq/L] (09/16/18 3:32 PM) CO2 [24-32 mEq/L] 27 mEq/L (09/16/18 3:32 PM) Creatinine Lvl 0.94 mg/dL [0.50-1.40 mg/dL] (09/16/18 3:32 PM) Eosinophils [0.0-4.0 4.5 % %] *HI* (09/16/18 3:32 PM) Globulin [2.7-4.2 3.7 g/dL g/dL] (09/16/18 3:32 PM) Glucose Lvl [70-99 89 mg/dL mg/dL] (09/16/18 3:32 PM) Hct [42.0-54.0 %] 39.1 % *LOW* (09/16/18 3:32 PM) Hgb [14.0-18.0 g/dL] 13.1 g/dL *LOW* (09/16/18 3:32 PM) Potassium Lvl 4.1 mEq/L [3.5-5.1 mEq/L] (09/16/18 3:32 PM) Lymphocytes 26.9 % [20.0-40.0 %] (09/16/18 3:32 PM) MCH [27.0-31.0 pg] 28.1 pg (09/16/18 3:32 PM) MCHC [32.0-36.0 33.4 g/dL g/dL] (09/16/18 3:32 PM) MCV [80.0-94.0 fL] 84.0 fL (09/16/18 3:32 PM) Monocytes [2.0-12.0 9.4 % %] (09/16/18 3:32 PM) MPV [7.4-10.4 fL] 6.9 fL *LOW* (09/16/18 3:32 PM) Sodium Lvl [135-145 141 mEq/L mEq/L] (09/16/18 3:32 PM) Platelet [133-450 315 K/CMM K/CMM] (09/16/18 3:32 PM) Segs [45.0-75.0 %] 58.4 % (09/16/18 3:32 PM) Total Protein 7.4 g/dL [6.4-8.4 g/dL] (09/16/18 3:32 PM) RBC [4.70-6.10 4.66 M/CMM M/CMM] *LOW* (09/16/18 3:32 PM) RDW [11.5-14.5 %] 15.0 % *HI* (09/16/18 3:32 PM) Bili Total [0.2-1.3 0.3 mg/dL mg/dL] (09/16/18 3:32 PM) WBC [3.7-10.4 K/CMM] 8.3 K/CMM (09/16/18 3:32 PM) 1Result Comment: The eGFR is calculated using [...] on: 03/21/19 1quit 20 years ago 2no na Assessment and Plan No data available for this section
--- OUTSIDE RECORDS SUMMARY | 2019-04-29 15:21 | XMS REPORT | Summary of Care ---
Author Author [facility] Organization [facility] Address Unknown Phone Unavailable Encounter MINE Alfaro(NILSON) [id number] Date(s): 04/08/19 - 04/08/19 [facility] [address] [place] [address]- [phone] Discharge Disposition: Home or Self Care Attending Physician: Elvira Gracia MD Referring Physician: Elvira Gracia MD Vital Signs No data available for this section Problem List Condition Effective Dates Status Health Status Informant Anemia(Confirmed) Active AP (angina Active pectoris)(Confirmed) Appendectomy(Confirm Resolved ed) Cholesterol(Confirme Active d) Chronic systolic Active heart failure(Confirmed) Diabetes mellitus Active type 2(Confirmed) Diabetes(Confirmed) Active Hypertension(Confirm Active ed) Obesity(Confirmed) Active Sleep Active apnea(Confirmed) 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) Allergies, Adverse Reactions, Alerts No Known Medication Allergies Medications Omnipaque 300 10 mL, Route: Transurethral, Dosing Weight 105.085, kg, ONCE, Start date: 8:40:00 CDT, Stop date: 04/08/19 8:40:00 CDT Start Date: 04/08/19 Stop Date: 04/08/19 Status: Deleted Omnipaque 300 injectable solution 100 mL, Route: IVP, Drug Form: SOLN, Dosing Weight 105.085, kg, ONCALL, GFR > 45 mL/min, Start date: 04/08/19 10:00:00 CDT, Duration: 1 doses or times, Stop date: 04/09/19 0:00:00 CDT Notes: (Same as:Omnipaque 300).WASTE: F/P - Black; E - Municipal Trash Bin Start Date: 04/08/19 Stop Date: 04/09/19 Status: Completed Results Most recent to 1 oldest [Reference Range]: eGFR 108 mL/min/1.73m2 1 *NA* (04/08/19 9:37 AM) POC Creatinine 0.7 mg/dL [0.5-1.4 mg/dL] (04/08/19 9:37 AM) 1Result Comment: The eGFR is calculated [...] years ago 2no chnage Assessment and Plan No data available for this section
--- OUTSIDE RECORDS SUMMARY | 2019-04-29 15:22 | XMS REPORT | Summary of Care ---
Author Author [facility] Organization [facility] Address Unknown Phone Unavailable Encounter MINE Alfaro(NILSON) [id number] Date(s): 05/19/18 - 05/19/18 [facility] [address] [place] [address]- Encounter Diagnosis Benign neoplasm of colon, unspecified (Final) - 05/24/18 Other specified bacterial intestinal infections (Final) - Abnormal findings on diagnostic imaging of other abdominal regions, including re troperitoneum (Final) - Abnormal radiologic findings on diagnostic imaging of renal pelvis, ureter, or b ladder (Final) - Atherosclerotic heart disease of [place] coronary artery without angina pectoris (Final) - Presence of automatic (implantable) cardiac defibrillator (Final) - 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 (Final) - Heart failure, unspecified (Final) - Type 2 diabetes mellitus without complications (Final) - Obesity, unspecified (Final) - Body mass index (BMI) 36.0-36.9, adult (Final) - Iron deficiency anemia, unspecified (Final) - Discharge Disposition: Home or Self Care Attending Physician: Tremaine Noble MD Referring Physician: Tremaine Noble MD Vital Signs No data available for this section Problem List Condition Effective Dates Status Health Status Informant Anemia(Confirmed) Active AP (angina Active pectoris)(Confirmed) Appendectomy(Confirm Resolved ed) Cholesterol(Confirme Active d) Chronic systolic Active heart failure(Confirmed) Diabetes mellitus Active type 2(Confirmed) Diabetes(Confirmed) Active Hypertension(Confirm Active ed) Obesity(Confirmed) Active Sleep Active apnea(Confirmed) 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) Allergies, Adverse Reactions, Alerts Substance Reaction Severity Status NKDA Active Medications Omnipaque 300 injectable solution 100 mL, Route: IVP, Drug Form: SOLN, Dosing Weight 114.545, kg, ONCALL, GFR > 45 mL/min, Start date: 05/19/18 10:00:00 CDT, Duration: 1 day, Stop date: 05/20/18 9:59:00 CDT Notes: (Same as:Omnipaque 300).WASTE: F/P - Black; E - Municipal Trash Bin Start Date: 05/19/18 Stop Date: 05/20/18 Status: Completed Results CHEM PANEL Most recent to 1 oldest [Reference Range]: eGFR 103 mL/min/1.73m2 1 *NA* (05/19/18 7:37 AM) POC Creatinine 0.8 mg/dL [0.5-1.4 mg/dL] (05/19/18 7:37 AM) 1Result Comment: The eGFR is calculated [...] Procedure Date Related Diagnosis Body Site Status ICD - Internal cardiac defibrillator 02/01/16 Completed procedure Appendectomy Completed Cardiac catheterisation Completed Penis operations Completed Social History Social History Type Response Substance Abuse Use: None. Alcohol Never Smoking Status Never smoker; Exposure to Tobacco Smoke None; Cigarette Smoking Last 365 Days No; Reg Smoking Cessation Counseling No entered on: 09/28/18 Assessment and Plan No data available for this section
--- OUTSIDE RECORDS SUMMARY | 2019-04-29 15:22 | XMS REPORT | Summary of Care ---
Author Author [facility] Organization [facility] Address Unknown Phone Unavailable Encounter MINE Alfaro(NILSON) [id number] Date(s): 03/21/19 - 03/21/19 [facility] [address] [facility], [address] Discharge Disposition: Home or Self Care Attending Physician: Dorinda Mai MD Referring Physician: Dorinda Mai MD Vital Signs Most recent to 1 oldest [Reference Range]: Height 176.53 cm (03/21/19 9:41 AM) Temperature Oral 98.5 DegF [96.4-99.1 DegF] (03/21/19 9:41 AM) Blood Pressure 89/57 mmHg [90-140/60-90 mmHg] *LOW* (03/21/19 9:41 AM) Respiratory Rate 18 BRMIN [14-20 BRMIN] (03/21/19 9:41 AM) Peripheral Pulse 81 bpm Rate [60-100 bpm] (03/21/19 9:41 AM) Weight 105.085 kg (03/21/19 9:41 AM) Body Mass Index 33.72 m2 (03/21/19 9:41 AM) Problem List Condition Effective Dates Status Health Status Informant Anemia(Confirmed) Active AP (angina Active pectoris)(Confirmed) Appendectomy(Confirm Resolved ed) Cholesterol(Confirme Active d) Chronic systolic Active heart failure(Confirmed) Diabetes mellitus Active type 2(Confirmed) Diabetes(Confirmed) Active Hypertension(Confirm Active ed) Obesity(Confirmed) Active Sleep Active apnea(Confirmed) 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
--- OUTSIDE RECORDS SUMMARY | 2019-04-29 15:22 | XMS REPORT | Summary of Care ---
Author Author [facility] Organization [facility] Address Unknown Phone Unavailable Encounter MINE Alfaro(NILSON) [id number] Date(s): 01/17/19 - 01/18/19 [facility] [address] [place] [address]- [phone] Discharge Disposition: [facility]TC Left B4 Treatment Cmplt-MSE Cmplt Attending Physician: Toney Doe MD Vital Signs Most recent to 1 oldest [Reference Range]: Temperature Oral 98.3 DegF [96.4-99.1 DegF] (01/18/19 12:12 AM) Blood Pressure 127/70 mmHg [90-140/60-90 mmHg] (01/18/19 12:12 AM) Respiratory Rate 18 BRMIN [14-20 BRMIN] (01/18/19 12:12 AM) Peripheral Pulse 80 bpm Rate [60-100 bpm] (01/18/19 12:12 AM) Weight 111.364 kg (01/18/19 12:12 AM) Problem List Condition Effective Dates Status Health Status Informant Anemia(Confirmed) Active AP (angina Active pectoris)(Confirmed) Appendectomy(Confirm Resolved ed) Cholesterol(Confirme Active d) Chronic systolic Active heart failure(Confirmed) Diabetes mellitus Active type 2(Confirmed) Diabetes(Confirmed) Active Hypertension(Confirm Active ed) Obesity(Confirmed) Active Sleep Active apnea(Confirmed) 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) Allergies, Adverse Reactions, Alerts Substance Reaction Severity Status NKDA Active Medications No data available for this section Results ELECTROLYTES Most recent to 1 oldest [Reference Range]: Sodium Lvl [135-145 138 mEq/L mEq/L] (01/18/19 12:18 AM) Potassium Lvl 4.3 mEq/L [3.5-5.1 mEq/L] (01/18/19 12:18 AM) Chloride Lvl [95-109 107 mEq/L mEq/L] (01/18/19 12:18 AM) CO2 [24-32 mEq/L] 29 mEq/L (01/18/19 12:18 AM) AGAP [10.0-20.0 6.3 mEq/L mEq/L] *LOW* (01/18/19 12:18 AM) CHEM PANEL Most recent to 1 oldest [Reference Range]: Creatinine Lvl 0.99 mg/dL [0.50-1.40 mg/dL] (01/18/19 12:18 AM) eGFR 87 mL/min/1.73m2 1 *NA* (01/18/19:18 AM) BUN [7-22 mg/dL] 13 mg/dL (01/18/19 12:18 AM) B/C Ratio [6-25] 13 (01/18/19 12:18 AM) Glucose Lvl [70-99 163 mg/dL mg/dL] *HI* (01/18/19:18 AM) Total Protein 7.4 g/dL [6.4-8.4 g/dL] (01/18/19 12:18 AM) Albumin Lvl [3.5-5.0 3.8 g/dL g/dL] (01/18/19 12:18 AM) Globulin [2.7-4.2 3.6 g/dL g/dL] (01/18/19 12:18 AM) A/G Ratio [0.7-1.6] 1.1 (01/18/19 12:18 AM) Calcium Lvl 8.9 mg/dL [8.5-10.5 mg/dL] (01/18/19 12:18 AM) ALT [0-65 unit/L] 17 unit/L (01/18/19 12:18 AM) AST [0-37 unit/L] 16 unit/L (01/18/19 12:18 AM) Alk Phos [39-136 101 unit/L unit/L] (01/18/19 12:18 AM) Bili Total [0.2-1.3 0.2 mg/dL mg/dL] (01/18/19 12:18 AM) 1Result Comment: The eGFR is calculated [...] be mul tiplied by the estimated BMI. CARDIAC ENZYMES Most recent to 1 oldest [Reference Range]: CK MB [0.5-3.6 1.5 ng/mL ng/mL] (01/18/19 12:18 AM) Troponin-I 0.05 ng/mL [0.00-0.40 ng/mL] (01/18/19:18 AM) BNP [<=100 pg/mL] 75 pg/mL (01/18/19 12:18 AM) HEMATOLOGY Most recent to 1 oldest [Reference Range]: WBC [3.7-10.4 K/CMM] 7.9 K/CMM (01/18/19:18 AM) RBC [4.70-6.10 4.63 M/CMM M/CMM] *LOW* (01/18/19:18 AM) Hgb [14.0-18.0 g/dL] 12.5 g/dL *LOW* (01/18/19:18 AM) Hct [42.0-54.0 %] 39.0 % *LOW* (01/18/19:18 AM) MCV [80.0-94.0 fL] 84.3 fL (01/18/19:18 AM) MCH [27.0-31.0 pg] 27.0 pg (01/18/19:18 AM) MCHC [32.0-36.0 32.1 g/dL g/dL] (01/18/19 12:18 AM) RDW [11.5-14.5 %] 15.4 % *HI* (3/19/19 12:18 AM) MPV [7.4-10.4 fL] 6.6 fL *LOW* (01/18/19 12:18 AM) Platelet [133-450 317 K/CMM K/CMM] (01/18/19 12:18 AM) Segs [45.0-75.0 %] 57.9 % (01/18/19 12:18 AM) Lymphocytes 25.4 % [20.0-40.0 %] (01/18/19 12:18 AM) Monocytes [2.0-12.0 9.9 % %] (01/18/19 12:18 AM) Eosinophils [0.0-4.0 5.9 % %] *HI* (01/18/19 12:18 AM) Basophils [0.0-1.0 0.9 % %] (01/18/19 12:18 AM) Neutrophils # 4.6 K/CMM [1.5-8.1 K/CMM] (01/18/19 12:18 AM) Lymphocytes # 2.0 K/CMM [1.0-5.5 K/CMM] (01/18/19 12:18 AM) Monocytes # [0.0-0.8 0.8 K/CMM K/CMM] (01/18/19 12:18 AM) Eosinophils # 0.5 K/CMM [0.0-0.5 K/CMM] (01/18/19 12:18 AM) Basophils # [0.0-0.2 0.1 K/CMM K/CMM] (01/18/19 12:18 AM) PT [12.0-14.7 12.4 seconds seconds] (01/18/19 12:18 AM) INR [0.85-1.17] 0.94 (01/18/19 12:18 AM) PTT [22.9-35.8 30.8 seconds seconds] (01/18/19 12:18 AM) Immunizations No data available for this section [...]
--- OUTSIDE RECORDS SUMMARY | 2019-04-29 15:22 | XMS REPORT ---
Author Author [facility] Address Unknown Phone Unavailable Care Team Providers Care Financial Market Dealer Name Role Phone BARBARA SHAH Unavailable Unavailable Soheila HAYES Unavailable Unavailable BALDEV BENJAMIN Unavailable Unavailable JOSE MONK Unavailable Unavailable Doris GONZÁLES Unavailable Unavailable ELIZABETH, SERGIO Unavailable Unavailable Problems This patient has no known problems. Allergies, Adverse Reactions, Alerts This patient has no known allergies or adverse reactions. Medications This patient has no known medications. Results Test Description Test Time Test Comments Text Results Atomic Results Result Comments CHEST SINGLE (PORTABLE) 2019-01-09 09:13:00 [place] [address] Patient Name: SIMI MCGILL MR #: [id number] : 1965 Age/Sex: 53/M Req #: [id number] Adm Physician: BARBARA SHAH MD Ordered by: ANDRE SAUNDERS MD Report #: [id number] Location: [facility] Room/Bed: [place] [address] Procedure: [id number] DX/CHEST SINGLE (PORTABLE) Exam Date: 01/09/19 Exam Time: 0845 REPORT STATUS: Signed EXAMINATION: CHEST SINGLE (PORTABLE) COM PARISON: Chest x-ray 01/02/2019. INDICATION: DISCUSSION: LINES: Left-sided AICD device with a new AICD lead overlying the right atrium. Additional leads project over the right atrium and right ventricle. LUNGS: Low lung volumes. No pneumonia or pulmonary edema. PLEURA: No pleural effusion or pneumothorax. HEART AND MEDIASTINUM: Stable cardiomegaly and aortic ectasia. BONES AND SOFT TISSUES: No acute osseous abnormality. IMPRESSION: No acute radiographic abnormality. Left-sided AICD device with leads as above. Signed by: Dr. Altaf Jones MD on 01/09/2019 9:17 AM Dictated By: ALTAF JONES MD 6 Transcribed By: TIGRE on 01/09/19916 COPY TO: ANDRE SAUNDERS MD CHEST SINGLE (PORTABLE) 2019-01-02 22:02:00 [place] [address] Patient Name: SIMI MCGILL MR #: [id number] : 1965 Age/Sex: 53/M Req #: [id number] Adm Physician: Ordered by: RUBEN HAYES MD Report #: [id number] Location: ER Room/Bed: Procedure: [id number] DX/CHEST SINGLE (PORTABLE) Exam Date: 01/02/19 Exam Time: 2129 REPORT STATUS: Signed EXAMINATION: CHEST SINGLE (PORTABLE) COMPARISON: Chest x-ray 12/31/2018 INDICATION: Recent pacemaker pouch adjustment, pain, shortness of breath chest pain/sob [id number] 2130 Y DISCUSSION: Frontal view of the chest obtained at 2130 hours. HEART AND MEDIASTINUM: Stable cardiomegaly and aortic ectasia. LINES: Pacer/defibrillator battery pack is in stable orientation. Multiple pacer leads in the right atrium and right ventricle are stable. LUNGS: The lungs are well inflated and clear. No pneumonia or pulmonary edema. PLEURA: No pleural effusion or pneumothorax. BONES AND SOFT TISSUES: No focal osseous lesion. The soft tissues are normal. IMPRESSION: No new cardiopulmonary process. Stable pacemaker. Signed by: Dr. Ema Javier MD on 01/02/2019 10:05 PM Dictated By: EMA JAVIER MD 04 Transcribed By: TIGRE on 01/02/192204 COPY TO: RUBEN HAYES MD CHEST SINGLE (PORTABLE) 2018-12-31 10:30:00 [place] [address] Patient Name: SIMI MCGILL MR #: [id number] : 1965 Age/Sex: 53/M Req #: [id number] Adm Physician: BALDEV BENJAMIN MD Ordered by: BALDEV BENJAMIN MD Report #: [id number] Location: [facility] Room/Bed: [facility] Procedure: [id number] DX/CHEST SINGLE (PORTABLE) Exam Date: Exam Time: REPORT STATUS: Signed EXAM: CHEST SINGLE (PORTABLE), AP Portable DATE: 12/31/2018 T adalberto stamp on exam: 10:04 AM INDICATION: Pacemaker insertion COMPARISON: None FINDINGS: LINES/TUBES: Left chest wall triple lead cardiac device noted. LUNGS: No consolidations or edema. PLEURA: No effusions or pneumothorax. HEART AND MEDIASTINUM: Normal size and contour. BONES AND SOFT TISSUES: No acute findings. IMPRESSION: No acute thoracic abnormality. Signed by: Dr. Raghu Urias DO on 12/31/2018 10:32 AM Dictated By: RAGHU URIAS DO 1032 Transcribed By: TIGRE on 12/31/18 103 COPY TO: BALDEV BENJAMIN MD RETROGRADE PYELOGRAM 2018-11-26 17:30:00 [place] [address] Patient Name: SIMI MCGILL MR #: [id number] : 1965 Age/Sex: 53/M Req #: [id number] Adm Physician: Ordered by: JOSE MONK MD Report #: [id number] Location: OR Room/Bed: Procedure: [id number] DX/RETROGRADE PYELOGRAM Exam Date: 11/26/18 Exam Time: 1145 REPORT STATUS: Signed Bilateral retrograde urography Indications: [id number] C-ARM RETROGRADE PYELOGRAMS, URETHRAL DILATION. Comparison: CT abdomen/pelvis 06/25/2018 RADIATION DOSE: Fluoroscopy Time: 00:00:16 hh:mm:ss Dose (Kerma) Area Product: 233.53 mGycm2 Air Kerma (AK) value has been reviewed. It is below the limits set by the Radiation Protocol Committee (RPC) committee. Findings: Contrast was injected into the left ureter in a retrograde fashion.The caliber of the left ureter appear normal. Left renal collecting system also filled unremarkably. Contrast was injected into the right ureter in a retrograde fashion.The caliber of the right ureter appear normal. Right renal collecting system also filled unremarkably. IMPRESSION: Unremarkable bilateral retrograde urography. Signed by: Dr. Ema Javier MD on 11/26/2018 5:43 PM Dictated By: EMA JAVIER MD 186 Transcribed By: TIGRE on 11/26/181742 COPY TO: JOSE MONK MD CHEST SINGLE (PORTABLE) 2018-06-25 16:17:00 [place] [id number] [place] [address] Patient Name: SIMI MCGILL MR #: [id number] : 1965 Age/Sex: 53/M Req #: [id number] Adm Physician: Ordered by: BRIGIDA GONZÁLES MD Report #: [id number] Location: ER Room/Bed: Procedure: [id number] DX/CHEST SINGLE (PORTABLE) Exam Date: 06/25/18 Exam Time: 1515 REPORT STATUS: Signed EXAMINATION: CHEST SINGLE (PORTABLE) INDICATION: COMPARISON: None FINDINGS: AP view TUBES and LINES: Partially the generalized device in the left lower hemithorax with lead overlying the lower cardiac silhouette. LUNGS: Lungs are well inflated. Lungs are clear. There is no evidence of pneumonia or pulmonary edema. PLEURA: No pleural effusion or pneumothorax. HEART AND MEDIASTINUM: The cardiomediastinal silhouette is unremarkable.. BONES AND SOFT TISSUES: No acute osseous lesion. Soft tissues are unremarkable. UPPER ABDOMEN: No free air under the diaphragm. IMPRESSION: No acute thoracic abnormality. Signed by: Dr. Angie Jimenez M.D. on 06/25/2018 4:18 PM Dictated By: ANGIE JIMENEZ MD Electr onically Signed By: ANGIE JIMENEZ MD on 06/25/181617 Transcribed By: TIGRE on 06/25/181617 COPY TO: BRIGIDA GONZÁLES MD CT ABDOMEN/PELVIS WO 2018-06-25 15:43:00 [place] [address] Patient Name: SIMI MCGILL MR #: [id number] : 1965 [facility]: 53/[id number] Req #: [id number] Adm Physician: Ordered by: BRIGIDA GONZÁLES MD Report #: [id number] Location: ER Room/Bed: Procedure: [id number] CT/CT ABDOMEN/PELVIS WO Exam Date: 06/25/18 Exam Time: 1511 REPORT STATUS: Signed EXAM: CT Abdomen and Pelvis WITHOUT contrast INDICATION: COMPARISON: Chest radiograph 12 02/03/2015 and 06/25/2018 TECHNIQUE: Abdomen and pelvis were scanned utilizing a multidetector helical scanner from the lung base to the pubic symphysis without administration of IV contrast. Absence of intravenous contrast decreases sensitivity for detection of focal lesions and vascular pathology. Coronal and sagittal reformations were obtained. Routine protocol was performed. IV CONTRAST: None. ORAL CONTRAST: Water RADIATION DOSE: Total DLP: 751.2 mGy*cm Estimated effective dose: (DLP x 0.015 x size factor) mSv COMPLICATIONS: None FINDINGS: LINES and TUBES: Partially visualized device in the left lower chest. LOWER THORAX: Trace pericardial effusion. Coronary artery calcifications. Lung bases are clear. HEPATOBILIARY: Hepatic steatosis. No focal hepatic lesions. No biliary ductal dilation. GALLBLADDER: No radio-opaque stones or sludge. No wall thickening. SPLEEN: No splenomegaly. PANCREAS: No focal masses or ductal dilatation. ADRENALS: No adrenal nodules KIDNEYS/URETERS: No hydronephrosis. No cystic or solid mass lesions. No stones. Mild bilateral perinephric fat stranding. GI TRACT: No abnormal distention, wall thickening, or evidence of bowel obstruction. Appendix is surgically absent. PELVIC ORGANS/BLADDER: Diffuse circumferential wall thickening of the urinary bladder. LYMPH NODES: No lymphadenopathy. VESSELS: Gastroesophageal varices. Abdominal aorta normal in caliber and associated with mild to moderate atherosclerotic calcifications. PERITONEUM / RETROPERITONEUM: No free air or fluid. BONES: Partially visualized median sternotomy wires. SOFT TISSUES: Fat stranding within the anterior abdominal and pelvic wall. A small right paracentral ventral fat-containing hernia. Surgical clips within the right inguinal region. IMPRESSION: 1. Diffuse circumferential wall thickening of the urinary bladder may be inflammatory, infectious, or neoplastic. Recommend consult dictation. 2. No calcified renal stones or hydronephrosis. 3. Hepatic steatosis. Signed by: Dr. Angie Jimenez M.D. on 06/25/2018 4:17 PM Dictated By: ANGIE JIMENEZ MD 16 Transcribed By: TIGRE on 06/25/181616 COPY TO: BRIGIDA GONZÁLES MD POCT-GLUCOSE METER 2017-04-15 16:59:00 POC-GLUCOSE METER (BEAKER) (test rzju=0015) 142 mg/dL 70-110 TESTED AT [place] [id number] [facility] [address] POCT-GLUCOSE [id number] 15:14:00* Test Item Value Reference Range Comments POC-GLUCOSE METER (BEAKER) (test gmsj=5399) 207 mg/dL 70-110 TESTED AT [facility] [address] [facility] [address] POCT-GLUCOSE [id number] 13:23:00* Test Item Value Reference Range Comments POC-GLUCOSE METER (BEAKER) (test mzhv=7007) 158 mg/dL 70-110 TESTED AT [place] [id number] [facility] [address]
--- OUTSIDE RECORDS SUMMARY | 2019-04-29 15:22 | XMS REPORT | Summary of Care ---
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 Name Role Phone EMILY Heller, ALBAROR Unavailable Unavailable BARRETT VILLEGAS, DO Borja Unavailable Unavailable RENETTA TRIVEDI, WHITNEY Unavailable Unavailable ADELA DIAZ MD Unavailable Unavailable YAYO VILLEGAS, JARET Unavailable Unavailable MANDY VILLEGAS, CORINNE Perea Unavailable Unavailable Unavailable Unavailable Functional Status Name Dates Details Functional status health issues are not documented Status: Name Dates Details Cognitive status health issues are not documented Status: Problems Name Dates Details Recurrent UTI (599.0, N39.0) Status: Active 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 * Quantity: 30 Refills: 3 EMILY M.D., HAJAR * Start : 31-Mar-2019 Active Ciprofloxacin HCl - 500 MG Oral Tablet TAKE 2 TABLET DAILY * Quantity: 14 Refills: 0 EMILY M.D., HAJAR * Start : 04-Apr-2019 Active Ciprofloxacin HCl - 500 MG Oral Tablet TAKE 1 TABLET TWICE DAILY. * Quantity: 14 Refills: 0 EMILY M.D., HAJAR * Start : 06-Apr-2019 Active Allergies and Adverse Reactions Name Dates Details No Known Drug Allergies (Allergy) Status: Active Procedures Procedure Dates Details CT Abdomen/Pelvis w/wo contrast 97809 Date: 30-Mar-2019 Bladder Urethrogram retrograde 64836 Date: 08-Apr-2019 Immunization Name Dates Details Immunizations not documented Social History Name Dates Details Unknown if ever smoked Vital Signs Date Test Result Details [id number] BP Systolic 103 mm[Hg] Status: Comments: Location: LUE; Position: Sitting BP Diastolic 58 mm[Hg] Status: Comments: Location: LUE; Position: Sitting Height 70 in Status: Weight 235 lb Status: Body Mass Index Calculated 33.72 kg/m2 Status: Body Surface Area Calculated 2.24 m2 Status: Temperature 97.8 f Status: Comments: Method: Temporal Heart Rate 74 /min Status: Results Date Description Value Details :09 [H] C Urine Transplant Comments: Source: Urine, Clean CatchBody Site: ORGANISM Escherichia coli FINAL REPORT 10,000 - 50,000 CFU/mL Escherichia coli :09 [H] [facility] Comments: Source: Urine, Clean CatchBody Site: ORGANISM Escherichia coli Amikacin - (Susceptible) Ampicillin - (Resistant) Ampicillin/Sulbactam - (Intermediate) Cefazolin - (Susceptible) Ceftriaxone - (Susceptible) Ciprofloxacin - (Susceptible) Cefepime - (Susceptible) ESBL Confirmation - Gentamicin - (Susceptible) Levofloxacin - (Susceptible) Nitrofurantoin - (Susceptible) Piperacillin/Tazobactam - (Susceptible) Trimethoprim/Sulfamethoxazole - (Resistant) Tobramycin - (Susceptible) Cefuroxime - (Susceptible) Meropenem - (Susceptible) Tetracycline SEE NOTES (Resistant) Comments: S=Susceptible, R=Resistant, I=Intermediate, N/A=Not Applicable :29 Bladder Urethrogram retrograde 49876 Bladder Urethrogram retrograde SEE NOTES Comments: EXAM: Retrograde urethrogramHISTORY: Urethral strictureCOMPARISON: NoneTECHNIQUE: Approximately 20 mL Omnipaque administered. Fluoroscopy time 46seconds. Reference air kerma 58 mGyFINDINGS: Focal approximately 4 cm stricture of the proximal penile urethra. Theremainder of the urethra appears intact. Contrast opacifies the bladder.SL 13--Read by: Dustin Cao MDDictated Date/time: 04/08/19 16:45Electronically Signed by: Dustin Cao MD 04/08/1916:55FINAL REPORT :31 CT Abdomen/Pelvis w/wo contrast 92150 Abdomen/Pelvis w/wo contrast CT SEE NOTES Comments: CT ABDOMEN PELVIS PRE AND POST CONTRAST:HISTORY: Ureteral stricture, urinary tract infection.TECHNIQUE: Multislice axial acquisitions of the abdomen and pelvis was donebefore and after IV contrast. Sagittal and coronal reconstructions were done.Delayed images through the urinary tract were also obtained. Oral contrast wasnot administered. DLP 3152 mGycm.FINDINGS: There is no evidence of urinary tract calculus or hydronephrosis.Tiny cysts in the kidneys are noted without other significant renalabnormalities. There is faint opacification of urine in the bladder related tothe earlier retrograde urethrogram. There is mild thickening of the bladderwall. There are no other significant bladder abnormalities. The prostate ismildly enlarged.The liver appears normal in size without focal abnormalities or surfacenodularity. The portal veins are patent. There appears to be a distal splenicvein occlusion with multiple perigastric varices. These findings are unchangedcompared to the previous abdominal CT on 05/19/2018. No significant loweresophageal varices are seen. The remainder of the portal system isunremarkable. The spleen is normal in size. There is no ascites.The gallbladder is within normal limits. There is no evidence of biliarydilatation. There are stable changes in the tail the pancreas suggestingprevious pancreatitis, unchanged from previous abdominal CT. There are no othersignificant pancreatic abnormalities.Small calcified soft tissue nodules are seen in the left anterior pararenalspace, unchanged from the previous CT. There is no other intra-abdominal massor free fluid. There is mild atherosclerotic calcification in the aorta andiliac arteries without other significant retroperitoneal abnormalities.There are no significant gastrointestinal tract abnormalities.There is a 5 mm lung nodule in the peripheral lateral right upper lobe notincluded on the previous abdominal CT, but stable compared to the recent chestCT of 02/12/2019. There is another 2 mm nodule in the lateral right lower lobeshowing no change from previous abdominal study. There are no other significantabnormalities in the visible lung bases or lower pleural spaces.There are no significant osseous abnormalities. A prester nal lead is noted witha generator pack in the left lateral chest wall.IMPRESSION:1. No significant upper urinary tract abnormalities. See the retrogradeurethrogram report on the same date for additional findings.2. 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 There is no CT evidence of cirrhosis.3. 5 mm lung nodule in the right upper lobe. See the previous CT chest reportof 02/12/2019 for follow-up recommendations.4. No other acute CT abnormalities in the abdomen or pelvis.SL DLAWRENCE-PC--Read by: Abad Acevedo MDDictated Date/time: 04/08/19 19:01Electronically Signed by: Abad Acevedo MD 04/08/1919:18FINAL REPORT Plan of Care Name Dates Details Planned Observations Planned Goals not documented Planned Encounters Appointment; ADELA DIAZ M.D. On: 13-May-2019 8:15 Appointment; JARET ZEE M.D. On: 06-Jun-2019 13:30 Instructions Name Dates Details Instructions not documented Encounters Appointment; [facility] Encounter Diagnosis: Problem not documented On: 09-Jun-2017 13:30 Appointment; [facility] Encounter Diagnosis: Problem not documented On: 19-Feb-2018 14:15 Appointment; BALDEV BENJAMIN M.D. Encounter Diagnosis: Problem not documented On: 13-Sep-2018 9:00 Appointment; [facility] Encounter Diagnosis: Problem not documented On: 15-Oct-2018 9:30 Appointment; BALDEV BENJAMIN M.D. Encounter Diagnosis: Problem not documented On: 17-Dec-2018 9:45 Appointment; [facility], [facility] Encounter Diagnosis: Problem not documented On: 04-Jan-2019 11:30 Appointment; [facility], DEVICE Encounter Diagnosis: Problem not documented On: 18-Jan-2019 10:30 Appointment; [facility] Encounter Diagnosis: Problem not documented On: 07-Mar-2019 8:45 Appointment; ADELA DIAZ M.D. Encounter Diagnosis: Problem not documented On: 30-Mar-2019 9:15
--- OUTSIDE RECORDS SUMMARY | 2019-04-29 15:22 | XMS REPORT | Summary of Care ---
Author Author [facility] Organization [facility] Address Unknown Phone Unavailable Encounter HQ Angelina(NILSON) [id number] Date(s): 02/10/19 - 02/16/19 [facility] [address] [facility] provided by [facility] [employer] [facility] [place] [address]- Discharge Disposition: Home or Self Care Attending Physician: Melvina Ellis MD Admitting Physician: Melvina Ellis MD Referring Physician: Melvina Ellis MD Vital Signs 1 2 3 Most recent to oldest [Reference Range]: 179.71 cm (02/09/19 7:52 AM) 177.8 cm (02/08/19 9:28 PM) 177.8 cm (02/08/19 9:21 PM) Height 107.273 kg (02/14/19 5:31 AM) 110.114 kg (02/12/19 5:33 AM) Current Weight 97.2 DegF (02/16/19 12:08 PM) 97.0 DegF (02/16/19 7:33 AM) 97.2 DegF (02/16/19 4:00 AM) Temperature Oral [96.4-99.1 DegF] 102/66 mmHg (02/16/19 4:00 PM) 93/55 mmHg (02/16/19 12:00 PM) 127/60 mmHg (02/16/19 11:00 AM) Blood Pressure [90-140/60-90 mmHg] 18 BRMIN (02/16/19 4:00 PM) 18 BRMIN (02/16/19 3:00 PM) 20 BRMIN (02/16/19 2:00 PM) Respiratory Rate [14-20 BRMIN] 107.926 kg (02/13/19 6:06 AM) 113.778 kg (02/10/19 4:36 AM) 107.727 kg (02/09/19 7:52 AM) Weight 33.36 m2 (02/09/19 7:52 AM) 35.37 m2 (02/08/19 9:28 PM) 35.37 m2 (02/08/19 9:21 PM) Body Mass Index Problem List Condition Effective Dates Status Health Status Informant Anemia(Confirmed) Active AP (angina Active pectoris)(Confirmed) Appendectomy(Confirm Resolved ed) Cholesterol(Confirme Active d) Chronic systolic Active heart failure(Confirmed) Diabetes mellitus Active type 2(Confirmed) Diabetes(Confirmed) Active Hypertension(Confirm Active ed) Obesity(Confirmed) Active Sleep Active apnea(Confirmed) 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) Allergies, Adverse Reactions, Alerts Substance Reaction Severity Status NKDA Active Medications acetaminophen (ANES) Route: IV, Drug form: INJ, ONCE, Stop date: 02/09/19 15:16:00 CDT Start Date: 02/09/19 Stop Date: 02/09/19 Status: Completed ANES esmolol 10 mg, 1 mL, Route: IVP, Drug form: INJ, Q5Min, Dosing Weight 107.727, kg, PRN O ther -See Comment, Start date: 02/09/19 15:27:00 CDT, Duration: 5 doses or times , Stop date: 02/10/19 0:00:00 CDT Notes: (Same as: Brevibloc) Start Date: 02/09/19 Stop Date: 02/10/19 Status: Completed ANES flumazenil 0.2 mg, 2 mL, Route: IVP, Drug form: INJ, PRN, Dosing Weight 107.727, kg, PRN Be nzodiazepine Reversal, Initial dose, Start date: 02/09/19 15:27:00 CDT, Stop kirti e: 02/10/19 0:00:00 CDT Notes: (Same as: Romazicon) Start Date: 02/09/19 Stop Date: 02/10/19 Status: Completed ANES hydrALAZINE 10 mg, 0.5 mL, Route: IVP, Drug form: INJ, Q20Min, Dosing Weight 107.727, kg, NJ N Elevated BP, Start date: 02/09/19 15:27:00 CDT, Duration: 2 doses or times, St op date: 02/10/19 0:00:00 CDT Notes: (Same as: Apresoline)Push over 5 minutes Start Date: 02/09/19 Stop Date: 02/10/19 Status: Completed ANES HYDROmorphone 0.5 mg, Route: IVP, Q5Min, Dosing Weight 107.727, kg, PRN Pain Score 7-10, Start date: 02/09/19 15:27:00 CDT, Duration: 4 doses or times, Stop date: Limited # of times Start Date: 02/09/19 Stop Date: 02/09/19 Status: Completed ANES labetalol 10 mg, 2 mL, Route: IVP, Drug form: INJ, Q5Min, Dosing Weight 107.727, kg, PRN E levated BP, Start date: 02/09/19 15:27:00 CDT, Duration: 5 doses or times, Stop date: 02/10/19 0:00:00 CDT Start Date: 02/09/19 Stop Date: 02/10/19 Status: Completed ANES metoprolol 1 mg, 1 mL, Route: IVP, Drug form: INJ, Q5Min, Dosing Weight 107.727, kg, PRN Ot her -See Comment, Start date: 02/09/19 15:27:00 CDT, Duration: 5 doses or times, Stop date: 02/10/19 0:00:00 CDT Notes: (Same as: Lopressor)Push over 2 minutes Start Date: 02/09/19 Stop Date: 02/10/19 Status: Completed ANES naloxone 0.4 mg, 1 mL, Route: IVP, Drug form: INJ, Q2MIN, Dosing Weight 107.727, kg, PRN Narcotic Reversal, Start date: 02/09/19 15:27:00 CDT, Duration: 8 doses or times , Stop date: 02/10/19 0:00:00 CDT Notes: Same as Narcan Start Date: 02/09/19 Stop Date: 02/10/19 Status: Completed ANES ondansetron 4 mg, 2 mL, Route: IVP, Drug form: INJ, ONCE, Dosing Weight 107.727, kg, PRN Ghanshyam sea & Vomiting, Start date: 02/09/19 15:27:00 CDT Notes: (Same as: Zofran) MEDICATION WASTE Product Size: 4 mgProduct Was opal: ___ mg Start Date: 02/09/19 Stop Date: 02/16/19 Status: Discontinued ANES oxyCODONE 10 mg, 2 tab, Route: PO, Drug form: TAB, Q4H, Dosing Weight 107.727, kg, PRN Linda n Score 7-10, Start date: 02/09/19 15:27:00 CDT, Stop date: 02/10/19 0:00:00 CDT Notes: (Same as: Roxicodone) Start Date: 02/09/19 Stop Date: 02/10/19 Status: Completed ANES oxyCODONE 5 mg, 1 tab, Route: PO, Drug form: TAB, Q4H, Dosing Weight 107.727, kg, PRN Pain Score 4-6, Start date: 02/09/19 15:27:00 CDT, Stop date: 02/10/19 0:00:00 CDT Notes: (Same as: Roxicodone) Start Date: 02/09/19 Stop Date: 02/10/19 Status: Completed ascorbic acid 1,000 mg, 2 tab, Route: PO, Drug form: TAB, BID, Dosing Weight 107.727, kg, Star t date: 02/10/19 9:00:00 CDT, Duration: 30 day, Stop date: 03/11/19 17:00:00 CDT Notes: (Same as: Vitamin C) Start Date: 02/10/19 Stop Date: 02/16/19 Status: Discontinued ascorbic acid 1000 mg oral tablet 1,000 mg=1 tab, PO, BID, # 90 tab, 4 Refill(s) Start Date: 02/16/19 Status: Ordered ascorbic acid 1000 mg oral tablet 1,000 mg=1 tab, PO, BID, # 30 tab, 0 Refill(s) Start Date: 02/09/19 Stop Date: 02/16/19 Status: Discontinued aspirin 81 mg, 1 tab, Route: PO, Drug form: ECTAB, Daily, Dosing Weight 113.778, kg, Sta rt date: 02/11/19 9:00:00 CDT, Duration: 30 day, Stop date: 03/12/19 9:00:00 CDT Notes: Do not crush or chew.(Same As: Ecotrin) Start Date: 02/11/19 Stop Date: 02/16/19 Status: Discontinued aspirin 81 mg tablet, enteric coated 81 mg, PO, Daily, # 90 tab, 4 Refill(s) Start Date: 02/16/19 Status: Ordered atorvastatin 60 mg, 3 tab, Route: PO, Drug form: TAB, Bedtime, Dosing Weight 107.727, kg, Sta rt date: 02/09/19 21:00:00 CDT, Duration: 30 day, Stop date: 03/10/19 21:00:00 C DT Notes: (Same As: Lipitor) Start Date: 02/09/19 Stop Date: 02/16/19 Status: Discontinued atorvastatin 40 mg oral tablet 60 mg, PO, Daily, # 90 tab, 4 Refill(s) Start Date: 02/16/19 Status: Ordered Azo-Cranberry Route: PO, Dosing Weight 107.727, kg, TID, Start date: 02/10/19 9:00:00 CDT, Dur ation: 30 day, Stop date: 03/11/19 17:00:00 CDT Start Date: 02/10/19 Stop Date: 02/09/19 Status: Deleted Benadryl 25 mg, 1 cap, Route: PO, Drug form: CAP, PRN, Dosing Weight 113.778, kg, PRN Itc mignon, Start date: 02/10/19 12:07:00 CDT, Duration: 30 day, Stop date: 03/12/19 1 2:06:00 CDT Notes: (Same as: Benadryl) Start Date: 02/10/19 Stop Date: 02/11/19 Status: Discontinued Benadryl 25 mg, 1 cap, Route: PO, Drug form: CAP, ONCE, Dosing Weight 107.727, kg, Start date: 02/09/19 19:49:00 CDT, Stop date: 02/09/19 19:49:00 CDT Notes: (Same as: Benadryl) Start Date: 02/09/19 Stop Date: 02/09/19 Status: Completed Benadryl 25 mg, 1 cap, Route: PO, Drug form: CAP, TID, Dosing Weight 107.727, kg, PRN Itc mignon, Start date: 02/09/19 19:49:00 CDT, Duration: 30 day, Stop date: 03/11/19 1 9:48:00 CDT Notes: (Same as: Benadryl) Start Date: 02/09/19 Stop Date: 02/16/19 Status: Discontinued calcium gluconate + Sodium Chloride 0.9% IV 100 mL 3 gm, 30 mL, Route: IVPB, Drug form: INJ, PRN, Dosing Weight 107.727, kg, PRN Ab normal Lab Result, For NON-ICU Patients Only., Start date: 02/09/19 19:40:00 CDT , Duration: 30 day, Stop date: 03/11/19 19:39:00 CDT Notes: WASTE: F/P - Sink; E - Municipal Trash Bin Start Date: 02/09/19 Stop Date: 02/16/19 Status: Discontinued calcium gluconate + Sodium Chloride 0.9% IV 100 mL 2 gm, 20 mL, Route: IVPB, Drug form: INJ, PRN, Dosing Weight 107.727, kg, PRN Ab normal Lab Result, For NON-ICU Patients Only., Start date: 02/09/19 19:40:00 CDT , Duration: 30 day, Stop date: 03/11/19 19:39:00 CDT Notes: WASTE: F/P - Sink; E - Municipal Trash Bin Start Date: 02/09/19 Stop Date: 02/16/19 Status: Discontinued ceFAZolin (ANES) Route: IV, Drug form: INJ, ONCE, Stop date: 02/09/19 11:30:00 CDT Start Date: 02/09/19 Stop Date: 02/09/19 Status: Completed cisatracurium (ANES) Route: IV, Drug form: INJ, ONCE, Stop date: 02/09/19 11:30:00 CDT Start Date: 02/09/19 Stop Date: 02/09/19 Status: Completed Dextrose 50% Syringe 12.5 gm, 25 mL, Route: IVP, Drug Form: INJ, Dosing Weight 107.727, kg, PRN, PRN Blood Glucose Results, Start date: 02/09/19 18:20:00 CDT, Duration: 30 day, Stop date: 03/11/19 18:19:00 CDT Start Date: 02/09/19 Stop Date: 02/16/19 Status: Discontinued Dextrose 50% Syringe 25 gm, 50 mL, Route: IVP, Drug Form: INJ, Dosing Weight 107.727, kg, PRN, PRN Bl ood Glucose Results, Start date: 02/09/19 18:20:00 CDT, Duration: 30 day, Stop d ate: 03/11/19 18:19:00 CDT Start Date: 02/09/19 Stop Date: 02/16/19 Status: Discontinued docusate sodium 100 mg oral capsule 100 mg=1 cap, PO, BID, # 90 cap, 4 Refill(s) Start Date: 02/16/19 Status: Ordered docusate sodium 100 mg oral capsule 100 mg, 1 cap, Route: PO, Drug form: CAP, BID, Dosing Weight 113.778, kg, Start date: 02/11/19 11:03:00 CDT, Duration: 30 day, Stop date: 03/13/19 9:00:00 CDT Notes: (Same as: Colace) (Do Not Crush) Start Date: 02/11/19 Stop Date: 02/16/19 Status: Discontinued Entresto 24 mg-26 mg oral tablet 1 tab, Route: PO, Drug Form: TAB, Dosing Weight 107.727, kg, Q12H, Start date: 0 02/09/19 21:00:00 CDT, Duration: 30 day, Stop date: 03/11/19 9:00:00 CDT Start Date: 02/09/19 Stop Date: 02/16/19 Status: Discontinued Entresto 24 mg-26 mg oral tablet 1 tab, PO, Q12H, # 180 tab, 4 Refill(s) Start Date: 02/16/19 Status: Ordered Entresto 24 mg-26 mg oral tablet 1 tab, PO, BID, # 56 tab, 0 Refill(s) Start Date: 02/09/19 Stop Date: 02/16/19 Status: Discontinued fentaNYL (ANES) Route: IV, Drug form: INJ, ONCE, Stop date: 02/09/19 11:30:00 CDT Start Date: 02/09/19 Stop Date: 02/09/19 Status: Completed ferrous sulfate 300 mg, 5 mL, Route: PO, Drug form: LIQ, BID, Dosing Weight 107.727, kg, Start d ate: 02/12/19 10:30:00 CDT, Duration: 30 day, Stop date: 03/14/19 9:00:00 CDT Notes: Give with food.iron elemental 12mg/mh=345hg/5ml as ferrous sulfate Start Date: 02/12/19 Stop Date: 02/16/19 Status: Discontinued ferrous sulfate 325 mg, 1 tab, Route: PO, Drug form: ECTAB, BID, Dosing Weight 107.727, kg, Star t date: 02/10/19 9:00:00 CDT, Duration: 30 day, Stop date: 03/11/19 17:00:00 CDT Start Date: 02/10/19 Stop Date: 02/11/19 Status: Discontinued ferrous sulfate 325 mg, 1 tab, Route: PO, Drug form: ECTAB, BID, Dosing Weight 107.727, kg, Star t date: 02/11/19 10:00:00 CDT, Duration: 30 day, Stop date: 03/13/19 9:00:00 CDT Start Date: 02/11/19 Stop Date: 02/12/19 Status: Discontinued ferrous sulfate 325 mg oral enteric coated tablet 325 mg=1 tab, PO, BID, # 90 tab, 4 Refill(s) Start Date: 02/16/19 Status: Ordered folic acid 1 mg, 1 tab, Route: PO, Drug form: TAB, Daily, Dosing Weight 107.727, kg, Start date: 02/10/19 9:00:00 CDT, Duration: 30 day, Stop date: 03/11/19 9:00:00 CDT Notes: (Same as: Folvite) Start Date: 02/10/19 Stop Date: 02/16/19 Status: Discontinued folic acid 1 mg oral tablet 1 mg=1 tab, PO, Daily, # 90 tab, 4 Refill(s) Start Date: 02/16/19 Status: Ordered furosemide 60 mg, PO, Daily, 0 Refill(s) Start Date: 02/09/19 Stop Date: 02/16/19 Status: Discontinued furosemide 20 mg oral tablet 60 mg, 3 tab, Route: PO, Drug form: TAB, Daily, Dosing Weight 113.778, kg, Start date: 02/10/19 13:43:00 CDT, Duration: 30 day, Stop date: 03/12/19 9:00:00 CDT Notes: (Same as: Lasix) May cause GI upset. Give with food or milk. Start Date: 02/10/19 Stop Date: 02/16/19 Status: Discontinued furosemide 20 mg oral tablet 60 mg=3 tab, PO, Daily, # 270 tab, 4 Refill(s) Start Date: 02/16/19 Status: Ordered gabapentin 100 mg oral capsule 100 mg, 1 cap, Route: PO, Drug form: CAP, Daily, Dosing Weight 107.727, kg, Star t date: 02/10/19 9:00:00 CDT, Duration: 30 day, Stop date: 03/11/19 9:00:00 CDT Notes: (Same as: Neurontin) Start Date: 02/10/19 Stop Date: 02/11/19 Status: Discontinued gabapentin 100 mg oral capsule 300 mg, 1 cap, Route: PO, Drug form: CAP, TID, Dosing Weight 107.727, kg, Start date: 02/11/19 13:00:00 CDT, Duration: 30 day, Stop date: 03/13/19 9:00:00 CDT Notes: (Same as: Neurontin) Start Date: 02/11/19 Stop Date: 02/16/19 Status: Discontinued gabapentin 300 mg oral capsule 300 mg=1 cap, PO, TID, # 90 cap, 4 Refill(s) Start Date: 02/16/19 Status: Ordered glucagon 1 mg, Route: IM, Drug form: PDR/INJ, PRN, Dosing Weight 107.727, kg, PRN Blood G lucose Results, Start date: 02/09/19 18:20:00 CDT, Duration: 30 day, Stop date: 03/11/19 18:19:00 CDT Start Date: 02/09/19 Stop Date: 02/16/19 Status: Discontinued glycopyrrolate (ANES) Route: IV, Drug form: INJ, ONCE, Stop date: 02/09/19 16:51:00 CDT Start Date: 02/09/19 Stop Date: 02/09/19 Status: Completed Humalog 30 unit, 0.3 mL, Route: SUB-Q, Drug form: SOLN, TID-Before Meals, Start date: 7:30:00 CDT, Duration: 30 day, Stop date: 03/11/19 16:30:00 CDT Notes: (Same as: Humalog ) Roll in palms of hands gently; Do not shake `frida sly. "Single Patient Use Only " WASTE: F/P - Black; E - Municipal Trash Bin St able for 28 days at room temperature.Expires in days from Da te Start Date: 02/10/19 Stop Date: 02/16/19 Status: Discontinued insulin glargine 30 unit, 0.3 mL, Route: SUB-Q, Drug form: SOLN, Daily, Start date: 02/10/19 9:00 :00 CDT, Duration: 30 day, Stop date: 03/11/19 9:00:00 CDT Notes: (Same as: Lantus)Do not hold insulin without contacting prescriberWASTE: F/P - Black; E - Municipal Trash Bin "single patient use only" Start Date: 02/10/19 Stop Date: 02/16/19 Status: Discontinued insulin glargine 100 units/mL subcutaneous solution 30 unit, SUB-Q, Daily, # 15 mL, 4 Refill(s) Start Date: 02/16/19 Status: Ordered insulin lispro 5 unit, Route: SUB-Q, TID-Before Meals, Dosing Weight 113.778, kg, Start date: 0 02/10/19 11:30:00 CDT, Duration: 30 day, Stop date: 03/12/19 7:30:00 CDT Start Date: 02/10/19 Stop Date: 02/10/19 Status: Canceled insulin lispro 4 unit, 0.04 mL, Route: SUB-Q, Drug form: SOLN, Bedtime, Dosing Weight 107.727, kg, PRN Blood Glucose Results, Start date: 02/09/19 18:20:00 CDT, Duration: 30 d ay, Stop date: 03/11/19 18:19:00 CDT Notes: (Same as: Humalog ) Roll in palms of hands gently; Do not shake `vigorou sly. "Single Patient Use Only " WASTE: F/P - Black; E - [facility] Trash [facility] St able for 28 days at room temperature.Expires in days from Da te Start Date: 02/09/19 Stop Date: 02/16/19 Status: Discontinued insulin lispro 3 unit, 0.03 mL, Route: SUB-Q, Drug form: SOLN, Bedtime, Dosing Weight 107.727, kg, PRN Blood Glucose Results, Start date: 02/09/19 18:20:00 CDT, Duration: 30 d ay, Stop date: 03/11/19 18:19:00 CDT Notes: (Same as: Humalog ) Roll in palms of hands gently; Do not shake `vigorou sly. "Single Patient Use Only " WASTE: F/P - Black; E - [facility] Trash [facility] St able for 28 days at room temperature.Expires in days from Da te Start Date: 02/09/19 Stop Date: 02/16/19 Status: Discontinued insulin lispro 2 unit, 0.02 mL, Route: SUB-Q, Drug form: SOLN, Bedtime, Dosing Weight 107.727, kg, PRN Blood Glucose Results, Start date: 02/09/19 18:20:00 CDT, Duration: 30 d ay, Stop date: 03/11/19 18:19:00 CDT Notes: (Same as: Humalog ) Roll in palms of hands gently; Do not shake `vigorou sly. "Single Patient Use Only " WASTE: F/P - Black; E - [facility] Tr[facility] St able for 28 days at room temperature.Expires in days from Da te Start Date: 02/09/19 Stop Date: 02/16/19 Status: Discontinued insulin lispro 1 unit, 0.01 mL, Route: SUB-Q, Drug form: SOLN, Bedtime, Dosing Weight 107.727, kg, PRN Blood Glucose Results, Start date: 02/09/19 18:20:00 CDT, Duration: 30 d ay, Stop date: 03/11/19 18:19:00 CDT Notes: (Same as: Humalog ) Roll in palms of hands gently; Do not shake `vigorou sly. "Single Patient Use Only " WASTE: F/P - Black; E - [facility] Tr[facility] St able for 28 days at room temperature.Expires in days from Da te Start Date: 02/09/19 Stop Date: 02/16/19 Status: Discontinued insulin lispro 8 unit, 0.08 mL, Route: SUB-Q, Drug form: SOLN, TID-Before Meals, Dosing Weight 107.727, kg, PRN Blood Glucose Results, Start date: 02/09/19 18:20:00 CDT, Durat ion: 30 day, Stop date: 03/11/19 18:19:00 CDT Notes: (Same as: Humalog ) Roll in palms of hands gently; Do not shake `vigorou sly. "Single Patient Use Only " WASTE: F/P - Black; E - [facility] St able for 28 days at room temperature.Expires in days from Da te Start Date: 02/09/19 Stop Date: 02/16/19 Status: Discontinued insulin lispro 2 unit, 0.02 mL, Route: SUB-Q, Drug form: SOLN, TID-Before Meals, Dosing Weight 107.727, kg, PRN Blood Glucose Results, Start date: 02/09/19 18:20:00 CDT, Durat ion: 30 day, Stop date: 03/11/19 18:19:00 CDT Notes: (Same as: Humalog ) Roll in palms of hands gently; Do not shake `vigorou sly. "Single Patient Use Only " WASTE: F/P - Black; E - [facility] Tr[facility] St able for 28 days at room temperature.Expires in days from Da te Start Date: 02/09/19 Stop Date: 02/16/19 Status: Discontinued insulin lispro 4 unit, 0.04 mL, Route: SUB-Q, Drug form: SOLN, TID-Before Meals, Dosing Weight 107.727, kg, PRN Blood Glucose Results, Start date: 02/09/19 18:20:00 CDT, Durat ion: 30 day, Stop date: 03/11/19 18:19:00 CDT Notes: (Same as: Humalog ) Roll in palms of hands gently; Do not shake `vigorou sly. "Single Patient Use Only " WASTE: F/P - Black; E - [facility] St able for 28 days at room temperature.Expires in days from Da te Start Date: 02/09/19 Stop Date: 02/16/19 Status: Discontinued insulin lispro 10 unit, 0.1 mL, Route: SUB-Q, Drug form: SOLN, TID-Before Meals, Dosing Weight 107.727, kg, PRN Blood Glucose Results, Start date: 02/09/19 18:20:00 CDT, Durat ion: 30 day, Stop date: 03/11/19 18:19:00 CDT Notes: (Same as: Humalog ) Roll in palms of hands gently; Do not shake `vigorou sly. "Single Patient Use Only " WASTE: F/P - Black; E - [facility] Tr[address] [facility] St able for 28 days at room temperature.Expires in days from Da te Start Date: 02/09/19 Stop Date: 02/16/19 Status: Discontinued insulin lispro 6 unit, 0.06 mL, Route: SUB-Q, Drug form: SOLN, TID-Before Meals, Dosing Weight 107.727, kg, PRN Blood Glucose Results, Start date: 02/09/19 18:20:00 CDT, Durat ion: 30 day, Stop date: 03/11/19 18:19:00 CDT Notes: (Same as: Humalog ) Roll in palms of hands gently; Do not shake `vigorou sly. "Single Patient Use Only " WASTE: F/P - Black; E - [facility] Tr[address] [facility] St able for 28 days at room temperature.Expires in days from Da te Start Date: 02/09/19 Stop Date: 02/16/19 Status: Discontinued insulin lispro 100 units/mL injectable solution 30 unit, SUB-Q, TID-Before Meals, # 15 mL, 4 Refill(s) Start Date: 02/16/19 Status: Ordered Jardiance 25 mg oral tablet 25 mg=1 tab, PO, QAM, # 90 tab, 4 Refill(s) Start Date: 02/16/19 Status: Ordered Jardiance 25 mg oral tablet 25 mg=1 tab, PO, QAM, 0 Refill(s) Start Date: 02/10/19 Stop Date: 02/16/19 Status: Discontinued Jardiance 25mg (1 tablet) Jardiance 25mg (1 tablet), 25 mg, Drug form: MISC, Route: PO, Daily, 02/11/19 9: 00:00 CDT, Duration: 30 day, Stop date: 03/12/19 9:00:00 CDT Start Date: 02/11/19 Stop Date: 02/16/19 Status: Discontinued Levemir 25 unit, Route: SUB-Q, Bedtime, Dosing Weight 107.727, kg, Start date: 02/09/19 21:00:00 CDT, Duration: 30 day, Stop date: 03/10/19 21:00:00 CDT Start Date: 02/09/19 Stop Date: 02/09/19 Status: Discontinued lidocaine (ANES) Route: IV, Drug form: INJ, ONCE, Stop date: 02/09/19 11:30:00 CDT Start Date: 02/09/19 Stop Date: 02/09/19 Status: Completed lidocaine topical patch (5% film) 1 patch, Route: TOP, Daily, Drug form: FILM, Start date: 02/11/19 11:02:00 CDT, Duration: 30 day, Stop date: 03/13/19 9:00:00 CDT Notes: Apply only once for up to 12 hours in [id number] period (12 hours on and 12 hours off).(Same as: Lidoderm)"Remove old patch before application of new patch" Start Date: 02/11/19 Stop Date: 02/16/19 Status: Discontinued magnesium oxide 800 mg, 2 tab, Route: PO, Drug form: TAB, PRN, Dosing Weight 107.727, kg, PRN Ab normal Lab Result, For NON-ICU Patients Only., Start date: 02/09/19 19:40:00 CDT , Duration: 30 day, Stop date: 03/11/19 19:39:00 CDT Notes: (Same as: Mag-Ox 400)Magnesium oxide [id number] elemental magnesiumDose= ____mg magnesium oxide (___mg elemental magnesium) Start Date: 02/09/19 Stop Date: 02/16/19 Status: Discontinued magnesium sulfate 2 gm, 50 mL, Route: IVPB, Drug form: INJ, PRN, Dosing Weight 107.727, kg, PRN Ab normal Lab Result, For NON-ICU Patients Only., Start date: 02/09/19 19:40:00 CDT , Duration: 30 day, Stop date: 03/11/19 19:39:00 CDT Notes: WASTE: F/P - Sink; E - Municipal Trash Bin Start Date: 02/09/19 Stop Date: 02/16/19 Status: Discontinued magnesium sulfate 1 gm, 100 mL, Route: IVPB, Drug form: INJ, PRN, Dosing Weight 107.727, kg, PRN A bnormal Lab Result, For NON-ICU Patients Only., Start date: 02/09/19 19:40:00 CD T, Duration: 30 day, Stop date: 03/11/19 19:39:00 CDT Notes: WASTE: F/P - Sink; E - Municipal Trash Bin Start Date: 02/09/19 Stop Date: 02/16/19 Status: Discontinued metoprolol succinate 25 mg oral capsule, extended release 25 mg=1 cap, PO, Daily, 0 Refill(s) Start Date: 02/09/19 Stop Date: 02/16/19 Status: Discontinued midazolam (ANES) Route: IV, Drug form: SOLN, ONCE, Stop date: 02/09/19 11:15:00 CDT Start Date: 02/09/19 Stop Date: 02/09/19 Status: Completed minocycline 100 mg, 1 cap, Route: PO, Drug form: CAP, [id number], Dosing Weight 113.778, kg, St art date: 02/10/19 10:00:00 CDT, Duration: 14 day, Stop date: 02/23/19 22:00:00 CDT Notes: (Same as:Minocin) No milk/antacids/iron. Start Date: 02/10/19 Stop Date: 02/16/19 Status: Discontinued minocycline 100 mg oral capsule 100 mg=1 cap, PO, [id number], X 7 day, # 14 cap, 0 Refill(s) Start Date: 02/16/19 Stop Date: 02/23/19 Status: Ordered neostigmine (ANES) Route: IV, Drug form: INJ, ONCE, Stop date: 02/09/19 16:41:00 CDT Start Date: 02/09/19 Stop Date: 02/09/19 Status: Completed niCARdipine (ANES) Route: IV, Drug form: INJ, ONCE, Stop date: 02/09/19 14:21:00 CDT Start Date: 02/09/19 Stop Date: 02/09/19 Status: Completed Index 10/325 oral tablet 2 tab, Route: PO, Drug Form: TAB, Dosing Weight 107.727, kg, Q6H, PRN Pain Score 7-10, Start date: 02/09/19 20:03:00 CDT, Duration: 30 day, Stop date: 03/11/19 20:02:00 CDT Notes: Do not exceed 4gm/day of acetaminophen. (Same as: Index 325/10) Start Date: 02/09/19 Stop Date: 02/16/19 Status: Discontinued Index 10/325 oral tablet 1 tab, Route: PO, Drug Form: TAB, Dosing Weight 107.727, kg, Q6H, PRN Pain Score 4-6, Start date: 02/09/19 20:03:00 CDT, Duration: 30 day, Stop date: 03/11/19 2 0:02:00 CDT Notes: Do not exceed 4gm/day of acetaminophen. (Same as: Index 325/10) Start Date: 02/09/19 Stop Date: 02/16/19 Status: Discontinued NovoLOG Route: SUB-Q, TID-Before Meals, Dosing Weight 107.727, kg, Start date: 02/10/19 7:30:00 CDT, Duration: 30 day, Stop date: 03/11/19 16:30:00 CDT Start Date: 02/10/19 Stop Date: 02/09/19 Status: Discontinued ondansetron (ANES) Route: IV, Drug form: INJ, ONCE, Stop date: 02/09/19 16:01:00 CDT Start Date: 02/09/19 Stop Date: 02/09/19 Status: Completed potassium chloride 20 mEq, 15 mL, Route: NJ, Drug form: LIQ, PRN, Dosing Weight 107.727, kg, PRN Ab normal Lab Result, For NON-ICU Patients Only, Start date: 02/09/19 19:40:00 CDT, Duration: 30 day, Stop date: 03/11/19 19:39:00 CDT Notes: (Same as: Potassium Chloride) Start Date: 02/09/19 Stop Date: 02/16/19 Status: Discontinued potassium chloride 10 mEq, 50 mL, Route: IVPB, Drug form: INJ, PRN, Dosing Weight 107.727, kg, PRN Abnormal Lab Result, For NON-ICU Patients Only, Start date: 02/09/19 19:40:00 CD T, Duration: 30 day, Stop date: 03/11/19 19:39:00 CDT Notes: (Same as: KCL) Infuse over 2 hours. Start Date: 02/09/19 Stop Date: 02/16/19 Status: Discontinued potassium chloride 20 mEq, 1 tab, Route: PO, Drug form: ERTAB, PRN, Dosing Weight 107.727, kg, PRN Abnormal Lab Result, For NON-ICU Patients Only, Start date: 02/09/19 19:40:00 CD T, Duration: 30 day, Stop date: 03/11/19 19:39:00 CDT Notes: (Same as: K-Dur 20)"Do Not Crush" Give with food and full glass of water For patients unable to swallow tablet, dissolve in one half glass of water. Allo w about 2 minutes for the tablets to disintegrate. Stir before giving to prepare slurry and administer.Please exclude Patients with feeding tube less than 14 [place] (Dobhoff, J-tube etc) and pediatric and patients. Start Date: 02/09/19 Stop Date: 02/16/19 Status: Discontinued potassium chloride 20 mEq oral tablet, extended release 20 mEq=1 tab, PO, Daily, # 90 tab, 4 Refill(s) Start Date: 02/16/19 Status: Ordered potassium chloride 20 mEq oral tablet, extended release 20 mEq, 1 tab, Route: PO, Drug form: ERTAB, Daily, Dosing Weight 113.778, kg, St art date: 02/12/19 9:00:00 CDT, Duration: 30 day, Stop date: 03/13/19 9:00:00 CD T Notes: (Same as: K-Dur 20)"Do Not Crush" Give with food and full glass of water For patients unable to swallow tablet, dissolve in one half glass of water. Allo w about 2 minutes for the tablets to disintegrate. Stir before giving to prepare slurry and administer.Please exclude Patients with feeding tube less than 14 [place] (Dobhoff, J-tube etc) and pediatric and patients. Start Date: 02/12/19 Stop Date: 02/16/19 Status: Discontinued potassium chloride 20 mEq oral tablet, extended release 40 mEq, 2 tab, Route: PO, Drug form: ERTAB, ONCE, Dosing Weight 113.778, kg, Sta rt date: 02/11/19 11:01:00 CDT, Stop date: 02/11/19 11:01:00 CDT Notes: (Same as: K-Dur 20)"Do Not Crush" Give with food and full glass of water For patients unable to swallow tablet, dissolve in one half glass of water. Allo w about 2 minutes for the tablets to disintegrate. Stir before giving to prepare slurry and administer.Please exclude Patients with feeding tube less than 14 [place] (Dobhoff, J-tube etc) and pediatric and patients. Start Date: 02/11/19 Stop Date: 02/11/19 Status: Completed potassium phosphate + Sodium Chloride 0.9% IV 250 mL 15 mmol, 5 mL, Route: IVPB, PRN, Dosing Weight 107.727, kg, PRN Abnormal Lab Res ult, For NON-ICU Patients Only., Start date: 02/09/19 19:40:00 CDT, Duration: 30 day, Stop date: 03/11/19 19:39:00 CDT Notes: (Same as: K Phosphate.)Do not infuse phosphorous concurrently in the same line as TPN or IVF that contains calcium. For double lumen central lines, phosp horous may be infused in a separate lumen from TPN. 1 mMol phoshate has 1.47 mE q potassium Infuse over 4 hours Start Date: 02/09/19 Stop Date: 02/16/19 Status: Discontinued potassium phosphate + Sodium Chloride 0.9% IV 250 mL 30 mmol, 10 mL, Route: IVPB, PRN, Dosing Weight 107.727, kg, PRN Abnormal Lab Re sult, For NON-ICU Patients Only., Start date: 02/09/19 19:40:00 CDT, Duration: 3 0 day, Stop date: 03/11/19 19:39:00 CDT Notes: (Same as: K Phosphate.)Do not infuse phosphorous concurrently in the same line as TPN or IVF that contains calcium. For double lumen central lines, phosp horous may be infused in a separate lumen from TPN. 1 mMol phoshate has 1.47 mE q potassium Infuse over 4 hours Start Date: 02/09/19 Stop Date: 02/16/19 Status: Discontinued potassium phosphate-sodium phosphate 250 mg-280 mg-160 mg oral powder for recons titution 2 pkt, Route: PO, Drug Form: PDR/REC, Dosing Weight 107.727, kg, PRN, PRN Abnorm al Lab Result, For NON-ICU Patients Only, Start date: 02/09/19 19:40:00 CDT, Dur ation: 30 day, Stop date: 03/11/19 19:39:00 CDT Notes: (Same as: Phos-NaK) Each 1.5 gm pkt has 250mg phosphorous. Mix w/2.5oz w ater and stir. Start Date: 02/09/19 Stop Date: 02/16/19 Status: Discontinued propofol (ANES) Route: IV, Drug form: INJ, ONCE, Stop date: 02/09/19 12:05:00 CDT Start Date: 02/09/19 Stop Date: 02/09/19 Status: Completed senna 8.6 mg oral tablet 8.6 mg=1 tab, PO, Daily, # 90 tab, 4 Refill(s) Start Date: 02/16/19 Status: Ordered senna 8.6 mg oral tablet 8.6 mg, 1 tab, Route: PO, Drug Form: TAB, Dosing Weight 113.778, kg, Daily, Star t date: 02/11/19 11:03:00 CDT, Duration: 30 day, Stop date: 03/13/19 9:00:00 CDT Notes: (Same as: Senokot) Start Date: 02/11/19 Stop Date: 02/16/19 Status: Discontinued Sodium Chloride 0.9% IV (ANES) 1000 mL Route: IV, Total Volume: 1,000, Start date: 02/09/19 10:42:00 CDT, Stop date: 11:42:00 CDT Start Date: 02/09/19 Stop Date: 02/09/19 Status: Completed sodium phosphate + Sodium Chloride 0.9% IV 250 mL 15 mmol, 5 mL, Route: IVPB, PRN, Dosing Weight 107.727, kg, PRN Abnormal Lab Res ult, For NON-ICU Patients Only., Start date: 02/09/19 19:40:00 CDT, Duration: 30 day, Stop date: 03/11/19 19:39:00 CDT Notes: Infuse over 4 hour. Do not infuse phosphorous concurrently in the same li ne as TPN or IVF that contains calcium. For double lumen central lines, phosphor ous may be infused in a separate lumen from TPN. Start Date: 02/09/19 Stop Date: 02/16/19 Status: Discontinued sodium phosphate + Sodium Chloride 0.9% IV 250 mL 30 mmol, 10 mL, Route: IVPB, PRN, Dosing Weight 107.727, kg, PRN Abnormal Lab Re sult, For NON-ICU Patients Only., Start date: 02/09/19 19:40:00 CDT, Duration: 3 0 day, Stop date: 03/11/19 19:39:00 CDT Notes: Infuse over 4 hour. Do not infuse phosphorous concurrently in the same li ne as TPN or IVF that contains calcium. For double lumen central lines, phosphor ous may be infused in a separate lumen from TPN. Start Date: 02/09/19 Stop Date: 02/16/19 Status: Discontinued spironolactone 25 mg, 1 tab, Route: PO, Drug form: TAB, Daily, Dosing Weight 113.778, kg, Start date: 02/10/19 9:22:00 CDT, Duration: 30 day, Stop date: 03/12/19 9:00:00 CDT Notes: (Same As: Aldactone) Start Date: 02/10/19 Stop Date: 02/16/19 Status: Discontinued spironolactone 25 mg oral tablet 25 mg=1 tab, PO, Daily, # 90 tab, 4 Refill(s) Start Date: 02/16/19 Status: Ordered Toprol-XL 25 mg oral tablet, extended release 25 mg, 1 tab, Route: PO, Drug form: ERTAB, ONCE, Start date: 02/11/19 2:53:00 CD T, Stop date: 02/11/19 2:53:00 CDT Notes: (Same as: Toprol XL) Do Not Crush Start Date: 02/11/19 Stop Date: 02/11/19 Status: Completed Toprol-XL 25 mg oral tablet, extended release 25 mg, 1 tab, Route: PO, Drug form: ERTAB, BID, Start date: 02/15/19 17:00:00 CD T, Duration: 30 day, Stop date: 03/17/19 9:00:00 CDT Notes: (Same as: Toprol XL) Do Not Crush Start Date: 02/15/19 Stop Date: 02/16/19 Status: Discontinued Toprol-XL 25 mg oral tablet, extended release 25 mg, 1 tab, Route: PO, Drug form: ERTAB, Daily, Start date: 02/10/19 9:16:00 C DT, Duration: 30 day, Stop date: 03/12/19 9:00:00 CDT Notes: (Same as: Toprol XL) Do Not Crush Start Date: 02/10/19 Stop Date: 02/15/19 Status: Discontinued Toprol-XL 25 mg oral tablet, extended release 25 mg=1 tab, PO, BID, # 180 tab, 4 Refill(s) Start Date: 02/16/19 Status: Ordered tramadol 50 mg oral tablet 50 mg=1 tab, PO, Q8H, PRN Pain Score 1-3, # 30 tab, 0 Refill(s) Start Date: 02/16/19 Status: Ordered tramadol 50 mg oral tablet 50 mg, 1 tab, Route: PO, Drug form: TAB, Q6H, Dosing Weight 113.778, kg, PRN Linda n Score 1-3, Start date: 02/11/19 15:47:00 CDT, Duration: 30 day, Stop date: 10/20 15:46:00 CDT Notes: Not to exceed 400mg/day. (Same As: Ultram) Start Date: 02/11/19 Stop Date: 02/16/19 Status: Discontinued Tylenol 1,000 mg, 100 mL, Route: IV, Drug form: INJ, ONCE, Dosing Weight 113.778, kg, St art date: 02/11/19 15:47:00 CDT, Stop date: 02/11/19 15:47:00 CDT Notes: Infuse over 15 minutesDo not exceed 4gm/day of acetaminophen MEDICAT ION WASTE Product Size: 1000 mgProduct Wasted: ___ mg Start Date: 02/11/19 Stop Date: 02/11/19 Status: Completed Results BLOOD BANK RESULTS 1 2 3 Most recent to oldest [Reference Range]: O POS *Unknown* (02/09/19 8:04 AM) ABO/Rh Negative (02/09/19 8:04 AM) Antibody Scrn Product available (02/09/19 1:49 PM) FFP product Product available (02/09/19 1:48 PM) RBC product ELECTROLYTES 1 2 3 Most recent to oldest [Reference Range]: 138 mEq/L (02/16/19 4:34 AM) 137 mEq/L (02/15/19 12:10 AM) 139 mEq/L (02/13/19 11:59 PM) Sodium Lvl [135-145 mEq/L] 4.6 mEq/L (02/16/19 4:34 AM) 3.9 mEq/L (02/15/19 12:10 AM) 4.2 mEq/L (02/13/19 11:59 PM) Potassium Lvl [3.5-5.1 mEq/L] 105 mEq/L (02/16/19 4:34 AM) 103 mEq/L (02/15/19 12:10 AM) 106 mEq/L (02/13/19 11:59 PM) Chloride Lvl [95-109 mEq/L] 28 mEq/L (02/16/19 4:34 AM) 29 mEq/L (02/15/19 12:10 AM) 28 mEq/L (02/13/19 11:59 PM) CO2 [24-32 mEq/L] 9.6 mEq/L *LOW* (02/16/19 4:34 AM) 8.9 mEq/L *LOW* (02/15/19 12:10 AM) 9.2 mEq/L *LOW* (02/13/19 11:59 PM) AGAP [10.0-20.0 mEq/L] CHEM PANEL 1 2 3 Most recent to oldest [Reference Range]: 0.74 mg/dL (02/16/19 4:34 AM) 0.93 mg/dL (02/15/19 12:10 AM) 0.75 mg/dL (02/13/19 11:59 PM) Creatinine Lvl [0.50-1.40 mg/dL] 106 mL/min/1.73m2 1 *NA* (02/16/19 4:34 AM) 94 mL/min/1.73m2 2 *NA* (02/15/19 12:10 AM) 105 mL/min/1.73m2 3 *NA* (02/13/19 11:59 PM) eGFR 21 mg/dL (02/16/19 4:34 AM) 25 mg/dL *HI* (02/15/19 12:10 AM) 19 mg/dL (02/13/19 11:59 PM) BUN [7-22 mg/dL] 33 *HI* (02/12/19 3:10 AM) 37 *HI* (02/11/19 3:00 AM) 26 *HI* (02/10/19 3:48 AM) B/C Ratio [6-25] 104 mg/dL *HI* (02/16/19 4:34 AM) 136 mg/dL *HI* (02/15/19 12:10 AM) 52 mg/dL *LOW* (02/13/19 11:59 PM) Glucose Lvl [70-99 mg/dL] 6.4 g/dL (02/12/19 3:10 AM) 6.2 g/dL *LOW* (02/11/19 3:00 AM) 6.6 g/dL (02/10/19 3:48 AM) Total Protein [6.4-8.4 g/dL] 2.7 g/dL *LOW* (02/12/19 3:10 AM) 3.0 g/dL *LOW* (02/11/19 3:00 AM) 3.3 g/dL *LOW* (02/10/19 3:48 AM) Albumin Lvl [3.5-5.0 g/dL] 3.7 g/dL (02/12/19 3:10 AM) 3.2 g/dL (02/11/19 3:00 AM) 3.3 g/dL (02/10/19 3:48 AM) Globulin [2.7-4.2 g/dL] 0.7 (02/12/19 3:10 AM) 0.9 (02/11/19 3:00 AM) 1.0 (02/10/19 3:48 AM) A/G Ratio [0.7-1.6] 8.6 mg/dL (02/16/19 4:34 AM) 9.1 mg/dL (02/15/19 12:10 AM) 8.6 mg/dL (02/13/19 11:59 PM) Calcium Lvl [8.5-10.5 mg/dL] 4.1 mg/dL (02/16/19 4:34 AM) 4.4 mg/dL (02/15/19 12:10 AM) 3.4 mg/dL (02/13/19 11:59 PM) Phosphorus [2.5-4.5 mg/dL] 2.5 mg/dL *HI* (02/16/19 4:34 AM) 2.5 mg/dL *HI* (02/15/19 12:10 AM) 2.6 mg/dL *HI* (02/13/19 11:59 PM) Magnesium Lvl [1.8-2.4 mg/dL] 12 unit/L (02/12/19 3:10 AM) 14 unit/L (02/11/19 3:00 AM) 14 unit/L (02/10/19 3:48 AM) ALT [0-65 unit/L] 11 unit/L (02/12/19 3:10 AM) 17 unit/L (02/11/19 3:00 AM) 19 unit/L (02/10/19 3:48 AM) AST [0-37 unit/L] 43 unit/L (02/12/19 3:10 AM) 43 unit/L (02/11/19 3:00 AM) 46 unit/L (02/10/19 3:48 AM) Alk Phos [39-136 unit/L] 0.4 mg/dL (02/12/19 3:10 AM) 0.3 mg/dL (02/11/19 3:00 AM) 0.5 mg/dL (02/10/19 3:48 AM) Bili Total [0.2-1.3 mg/dL] 1Result Comment: The eGFR is calculated using [...] be mul tiplied by the estimated BMI. 3Result Comment: The eGFR is calculated using the [...] be mul tiplied by the estimated BMI. LIPIDS 1 2 3 Most recent to oldest [Reference Range]: 2.49 *LOW* (02/11/19 3:00 AM) CHD Risk [4.00-7.30] 112 mg/dL (02/11/19 3:00 AM) Chol [<=199 mg/dL] 116 mg/dL (02/11/19 3:00 AM) Trig [<=149 mg/dL] 45 mg/dL *LOW* (02/11/19 3:00 AM) HDL [>=61 mg/dL] 44 mg/dL (02/11/19 3:00 AM) LDL (Calculated) [<=99 mg/dL] 23 *NA* (02/11/19 3:00 AM) VLDL SPECIAL CHEMISTRY 1 2 3 Most recent to oldest [Reference Range]: 6.1 % *HI* (02/10/19 3:48 AM) Hgb A1C [<=5.6 %] PARATHYROID PROFILE 1 2 3 Most recent to oldest [Reference Range]: 1.08 mMol/L (02/12/19 3:15 AM) Ca Ion WB [1.05-1.25 mMol/L] 1.08 mMol/L (02/12/19 3:15 AM) Ca Norm WB [1.05-1.25 mMol/L] HEMATOLOGY 1 2 3 Most recent to oldest [Reference Range]: 12.1 K/CMM *HI* (02/16/19 4:34 AM) 10.4 K/CMM (02/15/19 12:10 AM) 9.0 K/CMM (02/13/19 11:59 PM) WBC [3.7-10.4 K/CMM] 3.86 M/CMM *LOW* (02/16/19 4:34 AM) 3.90 M/CMM *LOW* (02/15/19 12:10 AM) 3.73 M/CMM *LOW* (02/13/19 11:59 PM) RBC [4.70-6.10 M/CMM] 10.4 g/dL *LOW* (02/16/19 4:34 AM) 10.6 g/dL *LOW* (02/15/19 12:10 AM) 10.2 g/dL *LOW* (02/13/19 11:59 PM) Hgb [14.0-18.0 g/dL] 31.9 % *LOW* (02/16/19 4:34 AM) 32.0 % *LOW* (02/15/19 12:10 AM) 30.6 % *LOW* (02/13/19 11:59 PM) Hct [42.0-54.0 %] 82.7 fL (02/16/19 4:34 AM) 82.0 fL (02/15/19 12:10 AM) 82.1 fL (02/13/19 11:59 PM) MCV [80.0-94.0 fL] 26.8 pg *LOW* (02/16/19 4:34 AM) 27.2 pg (02/15/19 12:10 AM) 27.4 pg (02/13/19 11:59 PM) MCH [27.0-31.0 pg] 32.4 g/dL (02/16/19 4:34 AM) 33.2 g/dL (02/15/19 12:10 AM) 33.3 g/dL (02/13/19 11:59 PM) MCHC [32.0-36.0 g/dL] 15.2 % *HI* (02/16/19 4:34 AM) 15.2 % *HI* (02/15/19 12:10 AM) 15.5 % *HI* (02/13/19 11:59 PM) RDW [11.5-14.5 %] 6.3 fL *LOW* (02/16/19 4:34 AM) 6.5 fL *LOW* (02/15/19 12:10 AM) 6.8 fL *LOW* (02/13/19 11:59 PM) MPV [7.4-10.4 fL] 407 K/CMM (02/16/19 4:34 AM) 462 K/CMM *HI* (02/15/19 12:10 AM) 426 K/CMM (02/13/19 11:59 PM) Platelet [133-450 K/CMM] 67.6 % (02/16/19 4:34 AM) 63.2 % (02/15/19 12:10 AM) 67.8 % (02/13/19 11:59 PM) Segs [45.0-75.0 %] 20.5 % (02/16/19 4:34 AM) 24.4 % (02/15/19 12:10 AM) 20.7 % (02/13/19 11:59 PM) Lymphocytes [20.0-40.0 %] 8.7 % (02/16/19 4:34 AM) 9.0 % (02/15/19 12:10 AM) 9.3 % (02/13/19 11:59 PM) Monocytes [2.0-12.0 %] 2.7 % (02/16/19 4:34 AM) 2.6 % (02/15/19 12:10 AM) 1.7 % (02/13/19 11:59 PM) Eosinophils [0.0-4.0 %] 0.5 % (02/16/19 4:34 AM) 0.8 % (02/15/19 12:10 AM) 0.5 % (02/13/19 11:59 PM) Basophils [0.0-1.0 %] 8.2 K/CMM *HI* (02/16/19 4:34 AM) 6.6 K/CMM (02/15/19 12:10 AM) 6.1 K/CMM (02/13/19 11:59 PM) Neutrophils # [1.5-8.1 K/CMM] 2.5 K/CMM (02/16/19 4:34 AM) 2.5 K/CMM (02/15/19 12:10 AM) 1.9 K/CMM (02/13/19 11:59 PM) Lymphocytes # [1.0-5.5 K/CMM] 1.1 K/CMM *HI* (02/16/19 4:34 AM) 0.9 K/CMM *HI* (02/15/19 12:10 AM) 0.8 K/CMM (02/13/19 11:59 PM) Monocytes # [0.0-0.8 K/CMM] 0.3 K/CMM (02/16/19 4:34 AM) 0.3 K/CMM (02/15/19 12:10 AM) 0.2 K/CMM (02/13/19 11:59 PM) Eosinophils # [0.0-0.5 K/CMM] 0.1 K/CMM (02/16/19 4:34 AM) 0.1 K/CMM (02/15/19 12:10 AM) Basophils # [0.0-0.2 K/CMM] 13.7 seconds (02/11/19 3:00 AM) 14.1 seconds (02/10/19 3:48 AM) 13.2 seconds (02/09/19 7:43 AM) PT [12.0-14.7 seconds] 1.07 (02/11/19 3:00 AM) 1.11 (02/10/19 3:48 AM) 1.02 (02/09/19 7:43 AM) INR [0.85-1.17] 139 seconds *NA* (02/09/19 7:16 PM) POC Activated Clotting Time 33.1 seconds (02/11/19 3:00 AM) 31.5 seconds (02/10/19 3:48 AM) 33.0 seconds (02/09/19 7:43 AM) PTT [22.9-35.8 seconds] Immunizations No data available for this section [...] Reg Smoking Cessation Counseling No2 entered on: 02/09/19 1quit 20 years ago 2no federicanage Assessment and Plan Extracted from: Title: [facility] Progress Note Author: Nichelle Christine Date: 02/16/19 Lauren VILLEGAS History of Present Illness Subjective: No events overnight, on room air. Hemodynamically stable. Ojeda D/Devante, good urine output. Health Status Allergies: Allergic Reactions (Selected) Severity Not Documented NKDA- No reactions were documented., Allergies (1) ActiveReaction NKDANone Documented Current medications: (Selected) Inpatient Medications Ordered ANES ondansetron: 4 mg, 2 mL, IVP, ONCE, PRN: Nausea & Vomiting Benadryl: 25 mg, 1 cap, PO, TID, PRN: Itching Dextrose 50% Syringe: 12.5 gm, 25 mL, IVP, PRN, PRN: Blood Glucose Results Dextrose 50% Syringe: 25 gm, 50 mL, IVP, PRN, PRN: Blood Glucose Results Entresto 24 mg-26 mg oral tablet: 1 tab, PO, Q12H Humalo unit, 0.3 mL, SUB-Q, TID-Before Meals Jardiance 25mg (1 tablet): 25 mg, PO, Daily Index 10/325 oral tablet: 1 tab, PO, Q6H, PRN: Pain Score 4-6 Index 10/325 oral tablet: 2 tab, PO, Q6H, [...] Result minocycline: 100 mg, 1 cap, PO, [id number] potassium chloride 20 mEq oral tablet, extended [...] oral capsule: 100 mg, 1 cap, PO, [id number], for 7 day, 14 cap, 0 Refill(s) [...] mg CAP 100 mg 1 cap, PO, [id number] potassium chloride 20 mEq ERT 20 mEq [...] list: All Problems Anemia / SNOMED CT 350982834 / Confirmed AP (angina pectoris) / SNOMED CT 723516074 / Confirmed Cholesterol / SNOMED CT 788574859 / Confirmed Chronic systolic heart failure / SNOMED CT 6275379471 / Confirmed Diabetes mellitus type 2 / SNOMED CT 433963478 / Confirmed Diabetes / SNOMED CT [id number] / Confirmed Hypertension / SNOMED CT [id number] / Confirmed Obesity / SNOMED CT 7618428151 / Confirmed Sleep apnea / SNOMED CT 018220457 / Confirmed 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 / SNOMED CT 495125899 / Confirmed Resolved: Appendectomy / SNOMED CT 990083112 Canceled: Operation on penis / SNOMED CT 542630645, Active Problems (10) Anemia AP (angina pectoris) Cholesterol Chronic systolic heart failure Diabetes Diabetes mellitus type 2 Hypertension Obesity Sleep apnea 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 Family History: Type 1 diabetes mellitus Sister Brother Mother Father Heart disease Sister Heart attack Brother Procedure history: Cataract extraction and insertion of intraocular lens ([id number]) on 11/02/2017 at 52 Years. Comments: 02/09/2019 08:29 - Kemi Kong RN bilramez ICD - Internal cardiac defibrillator procedure ([id number]) on 02/01/2016 at 50 Years. Appendectomy (214913786). Penis operations (553355570). Cardiac catheterisation (255184686). Social History Social & Psychosocial Habits Alcohol 02/19/2018 Use: Never 02/09/2019 [...] Reg Smoking Cessation Counseling No Comment: no jonn - 02/09/2019 08:04 - Kemi Kong RN . Physical Examination VS/Measurements Measurements from flowsheet : Measurements 02/13/2019 06:07 Heparin Dosing Weight (kg) 88.01 02/13/2019 06:06 Weight 107.926 kg Dosing Weight Difference Percent -5.143 % Dosing Weight Collection Method Measured 02/12/2019 05:33 Weight Collection Method Measured Current Weight 110.114 kg Weight Difference Percent -3.945 % , Vital Signs (last 24 hrs) Last Charted Temp Oral97.2 DegF (FEB 16 12:08) Heart Rate Nzzbuy28 bpm (FEB 16 16:00) Resp Rate 18 BRMIN (FEB 16 16:00) VRP017 mmHg (FEB 16 16:00) DBP66 mmHg (FEB 16 16:00) MgA098 % (FEB 16 10:00) General: Alert and [...] No focal deficits. Psychiatric: Cooperative, Appropriate mood & affect, Normal judgment. Review / Management Results review: Labs (Last four charted values) WBC H 12.1(FEB 16)10.4(JAN 16)9.0(JAN 14)9.9(JAN 14) Hgb L 10.4(JAN 17)L 10.6(JAN 16)L 10.2(JAN 14)L 9.8(JAN 14) Hct L 31.9(JAN 17)L 32.0(JAN 16)L 30.6(JAN 14)L 29.0(JAN 14) Plt 407(JAN 17)H 462(JAN 16)426(JAN 14)349(JAN 14) Na 138(JAN 17)137(JAN 16)139(JAN 14)137(JAN 14) K 4.6(JAN 17)3.9(JAN 16)4.2(JAN 14)4.5(JAN 14) CO2 28(JAN 17)29(JAN 16)28(JAN 14)27(JAN 14) Cl 105(JAN 17)103(JAN 16)106(JAN 14)104(JAN 14) Cr 0.74(JAN 17)0.93(JAN 16)0.75(JAN 14)0.76(JAN 14) BUN 21(JAN 17)H 25(JAN 16)19(JAN 14)H 23(JAN 14) Glucose Random H 104(JAN 17)H 136(JAN 16)L 52(JAN 14)H 120(JAN 14) Mg H 2.5(JAN 17)H 2.5(JAN 16)H 2.6(FEB 13)2.4(FEB 13) Phos 4.1(FEB 16)4.4(JAN 16)3.4(JAN 14)3.2(FEB 13) Ca 8.6(FEB 16)9.1(JAN 16)8.6(JAN 14)L 8.4(FEB 13) PT 13.7(FEB 11)14.1(FEB 10)13.2(FEB 09) INR 1.07(FEB 11)1.11(FEB 10)1.02(FEB 09) PTT 33.1(FEB 11)31.5(FEB 10)33.0(FEB 09). Impression and Plan Mr Mcgill is a [...] as support during the nighttime #Urethral stricture -[facility] following -Underwent cystoscopy dilation with balloon and catheter insertion on 02/09/19- leave in place 7 days per urology - D/Devante Ojeda---> good urine output -Per , patient has dense scar tissue per home urologist and will need additional procedures-- consulted with [facility] and stated can perform as outpatient. Diet: HH/ADA Dispo: discharge today with follow up with HF, HF surgery, EP, Urology and Pulmonology Addendum I saw and examined the patient oliviaDr Nguyen on 02/16/19 and agree with plan and by assessment as above. I personally reviewed the labs, diagnostic imaging and documentation [facility], and discussed the plan of care with team and patient. Beba VILLEGAS on 02/18/2019 02:33 Extracted from: Title: [facility] Consult H&P * Author: Dave Andersen [...] nebs, PT, and ambulation as tolerated. Extracted from: Title: [facility] Cardiovascular Admission Author: Beba Delgado MD Date: 02/09/19 H&P * Impression and Plan Mr Mcgill is a [...] if stable - Holding home metformin - TERRI VILLEGAS + accuchecks - hypoglycemia protocol #Obesity/PAYTON: PSG: moderate PAYTON, sleep related hypoventilation - noninvasive positive pressure ventilation as support during the nighttime Diet: HH/ADA PPx: holding AC overnight due to surgery can restart in AM per surgery team Code: Full Dispo: pending recovery from procedure Pt will be seen and staffed by F in the AM. Pillo Zelaya MD [facility] Cardiovascular Medicine General Instructional Technology Instructor, PGY-4 MSO #: [id number] Extracted from: Title: HF Surgery Author: Juanpablo Bean MD Date: 02/09/19 ADVANCED HEART FAILURE SURGERY BRIEF OP NOTE Preop Diagnosis: Non-ischemic cardiomyopathy, EF 25%, NYHA FC II/III, s/p BSC OFFICE ASSOCIATE-D Postop Diagnosis: same Procedures: Left Thoracotomy, Epicardial Lead placement x2, intercostal nerve block, RV and LV Lead extraction, PPM exchange, Capsulectomy, defibrillator placement (by Dr Ellis, will be dictated separately) Surgeon: Truong Toney MD Receiving Specialist: Juanpablo Bean MD, Marita Lewis PA-C Anesthesia: [...]
--- NOTE | 2019-04-29 17:03 | Diagnostic Imaging Report ---
Examination: Single AP view of the chest. COMPARISON: 01/09/2019 INDICATION: Chest pain DISCUSSION: Interval revision of left subclavian approach implantable cardiac device, now a single lead device with lead projecting over the right atrium. Additional electronic device has been implanted in the left inferolateral chest wall, with the lead projecting over the descending thoracic aorta. Lungs are well-inflated. Linear opacity in the left lung base likely reflects subsegmental atelectasis. No consolidation or pneumothorax. Cardiomediastinal contour and pulmonary vasculature are within normal limits for technique. No acute osseous abnormality. IMPRESSION: Interval revision of implantable cardiac devices as described above. Subsegmental atelectasis in the left lung base. Otherwise no acute cardiopulmonary abnormality. Signed by: Dr. Abad Zacarias M.D. on 04/29/2019 4:59 PM
--- NOTE | 2019-04-29 17:16 | NUR ---
Pt brought to ER 1. RR even and unlabored. NAD noted at the present time. Pt placed on NIBP, pulse ox, and cardiac monitoring. Bed locked in lowest position. Call light in reach. Spouse at bedside. Will continue to monitor.
--- NOTE | 2019-04-29 17:25 | NUR ---
PATIENT TAKEN TO ROOM 1 BY TRI AT THIS TIME.
[2019-04-29 17:49] LABS: BILIRUBIN,URINE NEGATIVE (NEGATIVE); CLARITY,URINE SL CLOUDY (CLEAR); COLOR,URINE YELLOW (YELLOW); KETONES,URINE NEGATIVE (NEGATIVE); LEUKOCYTE ESTERASE ,URINE SMALL (NEGATIVE); NITRITE,URINE POSITIVE (NEGATIVE); PROTEIN,URINE DIPSTICK NEGATIVE (NEGATIVE); URINE UROBILINOGEN 0.2 mg/dL (0.2 - 1)
[2019-04-29 18:00] LABS: BASOPHILS % 0.5 % (0.0-1.0); EOSINOPHILS # (AUTO) 0.3 (0.0-0.4); EOSINOPHILS % 3.4 % (0.0-6.0); HEMATOCRIT 39.6 % (38.2-49.6); HEMOGLOBIN 12.7 g/dL (14.0-18.0); LYMPHOCYTES # (AUTO) 1.8 (1.0-3.2); LYMPHOCYTES % 23.7 % (18.0-39.1); MEAN CORPUSCULAR HEMOGLOBIN 26.5 pg (28-32); MEAN CORPUSCULAR HGB CONC 32.1 g/dL (31-35); MEAN CORPUSCULAR VOLUME 82.7 fL (81-99); MONOCYTES # (AUTO) 0.8 (0.2-0.8); NEUTROPHILS # (AUTO) 4.8 (2.1-6.9); NEUTROPHILS % 61.9 % (38.7-80.0); PLATELET COUNT 294 x10e3/uL (140-360); RED BLOOD COUNT 4.79 x10e6/uL (4.3-5.7); RED CELL DISTRIBUTION WIDTH 13.9 % (11.7-14.4)
[2019-04-29 18:05] LABS: BACTERIA,URINE MANY /HPF; RBC,URINE 0-5 /HPF (0-5)
[2019-04-29 18:20] LABS: ALANINE AMINOTRANSFERASE 12 IU/L (0-55); ALBUMIN/GLOBULIN RATIO 1.1 (0.8-2.0); ANION GAP 14.2 mmol/L (8-16); BLOOD UREA NITROGEN 18 mg/dL (7-26); BUN/CREATININE RATIO 19 (6-25); CALCIUM 9.9 mg/dL (8.4-10.2); CARBON DIOXIDE 26 mmol/L (22-29); CHLORIDE 105 mmol/L (98-107); CREATININE, SERUM 0.93 mg/dL (0.72-1.25); EST GLOMERULAR FILTRATION RATE > 60 ML/MIN (60-); GLUCOSE 118 mg/dL (74-118); POTASSIUM 4.2 mmol/L (3.5-5.1); SODIUM 141 mmol/L (136-145)
[2019-04-29 18:28] LABS: INR 0.82; PROTHROMBIN TIME 11.8 seconds (11.9-14.5)
[2019-04-29] MEDS ORDERED: FAMOTIDINE 20 MG/2 ML VIAL IV SCH (19:45)
[2019-04-29] MEDS ORDERED: DEXTROSE 50% SYRINGE 50 ML IV PRN (19:45)
[2019-04-29] MEDS ORDERED: NITROGLYCERIN 0.4 MG SUBL SL PRN (19:45)
[2019-04-29] MEDS ORDERED: MORPHINE SULFATE 2 MG/ML SYR 1ML IV PRN (19:45)
[2019-04-29] MEDS ORDERED: ONDANSETRON HCL INJ 2MG/ML 2ML 2 MG/ML VIAL IV PRN (19:45)
[2019-04-29] MEDS ORDERED: FINASTERIDE5 MG PO (19:58)
[2019-04-29] MEDS ORDERED: FLOMAX0.4 MG PO (19:59)
[2019-04-29] MEDS ORDERED: POTASSIUM CHLO20 ME1 PO (20:00)
[2019-04-29] MEDS ORDERED: MORPHINE SULFATE INJ 4 MG/ML INJ 1ML IV PRN (20:00)
[2019-04-29] MEDS ORDERED: LASIX20 MG PO (20:03)
[2019-04-29] MEDS ORDERED: TOPROL XL50 MG PO (20:05)
--- OUTSIDE RECORDS SUMMARY | 2019-04-29 20:10 | XMS REPORT | Clinical Summary ---
Author Author [facility] Address Unknown Phone Unavailable Care Team Providers [employer] Rec[employer]iter Name Role Phone PCP Unavailable Allergies No [...] ID Type Phone Address Plan / Group ON LICENSE OF [facility] xxxxxxxxxxxx HMO/POS [phone] [facility] CHOICE EXCHANGE
--- OUTSIDE RECORDS SUMMARY | 2019-04-29 20:13 | XMS REPORT | Continuity of Care Document ---
Author Author [employer] Address Unknown Phone Unavailable Care Team Providers Care Digital Performance Analyst Name Role Phone Zeis Excelsa Unavailable Unavailable Problems Problem Status Onset Date Classification Date Reported Comments Source DX: URINARY TRACT INFECTION, SITE NOT SP Active 03/30/2019 [facility] FOLLOW UP SURGERY ON 02/09 Active 02/28/2019 [facility] DISPLACEMENT OF CARDIAC ELECTRODE, INITI Active 01/17/2019 [facility] PER DR/PALPITATIONS Active 01/17/2019 [facility] Dilated cardiomyopathy 10/19/2018 04/21/2019 [facility] Atherosclerotic heart disease of [place] coronary artery without angina pectoris 10/01/2018 04/13/2019 [facility] ACUTE CHEST PAIN Active 09/23/2018 [facility] CHEST PAINS Active 09/23/2018 [facility] ICD UPGRADE Active 09/17/2018 [facility] LT HEART CATH Active 09/13/2018 [facility] Benign neoplasm of colon, unspecified 05/25/2018 12/06/2018 [facility] D50.9 / A04.8 / D12.6 / E66.9 / I25.10 / Active 04/28/2018 [facility] UNK Active 01/28/2018 [facility] Discharge Diagnosis: Change in blood pressure 09/17/2017 09/20/2017 [facility] SENT BY PCP/LOW BLOOD PRESSURE Active 09/17/2017 [facility] CHEST PAIN Active 07/21/2017 [facility] FOLLOW UP Active 07/14/2017 [facility] DX: I25.10=/ I73.9= W/VEIN MAPPING Active 07/08/2017 [facility] 3 WEEK FOLLOW UP Active 06/02/2017 [facility] FOLLOW UP. PT IS DOING A CPX ON THE SAME Active 05/25/2017 [facility] PET SCAN RESULTS Active 04/27/2017 [facility] CHF Active 02/18/2017 [facility] Discharge Diagnosis: Atypical chest pain 08/20/2016 08/23/2016 [facility] LEFT SIDE PAIN Active 08/20/2016 [facility] Discharge Diagnosis: Acute pain of right shoulder 07/13/2016 07/16/2016 [facility] BACK PAIN Active 07/12/2016 [facility] E11.9 Active 01/31/2016 [facility] I50.22/I42.0 Active 01/21/2016 [facility] CHF, CAD Active 12/12/2015 [facility] CHF Active 10/06/2015 Problem 01/12/2019 [facility] APNEA Active 11/02/2000 [facility] Appendectomy Resolved Problem 04/21/2019 [facility] Cholesterol Active Problem 04/21/2019 [facility] Diabetes Active Problem 04/21/2019 [facility] Diabetes mellitus type 2 Active Problem 04/21/2019 [facility] Hypertension Active Problem 04/21/2019 [facility] Obesity Active Problem 04/21/2019 [facility] Operation on penis Resolved Problem 02/13/2017 [facility] Chronic systolic heart failure Active Problem 04/21/2019 [facility] Final: Chest pain, unspecified 07/25/2017 [facility] Anemia Active Problem 04/21/2019 [facility] Sleep apnea Active Problem 04/21/2019 [facility] AP (Confirmed) Active Problem 04/21/2019 [facility] 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 Active Problem 04/21/2019 [facility] Hypertensive heart disease with heart failure 04/21/2019 [facility] Acute on chronic systolic heart failure 04/21/2019 [facility] Left bundle-branch block, unspecified 04/21/2019 [facility] Atherosclerotic heart disease of [place] coronary artery with other forms of angina pectoris 04/21/2019 [facility] Type 2 diabetes mellitus without complications 04/21/2019 [facility] Pure hypercholesterolemia, unspecified 04/21/2019 [facility] Obstructive sleep apnea (pediatric) 04/21/2019 [facility] lobsterman use of aspirin 04/21/2019 [facility] intermediate use of antithrombotics/antiplatelets 04/21/2019 [facility] lobsterman use of insulin 04/21/2019 [facility] Other care home drug therapy 04/21/2019 [facility] Chronic systolic heart failure 04/13/2019 [facility] Obesity, unspecified 04/13/2019 [facility] Hyperlipidemia, unspecified 04/13/2019 [facility] Chronic total occlusion of coronary artery 04/13/2019 [facility] Body mass index 34.0-34.9, adult 04/13/2019 [facility] Other specified bacterial intestinal infections 12/06/2018 [facility] Abnormal findings on diagnostic imaging of other abdominal regions, including retroperitoneum 12/06/2018 [facility] Abnormal radiologic findings on diagnostic imaging of renal pelvis, ureter, or bladder 12/06/2018 [facility] Presence of automatic cardiac defibrillator 12/06/2018 [facility] lobsterman use of anticoagulants 12/06/2018 [facility] Heart failure, unspecified 12/06/2018 [facility] Body mass index 36.0-36.9, adult 12/06/2018 [facility] Iron deficiency anemia, unspecified 12/06/2018 [facility] Acute hemorrhagic cystitis Active Problem 01/12/2019 [facility] Encounter for interrogation of cardiac pacemaker Active Problem 01/12/2019 [facility] ACUTE BRONCHITIS Active [facility] CHEST PAIN, UNSPECIFIED Active [facility] DISPLACEMENT OF CARDIAC ELECTRODE, INITI Active [facility] Medications Medication Details Route Status Patient [...] Municipal Trash Bin No Longer Active 04/08/2019 [facility] Omnipaque 300 10 mL, Route: Transurethral, Dosing Weight 105.085, kg, ONCE, Start date: 04/08/19 8:40:00 CDT, Stop date: 04/08/19 8:40:00 CDT Inactive 04/08/2019 [facility] tramadol hydrochloride 50 MG Oral Tablet 50 mg=1 tab, PO, Q8H, PRN Pain Score 1-3, # 30 tab, 0 Refill(s) Active 02/16/2019 [facility] Folic Acid 1 MG Oral Tablet 1 mg=1 tab, PO, Daily, # 90 tab, 4 Refill(s) Active 02/16/2019 [facility] ferrous sulfate 325 mg oral enteric coated tablet 325 mg=1 tab, PO, BID, # 90 tab, 4 Refill(s) Active 02/16/2019 [facility] atorvastatin 40 mg oral tablet 60 mg, PO, Daily, # 90 tab, 4 Refill(s) Active 02/16/2019 [facility] Aspirin 81 MG Enteric Coated Tablet 81 mg, PO, Daily, # 90 tab, 4 Refill(s) Active 02/16/2019 [facility] ascorbic acid 1000 mg oral tablet 1,000 mg=1 tab, PO, BID, # 90 tab, 4 Refill(s) Active 02/16/2019 [facility] Docusate Sodium 100 MG Oral Capsule 100 mg=1 cap, PO, BID, # 90 cap, 4 Refill(s) Active 02/16/2019 [facility] Insulin Glargine 100 UNT/ML Injectable Solution 30 unit, SUB-Q, Daily, # 15 mL, 4 Refill(s) Active 02/16/2019 [facility] Insulin Lispro 100 UNT/ML Injectable Solution 30 unit, SUB-Q, TID-Before Meals, # 15 mL, 4 Refill(s) Active 02/16/2019 [facility] minocycline 100 mg oral capsule 100 mg=1 cap, PO, [id number], X 7 day, # 14 cap, 0 Refill(s) Active 02/16/2019 [facility] potassium chloride 20 mEq oral tablet, extended release 20 mEq=1 tab, PO, Daily, # 90 tab, 4 Refill(s) Active 02/16/2019 [facility] sennosides, SENIOR LIVING 8.6 MG Oral Tablet 8.6 mg=1 tab, PO, Daily, # 90 tab, 4 Refill(s) Active 02/16/2019 [facility] spironolactone 25 mg oral tablet 25 mg=1 tab, PO, Daily, # 90 tab, 4 Refill(s) Active 02/16/2019 [facility] empagliflozin 25 MG Oral Tablet [Jardiance] 25 mg=1 tab, PO, QAM, # 90 tab, 4 Refill(s) Active 02/16/2019 [facility] sacubitril 24 MG / valsartan 26 MG Oral Tablet [Entresto] 1 tab, PO, Q12H, # 180 tab, 4 Refill(s) Active 02/16/2019 [facility] 24 HR Metoprolol Tartrate 25 MG Extended Release Tablet [Toprol] 25 mg=1 tab, PO, BID, # 180 tab, 4 Refill(s) Active 02/16/2019 [facility] Furosemide 20 MG Oral Tablet 60 mg=3 tab, PO, Daily, # 270 tab, 4 Refill(s) Active 02/16/2019 [facility] gabapentin 300 MG Oral Capsule 300 mg=1 cap, PO, TID, # 90 cap, 4 Refill(s) Active 02/16/2019 [facility] 24 HR Metoprolol Tartrate 25 MG Extended Release Tablet [Toprol] 25 mg, 1 tab, Route: PO, Drug form: ERTAB, BID, Start date: 02/15/19 17:00:00 CDT, Duration: 30 day, Stop date: 03/17/19 9:00:00 CDTNotes: (Same as: Toprol XL) Do Not Crush No Longer Active 02/15/2019 [facility] ferrous sulfate 300 mg, 5 mL, Route: PO, Drug form: LIQ, BID, Dosing Weight 107.727, kg, Start date: 02/12/19 10:30:00 CDT, Duration: 30 day, Stop date: 03/14/19 9:00:00 CDTNotes: Give with food. iron elemental 12mg /eu=567iw/5ml as ferrous sulfate No Longer Active 02/12/2019 [facility] potassium chloride 20 mEq oral tablet, [...] Patients with feeding tube less than 14 English (Dobhoff, J-tube etc) and pediatric and patients. No Longer Active 02/12/2019 [facility] tramadol hydrochloride 50 MG Oral Tablet 50 mg, 1 tab, Route: PO, Drug form: TAB, Q6H, Dosing Weight 113.778, kg, PRN Pain Score 1-3, Start date: 02/11/19 15:47:00 CDT, Duration: 30 day, Stop date: 03/13/19 15:46:00 CDTNotes: Not to exceed 400mg/day. (Same As: Ultram) No Longer Active 02/11/2019 [facility] Tylenol 1,000 mg, 100 mL, Route: IV, Drug form: INJ, ONCE, Dosing Weight 113.778, kg, Start date: 02/11/19 15:47:00 CDT, Stop date: 02/11/19 15:47:00 CDTNotes: Infuse over 15 minutes Do not exceed 4gm/day of a cetaminophen MEDICATION WASTE Product Size: 1000 mg Product Wasted: ___ mg Inactive 02/11/2019 [facility] gabapentin 100 MG Oral Capsule 300 mg, 1 cap, Route: PO, Drug form: CAP, TID, Dosing Weight 107.727, kg, Start date: 02/11/19 13:00:00 CDT, Duration: 30 day, Stop date: 03/13/19 9:00:00 CDTNotes: (Same as: Neurontin) No Longer Active 02/11/2019 [facility] sennosides, SENIOR LIVING 8.6 MG Oral Tablet 8.6 mg, 1 tab, Route: PO, Drug Form: TAB, Dosing Weight 113.778, kg, Daily, Start date: 02/11/19 11:03:00 CDT, Duration: 30 day, Stop date: 03/13/19 9:00:00 CDTNotes: (Same as: Senokot) No Longer Active 02/11/2019 [facility] Docusate Sodium 100 MG Oral Capsule 100 mg, 1 cap, Route: PO, Drug form: CAP, BID, Dosing Weight 113.778, kg, Start date: 02/11/19 11:03:00 CDT, Duration: 30 day, Stop date: 03/13/19 9:00:00 CDTNotes: (Same as: Colace) (Do Not Crush) No Longer Active 02/11/2019 [facility] Lidocaine 0.05 MG/MG Transdermal Patch 1 patch, Route: TOP, Daily, Drug form: FILM, Start date: 02/11/19 11:02:00 CDT, Duration: 30 day, Stop date: 03/13/19 9:00:00 CDTNotes: Apply only once for up to 12 hours in a 24-hour period (12 hours on and 12 hours off). (Same as: Lidoderm) "Remove old patch before application of new patch" No Longer Active 02/11/2019 [facility] potassium chloride 20 mEq oral tablet, [...] Patients with feeding tube less than 14 English (Dobhoff, J-tube etc) and pediatric and patients. Inactive 02/11/2019 [facility] ferrous sulfate 325 mg, 1 tab, Route: PO, Drug form: ECTAB, BID, Dosing Weight 107.727, kg, Start date: 02/11/19 10:00:00 CDT, Duration: 30 day, Stop date: 03/13/19 9:00:00 CDT No Longer Active 02/11/2019 [facility] Aspirin 81 mg, 1 tab, Route: PO, Drug form: ECTAB, Daily, Dosing Weight 113.778, kg, Start date: 02/11/19 9:00:00 CDT, Duration: 30 day, Stop date: 03/12/19 9:00:00 CDTNotes: Do not crush or chew. (Same As: Ecotrin) No Longer Active 02/11/2019 [facility] Jardiance 25mg (1 tablet) Jardiance 25mg (1 tablet), 25 mg, Drug form: MISC, Route: PO, Daily, 02/11/19 9:00:00 CDT, Duration: 30 day, Stop date: 03/12/19 9:00:00 CDT No Longer Active 02/11/2019 [facility] 24 HR Metoprolol Tartrate 25 MG Extended Release Tablet [Toprol] 25 mg, 1 tab, Route: PO, Drug form: ERTAB, ONCE, Start date: 02/11/19 2:53:00 CDT, Stop date: 02/11/19 2:53:00 CDTNotes: (Same as: Toprol XL) Do Not Crush Inactive 02/11/2019 [facility] Furosemide 20 MG Oral Tablet 60 mg, 3 tab, Route: PO, Drug form: TAB, Daily, Dosing Weight 113.778, kg, Start date: 02/10/19 13:43:00 CDT, Duration: 30 day, Stop date: 03/12/19 9:00:00 CDTNotes: (Same as: Lasix) May cause GI upset. Give with food or milk. No Longer Active 02/10/2019 [facility] Benadryl 25 mg, 1 cap, Route: PO, Drug form: CAP, PRN, Dosing Weight 113.778, kg, PRN Itching, Start date: 02/10/19 12:07:00 CDT, Duration: 30 day, Stop date: 03/12/19 12:06:00 CDTNotes: (Same as: Benadryl) No Longer Active 02/10/2019 [facility] empagliflozin 25 MG Oral Tablet [Jardiance] 25 mg=1 tab, PO, QAM, 0 Refill(s) No Longer Active 02/10/2019 [facility] Insulin Lispro 5 unit, Route: SUB-Q, TID-Before Meals, Dosing Weight 113.778, kg, Start date: 02/10/19 11:30:00 CDT, Duration: 30 day, Stop date: 03/12/19 7:30:00 CDT Inactive 02/10/2019 [facility] Minocycline 100 mg, 1 cap, Route: PO, Drug form: CAP, [id number], Dosing Weight 113.778, kg, Start date: 02/10/19 10:00:00 CDT, Duration: 14 day, Stop date: 02/23/19 22:00:00 CDTNotes: (Same as:Minocin) No milk/an tacids/iron. No Longer Active 02/10/2019 [facility] Spironolactone 25 mg, 1 tab, Route: PO, Drug form: TAB, Daily, Dosing Weight 113.778, kg, Start date: 02/10/19 9:22:00 CDT, Duration: 30 day, Stop date: 03/12/19 9:00:00 CDTNotes: (Same As: Aldactone) No Longer Active 02/10/2019 [facility] 24 HR Metoprolol Tartrate 25 MG Extended Release Tablet [Toprol] 25 mg, 1 tab, Route: PO, Drug form: ERTAB, Daily, Start date: 02/10/19 9:16:00 CDT, Duration: 30 day, Stop date: 03/12/19 9:00:00 CDTNotes: (Same as: Toprol XL) Do Not Crush No Longer Active 02/10/2019 [facility] insulin glargine 30 unit, 0.3 mL, Route: SUB-Q, Drug form: SOLN, Daily, Start date: 02/10/19 9:00:00 CDT, Duration: 30 day, Stop date: 03/11/19 9:00:00 CDTNotes: (Same as: Lantus) Do not hold insulin without contacting prescriber WASTE: F/P - Black; E - Municipal Trash Bin "single patient use only" No Longer Active 02/10/2019 [facility] gabapentin 100 MG Oral Capsule 100 mg, 1 cap, Route: PO, Drug form: CAP, Daily, Dosing Weight 107.727, kg, Start date: 02/10/19 9:00:00 CDT, Duration: 30 day, Stop date: 03/11/19 9:00:00 CDTNotes: (Same as: Neurontin) No Longer Active 02/10/2019 [facility] Folic Acid 1 mg, 1 tab, Route: PO, Drug form: TAB, Daily, Dosing Weight 107.727, kg, Start date: 02/10/19 9:00:00 CDT, Duration: 30 day, Stop date: 03/11/19 9:00:00 CDTNotes: (Same as: Folvite) No Longer Active 02/10/2019 [facility] ferrous sulfate 325 mg, 1 tab, Route: PO, Drug form: ECTAB, BID, Dosing Weight 107.727, kg, Start date: 02/10/19 9:00:00 CDT, Duration: 30 day, Stop date: 03/11/19 17:00:00 CDT No Longer Active 02/10/2019 [facility] Azo-Cranberry Route: PO, Dosing Weight 107.727, kg, TID, Start date: 02/10/19 9:00:00 CDT, Duration: 30 day, Stop date: 03/11/19 17:00:00 CDT No Longer Active 02/10/2019 [facility] ascorbic acid 1,000 mg, 2 tab, Route: PO, Drug form: TAB, BID, Dosing Weight 107.727, kg, Start date: 02/10/19 9:00:00 CDT, Duration: 30 day, Stop date: 03/11/19 17:00:00 CDTNotes: (Same as: Vitamin C) No Longer Active 02/10/2019 [facility] NovoLog Route: SUB-Q, TID-Before Meals, Dosing Weight 107.727, kg, Start date: 02/10/19 7:30:00 CDT, Duration: 30 day, Stop date: 03/11/19 16:30:00 CDT No Longer Active 02/10/2019 [facility] Humalog 30 unit, 0.3 mL, Route: [...] days from Date No Longer Active 02/10/2019 [facility] sacubitril 24 MG / valsartan 26 MG Oral Tablet [Entresto] 1 tab, Route: PO, Drug Form: TAB, Dosing Weight 107.727, kg, Q12H, Start date: 02/09/19 21:00:00 CDT, Duration: 30 day, Stop date: 03/11/19 9:00:00 CDT No Longer Active 02/10/2019 [facility] Levemir 25 unit, Route: SUB-Q, Bedtime, Dosing Weight 107.727, kg, Start date: 02/09/19 21:00:00 CDT, Duration: 30 day, Stop date: 03/10/19 21:00:00 CDT Inactive 02/10/2019 [facility] atorvastatin 60 mg, 3 tab, Route: PO, Drug form: TAB, Bedtime, Dosing Weight 107.727, kg, Start date: 02/09/19 21:00:00 CDT, Duration: 30 day, Stop date: 03/10/19 21:00:00 CDTNotes: (Same As: Lipitor) No Longer Active 02/10/2019 [facility] Acetaminophen 325 MG / Hydrocodone Bitartrate 10 MG Oral Tablet [Plano 10/325] 2 tab, Route: PO, Drug Form: TAB, Dosing Weight 107.727, kg, Q6H, PRN Pain Score 7-10, Start date: 02/09/19 20:03:00 CDT, Duration: 30 day, Stop date: 03/11/19 20:02:00 CDTNotes: Do not exceed 4gm/day of acetaminophen. (Same as: Plano 325/10) No Longer Active 02/10/2019 [facility] Benadryl 25 mg, 1 cap, Route: PO, Drug form: CAP, ONCE, Dosing Weight 107.727, kg, Start date: 02/09/19 19:49:00 CDT, Stop date: 02/09/19 19:49:00 CDTNotes: (Same as: Benadryl) Inactive 02/10/2019 [facility] Calcium Gluconate 3 gm, 30 mL, Route: IVPB, Drug form: INJ, PRN, Dosing Weight 107.727, kg, PRN Abnormal Lab Result, For NON-ICU Patients Only., Start date: 02/09/19 19:40:00 CDT, Duration: 30 day, Stop date: 03/11/19 19:39:00 CDTNotes: WASTE: F/P - Sink; E - Municipal Trash Bin No Longer Active 02/10/2019 [facility] Potassium Chloride 20 mEq, 15 mL, Route: NJ, Drug form: LIQ, PRN, Dosing Weight 107.727, kg, PRN Abnormal Lab Result, For NON-ICU Patients Only, Start date: 02/09/19 19:40:00 CDT, Duration: 30 day, Stop date: 03/11/19 19:39:00 CDTNotes: (Same as: Potassium Chloride) No Longer Active 02/10/2019 [facility] potassium phosphate 15 mmol, 5 mL, [...] over 4 hours No Longer Active 02/10/2019 [facility] potassium phosphate-sodium phosphate 250 mg-280 mg-160 [...] water and stir. No Longer Active 02/10/2019 [facility] sodium phosphate 15 mmol, 5 mL, [...] lumen from TPN. No Longer Active 02/10/2019 [facility] Magnesium Sulfate 2 gm, 50 mL, Route: IVPB, Drug form: INJ, PRN, Dosing Weight 107.727, kg, PRN Abnormal Lab Result, For NON-ICU Patients Only., Start date: 02/09/19 19:40:00 CDT, Duration: 30 day, Stop date: 03/11/19 19:39:00 CDTNotes: WASTE: F/P - Sink; E - Municipal Trash Bin No Longer Active 02/10/2019 [facility] Magnesium Oxide 800 mg, 2 tab, Route: PO, Drug form: TAB, PRN, Dosing Weight 107.727, kg, PRN Abnormal Lab Result, For NON-ICU Patients Only., Start date: 02/09/19 19:40:00 CDT, Duration: 30 day, Stop date: 03/11/19 19:39:00 CDTNotes: (Same as: Mag-Ox 400) Magnesium oxide [id number] elemental magnesium Dose=____mg magnesium oxide (___mg elemental magnesium) No Longer Active 02/10/2019 [facility] Insulin Lispro 4 unit, 0.04 mL, [...] days from Date No Longer Active 02/09/2019 [facility] Glucagon 1 mg, Route: IM, Drug form: PDR/INJ, PRN, Dosing Weight 107.727, kg, PRN Blood Glucose Results, Start date: 02/09/19 18:20:00 CDT, Duration: 30 day, Stop date: 03/11/19 18:19:00 CDT No Longer Active 02/09/2019 [facility] Dextrose 50% Syringe 12.5 gm, 25 mL, Route: IVP, Drug Form: INJ, Dosing Weight 107.727, kg, PRN, PRN Blood Glucose Results, Start date: 02/09/19 18:20:00 CDT, Duration: 30 day, Stop date: 03/11/19 18:19:00 CDT No Longer Active 02/09/2019 [facility] glycopyrrolate (ANES) Route: IV, Drug form: INJ, ONCE, Stop date: 02/09/19 16:51:00 CDT Inactive 02/09/2019 [facility] neostigmine (ANES) Route: IV, Drug form: INJ, ONCE, Stop date: 02/09/19 16:41:00 CDT Inactive 02/09/2019 [facility] ondansetron (ANES) Route: IV, Drug form: INJ, ONCE, Stop date: 02/09/19 16:01:00 CDT Inactive 02/09/2019 [facility] Hydralazine 10 mg, 0.5 mL, Route: IVP, Drug form: INJ, Q20Min, Dosing Weight 107.727, kg, PRN Elevated BP, Start date: 02/09/19 15:27:00 CDT, Duration: 2 doses or times, Stop date: 02/10/19 0:00:00 CDTNotes: (Same as: Apresoline) Push over 5 minutes No Longer Active 02/09/2019 [facility] esmolol 10 mg, 1 mL, Route: IVP, Drug form: INJ, Q5Min, Dosing Weight 107.727, kg, PRN Other -See Comment, Start date: 02/09/19 15:27:00 CDT, Duration: 5 doses or times, Stop date: 02/10/19 0:00:00 CDTNotes: (Same as: Brevibloc) No Longer Active 02/09/2019 [facility] Oxycodone 10 mg, 2 tab, Route: PO, Drug form: TAB, Q4H, Dosing Weight 107.727, kg, PRN Pain Score 7-10, Start date: 02/09/19 15:27:00 CDT, Stop date: 02/10/19 0:00:00 CDTNotes: (Same as: Roxicodone) No Longer Active 02/09/2019 [facility] Hydromorphone 0.5 mg, Route: IVP, Q5Min, Dosing Weight 107.727, kg, PRN Pain Score 7-10, Start date: 02/09/19 15:27:00 CDT, Duration: 4 doses or times, Stop date: Limited # of times Inactive 02/09/2019 [facility] Labetalol 10 mg, 2 mL, Route: IVP, Drug form: INJ, Q5Min, Dosing Weight 107.727, kg, PRN Elevated BP, Start date: 02/09/19 15:27:00 CDT, Duration: 5 doses or times, Stop date: 02/10/19 0:00:00 CDT No Longer Active 02/09/2019 [facility] Metoprolol 1 mg, 1 mL, Route: IVP, Drug form: INJ, Q5Min, Dosing Weight 107.727, kg, PRN Other -See Comment, Start date: 02/09/19 15:27:00 CDT, Duration: 5 doses or times, Stop date: 02/10/19 0:00:00 CDTNotes: (Same as: Lopressor) Push over 2 minutes No Longer Active 02/09/2019 [facility] Flumazenil 0.2 mg, 2 mL, Route: IVP, Drug form: INJ, PRN, Dosing Weight 107.727, kg, PRN Benzodiazepine Reversal, Initial dose, Start date: 02/09/19 15:27:00 CDT, Stop date: 02/10/19 0:00:00 CDTNotes: (Same as: Romazicon) No Longer Active 02/09/2019 [facility] Naloxone 0.4 mg, 1 mL, Route: IVP, Drug form: INJ, Q2MIN, Dosing Weight 107.727, kg, PRN Narcotic Reversal, Start date: 02/09/19 15:27:00 CDT, Duration: 8 doses or times, Stop date: 02/10/19 0:00:00 CDTNotes: Same as Narcan No Longer Active 02/09/2019 [facility] Ondansetron 4 mg, 2 mL, Route: IVP, Drug form: INJ, ONCE, Dosing Weight 107.727, kg, PRN Nausea & Vomiting, Start date: 02/09/19 15:27:00 CDTNotes: (Same as: Zofran) MEDICATION WASTE Product Size: 4 mg Product Wasted: ___ mg No Longer Active 02/09/2019 [facility] acetaminophen (ANES) Route: IV, Drug form: INJ, ONCE, Stop date: 02/09/19 15:16:00 CDT Inactive 02/09/2019 [facility] niCARdipine (ANES) Route: IV, Drug form: INJ, ONCE, Stop date: 02/09/19 14:21:00 CDT Inactive 02/09/2019 [facility] propofol (ANES) Route: IV, Drug form: INJ, ONCE, Stop date: 02/09/19 12:05:00 CDT Inactive 02/09/2019 [facility] lidocaine (ANES) Route: IV, Drug form: INJ, ONCE, Stop date: 02/09/19 11:30:00 CDT Inactive 02/09/2019 [facility] cisatracurium (ANES) Route: IV, Drug form: INJ, ONCE, Stop date: 02/09/19 11:30:00 CDT Inactive 02/09/2019 [facility] fentaNYL (ANES) Route: IV, Drug form: INJ, ONCE, Stop date: 02/09/19 11:30:00 CDT Inactive 02/09/2019 [facility] ceFAZolin (ANES) Route: IV, Drug form: INJ, ONCE, Stop date: 02/09/19 11:30:00 CDT Inactive 02/09/2019 [facility] midazolam (ANES) Route: IV, Drug form: SOLN, ONCE, Stop date: 02/09/19 11:15:00 CDT Inactive 02/09/2019 [facility] Sodium Chloride 0.9% IV (ANES) 1000 mL Route: IV, Total Volume: 1,000, Start date: 02/09/19 10:42:00 CDT, Stop date: 02/09/19 11:42:00 CDT Inactive 02/09/2019 [facility] ascorbic acid 1000 mg oral tablet 1,000 mg=1 tab, PO, BID, # 30 tab, 0 Refill(s) No Longer Active 02/09/2019 [facility] metoprolol succinate 25 mg oral capsule, extended release 25 mg=1 cap, PO, Daily, 0 Refill(s) No Longer Active 02/09/2019 [facility] sacubitril 24 MG / valsartan 26 MG Oral Tablet [Entresto] 1 tab, PO, BID, # 56 tab, 0 Refill(s) No Longer Active 02/09/2019 [facility] Furosemide 60 mg, PO, Daily, 0 Refill(s) No Longer Active 02/09/2019 [facility] Metoprolol Tartrate 50 Mg Tablet, 50 Mg Oral Twice A Day Active 01/12/2019 [facility] Losartan Potassium 25 Mg Tablet, 25 Mg Oral Daily Active 12/30/2018 [facility] Metformin hydrochloride 1000 MG Oral Tablet [Glucophage] 1,000 mg, 2 tab, Route: PO, Drug form: TAB, BID, Dosing Weight 109.091, kg, Start date: 10/02/18 9:00:00 FILM PRODUCER, Duration: 30 day, Stop date: 10/31/18 17:00:00 CSTNotes: (Same as: Glucophage) Take with meal Inactive 10/02/2018 [facility] Imdur 30 mg, 1 tab, Route: PO, Drug form: ERTAB, QAM, Dosing Weight 109.091, kg, Start date: 10/02/18 9:00:00 FILM PRODUCER, Duration: 30 day, Stop date: 10/31/18 9:00:00 CSTNotes: (Same as:Imdur) "Do Not Crush" Take on empty stomach/ full glass of water. 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 Give with food or milk. Inactive 10/02/2018 [facility] Folic Acid 1 mg, 1 tab, Route: PO, Drug form: TAB, Daily, Dosing Weight 109.091, kg, Start date: 10/02/18 9:00:00 FILM PRODUCER, Duration: 30 day, Stop date: 10/31/18 9:00:00 CSTNotes: (Same as: Folvite) Inactive 10/02/2018 [facility] ferrous sulfate 325 mg, 1 tab, Route: PO, Drug form: ECTAB, BID, Dosing Weight 109.091, kg, Start date: 10/02/18 9:00:00 FILM PRODUCER, Duration: 30 day, Stop date: 10/31/18 17:00:00 CSTNotes: Give with food. "Do Not Crush" Inactive 10/02/2018 [facility] atorvastatin 60 mg, 1.5 tab, Route: PO, Drug form: TAB, Daily, Dosing Weight 109.091, kg, Start date: 10/02/18 9:00:00 FILM PRODUCER, Duration: 30 day, Stop date: 10/31/18 9:00:00 CSTNotes: (Same as: Lipitor) Inactive 10/02/2018 [facility] Aspirin 81 mg, 1 tab, Route: PO, Drug form: ECTAB, Daily, Dosing Weight 109.091, kg, Start date: 10/02/18 9:00:00 FILM PRODUCER, Duration: 30 day, Stop date: 10/31/18 9:00:00 CSTNotes: Do not crush or chew. (Same As: Ecotrin) Inactive 10/02/2018 [facility] insulin glargine 50 unit, 0.5 mL, Route: SUB-Q, Drug form: SOLN, Daily, Start date: 10/02/18 9:00:00 FILM PRODUCER, Duration: 30 day, Stop date: 10/31/18 9:00:00 CSTNotes: (Same as: Lantus) Do not hold insulin without contacting prescriber WASTE: F/P - Black; E - [facility] Trash Bin "single patient use only" Inactive 10/02/2018 [facility] Spironolactone 25 mg, 1 tab, Route: PO, Drug form: TAB, Daily, Dosing Weight 109.091, kg, Start date: 10/02/18 9:00:00 FILM PRODUCER, Duration: 30 day, Stop date: 10/31/18 9:00:00 CSTNotes: (Same As: Aldactone) Inactive 10/02/2018 [facility] 24 HR Metoprolol Tartrate 50 MG Extended Release Tablet [Toprol] 50 mg, 1 tab, Route: PO, Drug form: ERTAB, Daily, Start date: 10/02/18 9:00:00 FILM PRODUCER, Duration: 30 day, Stop date: 10/31/18 9:00:00 CSTNotes: (Same as: Toprol XL) May split tab, but do not crush. Inactive 10/02/2018 [facility] Minocycline 100 mg, 2 cap, Route: PO, Drug form: CAP, [id number], Dosing Weight 109.091, kg, Start date: 10/02/18 9:00:00 FILM PRODUCER, Duration: 7 day, Stop date: 10/08/18 21:00:00 CSTNotes: (Same as:Minocin) No milk/antacids/iron. Inactive 10/02/2018 [facility] NovoLog Route: SUB-Q, TID-Before Meals, Dosing Weight 109.091, kg, Start date: 10/02/18 7:30:00 FILM PRODUCER, Duration: 30 day, Stop date: 10/31/18 16:30:00 FILM PRODUCER No Longer Active 10/02/2018 [facility] Humalog 40 unit, 0.4 mL, Route: SUB-Q, Drug form: SOLN, TID-Before Meals, Start date: 10/02/18 7:30:00 FILM PRODUCER, Duration: 30 day, Stop date: 10/31/18 16:30:00 CSTNotes: (Same as: Humalog ) Roll in palms of hands ge ntly; Do not shake `vigorously. "Single Patient Use Only " WASTE: F/P - Black; E - [facility] Trash Bin Stable for 28 days at room temperature. Expires in days from Date Inactive 10/02/2018 [facility] Cefazolin 1 gm, Route: IVP, [id number], Dosing Weight 109.091, kg, Start date: 10/01/18 20:00:00 FILM PRODUCER, Duration: 3 doses or times, Stop date: 10/02/18 12:00:00 FILM PRODUCER, ABX Indication: Surgical ProphylaxisNotes: (Same As: Andrew Torres) MEDICATION WASTE Product Size: 1000 mg Product Wasted: ___ mg No Longer Active 10/02/2018 [facility] minocycline 100 mg oral tablet 100 mg, PO, Q12H, X 7 day, # 14 tab, 0 Refill(s) No Longer Active 10/02/2018 [facility] Acetaminophen 300 MG / Codeine Phosphate 30 MG Oral Tablet 2 tab, PO, Q6H, PRN Pain Score 7-10, X 7 day, # 56 tab, 0 Refill(s) No Longer Active 10/02/2018 [facility] acetaminophen-codeine #3 2 tab, Route: PO, Drug Form: TAB, Dosing Weight 109.091, kg, Q4H, PRN Pain Score 7-10, Start date: 10/01/18 19:24:00 FILM PRODUCER, Duration: 30 day, Stop date: 10/31/18 19:23:00 CSTNotes: Do not exceed 4gm/day of acetaminophen. (Same as: Tylenol with Codeine # 3) No Longer Active 10/02/2018 [facility] Morphine 2 mg, 1 mL, Route: IVP, Drug form: SOLN, Q4H, Dosing Weight 109.091, kg, PRN Pain Score 4-6, Start date: 10/01/18 19:24:00 FILM PRODUCER, Duration: 30 day, Stop date: 10/31/18 19:23:00 FILM PRODUCER No Longer Active 10/02/2018 [facility] Tramadol 100 mg, 2 tab, Route: PO, Drug form: TAB, Q6H, Dosing Weight 109.091, kg, PRN Pain Score 7-10, Start date: 10/01/18 19:24:00 FILM PRODUCER, Duration: 30 day, Stop date: 10/31/18 19:23:00 CSTNotes: Not to exceed 400mg/day. (Same As: Ultram) No Longer Active 10/02/2018 [facility] Bupivacaine liposome 20 mL, Route: InFILtration(local), Drug Form: INJ, Dosing Weight 109.091, kg, ONCE, For Hemorrhoidectomy, NOW, Start date: 10/01/18 12:54:00 FILM PRODUCER, Stop date: 10/01/18 12:54:00 CSTNotes: (Same as: [...] (total dose=30 mL [266 mg]) Inactive 10/01/2018 [facility] Saline Flush 0.9% 10 ml, Route: IVP, Drug Form: INJ, Dosing Weight 110, kg, Q12H, Start date: 09/24/18 21:00:00 FILM PRODUCER, Duration: 30 day, Stop date: 10/24/18 9:00:00 CSTNotes: (Same as: BD Posiflush) Inactive 09/25/2018 [facility] Saline Flush 0.9% 10 ml, Route: IVP, Drug Form: INJ, Dosing Weight 110, kg, PRN, PRN Line Flush, Start date: 09/24/18 9:12:00 FILM PRODUCER, Duration: 30 day, Stop date: 10/24/18 9:11:00 CSTNotes: (Same as: BD Posiflush) Inactive 09/24/2018 [facility] Acetaminophen 325 MG / Hydrocodone Bitartrate 5 MG Oral Tablet 1 tab, Route: PO, Drug Form: TAB, Dosing Weight 110, kg, Q4H, PRN Pain Score 1-3, Start date: 09/24/18 9:12:00 FILM PRODUCER, Duration: 30 day, Stop date: 10/24/18 9:11:00 CSTNotes: (Same as: [place] 325/5) Do not exceed 4gm/day of acetaminophen. Inactive 09/24/2018 [facility] Morphine 4 mg, 1 mL, Route: IVP, Drug form: SOLN, Q2H, Dosing Weight 110, kg, PRN Pain Score 7-10, Start date: 09/24/18 9:12:00 FILM PRODUCER, Duration: 30 day, Stop date: 10/24/18 9:11:00 CSTNotes: (Same as:MORPhine S ulfate) Inactive 09/24/2018 [facility] Nitroglycerin 0.4 mg, 1 tab, Route: SL, Drug form: TAB, Q5Min, Dosing Weight 110, kg, PRN Chest Pain, Start date: 09/24/18 9:12:00 FILM PRODUCER, Duration: 3 doses or times, Stop date: Limited # of timesNotes: (Same as:Nitroqu ick, Nitrostat) "Do Not Crush" Sublingual tablet Inactive 09/24/2018 [facility] Famotidine 20 mg, 1 tab, Route: PO, Drug form: TAB, Q12H, Dosing Weight 110, kg, Start date: 09/24/18 9:00:00 FILM PRODUCER, Duration: 30 day, Stop date: 10/23/18 21:00:00 CSTNotes: (Same as: Pepcid) Inactive 09/24/2018 [facility] gabapentin 100 MG Oral Capsule 100 mg, 1 cap, Route: PO, Drug form: CAP, Daily, Dosing Weight 110, kg, Start date: 09/24/18 9:00:00 FILM PRODUCER, Duration: 30 day, Stop date: 10/23/18 9:00:00 CSTNotes: (Same as: Neurontin) Inactive 09/24/2018 [facility] Spironolactone 25 mg, 1 tab, Route: PO, Drug form: TAB, Daily, Dosing Weight 110, kg, Start date: 09/24/18 9:00:00 FILM PRODUCER, Duration: 30 day, Stop date: 10/23/18 9:00:00 CSTNotes: (Same As: Aldactone) Inactive 09/24/2018 [facility] [place]-3 Acid Ethyl Esters (SENIOR LIVING) 1000 MG Oral Capsule [Lovaza] 2,000 mg, 2 cap, Route: PO, Drug Form: CAP, Dosing Weight 110, kg, BID, Start date: 09/24/18 9:00:00 FILM PRODUCER, Duration: 30 day, Stop date: 10/23/18 17:00:00 CSTNotes: (Same as: MaxEPA, [place] 3 fish oil ) Non-Formulary Drug Inactive 09/24/2018 [facility] 24 HR Metoprolol Tartrate 50 MG Extended Release Tablet [Toprol] 50 mg, 1 tab, Route: PO, Drug form: ERTAB, Daily, Start date: 09/24/18 9:00:00 FILM PRODUCER, Duration: 30 day, Stop date: 10/23/18 9:00:00 CSTNotes: (Same as: Toprol XL) May split tab, but do not crush. Inactive 09/24/2018 [facility] Losartan 25 mg, 1 tab, Route: PO, Drug form: TAB, Daily, Dosing Weight 110, kg, Start date: 09/24/18 9:00:00 FILM PRODUCER, Duration: 30 day, Stop date: 10/23/18 9:00:00 CSTNotes: (Same as: Cozaar) Inactive 09/24/2018 [facility] Levemir 50 unit, Route: SUB-Q, Daily, Dosing Weight 110, kg, Start date: 09/24/18 9:00:00 FILM PRODUCER, Duration: 30 day, Stop date: 10/23/18 9:00:00 FILM PRODUCER Inactive 09/24/2018 [facility] Furosemide 20 MG Oral Tablet [Lasix] 20 mg, 1 tab, Route: PO, Drug form: TAB, Daily, Dosing Weight 110, kg, Start date: 09/24/18 9:00:00 FILM PRODUCER, Duration: 30 day, Stop date: 10/23/18 9:00:00 CSTNotes: (Same as: Lasix) May cause GI upset. Give with food or milk. Inactive 09/24/2018 [facility] Folic Acid 1 mg, 1 tab, Route: PO, Drug form: TAB, Daily, Dosing Weight 110, kg, Start date: 09/24/18 9:00:00 FILM PRODUCER, Duration: 30 day, Stop date: 10/23/18 9:00:00 CSTNotes: (Same as: Folvite) Inactive 09/24/2018 [facility] Plavix 75 mg, 1 tab, Route: PO, Drug form: TAB, Daily, Dosing Weight 110, kg, Start date: 09/24/18 9:00:00 FILM PRODUCER, Duration: 30 day, Stop date: 10/23/18 9:00:00 CSTNotes: (Same As: Plavix) Inactive 09/24/2018 [facility] atorvastatin 60 mg, 1.5 tab, Route: PO, Drug form: TAB, Daily, Dosing Weight 110, kg, Start date: 09/24/18 9:00:00 FILM PRODUCER, Duration: 30 day, Stop date: 10/23/18 9:00:00 CSTNotes: (Same as: Lipitor) Inactive 09/24/2018 [facility] Vitamin C 500 mg, 1 tab, Route: PO, Drug form: TAB, Daily, Dosing Weight 110, kg, Start date: 09/24/18 9:00:00 FILM PRODUCER, Duration: 30 day, Stop date: 10/23/18 9:00:00 CSTNotes: (Same as: Vitamin C) Inactive 09/24/2018 [facility] insulin glargine 50 unit, 0.5 mL, Route: SUB-Q, Drug form: SOLN, Daily, Start date: 09/24/18 9:00:00 FILM PRODUCER, Duration: 30 day, Stop date: 10/23/18 9:00:00 CSTNotes: (Same as: Lantus) Do not hold insulin without contacting prescriber WASTE: F/P - Black; E - [facility] Trash Bin "single patient use only" Inactive 09/24/2018 [facility] ferrous sulfate 325 mg, 1 tab, Route: PO, Drug form: ECTAB, BID-Meals, Dosing Weight 110, kg, Start date: 09/24/18 8:00:00 FILM PRODUCER, Duration: 30 day, Stop date: 10/23/18 17:00:00 CSTNotes: Give with food. "Do Not Crush" Inactive 09/24/2018 [facility] NovoLog Route: SUB-Q, TID-Before Meals, Dosing Weight 110, kg, Start date: 09/24/18 7:30:00 FILM PRODUCER, Duration: 30 day, Stop date: 10/23/18 16:30:00 FILM PRODUCER Inactive 09/24/2018 [facility] Humalog 40 unit, 0.4 mL, Route: SUB-Q, Drug form: SOLN, TID-Before Meals, Start date: 09/24/18 7:30:00 FILM PRODUCER, Duration: 30 day, Stop date: 10/23/18 16:30:00 CSTNotes: (Same as: Humalog ) Roll in palms of hands ge ntly; Do not shake `vigorously. "Single Patient Use Only " WASTE: F/P - Black; E - [facility] Trash Bin Stable for 28 days at room temperature. Expires in days from Date Inactive 09/24/2018 [facility] Imdur 30 mg, 1 tab, Route: PO, Drug form: ERTAB, QAM, Dosing Weight 110, kg, Start date: 09/24/18 6:30:00 FILM PRODUCER, Duration: 30 day, Stop date: 10/23/18 6:30:00 CSTNotes: (Same as:Imdur) "Do Not Crush" Take on empty stomach/ full glass of water. Do not crush Inactive 09/24/2018 [facility] Lovenox 40 mg, 0.4 mL, Route: SUB-Q, Drug form: INJ, [id number], Dosing Weight 110, kg, Start date: 09/24/18 6:00:00 FILM PRODUCER, Duration: 30 day, Stop date: 10/23/18 6:00:00 CSTNotes: (Same as: Lovenox) Inactive 09/24/2018 [facility] Insulin Lispro 8 unit, 0.08 mL, Route: SUB-Q, Drug form: SOLN, TID-Before Meals, Dosing Weight 110, kg, PRN Blood Glucose Results, Start date: 09/24/18 5:51:00 FILM PRODUCER, Duration: 30 day, Stop date: 10/24/18 5:50:00 FILM PRODUCER Notes: (Same as: Humalog ) Roll in palms of hands gently; Do not shake `vigorously. "Single Patient Use Only " WASTE: F/P - Black; E - [facility] Trash Bin Stable for 28 days at room temperature. Expires in days from Date Inactive 09/24/2018 [facility] Dextrose 50% Syringe 25 gm, 50 mL, Route: IVP, Drug Form: INJ, Dosing Weight 110, kg, PRN, PRN Blood Glucose Results, Start date: 09/24/18 5:51:00 FILM PRODUCER, Duration: 30 day, Stop date: 10/24/18 5:50:00 FILM PRODUCER Inactive 09/24/2018 [facility] Glucagon 1 mg, Route: IM, Drug form: PDR/INJ, PRN, Dosing Weight 110, kg, PRN Blood Glucose Results, Start date: 09/24/18 5:51:00 FILM PRODUCER, Duration: 30 day, Stop date: 10/24/18 5:50:00 FILM PRODUCER Inactive 09/24/2018 [facility] Aspirin 81 MG Chewable Tablet 81 mg, 1 tab, Route: PO, Drug form: CHEWTAB, Daily, Dosing Weight 110, kg, Start date: 09/24/18 3:05:00 FILM PRODUCER, Duration: 30 day, Stop date: 10/23/18 9:00:00 CSTNotes: Take with food. Inactive 09/24/2018 [facility] Morphine 2 mg, 0.5 mL, Route: IVP, Drug form: SOLN, Q2H, Dosing Weight 110, kg, PRN Pain Score 4-6, Start date: 09/24/18 2:55:00 FILM PRODUCER, Duration: 30 day, Stop date: 10/24/18 2:54:00 CSTNotes: (Same as:MORPhine Sulfate) Inactive 09/24/2018 [facility] Nitroglycerin 0.4 mg, 1 tab, Route: SL, Drug form: TAB, Q5Min, Dosing Weight 110, kg, PRN Chest Pain, Start date: 09/24/18 2:55:00 FILM PRODUCER, Duration: 3 doses or times, Stop date: Limited # of timesNotes: (Same as:Celena Millertaenzo) "Do Not Crush" Sublingual tablet Inactive 09/24/2018 [facility] Ondansetron 4 mg, Route: IVP, Drug form: INJ, ONCE, Dosing Weight 110, kg, Priority: STAT, Start date: 09/24/18 0:15:00 FILM PRODUCER, Stop date: 09/24/18 0:15:00 FILM PRODUCER Inactive 09/24/2018 [facility] Morphine 4 mg, Route: IVP, ONCE, Dosing Weight 110, kg, Priority: STAT, Start date: 09/24/18 0:15:00 FILM PRODUCER, Stop date: 09/24/18 0:15:00 FILM PRODUCER Inactive 09/24/2018 [facility] Saline Flush 0.9% 10 mL, Route: IVP, Drug Form: INJ, Dosing Weight 110.091, kg, PRN, PRN Line Flush, Start date: 09/23/18 23:51:00 FILM PRODUCER, Duration: 30 day, Stop date: 10/23/18 23:50:00 CSTNotes: (Same as: BD Posiflush) No Longer Active 09/24/2018 [facility] atorvastatin 60 mg, PO, Daily, 0 Refill(s) No Longer Active 09/16/2018 [facility] empagliflozin 25 MG Oral Tablet [Jardiance] 25 mg=1 tab, PO, QAM, 0 Refill(s) No Longer Active 09/16/2018 [facility] [place]-3 oral capsule 2 tab, PO, BID, 0 Refill(s) Inactive 09/16/2018 [facility] Azo-Cranberry PO, TID, 0 Refill(s) No Longer Active 09/16/2018 [facility] Albuterol Sulfate (Proair Hfa Inhaler*) 8.5 Gm Inh, Active 06/25/2018 [facility] Insulin Glargine (Lantus 3ML Pen) 100 Units/1 Ml Inj, Active 06/25/2018 [facility] Insulin Lispro (Humalog) 100 Unit/1 Ml Cartridge, Active 06/25/2018 [facility] Simvastatin 40 Mg Tablet, 40 Mg Oral Bedtime Active 06/25/2018 [facility] Insulin Glargine (Lantus 3ML Pen) 100 Units/1 Ml Inj, Active 06/25/2018 [facility] Simvastatin 40 Mg Tablet, 40 Mg Oral Bedtime Active 06/25/2018 [facility] Omnipaque 300 injectable solution 100 mL, Route: IVP, Drug Form: SOLN, Dosing Weight 114.545, kg, ONCALL, GFR > 45 mL/min, Start date: 05/19/18 10:00:00 CDT, Duration: 1 day, Stop date: 05/20/18 9:59:00 CDTNotes: (Same as:Omnipaque 300). WASTE: F/P - Black; E - [facility] Trash Bin No Longer Active 05/19/2018 [facility] 24 HR Isosorbide Mononitrate 30 MG Extended Release Tablet [Imdur] 30 mg=1 tab, PO, QAM, # 30 tab, 6 Refill(s), Pharmacy: [facility] [place] #3 Active 10/19/2017 [facility] Heart Failure heparin 5,000 unit, 1 mL, Route: SUB-Q, Drug form: INJ, Q8H, Start date: 07/22/17 16:00:00 CDT, Duration: 30 day, Stop date: 08/21/17 8:00:00 CDTNotes: porcine heparin Inactive 07/22/2017 [facility] clopidogrel 75 MG Oral Tablet [Plavix] 75 mg=1 tab, PO, Daily, # 90 tab, 3 Refill(s) Active 07/22/2017 [facility] Spironolactone 25 mg, 1 tab, Route: PO, Drug form: TAB, Daily, Dosing Weight 114.602, kg, Start date: 07/22/17 9:00:00 CDT, Duration: 30 day, Stop date: 08/20/17 9:00:00 CDTNotes: (Same As: Aldactone) Inactive 07/22/2017 [facility] [place]-3 Acid Ethyl Esters (SENIOR LIVING) 1000 MG Oral Capsule [Lovaza] 2,000 mg, 2 cap, Route: PO, Drug Form: CAP, Dosing Weight 114.602, kg, BID, Start date: 07/22/17 9:00:00 CDT, Duration: 30 day, Stop date: 08/20/17 17:00:00 CDTNotes: (Same as: MaxEPA, [place] 3 fish oil ) Non-Formulary Drug Inactive 07/22/2017 [facility] 24 HR Metoprolol Tartrate 50 MG Extended Release Tablet [Toprol] 50 mg, 1 tab, Route: PO, Drug form: ERTAB, Daily, Start date: 07/22/17 9:00:00 CDT, Duration: 30 day, Stop date: 08/20/17 9:00:00 CDTNotes: (Same as: Toprol XL) May split tab, but do not crush. Inactive 07/22/2017 [facility] Losartan 25 mg, 1 tab, Route: PO, Drug form: TAB, Daily, Dosing Weight 114.602, kg, Start date: 07/22/17 9:00:00 CDT, Duration: 30 day, Stop date: 08/20/17 9:00:00 CDTNotes: (Same as: Cozaar) Inactive 07/22/2017 [facility] Imdur 30 mg, 1 tab, Route: PO, Drug form: ERTAB, QAM, Dosing Weight 114.602, kg, Start date: 07/22/17 9:00:00 CDT, Duration: 30 day, Stop date: 08/20/17 9:00:00 CDTNotes: (Same as:Imdur) "Do Not Crush" Take on empty stomach/ full glass of water. Do not crush Inactive 07/22/2017 [facility] Levemir 40 unit, 0.4 mL, Route: SUB-Q, Drug form: SOLN, Daily, Dosing Weight 114.602, kg, Start date: 07/22/17 9:00:00 CDT, Duration: 30 day, Stop date: 08/20/17 9:00:00 CDTNotes: Non-Formulary Drug (Same as Le vemir) Do not hold insulin without contacting prescriber WASTE: F/P - Black; E - Municipal Trash Bin "single patient use only" Inactive 07/22/2017 [facility] gabapentin 100 MG Oral Capsule 300 mg, 3 cap, Route: PO, Drug form: CAP, Daily, Dosing Weight 114.602, kg, Start date: 07/22/17 9:00:00 CDT, Duration: 30 day, Stop date: 08/20/17 9:00:00 CDTNotes: (Same as: Neurontin) Inactive 07/22/2017 [facility] Furosemide 20 MG Oral Tablet [Lasix] 20 mg, 1 tab, Route: PO, Drug form: TAB, Daily, Dosing Weight 114.602, kg, Start date: 07/22/17 9:00:00 CDT, Duration: 30 day, Stop date: 08/20/17 9:00:00 CDTNotes: (Same as: Lasix) May cause GI upset. Give with food or milk. Inactive 07/22/2017 [facility] Folic Acid 1 mg, 1 tab, Route: PO, Drug form: TAB, Daily, Dosing Weight 114.602, kg, Start date: 07/22/17 9:00:00 CDT, Duration: 30 day, Stop date: 08/20/17 9:00:00 CDTNotes: (Same as: Folvite) Inactive 07/22/2017 [facility] ferrous sulfate 325 mg, 1 tab, Route: PO, Drug form: ECTAB, Daily, Dosing Weight 114.602, kg, Start date: 07/22/17 9:00:00 CDT, Duration: 30 day, Stop date: 08/20/17 9:00:00 CDTNotes: Give with food. "Do Not Crush" Inactive 07/22/2017 [facility] Vitamin C 500 mg, 1 tab, Route: PO, Drug form: TAB, Daily, Dosing Weight 114.602, kg, Start date: 07/22/17 9:00:00 CDT, Duration: 30 day, Stop date: 08/20/17 9:00:00 CDTNotes: (Same as: Vitamin C) Inactive 07/22/2017 [facility] Aspirin 81 mg, 1 tab, Route: PO, Drug form: ECTAB, Daily, Dosing Weight 114.602, kg, Start date: 07/22/17 9:00:00 CDT, Duration: 30 day, Stop date: 08/20/17 9:00:00 CDTNotes: Do not crush or chew. (Same As: Ecotrin) Inactive 07/22/2017 [facility] heparin sodium, porcine 2500 UNT/ML Injectable Solution 5,000 unit, Route: SUB-Q, Drug form: INJ, Q8H, Dosing Weight 114.602, kg, Start date: 07/22/17 8:00:00 CDT, Duration: 30 day, Stop date: 08/21/17 0:00:00 CDT Inactive 07/22/2017 [facility] Magnesium Sulfate 2 gm, 50 mL, Route: IVPB, Drug form: INJ, ONCE, Dosing Weight 114.602, kg, Start date: 07/22/17 6:20:00 CDT, Duration: 2 hr, Stop date: 07/22/17 6:20:00 CDTNotes: WASTE: F/P - Sink; E - Municipal Trash Bin Inactive 07/22/2017 [facility] Levemir 20 unit, 0.2 mL, Route: SUB-Q, Drug form: SOLN, ONCE, Dosing Weight 114.602, kg, Start date: 07/22/17 3:59:00 CDT, Stop date: 07/22/17 3:59:00 CDTNotes: Non-Formulary Drug (Same as Levemir) Do not hold insulin without contacting prescriber WASTE: F/P - Black; E - Municipal Trash Bin "single patient use only" Inactive 07/22/2017 [facility] Dextrose 50% Syringe 12.5 gm, 25 mL, Route: IVP, Drug Form: INJ, Dosing Weight 114.602, kg, PRN, PRN Blood Glucose Results, Start date: 07/22/17 2:32:00 CDT, Duration: 30 day, Stop date: 08/21/17 2:31:00 CDT Inactive 07/22/2017 [facility] Glucagon 1 mg, Route: IM, Drug form: PDR/INJ, PRN, Dosing Weight 114.602, kg, PRN Blood Glucose Results, Priority: STAT, Start date: 07/22/17 2:32:00 CDT, Duration: 30 day, Stop date: 08/21/17 2:31:00 CDT Inactive 07/22/2017 [facility] Insulin regular 5 unit, 0.05 mL, [...] Expires in days from Date Inactive 07/22/2017 [facility] Nitroglycerin 0.4 MG Sublingual Tablet 0.4 mg, 1 tab, Route: SL, Drug form: TAB, Q5Min, Dosing Weight 114.602, kg, PRN Chest Pain, Start date: 07/22/17 2:16:00 CDT, Duration: 30 day, Stop date: 08/21/17 2:15:00 CDTNotes: (Same as:Nitroquick, Nitrostat) "Do Not Crush" Sublingual tablet Inactive 07/22/2017 [facility] atorvastatin 40 mg, 1 tab, Route: PO, Drug form: TAB, Daily, Dosing Weight 114.602, kg, Start date: 07/22/17 2:16:00 CDT, Duration: 30 day, Stop date: 08/20/17 21:00:00 CDTNotes: (Same as: Lipitor) Inactive 07/22/2017 [facility] Saline Flush 0.9% 5 ml, Route: IVP, Drug Form: INJ, Dosing Weight 114, kg, Q12H, Start date: 07/21/17 21:00:00 CDT, Duration: 30 day, Stop date: 08/20/17 9:00:00 CDTNotes: (Same as: BD Posiflush) No Longer Active 07/22/2017 [facility] Cefazolin 2 gm, 100 mL, Route: IVPB, Drug form: INJ, ONCALL, Dosing Weight 114, kg, Start date: 07/21/17 18:00:00 CDT, Duration: 1 doses or times, ABX Indication: Surgical ProphylaxisNotes: Same as: Ancef No Longer Active 07/21/2017 [facility] Saline Flush 0.9% 5 ml, Route: IVP, Drug Form: INJ, Dosing Weight 114, kg, PRN, PRN Line Flush, Start date: 07/21/17 17:02:00 CDT, Duration: 30 day, Stop date: 08/20/17 17:01:00 CDTNotes: (Same as: BD Posiflush) No Longer Active 07/21/2017 [facility] sodium chloride 0.9% INJ 250 mL 250 mL, Rate: call out operator for use with blood product administration, Dosing Weight 114, kg, Route: IV, Total Volume: 250, Start Date: 07/21/17 17:02:00 CDT, Duration: 30 day, Stop date: 08/20/17 17:01:00 CDT, Replace Every: 24 hr No Longer Active 07/21/2017 [facility] Metoprolol 2 mg, 2 mL, Route: IVP, Drug form: INJ, ONCE, Dosing Weight 114, kg, Start date: 07/21/17 17:02:00 CDT, Duration: 1 doses or times, Stop date: 07/21/17 17:02:00 CDTNotes: (Same as: Lopressor) Push over 2 minutes Inactive 07/21/2017 [facility] Vitamin C 500 mg oral capsule 500 mg=1 cap, PO, Daily, 0 Refill(s) Active 06/02/2017 [facility] gabapentin 100 MG Oral Capsule 300 mg=3 cap, PO, Daily, 0 Refill(s) Active 06/02/2017 [facility] ferrous sulfate 325 mg oral enteric coated tablet 325 mg=1 tab, PO, Daily, 0 Refill(s) Active 06/02/2017 [facility] Folic Acid 1 MG Oral Tablet 1 mg=1 tab, PO, Daily, 0 Refill(s) Active 06/02/2017 [facility] atorvastatin 40 mg oral tablet 40 mg=1 tab, PO, Daily, 0 Refill(s) Active 06/02/2017 [facility] ciprofloxacin 500 mg oral tablet 500 mg=1 tab, PO, BID, 0 Refill(s) Active 06/02/2017 [facility] gabapentin 100 MG Oral Capsule 300 mg=3 cap, PO, Daily, 0 Refill(s) Active 05/12/2017 [facility] Nitroglycerin 0.4 MG Sublingual Tablet 0.4 mg=1 tab, SL, Q5Min, PRN Chest Pain, Give up to 3 doses. Call 911 or go to ER if pain persists., # 25 tab, 3 Refill(s), Pharmacy: [facility] [place] [address], PLEASE FAX ALL FUTURE REFILL REQUESTS TO: [phone] Active 03/23/2017 [facility] Heart Failure [place]-3 Acid Ethyl Esters ([facility]) 1000 MG Oral Capsule [Lovaza] 2,000 mg=2 cap, PO, BID, # 60 cap, 6 Refill(s), Pharmacy: [facility] [place] [facility] Active 03/09/2017 [facility] 24 HR Isosorbide Mononitrate 30 MG Extended Release Tablet [Imdur] 30 mg=1 tab, PO, QAM, # 30 tab, 6 Refill(s), Pharmacy: [facility] [place] [facility]3 Active 03/09/2017 [facility] Nitroglycerin 0.4 MG Sublingual Tablet 0.4 mg=1 tab, SL, Q5Min, PRN Chest Pain, Give up to 3 doses. Call 911 if pain persists., # 25 tab, 3 Refill(s), Pharmacy: [facility] [place] [facility]3 Active 03/09/2017 [facility] omega-3 polyunsaturated fatty acids =1 tab, PO, Daily, 0 Refill(s) Active 03/09/2017 [facility] Nitroglycerin 0.4 mg, 1 tab, Route: SL, Drug form: TAB, Q5Min, Dosing Weight 118.182, kg, PRN Chest Pain, Start date: 02/10/17 12:18:00 CDT, Duration: 3 doses or times, Stop date: Limited # of timesNotes: (Same as :Nitroquick, Nitrostat) "Do Not Crush" Sublingual tablet No Longer Active 02/10/2017 [facility] Sodium Chloride 0.154 MEQ/ML Injectable Solution 250 mL, Rate: 20 ml/hr, Infuse over: 12.5 hr, Route: IV, Dosing Weight 118.182 kg, Total Volume: 250, Start date: 02/10/17 12:18:00 CDT, Duration: 24 hr, Stop date: 02/11/17 12:17:00 CDT No Longer Active 02/10/2017 [facility] sodium chloride 0.9% 1000 ml INJ 1,000 mL 1,000 mL, Rate: 100 ml/hr, Infuse over: 10 hr, Route: IV, Dosing Weight 118.182 kg, Total Volume: 1,000, Start date: 02/10/17 9:50:00 CDT, Duration: 30 day, Stop date: 03/12/17 9:49:00 CDT No Longer Active 02/10/2017 [facility] tramadol hydrochloride 50 MG Oral Tablet [Ultram] 50 mg=1 tab, PO, Q4H, PRN pain, X 3 day, # 20 tab, 0 Refill(s) Active 08/20/2016 [facility] Aspirin 324 mg, Route: PO, ONCE, Dosing Weight 113.636, kg, Priority: STAT, Start date: 08/20/16 8:28:00 CDT, Stop date: 08/20/16 8:28:00 CDT Inactive 08/20/2016 [facility] Ondansetron 4 mg, 2 mL, Route: IVP, Drug form: INJ, ONCE, Dosing Weight 113.636, kg, Priority: STAT, Start date: 08/20/16 8:28:00 CDT, Stop date: 08/20/16 8:28:00 CDTNotes: (Same as: Alfonso) MEDICATION WASTE Product Size: 4 mg Product Wasted: ___ mg Inactive 08/20/2016 [facility] Metoprolol 5 mg, Route: IVP, Q5Min, Dosing Weight 113.636, kg, Priority: STAT, Start date: 08/20/16 8:28:00 CDT, Duration: 3 doses or times, Stop date: 08/20/16 8:38:00 CDT Inactive 08/20/2016 [facility] Saline Flush 0.9% 10 mL, Route: IVP, Drug Form: INJ, Dosing Weight 113.636, kg, PRN, PRN Line Flush, Start date: 08/20/16 8:28:00 CDT, Duration: 30 day, Stop date: 09/19/16 7:27:00 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 [facility] Diazepam 5 MG Oral Tablet [Valium] 5 mg=1 tab, PO, QID, PRN msk spasm, X 7 day, # 20 tab, 0 Refill(s) Active 07/13/2016 [facility] Acetaminophen 300 MG / Codeine Phosphate 30 MG Oral Tablet [Tylenol with Codeine #3] 1 tab, PO, Q6H, PRN Pain Score 4-6, X 5 day, # 30 tab, 0 Refill(s) Active 07/13/2016 [facility] Valium 5 mg, Route: PO, ONCE, Dosing Weight 113.636, kg, Priority: STAT, Start date: 07/13/16 1:17:00 CDT, Stop date: 07/13/16 1:17:00 CDT Inactive 07/13/2016 [facility] Tylenol 975 mg, Route: PO, Drug form: TAB, ONCE, Dosing Weight 113.636, kg, Priority: STAT, Start date: 07/13/16 1:17:00 CDT, Stop date: 07/13/16 1:17:00 CDT Inactive 07/13/2016 [facility] 24 HR Metoprolol Tartrate 50 MG Extended Release Tablet [Toprol] 50 mg, 1 tab, Route: PO, Drug form: ERTAB, Daily, Start date: 02/02/16 9:00:00, Duration: 30 day, Stop date: 03/02/16 9:00:00Notes: (Same as: Toprol XL) May split tab, but do not crush. Inactive 02/02/2016 [facility] Metformin 1,000 mg, 2 tab, Route: PO, Drug form: TAB, BID, Dosing Weight 113.636, kg, Start date: 02/02/16 9:00:00, Duration: 30 day, Stop date: 03/02/16 17:00:00Notes: (Same as: Glucophage) Take with meal Inactive 02/02/2016 [facility] Losartan 25 mg, 1 tab, Route: PO, Drug form: TAB, Daily, Dosing Weight 113.636, kg, Start date: 02/02/16 9:00:00, Duration: 30 day, Stop date: 03/02/16 9:00:00Notes: (Same as: Cozaar) Inactive 02/02/2016 [facility] Furosemide 20 MG Oral Tablet [Lasix] 20 mg, 1 tab, Route: PO, Drug form: TAB, Daily, Dosing Weight 113.636, kg, Start date: 02/02/16 9:00:00, Duration: 30 day, Stop date: 03/02/16 9:00:00Notes: (Same as: Lasix) May cause GI upset. Give with food or milk. Inactive 02/02/2016 [facility] Spironolactone 25 mg, 1 tab, Route: PO, Drug form: TAB, Daily, Dosing Weight 113.636, kg, Start date: 02/02/16 9:00:00, Duration: 30 day, Stop date: 03/02/16 9:00:00Notes: (Same As: Aldactone) Inactive 02/02/2016 [facility] NovoLog 30 unit, 0.3 mL, Route: SUB-Q, [...] Expires in days from Date Inactive 02/02/2016 [facility] Vancomycin 1.5 gm, 250 mL, Route: IV, Drug form: INJ, ONCE, Dosing Weight 113.636, kg, Start date: 02/02/16 7:00:00, Stop date: 02/02/16 7:00:00Notes: TIME CRITICAL MEDICATION Same as: Vancocin-NS (premixed) Infusion rate 2001 mg: infuse over 2.5 hours Inactive 02/02/2016 [facility] nitroglycerin 0.4 mg sublingual tablet 0.4 mg, 1 tab, Route: SL, Drug form: TAB, Q5Min, PRN Chest Pain, Start date: 02/02/16 3:57:00, Duration: 30 day, Stop date: 03/03/16 3:56:00Notes: (Same as:Nitroquick, Nitrostat) "Do Not Crush" Sublingual tablet Inactive 02/02/2016 [facility] atropine 0.5 mg, 5 mL, Route: IVP, Drug form: INJ, PRN, PRN Bradycardia, Start date: 02/02/16 3:57:00, Duration: 30 day, Stop date: 03/03/16 3:56:00 Inactive 02/02/2016 [facility] Lantus Route: SUB-Q, Bedtime, Dosing Weight 113.636, kg, Start date: 02/01/16 21:00:00, Duration: 30 day, Stop date: 03/01/16 21:00:00 Inactive 02/02/2016 [facility] Levemir FlexPen 40 unit, 0.4 mL, Route: SUB-Q, Drug form: INJ, Bedtime, Start date: 02/01/16 21:00:00, Duration: 30 day, Stop date: 03/01/16 21:00:00Notes: Same as Levemir Do not hold insulin without contacting prescriber WASTE: F/P - Black; E - [facility] Trash Bin "single patient use only" No Longer Active 02/02/2016 [facility] Simvastatin 40 mg, 1 tab, Route: PO, Drug form: TAB, Bedtime, Dosing Weight 113.636, kg, Start date: 02/01/16 21:00:00, Duration: 30 day, Stop date: 03/01/16 21:00:00Notes: (Same as: Zocor) No Longer Active 02/02/2016 [facility] Zofran 4 mg, Route: IVP, Drug form: INJ, ONCE, Dosing Weight 113.636, kg, Start date: 02/01/16 18:07:00, Stop date: 02/01/16 18:07:00 Inactive 02/01/2016 [facility] Fentanyl 50 microgram, Route: IVP, ONCE, Dosing Weight 113.636, kg, Start date: 02/01/16 18:03:00, Stop date: 02/01/16 18:03:00 Inactive 02/01/2016 [facility] Fentanyl 50 microgram, Route: IVP, ONCE, Dosing Weight 113.636, kg, Start date: 02/01/16 17:57:00, Stop date: 02/01/16 17:57:00 Inactive 02/01/2016 [facility] 24 HR Metoprolol Tartrate 50 MG Extended Release Tablet [Toprol] 50 mg=1 tab, PO, Daily, 0 Refill(s) Active 02/01/2016 [facility] minocycline 100 mg oral tablet 100 mg=1 tab, PO, Daily, # 10 tab, 0 Refill(s), given to patient Active 02/01/2016 [facility] Acetaminophen 300 MG / Codeine Phosphate 30 MG Oral Tablet [Tylenol with Codeine #3] 1 tab, Route: PO, Drug Form: TAB, Dosing Weight 113.636, kg, Q4H, PRN Pain Score 1-3, Start date: 02/01/16 17:46:00, Duration: 30 day, Stop date: 03/02/16 17:45:00Notes: Do not exceed 4gm/day of acetaminophen. (Same as: Tylenol with Codeine # 3) No Longer Active 02/01/2016 [facility] Morphine 4 mg, 2 mL, Route: IVP, Drug form: INJ, Q4H, Dosing Weight 113.636, kg, PRN Pain Score 7-10, Start date: 02/01/16 17:45:00, Duration: 30 day, Stop date: 03/02/16 17:44:00Notes: (Same as:MORPhine Sulfate) No Longer Active 02/01/2016 [facility] Marcaine HCl 150 mg, 30 mL, Route: INJ, Drug Form: INJ, Dosing Weight 113.636, kg, ONCE, Start date: 02/01/16 14:19:00, Stop date: 02/01/16 14:19:00Notes: Preservative free. (Same As: Marcaine-MPF) Inactive 02/01/2016 [facility] metoprolol tartrate 50 mg oral tablet 50 mg=1 tab, PO, Bedtime, 0 Refill(s) No Longer Active 01/31/2016 [facility] spironolactone 25 mg oral tablet 25 mg=1 tab, PO, Daily, # 30 tab, 3 Refill(s) Active 01/31/2016 [facility] Nitroglycerin 0.4 mg, 1 tab, Route: SL, Drug form: TAB, Q5Min, Dosing Weight 115.455, kg, PRN Chest Pain, Start date: 11/27/15 11:08:00, Duration: 3 doses or times, Stop date: Limited # of timesNotes: (Same as:Nitroquick, Nitrostat) "Do Not Crush" Sublingual tablet Inactive 11/27/2015 [facility] Morphine 2 mg, 1 mL, Route: IVP, Drug form: INJ, Q15Min, Dosing Weight 115.455, kg, PRN Chest Pain, Start date: 11/27/15 11:08:00, Duration: 2 doses or times, Stop date: Limited # of timesNotes: (Same as:MORP chiquis Sulfate) Inactive 11/27/2015 [facility] Acetaminophen 325 MG / Hydrocodone Bitartrate 5 MG Oral Tablet 2 tab, Route: PO, Drug Form: TAB, Dosing Weight 115.455, kg, Q4H, PRN Pain Score 6-10, Start date: 11/27/15 11:08:00, Duration: 30 day, Stop date: 12/27/15 11:07:00Notes: (Same as: [place] 325/5) Do not exceed 4gm/day of acetaminophen. Inactive 11/27/2015 [facility] Metformin 1,000 mg, PO, BID, 0 Refill(s) Active 11/27/2015 [facility] Lantus 40 units, SUB-Q, Bedtime, 0 Refill(s) Active 11/27/2015 [facility] Aspirin 81 mg, PO, Daily, 0 Refill(s) Active 11/27/2015 [facility] simvastatin 40 mg oral tablet 40 mg=1 tab, PO, Bedtime, 0 Refill(s) Active 11/27/2015 [facility] Tussin 100 mg/5 mL oral liquid 100 mg=5 mL, PO, Daily, 0 Refill(s) Active 11/27/2015 [facility] losartan 25 mg oral tablet 25 mg=1 tab, PO, Daily, # 30 tab, 0 Refill(s) Active 11/27/2015 [facility] NovoLog 25 unit, SUB-Q, TID-Before Meals, 0 Refill(s) Active 11/27/2015 [facility] Furosemide 20 MG Oral Tablet [Lasix] 20 mg=1 tab, PO, Daily, 0 Refill(s) Active 11/27/2015 [facility] metoprolol tartrate 25 mg oral tablet 25 mg=1 tab, PO, Daily, 0 Refill(s) Active 11/27/2015 [facility] Furosemide (Lasix) 20 Mg Tablet Daily Active [facility] 10/07/2015 [facility] Metoprolol Succinate 50 Mg Tab.er.24h Daily Active [facility] 10/07/2015 [facility] Guaifenesin (Tussin) 100 Mg/5 Ml Liquid, Active 10/07/2015 [facility] Guaifenesin/Dextromethorphan (Mucinex Dm Er 600-30 Mg Tablet) 1 Each Tab.er.12h, 1 Each Oral Every 12 Hours Active 10/07/2015 [facility] Furosemide (Lasix) 20 Mg Tablet Daily Active [facility] 10/07/2015 [facility] Guaifenesin (Tussin) 100 Mg/5 Ml Liquid, Active 10/07/2015 [facility] Metoprolol Succinate 50 Mg Tab.er.24h, 50 Mg Oral Daily Active [facility] 10/07/2015 [facility] Aspirin (Aspir 81) 81 Mg Tablet. Daily Active [facility] Atorvastatin Calcium 40 Mg Tablet Daily Active [facility] Clopidogrel Bisulfate (Clopidogrel) 75 Mg Tablet Daily Active [facility] Ferrous Sulfate 325 Mg Tablet Twice A Day Active [facility] Folic Acid 1 Mg Tablet Daily Active [facility] Gabapentin 100 Mg Capsule Bedtime Active [facility] Insulin Aspart (Novolog) Unknown Strength Inj Active [facility] Isosorbide Mononitrate (Isosorbide Mononitrate Er) 30 Mg Tab.er.24h Daily Active [facility] Jardiance 25MG Daily Active [facility] Levemir Bedtime Active [facility] Losartan Potassium 25 Mg Tablet Daily Active [facility] Metformin Hcl 1,000 Mg Tablet Twice A Day Active [facility] Nitroglycerin 0.4 Mg Tab.subl As Needed Active [facility] [id number] Twice A Day Active [facility] Spironolactone 25 Mg Tablet Daily Active [facility] Acetaminophen With Codeine (Tylenol With Codeine #3 Tablet) 1 Each Tablet Every 6 Hours as needed for Pain Active [facility] Ascorbic Acid 500 Mg Tablet Twice A Day Active [facility] Aspirin (Aspir 81) 81 Mg Tablet.dr Daily Active [facility] Atorvastatin Calcium 40 Mg Tablet Daily Active [facility] Clopidogrel Bisulfate (Clopidogrel) 75 Mg Tablet Daily Active [facility] Entresto 24MG-26MG Tab Twice A Day Active [facility] Folic Acid 1 Mg Tablet Daily Active [facility] Gabapentin 100 Mg Capsule Bedtime Active [facility] Insulin Aspart (Novolog) Unknown Strength Inj Three Times Daily With Meals Active [facility] Isosorbide Mononitrate (Isosorbide Mononitrate Er) 30 Mg Tab.er.24h Daily Active [facility] Metformin Hcl 1,000 Mg Tablet Twice A Day Active [facility] Metoprolol Tartrate 50 Mg Tablet Twice A Day Active [facility] Minocycline Hcl 50 Mg Capsule Twice A Day Active [facility] Nitroglycerin 0.4 Mg Tab.subl As Needed as needed for Chest Pain Active [facility] Phenazopyridine Hcl (Azo Standard) 95 Mg Tablet Three Times A Day Active [facility] Spironolactone 25 Mg Tablet Daily Active [facility] Turmeric Daily Active [facility] Acetaminophen/Codeine Phosphate (Tylenol # 3*) 1 Ea Tab Every 6 Hours as needed for Pain Active [facility] Metoprolol Succinate 25 Mg Tab.er.24h Daily Active [facility] Allergies, Adverse Reactions, Alerts Substance Category Reaction Severity Reaction type Status Date Reported Comments Source No Known Medication Allergies Assertion Drug allergy [facility] Immunizations No Data Provided for This Section [...] should be multiplied by the estimated BMI. [facility] CHEM PANEL POC Creatinine 0.7 0.5 - 1.4 04/08/2019 [facility] CHEM PANEL Magnesium Lvl 2.5 1.8 - 2.4 02/16/2019 [facility] CHEM PANEL eGFR 106 02/16/2019 Result [...] should be multiplied by the estimated BMI. [facility] CHEM PANEL CO2 28 24 - 32 02/16/2019 [facility] CHEM PANEL Chloride Lvl 105 95 - 109 02/16/2019 [facility] CHEM PANEL Calcium Lvl 8.6 8.5 - 10.5 02/16/2019 [facility] CHEM PANEL Sodium Lvl 138 135 - 145 02/16/2019 [facility] CHEM PANEL Potassium Lvl 4.6 3.5 - 5.1 02/16/2019 [facility] CHEM PANEL Glucose Lvl 104 70 - 99 02/16/2019 [facility] CHEM PANEL BUN 21 7 - 22 02/16/2019 [facility] CHEM PANEL Creatinine Lvl 0.74 0.50 - 1.40 02/16/2019 [facility] CHEM PANEL AGAP 9.6 10.0 - 20.0 02/16/2019 [facility] CHEM PANEL Phosphorus 4.1 2.5 - 4.5 02/16/2019 [facility] HEMATOLOGY Hgb 10.4 14.0 - 18.0 02/16/2019 [facility] HEMATOLOGY Hct 31.9 42.0 - 54.0 02/16/2019 [facility] HEMATOLOGY MCV 82.7 80.0 - 94.0 02/16/2019 [facility] HEMATOLOGY RDW 15.2 11.5 - 14.5 02/16/2019 [facility] HEMATOLOGY Platelet 407 133 - 450 02/16/2019 [facility] HEMATOLOGY MCH 26.8 27.0 - 31.0 02/16/2019 [facility] HEMATOLOGY MCHC 32.4 32.0 - 36.0 02/16/2019 [facility] HEMATOLOGY MPV 6.3 7.4 - 10.4 02/16/2019 [facility] HEMATOLOGY WBC 12.1 3.7 - 10.4 02/16/2019 [facility] HEMATOLOGY RBC 3.86 4.70 - 6.10 02/16/2019 [facility] HEMATOLOGY Basophils 0.5 0.0 - 1.0 02/16/2019 [facility] HEMATOLOGY Basophils # 0.1 0.0 - 0.2 02/16/2019 [facility] HEMATOLOGY Segs 67.6 45.0 - 75.0 02/16/2019 [facility] HEMATOLOGY Lymphocytes 20.5 20.0 - 40.0 02/16/2019 [facility] HEMATOLOGY Monocytes 8.7 2.0 - 12.0 02/16/2019 [facility] HEMATOLOGY Eosinophils 2.7 0.0 - 4.0 02/16/2019 [facility] HEMATOLOGY Neutrophils # 8.2 1.5 - 8.1 02/16/2019 [facility] HEMATOLOGY Lymphocytes # 2.5 1.0 - 5.5 02/16/2019 [facility] HEMATOLOGY Monocytes # 1.1 0.0 - 0.8 02/16/2019 [facility] HEMATOLOGY Eosinophils # 0.3 0.0 - 0.5 02/16/2019 [facility] CHEM PANEL Magnesium Lvl 2.5 1.8 - 2.4 02/15/2019 [facility] CHEM PANEL Phosphorus 4.4 2.5 - 4.5 02/15/2019 [facility] ELECTROLYTES CO2 29 24 - 32 02/15/2019 [facility] ELECTROLYTES Calcium Lvl 9.1 8.5 - 10.5 02/15/2019 [facility] ELECTROLYTES Chloride Lvl 103 95 - 109 02/15/2019 [facility] ELECTROLYTES eGFR 94 02/15/2019 Result Comment: [...] should be multiplied by the estimated BMI. [facility] ELECTROLYTES Glucose Lvl 136 70 - 99 02/15/2019 [facility] ELECTROLYTES BUN 25 7 - 22 02/15/2019 [facility] ELECTROLYTES Creatinine Lvl 0.93 0.50 - 1.40 02/15/2019 [facility] ELECTROLYTES Sodium Lvl 137 135 - 145 02/15/2019 [facility] ELECTROLYTES Potassium Lvl 3.9 3.5 - 5.1 02/15/2019 [facility] ELECTROLYTES AGAP 8.9 10.0 - 20.0 02/15/2019 [facility] HEMATOLOGY MCHC 33.2 32.0 - 36.0 02/15/2019 [facility] HEMATOLOGY MCH 27.2 27.0 - 31.0 02/15/2019 [facility] HEMATOLOGY RDW 15.2 11.5 - 14.5 02/15/2019 [facility] HEMATOLOGY MPV 6.5 7.4 - 10.4 02/15/2019 [facility] HEMATOLOGY Platelet 462 133 - 450 02/15/2019 [facility] HEMATOLOGY WBC 10.4 3.7 - 10.4 02/15/2019 [facility] HEMATOLOGY RBC 3.90 4.70 - 6.10 02/15/2019 [facility] HEMATOLOGY Hgb 10.6 14.0 - 18.0 02/15/2019 [facility] HEMATOLOGY Hct 32.0 42.0 - 54.0 02/15/2019 [facility] HEMATOLOGY MCV 82.0 80.0 - 94.0 02/15/2019 [facility] HEMATOLOGY Neutrophils # 6.6 1.5 - 8.1 02/15/2019 [facility] HEMATOLOGY Lymphocytes # 2.5 1.0 - 5.5 02/15/2019 [facility] HEMATOLOGY Monocytes # 0.9 0.0 - 0.8 02/15/2019 [facility] HEMATOLOGY Eosinophils # 0.3 0.0 - 0.5 02/15/2019 [facility] HEMATOLOGY Basophils # 0.1 0.0 - 0.2 02/15/2019 [facility] HEMATOLOGY Basophils 0.8 0.0 - 1.0 02/15/2019 [facility] HEMATOLOGY Eosinophils 2.6 0.0 - 4.0 02/15/2019 [facility] HEMATOLOGY Monocytes 9.0 2.0 - 12.0 02/15/2019 [facility] HEMATOLOGY Lymphocytes 24.4 20.0 - 40.0 02/15/2019 [facility] HEMATOLOGY Segs 63.2 45.0 - 75.0 02/15/2019 [facility] CHEM PANEL Magnesium Lvl 2.6 1.8 - 2.4 02/14/2019 [facility] CHEM PANEL Phosphorus 3.4 2.5 - 4.5 02/14/2019 [facility] CHEM PANEL eGFR 105 02/14/2019 Result [...] should be multiplied by the estimated BMI. [facility] CHEM PANEL AGAP 9.2 10.0 - 20.0 02/14/2019 [facility] CHEM PANEL Calcium Lvl 8.6 8.5 - 10.5 02/14/2019 [facility] CHEM PANEL Potassium Lvl 4.2 3.5 - 5.1 02/14/2019 [facility] CHEM PANEL CO2 28 24 - 32 02/14/2019 [facility] CHEM PANEL Chloride Lvl 106 95 - 109 02/14/2019 [facility] CHEM PANEL Creatinine Lvl 0.75 0.50 - 1.40 02/14/2019 [facility] CHEM PANEL Sodium Lvl 139 135 - 145 02/14/2019 [facility] CHEM PANEL BUN 19 7 - 22 02/14/2019 [facility] CHEM PANEL Glucose Lvl 52 70 - 99 02/14/2019 [facility] HEMATOLOGY Eosinophils # 0.2 0.0 - 0.5 02/14/2019 [facility] HEMATOLOGY Monocytes # 0.8 0.0 - 0.8 02/14/2019 [facility] HEMATOLOGY Lymphocytes # 1.9 1.0 - 5.5 02/14/2019 [facility] HEMATOLOGY Lymphocytes 20.7 20.0 - 40.0 02/14/2019 [facility] HEMATOLOGY Eosinophils 1.7 0.0 - 4.0 02/14/2019 [facility] HEMATOLOGY Monocytes 9.3 2.0 - 12.0 02/14/2019 [facility] HEMATOLOGY Neutrophils # 6.1 1.5 - 8.1 02/14/2019 [facility] HEMATOLOGY Basophils 0.5 0.0 - 1.0 02/14/2019 [facility] HEMATOLOGY Segs 67.8 45.0 - 75.0 02/14/2019 [facility] HEMATOLOGY RDW 15.5 11.5 - 14.5 02/14/2019 [facility] HEMATOLOGY MCHC 33.3 32.0 - 36.0 02/14/2019 [facility] HEMATOLOGY Hct 30.6 42.0 - 54.0 02/14/2019 [facility] HEMATOLOGY MPV 6.8 7.4 - 10.4 02/14/2019 [facility] HEMATOLOGY Platelet 426 133 - 450 02/14/2019 [facility] HEMATOLOGY MCH 27.4 27.0 - 31.0 02/14/2019 [facility] HEMATOLOGY MCV 82.1 80.0 - 94.0 02/14/2019 [facility] HEMATOLOGY Hgb 10.2 14.0 - 18.0 02/14/2019 [facility] HEMATOLOGY RBC 3.73 4.70 - 6.10 02/14/2019 [facility] HEMATOLOGY WBC 9.0 3.7 - 10.4 02/14/2019 [facility] PARATHYROID PROFILE Ca Norm WB 1.08 1.05 - 1.25 02/12/2019 [facility] PARATHYROID PROFILE Ca Ion WB 1.08 1.05 - 1.25 02/12/2019 [facility] CHEM PANEL ALT 12 0 - 65 02/12/2019 [facility] CHEM PANEL AST 11 0 - 37 02/12/2019 [facility] CHEM PANEL Total Protein 6.4 6.4 - 8.4 02/12/2019 [facility] CHEM PANEL Albumin Lvl 2.7 3.5 - 5.0 02/12/2019 [facility] CHEM PANEL Alk Phos 43 39 - 136 02/12/2019 [facility] CHEM PANEL Bili Total 0.4 0.2 - 1.3 02/12/2019 [facility] CHEM PANEL Globulin 3.7 2.7 - 4.2 02/12/2019 [facility] CHEM PANEL B/C Ratio 33 6 - 25 02/12/2019 [facility] CHEM PANEL A/G Ratio 0.7 0.7 - 1.6 02/12/2019 [facility] CHEM PANEL ALT 14 0 - 65 02/11/2019 [facility] CHEM PANEL AST 17 0 - 37 02/11/2019 [facility] CHEM PANEL A/G Ratio 0.9 0.7 - 1.6 02/11/2019 [facility] CHEM PANEL Globulin 3.2 2.7 - 4.2 02/11/2019 [facility] CHEM PANEL Alk Phos 43 39 - 136 02/11/2019 [facility] CHEM PANEL Bili Total 0.3 0.2 - 1.3 02/11/2019 [facility] CHEM PANEL Total Protein 6.2 6.4 - 8.4 02/11/2019 [facility] CHEM PANEL Albumin Lvl 3.0 3.5 - 5.0 02/11/2019 [facility] CHEM PANEL B/C Ratio 37 6 - 25 02/11/2019 [facility] HEMATOLOGY PT 13.7 12.0 - 14.7 02/11/2019 [facility] HEMATOLOGY PTT 33.1 22.9 - 35.8 02/11/2019 [facility] HEMATOLOGY INR 1.07 0.85 - 1.17 02/11/2019 [facility] LIPIDS VLDL 23 02/11/2019 [facility] LIPIDS LDL (Calculated) 44 <=99 mg/dL 02/11/2019 [facility] LIPIDS HDL 45 >=61 mg/dL 02/11/2019 [facility] LIPIDS Chol 112 <=199 mg/dL 02/11/2019 [facility] LIPIDS Trig 116 <=149 mg/dL 02/11/2019 [facility] LIPIDS CHD Risk 2.49 4.00 - 7.30 02/11/2019 [facility] CHEM PANEL Alk Phos 46 39 - 136 02/10/2019 [facility] CHEM PANEL Bili Total 0.5 0.2 - 1.3 02/10/2019 [facility] CHEM PANEL AST 19 0 - 37 02/10/2019 [facility] CHEM PANEL ALT 14 0 - 65 02/10/2019 [facility] CHEM PANEL A/G Ratio 1.0 0.7 - 1.6 02/10/2019 [facility] CHEM PANEL B/C Ratio 26 6 - 25 02/10/2019 [facility] CHEM PANEL Total Protein 6.6 6.4 - 8.4 02/10/2019 [facility] CHEM PANEL Globulin 3.3 2.7 - 4.2 02/10/2019 [facility] CHEM PANEL Albumin Lvl 3.3 3.5 - 5.0 02/10/2019 [facility] HEMATOLOGY PTT 31.5 22.9 - 35.8 02/10/2019 [facility] HEMATOLOGY PT 14.1 12.0 - 14.7 02/10/2019 [facility] HEMATOLOGY INR 1.11 0.85 - 1.17 02/10/2019 [facility] SPECIAL CHEMISTRY Hgb A1C 6.1 <=5.6 % 02/10/2019 [facility] HEMATOLOGY POC Activated Clotting Time 139 02/10/2019 [facility] BLOOD BANK RESULTS FFP product Product available (02/09/19 1:49 PM) 02/09/2019 [facility] BLOOD BANK RESULTS RBC product Product available (02/09/19 1:48 PM) 02/09/2019 [facility] BLOOD BANK RESULTS Antibody Scrn Negative (02/09/19 8:04 AM) 02/09/2019 [facility] BLOOD BANK RESULTS ABO/Rh O POS 02/09/2019 [facility] HEMATOLOGY PTT 33.0 22.9 - 35.8 02/09/2019 [facility] HEMATOLOGY PT 13.2 12.0 - 14.7 02/09/2019 [facility] HEMATOLOGY INR 1.02 0.85 - 1.17 02/09/2019 [facility] CARDIAC ENZYMES Troponin-I 0.05 0.00 - 0.40 01/18/2019 [facility] CARDIAC ENZYMES CK MB 1.5 0.5 - 3.6 01/18/2019 [facility] CARDIAC ENZYMES BNP 75 <=100 pg/mL 01/18/2019 [facility] CHEM PANEL eGFR 87 01/18/2019 Result Comment: [...] should be multiplied by the estimated BMI. [facility] CHEM PANEL Bili Total 0.2 0.2 - 1.3 01/18/2019 [facility] CHEM PANEL Alk Phos 101 39 - 136 01/18/2019 [facility] CHEM PANEL Potassium Lvl 4.3 3.5 - 5.1 01/18/2019 [facility] CHEM PANEL Sodium Lvl 138 135 - 145 01/18/2019 [facility] CHEM PANEL Creatinine Lvl 0.99 0.50 - 1.40 01/18/2019 [facility] CHEM PANEL BUN 13 7 - 22 01/18/2019 [facility] CHEM PANEL ALT 17 0 - 65 01/18/2019 [facility] CHEM PANEL Albumin Lvl 3.8 3.5 - 5.0 01/18/2019 [facility] CHEM PANEL Total Protein 7.4 6.4 - 8.4 01/18/2019 [facility] CHEM PANEL AST 16 0 - 37 01/18/2019 [facility] CHEM PANEL CO2 29 24 - 32 01/18/2019 [facility] CHEM PANEL Chloride Lvl 107 95 - 109 01/18/2019 [facility] CHEM PANEL Calcium Lvl 8.9 8.5 - 10.5 01/18/2019 [facility] CHEM PANEL Glucose Lvl 163 70 - 99 01/18/2019 [facility] CHEM PANEL A/G Ratio 1.1 0.7 - 1.6 01/18/2019 [facility] CHEM PANEL AGAP 6.3 10.0 - 20.0 01/18/2019 [facility] CHEM PANEL Globulin 3.6 2.7 - 4.2 01/18/2019 [facility] CHEM PANEL B/C Ratio 13 6 - 25 01/18/2019 [facility] HEMATOLOGY PT 12.4 12.0 - 14.7 01/18/2019 [facility] HEMATOLOGY INR 0.94 0.85 - 1.17 01/18/2019 [facility] HEMATOLOGY RDW 15.4 11.5 - 14.5 01/18/2019 [facility] HEMATOLOGY MCV 84.3 80.0 - 94.0 01/18/2019 [facility] HEMATOLOGY MCHC 32.1 32.0 - 36.0 01/18/2019 [facility] MCH 27.0 27.0 - 31.0 01/18/2019 [facility] HEMATOLOGY Hct 39.0 42.0 - 54.0 01/18/2019 [facility] Hgb 12.5 14.0 - 18.0 01/18/2019 [facility] RBC 4.63 4.70 - 6.10 01/18/2019 [facility] HEMATOLOGY WBC 7.9 3.7 - 10.4 01/18/2019 [facility] Platelet 317 133 - 450 01/18/2019 [facility] MPV 6.6 7.4 - 10.4 01/18/2019 [facility] PTT 30.8 22.9 - 35.8 01/18/2019 [facility] Eosinophils # 0.5 0.0 - 0.5 01/18/2019 [facility] Basophils # 0.1 0.0 - 0.2 01/18/2019 [facility] Monocytes 9.9 2.0 - 12.0 01/18/2019 [facility] Neutrophils # 4.6 1.5 - 8.1 01/18/2019 [facility] Lymphocytes 25.4 20.0 - 40.0 01/18/2019 [facility] Segs 57.9 45.0 - 75.0 01/18/2019 [facility] Basophils 0.9 0.0 - 1.0 01/18/2019 [facility] Eosinophils 5.9 0.0 - 4.0 01/18/2019 [facility] Monocytes # 0.8 0.0 - 0.8 01/18/2019 [facility] Lymphocytes # 2.0 1.0 - 5.5 01/18/2019 [facility] Capillary blood glucose measurement by glucometer (mass/volume) 103 70 - 120 01/12/2019 [facility] Blood leukocytes automated count (number/volume) 8.14 4.8 - 10.8 01/10/2019 [facility] Blood erythrocytes automated count (number/volume) 4.28 4.3 - 5.7 01/10/2019 [facility] Blood hemoglobin measurement (moles/volume) 11.6 14.0 - 18.0 01/10/2019 [facility] Automated blood hematocrit (volume fraction) 36.0 38.2 - 49.6 01/10/2019 [facility] Automated erythrocyte mean corpuscular volume 84.1 81 - 99 01/10/2019 [facility] Automated erythrocyte mean corpuscular hemoglobin (mass per erythrocyte) 27.1 28 - 32 01/10/2019 [facility] Automated erythrocyte mean corpuscular hemoglobin concentration measurement (mass/volume) 32.2 31 - 35 01/10/2019 [facility] RDW BldCo-Rto 13.8 11.7 - 14.4 01/10/2019 [facility] Automated blood platelet count (count/volume) 266 140 - 360 01/10/2019 [facility] Automated blood segmented neutrophil count as percentage of total leukocytes 60.4 38.7 - 80.0 01/10/2019 [facility] Automated blood lymphocyte count as percentage ot total leukocytes 25.2 18.0 - 39.1 01/10/2019 [facility] Automated blood monocyte count as percentage of total leukocytes 8.8 4.4 - 11.3 01/10/2019 [facility] Automated blood eosinophil count as percentage of total leukocytes 4.4 0.0 - 6.0 01/10/2019 [facility] Automated blood basophil count as percentage of total leukocytes 0.5 0.0 - 1.0 01/10/2019 [facility] IM GRANULOCYTES % 0.7 0.0 - 1.0 01/10/2019 [facility] Automated blood neutrophil count 4.9 2.1 - 6.9 01/10/2019 [facility] Blood lymphocytes count (number/volume) 2.1 1.0 - 3.2 01/10/2019 [facility] Blood monocytes automated count (number/volume) 0.7 0.2 - 0.8 01/10/2019 [facility] Automated blood eosinophil count 0.4 0.0 - 0.4 01/10/2019 [facility] Automated blood basophil count (count/volume) 0.0 0.0 - 0.1 01/10/2019 [facility] Absolute Immature Granulocyte (auto 0.06 0 - 0.1 01/10/2019 [facility] Prothrombin time (PT) in platelet poor plasma by coagulation assay 13.4 11.9 - 14.5 01/10/2019 [facility] INR in Platelet poor plasma by Coagulation assay 0.97 01/10/2019 [facility] Serum or plasma sodium measurement (moles/volume) 138 136 - 145 01/10/2019 [facility] Serum or plasma potassium measurement (moles/volume) 4.0 3.5 - 5.1 01/10/2019 [facility] Serum or plasma chloride measurement (moles/volume) 105 98 - 107 01/10/2019 [facility] Serum or plasma carbon dioxide, total measurement (moles/volume) 28 22 - 29 01/10/2019 [facility] Serum or plasma anion gap 9.0 8 - 16 01/10/2019 [facility] Serum or plasma urea nitrogen measurement (mass/volume) 10 7 - 26 01/10/2019 [facility] Serum or plasma creatinine measurement (mass/volume) 0.73 0.72 - 1.25 01/10/2019 [facility] Serum or plasma urea nitrogen/creatinine mass ratio 14 6 - 25 01/10/2019 [facility] Estimated glomerular filtration rate (GFR) determination > 60 60 01/10/2019 [facility] Glucose measurement 98 74 - 118 01/10/2019 [facility] Serum or plasma calcium measurement (mass/volume) 9.1 8.4 - 10.2 01/10/2019 [facility] Hemoglobin A1c Percent 6.3 4.0 - 7.0 01/10/2019 [facility] Serum or plasma magnesium measurement (mass/volume) 2.5 1.3 - 2.1 01/10/2019 [facility] Serum or plasma total bilirubin measurement (mass/volume) 0.4 0.2 - 1.2 01/10/2019 [facility] Aspartate Amino Transf (AST/SGOT) 12 5 - 34 01/10/2019 [facility] Serum or plasma alanine aminotransferase measurement (enzymatic activity/volume) 8 0 - 55 01/10/2019 [facility] Serum or plasma protein measurement (mass/volume) 6.3 6.5 - 8.1 01/10/2019 [facility] Serum or plasma albumin measurement (mass/volume) 3.4 3.5 - 5.0 01/10/2019 [facility] Plasma globulin measurement (mass/volume) 2.9 2.3 - 3.5 01/10/2019 [facility] Serum or plasma albumin/globulin mass ratio 1.2 0.8 - 2.0 01/10/2019 [facility] Serum or plasma alkaline phosphatase measurement (enzymatic activity/volume) 52 40 - 150 01/10/2019 [facility] Serum or plasma triglyceride measurement (mass/volume) 101 0 - 149 01/10/2019 [facility] Serum or plasma cholesterol measurement (mass/volume) 182 0 - 199 01/10/2019 [facility] Serum or plasma cholesterol in LDL measurement (mass/volume) 118 60 - 130 01/10/2019 [facility] Serum or plasma cholesterol in HDL measurement (mass/volume) 44 40 - 60 01/10/2019 [facility] Serum or plasma total cholesterol/cholesterol in HDL mass ratio 4.1 3.9 - 4.7 01/10/2019 [facility] BNP Bld-mCnc 67.9 0 - 100 01/10/2019 [facility] Serum or plasma creatine kinase measurement (enzymatic activity/volume) 61 30 - 200 01/10/2019 [facility] Serum or plasma creatine kinase MB measurement (mass/volume) 0.80 0 - 5.0 01/10/2019 [facility] Troponin I measurement by highly sensitive enzyme immunoassay 0.005 0 - 0.300 01/10/2019 [facility] Serum or plasma thyrotropin measurement by detection limit <=0.005 miu/l (units/volume) 1.084 0.350 - 4.940 01/10/2019 [facility] Serum or plasma prostate specific antigen measurement (mass/volume) 0.4 0.0 - 4.0 01/10/2019 [facility] Urine color determination YELLOW YELLOW 01/09/2019 [facility] Urine clarity SL CLOUDY CLEAR 01/09/2019 [facility] Specific gravity of Urine by Test strip 1.005 1.010 - 1.025 01/09/2019 [facility] Urine pH measurement by automated test strip 6 5 - 7 01/09/2019 [facility] Urine leukocyte esterase detection by dipstick 1+ NEGATIVE 01/09/2019 [facility] Urine nitrite detection NEGATIVE NEGATIVE 01/09/2019 [facility] Urine protein measurement by test strip (mass/volume) NEGATIVE NEGATIVE 01/09/2019 [facility] Urine glucose detection 3+ NEGATIVE 01/09/2019 [facility] Urine ketones detection by automated test strip NEGATIVE NEGATIVE 01/09/2019 [facility] Urine urobilinogen measurement by test strip (mass/volume) 0.2 0.2 - 1 01/09/2019 [facility] Urine total bilirubin measurement (mass/volume) NEGATIVE NEGATIVE 01/09/2019 [facility] Urine erythrocytes detection TRACE NEGATIVE 01/09/2019 [facility] Automated urine sediment leukocyte count by microscopy (number/high power field) >50 0 - 5 01/09/2019 [facility] Erythrocytes detection in urine sediment by light microscopy 11-20 0 - 5 01/09/2019 [facility] Bacteria detection in urine sediment by light microscopy MANY NONE 01/09/2019 [facility] Epithelial cells detection in urine sediment by light microscopy FEW NONE 01/09/2019 [facility] Transitional cells detection in urine sediment by light microscopy FEW NONE 01/09/2019 [facility] Blood leukocytes automated count (number/volume) 8.37 4.8 - 10.8 01/02/2019 [facility] Blood erythrocytes automated count (number/volume) 4.64 4.3 - 5.7 01/02/2019 [facility] Blood hemoglobin measurement (moles/volume) 12.7 14.0 - 18.0 01/02/2019 [facility] Automated blood hematocrit (volume fraction) 39.1 38.2 - 49.6 01/02/2019 [facility] Automated erythrocyte mean corpuscular volume 84.3 81 - 99 01/02/2019 [facility] Automated erythrocyte mean corpuscular hemoglobin (mass per erythrocyte) 27.4 28 - 32 01/02/2019 [facility] Automated erythrocyte mean corpuscular hemoglobin concentration measurement (mass/volume) 32.5 31 - 35 01/02/2019 [facility] RDW BldCo-Rto 14.0 11.7 - 14.4 01/02/2019 [facility] Automated blood platelet count (count/volume) 261 140 - 360 01/02/2019 [facility] Automated blood segmented neutrophil count as percentage of total leukocytes 67.0 38.7 - 80.0 01/02/2019 [facility] Automated blood lymphocyte count as percentage ot total leukocytes 22.3 18.0 - 39.1 01/02/2019 [facility] Automated blood monocyte count as percentage of total leukocytes 5.9 4.4 - 11.3 01/02/2019 [facility] Automated blood eosinophil count as percentage of total leukocytes 3.9 0.0 - 6.0 01/02/2019 [facility] Automated blood basophil count as percentage of total leukocytes 0.5 0.0 - 1.0 01/02/2019 [facility] IM GRANULOCYTES % 0.4 0.0 - 1.0 01/02/2019 [facility] Automated blood neutrophil count 5.6 2.1 - 6.9 01/02/2019 [facility] Blood lymphocytes count (number/volume) 1.9 1.0 - 3.2 01/02/2019 [facility] Blood monocytes automated count (number/volume) 0.5 0.2 - 0.8 01/02/2019 [facility] Automated blood eosinophil count 0.3 0.0 - 0.4 01/02/2019 [facility] Automated blood basophil count (count/volume) 0.0 0.0 - 0.1 01/02/2019 [facility] Absolute Immature Granulocyte (auto 0.03 0 - 0.1 01/02/2019 [facility] Prothrombin time (PT) in platelet poor plasma by coagulation assay 12.4 11.9 - 14.5 01/02/2019 [facility] INR in Platelet poor plasma by Coagulation assay 0.88 01/02/2019 [facility] Activated partial thromboplastin time (aPTT) in platelet poor plasma bycoagulation assay 32.4 23.8 - 35.5 01/02/2019 [facility] Serum or plasma sodium measurement (moles/volume) 138 136 - 145 01/02/2019 [facility] Serum or plasma potassium measurement (moles/volume) 4.1 3.5 - 5.1 01/02/2019 [facility] Serum or plasma chloride measurement (moles/volume) 102 98 - 107 01/02/2019 [facility] Serum or plasma carbon dioxide, total measurement (moles/volume) 26 22 - 29 01/02/2019 [facility] Serum or plasma anion gap 14.1 8 - 16 01/02/2019 [facility] Serum or plasma urea nitrogen measurement (mass/volume) 16 7 - 26 01/02/2019 [facility] Serum or plasma creatinine measurement (mass/volume) 1.09 0.72 - 1.25 01/02/2019 [facility] Serum or plasma urea nitrogen/creatinine mass ratio 15 6 - 25 01/02/2019 [facility] Estimated glomerular filtration rate (GFR) determination > 60 60 01/02/2019 [facility] Glucose measurement 182 74 - 118 01/02/2019 [facility] Serum or plasma calcium measurement (mass/volume) 9.8 8.4 - 10.2 01/02/2019 [facility] Serum or plasma total bilirubin measurement (mass/volume) 0.3 0.2 - 1.2 01/02/2019 [facility] Aspartate Amino Transf (AST/SGOT) 13 5 - 34 01/02/2019 [facility] Serum or plasma alanine aminotransferase measurement (enzymatic activity/volume) 13 0 - 55 01/02/2019 [facility] Serum or plasma protein measurement (mass/volume) 7.7 6.5 - 8.1 01/02/2019 [facility] Serum or plasma albumin measurement (mass/volume) 3.9 3.5 - 5.0 01/02/2019 [facility] Plasma globulin measurement (mass/volume) 3.8 2.3 - 3.5 01/02/2019 [facility] Serum or plasma albumin/globulin mass ratio 1.0 0.8 - 2.0 01/02/2019 [facility] Serum or plasma alkaline phosphatase measurement (enzymatic activity/volume) 69 40 - 150 01/02/2019 [facility] BNP Bld-mCnc 71.8 0 - 100 01/02/2019 [facility] Serum or plasma creatine kinase measurement (enzymatic activity/volume) 64 30 - 200 01/02/2019 [facility] Serum or plasma creatine kinase MB measurement (mass/volume) 1.20 0 - 5.0 01/02/2019 [facility] Troponin I measurement by highly sensitive enzyme immunoassay 0.008 0 - 0.300 01/02/2019 [facility] Activated partial thromboplastin time (aPTT) in platelet poor plasma bycoagulation assay 32.4 23.8 - 35.5 01/02/2019 [facility] Capillary blood glucose measurement by glucometer (mass/volume) 190 70 - 120 01/01/2019 [facility] ELECTROLYTES AGAP 13.1 10.0 - 20.0 10/02/2018 [facility] ELECTROLYTES BUN 16 7 - 22 10/02/2018 [facility] ELECTROLYTES Creatinine Lvl 0.68 0.50 - 1.40 10/02/2018 [facility] ELECTROLYTES Sodium Lvl 141 135 - 145 10/02/2018 [facility] ELECTROLYTES Chloride Lvl 106 95 - 109 10/02/2018 [facility] ELECTROLYTES Potassium Lvl 4.1 3.5 - 5.1 10/02/2018 [facility] ELECTROLYTES eGFR 110 10/02/2018 Result Comment: The [...] should be multiplied by the estimated BMI. [facility] ELECTROLYTES Calcium Lvl 8.2 8.5 - 10.5 10/02/2018 [facility] ELECTROLYTES CO2 26 24 - 32 10/02/2018 [facility] ELECTROLYTES Glucose Lvl 117 70 - 99 10/02/2018 [facility] CHEM PANEL eGFR 97 09/28/2018 Result Comment: [...] should be multiplied by the estimated BMI. [facility] CHEM PANEL Sodium Lvl 141 135 - 145 09/28/2018 [facility] CHEM PANEL Potassium Lvl 4.4 3.5 - 5.1 09/28/2018 [facility] CHEM PANEL Creatinine Lvl 0.91 0.50 - 1.40 09/28/2018 [facility] CHEM PANEL BUN 14 7 - 22 09/28/2018 [facility] CHEM PANEL CO2 29 24 - 32 09/28/2018 [facility] CHEM PANEL Chloride Lvl 105 95 - 109 09/28/2018 [facility] CHEM PANEL Calcium Lvl 9.4 8.5 - 10.5 09/28/2018 [facility] CHEM PANEL Glucose Lvl 132 70 - 99 09/28/2018 [facility] CHEM PANEL AGAP 11.4 10.0 - 20.0 09/28/2018 [facility] HEMATOLOGY Basophils # 0.1 0.0 - 0.2 09/28/2018 [facility] HEMATOLOGY Eosinophils # 0.4 0.0 - 0.5 09/28/2018 [facility] HEMATOLOGY Monocytes # 0.7 0.0 - 0.8 09/28/2018 [facility] HEMATOLOGY Lymphocytes # 2.2 1.0 - 5.5 09/28/2018 [facility] HEMATOLOGY Neutrophils # 5.1 1.5 - 8.1 09/28/2018 [facility] HEMATOLOGY Eosinophils 5.1 0.0 - 4.0 09/28/2018 [facility] HEMATOLOGY Basophils 0.8 0.0 - 1.0 09/28/2018 [facility] HEMATOLOGY Monocytes 7.8 2.0 - 12.0 09/28/2018 [facility] HEMATOLOGY Lymphocytes 25.6 20.0 - 40.0 09/28/2018 [facility] HEMATOLOGY Segs 60.7 45.0 - 75.0 09/28/2018 [facility] HEMATOLOGY MPV 6.9 7.4 - 10.4 09/28/2018 [facility] HEMATOLOGY Platelet 317 133 - 450 09/28/2018 [facility] HEMATOLOGY RDW 15.1 11.5 - 14.5 09/28/2018 [facility] MCH 27.4 27.0 - 31.0 09/28/2018 [facility] [facility] HEMATOLOGY MCV 84.3 80.0 - 94.0 09/28/2018 [facility] HEMATOLOGY Hct 41.4 42.0 - 54.0 09/28/2018 [facility] HEMATOLOGY Hgb 13.5 14.0 - 18.0 09/28/2018 [facility] HEMATOLOGY WBC 8.4 3.7 - 10.4 09/28/2018 [facility] HEMATOLOGY MCHC 32.5 32.0 - 36.0 09/28/2018 [facility] HEMATOLOGY RBC 4.90 4.70 - 6.10 09/28/2018 [facility] HEMATOLOGY INR 0.98 0.85 - 1.17 09/28/2018 [facility] HEMATOLOGY PTT 32.7 22.9 - 35.8 09/28/2018 [facility] HEMATOLOGY PT 12.8 12.0 - 14.7 09/28/2018 [facility] SPECIAL CHEMISTRY Hgb A1C 6.1 <=5.6 % 09/28/2018 [facility] CARDIAC ENZYMES Troponin-I <0.02 0.00 - 0.40 09/24/2018 [facility] CARDIAC ENZYMES BNP 66 <=100 pg/mL 09/24/2018 [facility] CARDIAC ENZYMES Troponin-I <0.02 0.00 - 0.40 09/24/2018 [facility] CARDIAC ENZYMES Total CK 81 12 - 191 09/24/2018 [facility] CHEM PANEL A/G Ratio 1.0 0.7 - 1.6 09/24/2018 [facility] CHEM PANEL B/C Ratio 17 6 - 25 09/24/2018 [facility] CHEM PANEL Globulin 3.8 2.7 - 4.2 09/24/2018 [facility] CHEM PANEL AGAP 14.1 10.0 - 20.0 09/24/2018 [facility] CHEM PANEL ALT 20 0 - 65 09/24/2018 [facility] CHEM PANEL AST 15 0 - 37 09/24/2018 [facility] CHEM PANEL Albumin Lvl 3.7 3.5 - 5.0 09/24/2018 [facility] CHEM PANEL Total Protein 7.5 6.4 - 8.4 09/24/2018 [facility] CHEM PANEL BUN 18 7 - 22 09/24/2018 [facility] CHEM PANEL Creatinine Lvl 1.03 0.50 - 1.40 09/24/2018 [facility] CHEM PANEL Sodium Lvl 138 135 - 145 09/24/2018 [facility] CHEM PANEL Glucose Lvl 172 70 - [...] should be multiplied by the estimated BMI. [facility] CHEM PANEL CO2 25 24 - 32 09/24/2018 [facility] CHEM PANEL Calcium Lvl 9.1 8.5 - 10.5 09/24/2018 [facility] CHEM PANEL Potassium Lvl 4.1 3.5 - 5.1 09/24/2018 [facility] CHEM PANEL Chloride Lvl 103 95 - 109 09/24/2018 [facility] MCHC 33.4 32.0 - 36.0 09/24/2018 [facility] Hct 37.3 42.0 - 54.0 09/24/2018 [facility] Hgb 12.5 14.0 - 18.0 09/24/2018 [facility] MCH 28.0 27.0 - 31.0 09/24/2018 [facility] MCV 84.0 80.0 - 94.0 09/24/2018 [facility] WBC 9.0 3.7 - 10.4 09/24/2018 [facility] RBC 4.45 4.70 - 6.10 09/24/2018 [facility] RDW 14.6 11.5 - 14.5 09/24/2018 [facility] MPV 6.7 7.4 - 10.4 09/24/2018 [facility] Platelet 304 133 - 450 09/24/2018 [facility] PTT 31.0 22.9 - 35.8 09/24/2018 [facility] PT 12.6 12.0 - 14.7 09/24/2018 [facility] HEMATOLOGY INR 0.94 0.85 - 1.17 09/24/2018 [facility] HEMATOLOGY Lymphocytes # 2.4 1.0 - 5.5 09/24/2018 [facility] HEMATOLOGY Monocytes # 0.7 0.0 - 0.8 09/24/2018 [facility] HEMATOLOGY Eosinophils # 0.4 0.0 - 0.5 09/24/2018 [facility] HEMATOLOGY Basophils # 0.1 0.0 - 0.2 09/24/2018 [facility] HEMATOLOGY Monocytes 7.9 2.0 - 12.0 09/24/2018 [facility] HEMATOLOGY Lymphocytes 27.1 20.0 - 40.0 09/24/2018 [facility] HEMATOLOGY Basophils 0.9 0.0 - 1.0 09/24/2018 [facility] HEMATOLOGY Eosinophils 4.3 0.0 - 4.0 09/24/2018 [facility] HEMATOLOGY Neutrophils # 5.4 1.5 - 8.1 09/24/2018 [facility] HEMATOLOGY Segs 59.8 45.0 - 75.0 09/24/2018 [facility] CHEM PANEL eGFR 92 09/16/2018 Result Comment: [...] should be multiplied by the estimated BMI. [facility] CHEM PANEL ALT 22 0 - 65 09/16/2018 [facility] CHEM PANEL Alk Phos 91 39 - 136 09/16/2018 [facility] CHEM PANEL AST 16 0 - 37 09/16/2018 [facility] CHEM PANEL Albumin Lvl 3.7 3.5 - 5.0 09/16/2018 [facility] CHEM PANEL Total Protein 7.4 6.4 - 8.4 09/16/2018 [facility] CHEM PANEL Calcium Lvl 9.1 8.5 - 10.5 09/16/2018 [facility] CHEM PANEL Bili Total 0.3 0.2 - 1.3 09/16/2018 [facility] CHEM PANEL CO2 27 24 - 32 09/16/2018 [facility] CHEM PANEL Chloride Lvl 103 95 - 109 09/16/2018 [facility] CHEM PANEL Potassium Lvl 4.1 3.5 - 5.1 09/16/2018 [facility] CHEM PANEL Sodium Lvl 141 135 - 145 09/16/2018 [facility] CHEM PANEL BUN 17 7 - 22 09/16/2018 [facility] CHEM PANEL Creatinine Lvl 0.94 0.50 - 1.40 09/16/2018 [facility] CHEM PANEL Glucose Lvl 89 70 - 99 09/16/2018 [facility] CHEM PANEL Globulin 3.7 2.7 - 4.2 09/16/2018 [facility] CHEM PANEL A/G Ratio 1.0 0.7 - 1.6 09/16/2018 [facility] CHEM PANEL B/C Ratio 18 6 - 25 09/16/2018 [facility] CHEM PANEL AGAP 15.1 10.0 - 20.0 09/16/2018 [facility] HEMATOLOGY MPV 6.9 7.4 - 10.4 09/16/2018 [facility] HEMATOLOGY RDW 15.0 11.5 - 14.5 09/16/2018 [facility] HEMATOLOGY Platelet 315 133 - 450 09/16/2018 [facility] HEMATOLOGY MCV 84.0 80.0 - 94.0 09/16/2018 [facility] HEMATOLOGY MCH 28.1 27.0 - 31.0 09/16/2018 [facility] HEMATOLOGY MCHC 33.4 32.0 - 36.0 09/16/2018 [facility] HEMATOLOGY Hct 39.1 42.0 - 54.0 09/16/2018 [facility] HEMATOLOGY RBC 4.66 4.70 - 6.10 09/16/2018 [facility] HEMATOLOGY Hgb 13.1 14.0 - 18.0 09/16/2018 [facility] HEMATOLOGY WBC 8.3 3.7 - 10.4 09/16/2018 [facility] HEMATOLOGY Eosinophils # 0.4 0.0 - 0.5 09/16/2018 [facility] HEMATOLOGY Basophils # 0.1 0.0 - 0.2 09/16/2018 [facility] HEMATOLOGY Lymphocytes 26.9 20.0 - 40.0 09/16/2018 [facility] HEMATOLOGY Monocytes 9.4 2.0 - 12.0 09/16/2018 [facility] HEMATOLOGY Segs 58.4 45.0 - 75.0 09/16/2018 [facility] HEMATOLOGY Monocytes # 0.8 0.0 - 0.8 09/16/2018 [facility] HEMATOLOGY Eosinophils 4.5 0.0 - 4.0 09/16/2018 [facility] HEMATOLOGY Basophils 0.8 0.0 - 1.0 09/16/2018 [facility] HEMATOLOGY Neutrophils # 4.8 1.5 - 8.1 09/16/2018 [facility] HEMATOLOGY Lymphocytes # 2.2 1.0 - 5.5 09/16/2018 [facility] Capillary blood glucose measurement by glucometer (mass/volume) Capillary blood glucose measurement by glucometer (mass/volume) 148 70 - 120 06/29/2018 [facility] Automated blood basophil count (count/volume) Automated blood basophil count (count/volume) 0.0 0.0 - 0.1 06/28/2018 [facility] Automated blood basophil count as percentage of total leukocytes Automated blood basophil count as percentage of total leukocytes 0.4 0.0 - 1.0 06/28/2018 [facility] Automated blood eosinophil count Automated blood eosinophil count 0.4 0.0 - 0.4 06/28/2018 [facility] Automated blood eosinophil count as percentage of total leukocytes Automated blood eosinophil count as percentage of total leukocytes 3.5 0.0 - 6.0 06/28/2018 [facility] Automated blood hematocrit (volume fraction) Automated blood hematocrit (volume fraction) 34.7 38.2 - 49.6 06/28/2018 [facility] Automated blood lymphocyte count as percentage ot total leukocytes Automated blood lymphocyte count as percentage ot total leukocytes 22.9 18.0 - 39.1 06/28/2018 [facility] Automated blood monocyte count as percentage of total leukocytes Automated blood monocyte count as percentage of total leukocytes 9.2 4.4 - 11.3 06/28/2018 [facility] Automated blood neutrophil count Automated blood neutrophil count 6.3 2.1 - 6.9 06/28/2018 [facility] Automated blood platelet count (count/volume) Automated blood platelet count (count/volume) 354 140 - 360 06/28/2018 [facility] Automated blood segmented neutrophil count as percentage of total leukocytes Automated blood segmented neutrophil count as percentage of total leukocytes 62.7 38.7 - 80.0 06/28/2018 [facility] Automated erythrocyte mean corpuscular hemoglobin (mass per erythrocyte) Automated erythrocyte mean corpuscular hemoglobin (mass per erythrocyte) 28.4 28 - 32 06/28/2018 [facility] Automated erythrocyte mean corpuscular hemoglobin concentration measurement (mass/volume) Automated erythrocyte mean corpuscular hemoglobin concentration measurement (mass/volume) 32.9 31 - 35 06/28/2018 [facility] Automated erythrocyte mean corpuscular volume Automated erythrocyte mean corpuscular volume 86.5 81 - 99 06/28/2018 [facility] Blood erythrocytes automated count (number/volume) Blood erythrocytes automated count (number/volume) 4.01 4.3 - 5.7 06/28/2018 [facility] Blood hemoglobin measurement (moles/volume) Blood hemoglobin measurement (moles/volume) 11.4 14.0 - 18.0 06/28/2018 [facility] Blood leukocytes automated count (number/volume) Blood leukocytes automated count (number/volume) 10.04 4.8 - 10.8 06/28/2018 [facility] Blood lymphocytes count (number/volume) Blood lymphocytes count (number/volume) 2.3 1.0 - 3.2 06/28/2018 [facility] Blood monocytes automated count (number/volume) Blood monocytes automated count (number/volume) 0.9 0.2 - 0.8 06/28/2018 [facility] Estimated glomerular filtration rate (GFR) determination Estimated glomerular filtration rate (GFR) determination >60 60 06/28/2018 [facility] Glucose measurement Glucose measurement 130 74 - 118 06/28/2018 [facility] Serum or plasma anion gap Serum or plasma anion gap 13.2 8 - 16 06/28/2018 [facility] Serum or plasma calcium measurement (mass/volume) Serum or plasma calcium measurement (mass/volume) 9.6 8.4 - 10.2 06/28/2018 [facility] Serum or plasma carbon dioxide, total measurement (moles/volume) Serum or plasma carbon dioxide, total measurement (moles/volume) 26 22 - 29 06/28/2018 [facility] Serum or plasma chloride measurement (moles/volume) Serum or plasma chloride measurement (moles/volume) 103 98 - 107 06/28/2018 [facility] Serum or plasma creatinine measurement (mass/volume) Serum or plasma creatinine measurement (mass/volume) 0.87 0.72 - 1.25 06/28/2018 [facility] Serum or plasma potassium measurement (moles/volume) Serum or plasma potassium measurement (moles/volume) 4.2 3.5 - 5.1 06/28/2018 [facility] Serum or plasma sodium measurement (moles/volume) Serum or plasma sodium measurement (moles/volume) 138 136 - 145 06/28/2018 [facility] Serum or plasma urea nitrogen measurement (mass/volume) Serum or plasma urea nitrogen measurement (mass/volume) 17 7 - 26 06/28/2018 [facility] Serum or plasma urea nitrogen/creatinine mass ratio Serum or plasma urea nitrogen/creatinine mass ratio 20 6 - 25 06/28/2018 [facility] Red Cell Distribution Width 12.6 11.7 - 14.4 06/28/2018 [facility] IM GRANULOCYTES % 1.3 0.0 - 1.0 06/28/2018 [facility] Absolute Immature Granulocyte (auto 0.13 0 - 0.1 06/28/2018 [facility] Blood culture NO GROWTH AFTER 5 DAYS, FINAL REPORT 06/26/2018 [facility] Blood culture Blood culture NO GROWTH AFTER 48 HOURS 06/26/2018 [facility] Troponin I measurement by highly sensitive enzyme immunoassay Troponin I measurement by highly sensitive enzyme immunoassay 0.006 0 - 0.300 06/26/2018 [facility] Differential Total Cells Counted 100 06/26/2018 [facility] Manual blood neutrophils/100 leukocytes 76 40 - 74 06/26/2018 [facility] Manual blood lymphocytes/100 leukocytes 13 19 - 48 06/26/2018 [facility] Manual blood monocytes/100 leukocytes 8 3.4 - 9.0 06/26/2018 [facility] Manual blood eosinophil count as percentage of total leukocytes 3 0 - 7 06/26/2018 [facility] Blood platelets count by estimate (number/volume) ADEQUATE 06/26/2018 [facility] Platelet morphology NORMAL 06/26/2018 [facility] RBC morphology NORMAL 06/26/2018 [facility] Blood platelets count by estimate (number/volume) Blood platelets count by estimate (number/volume) ADEQUATE 06/26/2018 [facility] Manual blood eosinophil count as percentage of total leukocytes Manual blood eosinophil count as percentage of total leukocytes 3 0 - 7 06/26/2018 [facility] Manual blood lymphocytes/100 leukocytes Manual blood lymphocytes/100 leukocytes 13 19 - 48 06/26/2018 [facility] Manual blood monocytes/100 leukocytes Manual blood monocytes/100 leukocytes 8 3.4 - 9.0 06/26/2018 [facility] Manual blood neutrophils/100 leukocytes Manual blood neutrophils/100 leukocytes 76 40 - 74 06/26/2018 [facility] Platelet morphology Platelet morphology NORMAL 06/26/2018 [facility] RBC morphology RBC morphology NORMAL 06/26/2018 [facility] Differential Total Cells Counted 100 06/26/2018 [facility] Phosphorus measurement 2.2 2.3 - 4.7 06/25/2018 [facility] Serum or plasma magnesium measurement (mass/volume) 1.8 1.3 - 2.1 06/25/2018 [facility] Serum or plasma natriuretic peptide B prohormone N-terminal measurement(mass/volume) 568 0 - 121 06/25/2018 [facility] Serum or plasma prostate specific antigen measurement (mass/volume) 8.2 0.0 - 4.0 06/25/2018 [facility] Phosphorus measurement 2.2 2.3 - 4.7 06/25/2018 [facility] Serum or plasma natriuretic peptide B prohormone N-terminal measurement(mass/volume) 568 0 - 121 06/25/2018 [facility] Activated partial thromboplastin time (aPTT) in platelet poor plasma bycoagulation assay Activated partial thromboplastin time (aPTT) in platelet poor plasma bycoagulation assay 32.0 23.8 - 35.5 06/25/2018 [facility] INR in Platelet poor plasma by Coagulation assay INR in Platelet poor plasma by Coagulation assay 1.14 06/25/2018 [facility] Phosphorus measurement Phosphorus measurement 2.2 2.3 - 4.7 06/25/2018 [facility] Plasma globulin measurement (mass/volume) Plasma globulin measurement (mass/volume) 3.9 2.3 - 3.5 06/25/2018 [facility] Prothrombin time (PT) in platelet poor plasma by coagulation assay Prothrombin time (PT) in platelet poor plasma by coagulation assay 13.7 11.9 - 14.5 06/25/2018 [facility] Serum or plasma alanine aminotransferase measurement (enzymatic activity/volume) Serum or plasma alanine aminotransferase measurement (enzymatic activity/volume) 12 0 - 55 06/25/2018 [facility] Serum or plasma albumin measurement (mass/volume) Serum or plasma albumin measurement (mass/volume) 3.8 3.5 - 5.0 06/25/2018 [facility] Serum or plasma albumin/globulin mass ratio Serum or plasma albumin/globulin mass ratio 1.0 0.8 - 2.0 06/25/2018 [facility] Serum or plasma alkaline phosphatase measurement (enzymatic activity/volume) Serum or plasma alkaline phosphatase measurement (enzymatic activity/volume) 59 40 - 150 06/25/2018 [facility] Serum or plasma magnesium measurement (mass/volume) Serum or plasma magnesium measurement (mass/volume) 1.8 1.3 - 2.1 06/25/2018 [facility] Serum or plasma natriuretic peptide B prohormone N-terminal measurement(mass/volume) Serum or plasma natriuretic peptide B prohormone N-terminal measurement(mass/volume) 568 0 - 121 06/25/2018 [facility] Serum or plasma prostate specific antigen measurement (mass/volume) Serum or plasma prostate specific antigen measurement (mass/volume) 8.2 0.0 - 4.0 06/25/2018 [facility] Serum or plasma protein measurement (mass/volume) Serum or plasma protein measurement (mass/volume) 7.7 6.5 - 8.1 06/25/2018 [facility] Serum or plasma total bilirubin measurement (mass/volume) Serum or plasma total bilirubin measurement (mass/volume) 0.9 0.2 - 1.2 06/25/2018 [facility] Aspartate Amino Transf (AST/SGOT) 12 5 - 34 06/25/2018 [facility] Urine color determination YELLOW YELLOW 06/25/2018 [facility] Urine clarity HAZY CLEAR 06/25/2018 [facility] Specific gravity of Urine by Test strip 1.010 1.010 - 1.025 06/25/2018 [facility] Urine pH measurement by automated test strip 6 5 - 7 06/25/2018 [facility] Urine leukocyte esterase detection by dipstick TRACE NEGATIVE 06/25/2018 [facility] Urine nitrite detection NEGATIVE NEGATIVE 06/25/2018 [facility] Urine protein measurement by test strip (mass/volume) NEGATIVE NEGATIVE 06/25/2018 [facility] Urine glucose detection 3+ NEGATIVE 06/25/2018 [facility] Urine ketones detection by automated test strip NEGATIVE NEGATIVE 06/25/2018 [facility] Urine urobilinogen measurement by test strip (mass/volume) 0.2 0.2 - 1 06/25/2018 [facility] Urine total bilirubin measurement (mass/volume) NEGATIVE NEGATIVE 06/25/2018 [facility] Urine erythrocytes detection TRACE NEGATIVE 06/25/2018 [facility] Automated urine sediment leukocyte count by microscopy (number/high power field) 11-20 0 - 5 06/25/2018 [facility] Erythrocytes detection in urine sediment by light microscopy NONE 0 - 5 06/25/2018 [facility] Bacteria detection in urine sediment by light microscopy MANY NONE 06/25/2018 [facility] Epithelial cells detection in urine sediment by light microscopy RARE NONE 06/25/2018 [facility] Automated urine sediment leukocyte count by microscopy (number/high power field) Automated urine sediment leukocyte count by microscopy (number/high power field) <20 0 - 5 06/25/2018 [facility] Bacteria detection in urine sediment by light microscopy Bacteria detection in urine sediment by light microscopy MANY NONE 06/25/2018 [facility] Epithelial cells detection in urine sediment by light microscopy Epithelial cells detection in urine sediment by light microscopy RARE NONE 06/25/2018 [facility] Erythrocytes detection in urine sediment by light microscopy Erythrocytes detection in urine sediment by light microscopy NONE 0 - 5 06/25/2018 [facility] Specific gravity of Urine by Test strip Specific gravity of Urine by Test strip 1.010 1.010 - 1.025 06/25/2018 [facility] Urine clarity Urine clarity HAZY CLEAR 06/25/2018 [facility] Urine color determination Urine color determination YELLOW YELLOW 06/25/2018 [facility] Urine erythrocytes detection Urine erythrocytes detection TRACE NEGATIVE 06/25/2018 [facility] Urine glucose detection Urine glucose detection 3+ NEGATIVE 06/25/2018 [facility] Urine ketones detection by automated test strip Urine ketones detection by automated test strip NEGATIVE NEGATIVE 06/25/2018 [facility] Urine leukocyte esterase detection by dipstick Urine leukocyte esterase detection by dipstick TRACE NEGATIVE 06/25/2018 [facility] Urine nitrite detection Urine nitrite detection NEGATIVE NEGATIVE 06/25/2018 [facility] Urine pH measurement by automated test strip Urine pH measurement by automated test strip 6 5 - 7 06/25/2018 [facility] Urine protein measurement by test strip (mass/volume) Urine protein measurement by test strip (mass/volume) NEGATIVE NEGATIVE 06/25/2018 [facility] Urine total bilirubin measurement (mass/volume) Urine total bilirubin measurement (mass/volume) NEGATIVE NEGATIVE 06/25/2018 [facility] Urine urobilinogen measurement by test strip (mass/volume) Urine urobilinogen measurement by test strip (mass/volume) 0.2 0.2 - 1 06/25/2018 [facility] CHEM PANEL POC Creatinine 0.8 0.5 - 1.4 05/19/2018 [facility] CHEM PANEL eGFR 103 05/19/2018 Result Comment: [...] should be multiplied by the estimated BMI. [facility] BLOOD BANK RESULTS ABO/Rh O POS 07/22/2017 [facility] BLOOD BANK RESULTS Antibody Scrn Negative (07/22/17 2:23 AM) 07/22/2017 [facility] URINE AND STOOL UA Sq Epi RARE 07/22/2017 [facility] URINE AND STOOL UA Beebe Yeast Occasional /HPF None Seen /HPF 07/22/2017 [facility] URINE AND STOOL UA WBC 10 0 - 5 07/22/2017 [facility] URINE AND STOOL UA Bacteria Occasional /HPF None Seen /HPF 07/22/2017 [facility] URINE AND STOOL UA Mucus Few /LPF None Seen /LPF 07/22/2017 [facility] URINE AND STOOL UA RBC <1 0 - 2 07/22/2017 [facility] URINE AND STOOL UA Protein Negative (07/22/17 2:19 AM) Negative 07/22/2017 [facility] URINE AND STOOL UA Ketones Negative *NA* (07/22/17 2:19 AM) Negative 07/22/2017 [facility] URINE AND STOOL UA Urobilinogen 1.0 0.1 - 1.0 07/22/2017 [facility] URINE AND STOOL UA Bili Negative *NA* (07/22/17 2:19 AM) Negative 07/22/2017 [facility] URINE AND STOOL UA Blood Negative (07/22/17 2:19 AM) Negative 07/22/2017 [facility] URINE AND STOOL UA Nitrite Negative (07/22/17 2:19 AM) Negative 07/22/2017 [facility] URINE AND STOOL UA Leuk Est Trace *ABN* (07/22/17 2:19 AM) Negative 07/22/2017 [facility] URINE AND STOOL UA Spec Grav 1.015 <=1.030 07/22/2017 [facility] URINE AND STOOL UA pH 6.0 5.0 - 8.0 07/22/2017 [facility] URINE AND STOOL UA Glucose 100 mg/dL Negative mg/dL 07/22/2017 [facility] URINE AND STOOL UA Color Yellow *NA* (07/22/17 2:19 AM) Yellow 07/22/2017 [facility] URINE AND STOOL UA Turbidity Clear (07/22/17 2:19 AM) Clear 07/22/2017 [facility] BACTERIAL - SEROLOGY MRSA by PCR Negative (07/22/17 1:00 AM) 07/22/2017 [facility] CHEM PANEL eGFR 103 07/22/2017 Result [...] should be multiplied by the estimated BMI. [facility] CHEM PANEL Glucose Lvl 74 70 - 99 07/22/2017 [facility] CHEM PANEL BUN 14 7 - 22 07/22/2017 [facility] CHEM PANEL Creatinine Lvl 0.81 0.50 - 1.40 07/22/2017 [facility] CHEM PANEL Potassium Lvl 3.7 3.5 - 5.1 07/22/2017 [facility] CHEM PANEL Sodium Lvl 141 135 - 145 07/22/2017 [facility] CHEM PANEL Calcium Lvl 9.1 8.5 - 10.5 07/22/2017 [facility] CHEM PANEL Chloride Lvl 105 95 - 109 07/22/2017 [facility] CHEM PANEL CO2 26 24 - 32 07/22/2017 [facility] CHEM PANEL Total Protein 6.6 6.4 - 8.4 07/22/2017 [facility] CHEM PANEL AST 9 0 - 37 07/22/2017 [facility] CHEM PANEL ALT 18 0 - 65 07/22/2017 [facility] CHEM PANEL Albumin Lvl 3.4 3.5 - 5.0 07/22/2017 [facility] CHEM PANEL Bili Total 0.2 0.2 - 1.3 07/22/2017 [facility] CHEM PANEL Alk Phos 74 39 - 136 07/22/2017 [facility] CHEM PANEL A/G Ratio 1.1 0.7 - 1.6 07/22/2017 [facility] CHEM PANEL Globulin 3.2 2.7 - 4.2 07/22/2017 [facility] CHEM PANEL AGAP 13.7 10.0 - 20.0 07/22/2017 [facility] CHEM PANEL B/C Ratio 17 6 - 25 07/22/2017 [facility] CHEM PANEL Magnesium Lvl 1.9 1.8 - 2.4 07/22/2017 [facility] CHEM PANEL Phosphorus 3.8 2.5 - 4.5 07/22/2017 [facility] HEMATOLOGY Monocytes # 0.8 0.0 - 0.8 07/22/2017 [facility] HEMATOLOGY Lymphocytes # 2.1 1.0 - 5.5 07/22/2017 [facility] HEMATOLOGY Eosinophils # 0.3 0.0 - 0.5 07/22/2017 [facility] HEMATOLOGY Basophils # 0.1 0.0 - 0.2 07/22/2017 [facility] HEMATOLOGY Monocytes 8.0 2.0 - 12.0 07/22/2017 [facility] HEMATOLOGY Eosinophils 3.4 0.0 - 4.0 07/22/2017 [facility] HEMATOLOGY Basophils 0.6 0.0 - 1.0 07/22/2017 [facility] HEMATOLOGY Segs-Bands # 6.5 1.5 - 8.1 07/22/2017 [facility] HEMATOLOGY Lymphocytes 21.4 20.0 - 40.0 07/22/2017 [facility] HEMATOLOGY Segs 66.6 45.0 - 75.0 07/22/2017 [facility] HEMATOLOGY PTT 31.8 22.9 - 35.8 07/22/2017 [facility] HEMATOLOGY MCHC 33.7 32.0 - 36.0 07/22/2017 [facility] HEMATOLOGY MCH 27.2 27.0 - 31.0 07/22/2017 [facility] HEMATOLOGY RDW 14.7 11.5 - 14.5 07/22/2017 [facility] HEMATOLOGY MPV 7.1 7.4 - 10.4 07/22/2017 [facility] HEMATOLOGY Platelet 249 133 - 450 07/22/2017 [facility] HEMATOLOGY WBC 9.7 3.7 - 10.4 07/22/2017 [facility] HEMATOLOGY MCV 80.7 80.0 - 94.0 07/22/2017 [facility] HEMATOLOGY RBC 3.97 4.70 - 6.10 07/22/2017 [facility] HEMATOLOGY Hct 32.0 42.0 - 54.0 07/22/2017 [facility] HEMATOLOGY Hgb 10.8 14.0 - 18.0 07/22/2017 [facility] HEMATOLOGY INR 0.96 0.85 - 1.17 07/22/2017 [facility] HEMATOLOGY PT 13.0 12.0 - 14.7 07/22/2017 [facility] ELECTROLYTES AGAP 14.1 10.0 - 20.0 [...] should be multiplied by the estimated BMI. [facility] ELECTROLYTES Calcium Lvl 8.9 8.5 - 10.5 02/10/2017 [facility] ELECTROLYTES CO2 26 24 - 32 02/10/2017 [facility] ELECTROLYTES Chloride Lvl 101 95 - 109 02/10/2017 [facility] ELECTROLYTES Potassium Lvl 4.1 3.5 - 5.1 02/10/2017 [facility] ELECTROLYTES Glucose Lvl 144 70 - 99 02/10/2017 [facility] ELECTROLYTES Creatinine Lvl 0.84 0.50 - 1.40 02/10/2017 [facility] ELECTROLYTES BUN 14 7 - 22 02/10/2017 [facility] ELECTROLYTES Sodium Lvl 137 135 - 145 02/10/2017 [facility] HEMATOLOGY Segs 69.2 45.0 - 75.0 02/10/2017 [facility] HEMATOLOGY Lymphocytes 19.7 20.0 - 40.0 02/10/2017 [facility] HEMATOLOGY Eosinophils 3.1 0.0 - 4.0 02/10/2017 [facility] HEMATOLOGY Monocytes 6.8 2.0 - 12.0 02/10/2017 [facility] HEMATOLOGY Basophils 1.2 0.0 - 1.0 02/10/2017 [facility] HEMATOLOGY Basophils # 0.1 0.0 - 0.2 02/10/2017 [facility] HEMATOLOGY Lymphocytes # 1.8 1.0 - 5.5 02/10/2017 [facility] HEMATOLOGY Segs-Bands # 6.2 1.5 - 8.1 02/10/2017 [facility] HEMATOLOGY Monocytes # 0.6 0.0 - 0.8 02/10/2017 [facility] HEMATOLOGY Eosinophils # 0.3 0.0 - 0.5 02/10/2017 [facility] Platelet 320 133 - 450 02/10/2017 [facility] RDW 15.7 11.5 - 14.5 02/10/2017 [facility] MPV 6.9 7.4 - 10.4 02/10/2017 [facility] WBC 8.9 3.7 - 10.4 02/10/2017 [facility] Hgb 11.9 14.0 - 18.0 02/10/2017 [facility] RBC 4.57 4.70 - 6.10 02/10/2017 [facility] Hct 36.2 42.0 - 54.0 02/10/2017 [facility] MCHC 33.0 32.0 - 36.0 02/10/2017 [facility] MCH 26.1 27.0 - 31.0 02/10/2017 [facility] MCV 79.2 80.0 - 94.0 02/10/2017 [facility] LIPIDS VLDL 38 02/10/2017 [facility] LIPIDS LDL (Calculated) 118 <=99 mg/dL 02/10/2017 [facility] LIPIDS HDL 43 >=61 mg/dL 02/10/2017 [facility] LIPIDS Chol 199 <=199 mg/dL 02/10/2017 [facility] LIPIDS Trig 191 <=149 mg/dL 02/10/2017 [facility] LIPIDS CHD Risk 4.63 4.00 - 7.30 02/10/2017 [facility] CARDIAC ENZYMES Troponin-I <0.02 0.00 - 0.40 08/20/2016 [facility] CARDIAC ENZYMES CK MB 2.1 0.5 - 3.6 08/20/2016 [facility] CARDIAC ENZYMES Total CK 97 12 - 191 08/20/2016 [facility] CARDIAC ENZYMES BNP 82 <=100 pg/mL 08/20/2016 [facility] CARDIAC ENZYMES CK MB Index 2.2 0.0 - 2.5 08/20/2016 [facility] CHEM PANEL A/G Ratio 0.9 0.7 - 1.6 08/20/2016 [facility] CHEM PANEL eGFR 104 08/20/2016 Result Comment: [...] Total Protein 7.5 6.4 - 8.4 08/20/2016 [facility] CHEM PANEL Calcium Lvl 8.9 8.5 - [...] Creatinine Lvl 0.81 0.50 - 1.40 08/20/2016 [facility] CHEM PANEL AGAP 11.1 10.0 - 20.0 08/20/2016 [facility] CHEM PANEL B/C Ratio 23 6 - 25 08/20/2016 [facility] CHEM PANEL Bili Total 0.3 0.2 - 1.3 08/20/2016 [facility] CHEM PANEL Globulin 3.9 2.7 - 4.2 08/20/2016 [facility] CHEM PANEL Alk Phos 73 39 - 136 08/20/2016 [facility] CHEM PANEL AST 12 0 - 37 08/20/2016 [facility] HEMATOLOGY MPV 6.6 7.4 - 10.4 08/20/2016 [facility] HEMATOLOGY MCH 26.2 27.0 - 31.0 08/20/2016 [facility] HEMATOLOGY MCV 80.7 80.0 - 94.0 08/20/2016 [facility] HEMATOLOGY RDW 14.0 11.5 - 14.5 08/20/2016 [facility] HEMATOLOGY MCHC 32.5 32.0 - 36.0 08/20/2016 [facility] HEMATOLOGY RBC 4.39 4.70 - 6.10 08/20/2016 [facility] HEMATOLOGY Hgb 11.5 14.0 - 18.0 08/20/2016 [facility] HEMATOLOGY Hct 35.4 42.0 - 54.0 08/20/2016 [facility] HEMATOLOGY WBC 8.6 3.7 - 10.4 08/20/2016 [facility] HEMATOLOGY Platelet 313 133 - 450 08/20/2016 [facility] HEMATOLOGY Segs 71.7 45.0 - 75.0 08/20/2016 [facility] HEMATOLOGY Segs-Bands # 6.1 1.5 - 8.1 [...] Negative *NA* (08/20/16 8:43 AM) Negative 08/20/2016 [facility] URINE AND STOOL UA Ketones Negative mg/dL Negative mg/dL 08/20/2016 [facility] URINE AND STOOL UA Glucose Negative mg/dL Negative mg/dL 08/20/2016 [facility] URINE AND STOOL UA Sq Epi Occasional /LPF Few /LPF 08/20/2016 [facility] URINE AND STOOL UA Leuk Est Negative (08/20/16 8:43 AM) Negative 08/20/2016 [facility] URINE AND STOOL UA Nitrite Negative (08/20/16 8:43 AM) Negative 08/20/2016 [facility] HEMATOLOGY Segs-Bands # 6.9 1.5 - 8.1 02/02/2016 [facility] HEMATOLOGY Lymphocytes # 1.3 1.0 - 5.5 02/02/2016 [facility] HEMATOLOGY Monocytes # 0.8 0.0 - 0.8 02/02/2016 [facility] HEMATOLOGY Basophils 0.5 0.0 - 1.0 02/02/2016 [facility] HEMATOLOGY Eosinophils 2.3 0.0 - 4.0 02/02/2016 [facility] HEMATOLOGY Monocytes 8.5 2.0 - 12.0 02/02/2016 [facility] HEMATOLOGY Eosinophils # 0.2 0.0 - 0.5 02/02/2016 [facility] HEMATOLOGY Segs 74.3 45.0 - 75.0 02/02/2016 [facility] HEMATOLOGY Lymphocytes 14.4 20.0 - 40.0 02/02/2016 [facility] Hct 33.7 42.0 - 54.0 02/02/2016 [facility] RBC 4.23 4.70 - 6.10 02/02/2016 [facility] HEMATOLOGY Hgb 11.2 14.0 - 18.0 02/02/2016 [facility] WBC 9.3 3.7 - 10.4 02/02/2016 [facility] HEMATOLOGY Platelet 240 133 - 450 02/02/2016 [facility] HEMATOLOGY MPV 7.3 7.4 - 10.4 02/02/2016 [facility] MCV 79.7 80.0 - 94.0 02/02/2016 [facility] MCH 26.5 27.0 - 31.0 02/02/2016 [facility] RDW 16.4 11.5 - 14.5 02/02/2016 [facility] MCHC 33.3 32.0 - 36.0 02/02/2016 [facility] CHEM PANEL Bili Indirect 0.6 0.0 - 1.0 01/31/2016 [facility] CHEM PANEL Bili Total 0.7 0.2 - 1.3 01/31/2016 [facility] CHEM PANEL Bili Direct 0.1 0.0 - 0.3 01/31/2016 [facility] CHEM PANEL ALT 21 0 - 65 01/31/2016 [facility] CHEM PANEL A/G Ratio 0.9 0.7 - 1.6 01/31/2016 [facility] CHEM PANEL Total Protein 7.6 6.4 - 8.4 01/31/2016 [facility] CHEM PANEL Globulin 4.0 2.0 - 4.0 01/31/2016 [facility] CHEM PANEL Albumin Lvl 3.6 3.5 - 5.0 01/31/2016 [facility] CHEM PANEL Alk Phos 82 39 - 136 01/31/2016 [facility] CHEM PANEL AST 11 0 - 37 01/31/2016 [facility] LIPIDS CHD Risk 5.76 4.00 - 7.30 01/31/2016 [facility] LIPIDS LDL (Calculated) 103 <=99 mg/dL 01/31/2016 [facility] LIPIDS VLDL 73 01/31/2016 [facility] LIPIDS Trig 364 <=149 mg/dL 01/31/2016 [facility] LIPIDS Chol 213 <=199 mg/dL 01/31/2016 [facility] LIPIDS HDL 37 >=61 mg/dL 01/31/2016 [facility] SPECIAL CHEMISTRY Hgb A1C 8.2 <=5.6 % 01/31/2016 [facility] CHEM PANEL eGFR 102 01/31/2016 Result Comment: [...] should be multiplied by the estimated BMI. [facility] CHEM PANEL CO2 27 24 - 32 01/31/2016 [facility] CHEM PANEL Chloride Lvl 103 95 - 109 01/31/2016 [facility] CHEM PANEL Potassium Lvl 4.3 3.5 - 5.1 01/31/2016 [facility] CHEM PANEL Calcium Lvl 8.6 8.5 - 10.5 01/31/2016 [facility] CHEM PANEL Glucose Lvl 168 70 - 99 01/31/2016 [facility] CHEM PANEL BUN 19 7 - 22 01/31/2016 [facility] CHEM PANEL Sodium Lvl 139 135 - 145 01/31/2016 [facility] CHEM PANEL Creatinine Lvl 0.85 0.50 - 1.40 01/31/2016 [facility] CHEM PANEL AGAP 13.3 10.0 - 20.0 01/31/2016 [facility] HEMATOLOGY Platelet 272 133 - 450 01/31/2016 [facility] MCHC 32.8 32.0 - 36.0 01/31/2016 [facility] RDW 15.8 11.5 - 14.5 01/31/2016 [facility] HEMATOLOGY MPV 7.3 7.4 - 10.4 01/31/2016 [facility] MCV 80.0 80.0 - 94.0 01/31/2016 [facility] Hct 38.6 42.0 - 54.0 01/31/2016 [facility] Hgb 12.6 14.0 - 18.0 01/31/2016 [facility] RBC 4.82 4.70 - 6.10 01/31/2016 [facility] WBC 9.3 3.7 - 10.4 01/31/2016 [facility] MCH 26.2 27.0 - 31.0 01/31/2016 [facility] HEMATOLOGY INR 0.97 0.85 - 1.17 01/31/2016 [facility] HEMATOLOGY PT 13.2 12.0 - 14.7 01/31/2016 [facility] HEMATOLOGY PTT 32.9 22.9 - 35.8 01/31/2016 [facility] Lymphocytes # 1.7 1.0 - 5.5 01/31/2016 [facility] Eosinophils # 0.4 0.0 - 0.5 01/31/2016 [facility] Basophils # 0.1 0.0 - 0.2 01/31/2016 [facility] HEMATOLOGY Monocytes # 0.7 0.0 - 0.8 01/31/2016 [facility] HEMATOLOGY Basophils 0.9 0.0 - 1.0 01/31/2016 [facility] Segs-Bands # 6.5 1.5 - 8.1 01/31/2016 [facility] HEMATOLOGY Eosinophils 3.9 0.0 - 4.0 01/31/2016 [facility] Segs 69.5 45.0 - 75.0 01/31/2016 [facility] HEMATOLOGY Monocytes 7.4 2.0 - 12.0 01/31/2016 [facility] Lymphocytes 18.3 20.0 - 40.0 01/31/2016 [facility] CHEM PANEL eGFR 88 12/17/2015 Result Comment: [...] should be multiplied by the estimated BMI. [facility] CHEM PANEL POC Creatinine 1.0 0.5 - 1.4 12/17/2015 [facility] CHEM PANEL eGFR 100 11/27/2015 Result [...] should be multiplied by the estimated BMI. [facility] CHEM PANEL Creatinine Lvl 0.89 0.50 - 1.40 11/27/2015 [facility] CHEM PANEL BUN 19 7 - 22 11/27/2015 [facility] CHEM PANEL Glucose Lvl 174 70 - 99 11/27/2015 [facility] CHEM PANEL CO2 30 24 - 32 11/27/2015 [facility] CHEM PANEL Potassium Lvl 5.3 3.5 - 5.1 11/27/2015 [facility] CHEM PANEL Chloride Lvl 107 95 - 109 11/27/2015 [facility] CHEM PANEL Sodium Lvl 139 135 - 145 11/27/2015 [facility] CHEM PANEL Calcium Lvl 8.4 8.5 - 10.5 11/27/2015 [facility] CHEM PANEL AGAP 7.3 10.0 - 20.0 11/27/2015 [facility] HEMATOLOGY Platelet 269 133 - 450 11/27/2015 [facility] MPV 7.4 7.4 - 10.4 11/27/2015 [facility] Hgb 11.9 14.0 - 18.0 11/27/2015 [facility] Hct 37.6 42.0 - 54.0 11/27/2015 [facility] MCV 79.6 80.0 - 94.0 11/27/2015 [facility] RBC 4.72 4.70 - 6.10 11/27/2015 [facility] WBC 7.4 3.7 - 10.4 11/27/2015 [facility] MCHC 31.7 32.0 - 36.0 11/27/2015 [facility] MCH 25.3 27.0 - 31.0 11/27/2015 [facility] RDW 15.8 11.5 - 14.5 11/27/2015 [facility] Segs-Bands # 4.7 1.5 - 8.1 11/27/2015 [facility] Monocytes # 0.7 0.0 - 0.8 11/27/2015 [facility] Lymphocytes # 1.6 1.0 - 5.5 11/27/2015 [facility] HEMATOLOGY Eosinophils # 0.3 0.0 - 0.5 11/27/2015 [facility] Basophils # 0.1 0.0 - 0.2 11/27/2015 [facility] HEMATOLOGY Segs 63.1 45.0 - 75.0 11/27/2015 [facility] HEMATOLOGY Monocytes 9.8 2.0 - 12.0 11/27/2015 [facility] HEMATOLOGY Eosinophils 3.5 0.0 - 4.0 11/27/2015 [facility] HEMATOLOGY Basophils 1.4 0.0 - 1.0 11/27/2015 [facility] HEMATOLOGY Lymphocytes 22.2 20.0 - 40.0 11/27/2015 [facility] LIPIDS VLDL 29 11/27/2015 [facility] LIPIDS LDL (Calculated) 118 <=99 mg/dL 11/27/2015 [facility] HDL 41 >=61 mg/dL 11/27/2015 [facility] LIPIDS Chol 188 <=199 mg/dL 11/27/2015 [facility] LIPIDS Trig 146 <=149 mg/dL 11/27/2015 [facility] LIPIDS CHD Risk 4.59 4.00 - 7.30 11/27/2015 [facility] Bacterial urine culture Urine Culture [facility] Pathology Reports No Data Provided for This [...] in the abdomen or pelvis. DLAWRENCE-PC 04/08/2019 [facility] Urethrogram retrograde DX EXAM: Retrograde urethrogram HISTORY: Urethral stricture COMPARISON: None TECHNIQUE: Approximately 20 mL Omnipaque administered. Fluoroscopy time 46 seconds. Reference air kerma 58 mGy FINDINGS: Focal approximately 4 cm stricture of the proximal penile urethra. The remainder of the urethra appears intact. Contrast opacifies the bladder. 13 04/08/2019 [facility] Chest 1view DX EXAM: XR CHEST 1 [...] of the left 6th rib laterally. 02/15/2019 [facility] Chest 1view DX EXAM: XR CHEST [...] including the left lower rib fractures. 02/14/2019 [facility] Chest 1view DX EXAM: XR CHEST [...] of the left 6th rib laterally. 02/13/2019 [facility] Chest 1view DX EXAM: XR CHEST [...] due to atelectasis, aspiration or pneumonia. 02/12/2019 [facility] Chest wo contrast CT EXAM: CT [...] 6th rib with mild surrounding hematoma. 02/12/2019 [facility] Chest 1view DX EXAM: XR CHEST [...] 3. Right lower lobe subsegmental atelectasis. 02/12/2019 [facility] Chest 1view DX EXAM: XR CHEST [...] 3. Right lower lobe subsegmental atelectasis. 02/11/2019 [facility] Chest 1view DX EXAM: XR CHEST [...] sharp. 7. Osseous structures are stable. 02/11/2019 [facility] Chest 1view DX EXAM: XR CHEST [...] excluded. 3. Trace left apical pneumothorax. 02/10/2019 [facility] Chest 1 v for Placement DX [...] sixth rib fracture, possibly surgically created. 02/09/2019 [facility] Chest 2 views DX EXAM: Chest radiograph 1 view DATE: 02/09/2019 16:23 CDT INDICATION: OR chest radiograph, no incorrect count. COMPARISON: 01/18/2018 TECHNIQUE: One image AP view of the chest. BODY CAVITY ENTERED: Chest. SIZE/TYPE OF OBJECT FOR WHICH THERE IS AN INCORRECT COUNT: None. Previously reported missing forceps was found by OR team, according to electrocardiogram technician Jl and Dr Bautista. DISCUSSION: - [...] telephone on 02/09/2019 at 4:54 PM. 02/09/2019 [facility] Chest 1view DX Clinical Indication: - [...] for acute process in the chest. SL: [id number] 01/18/2019 [facility] Chest 2 views DX Study: Chest 2 [...] appearance of a left-sided AICD device. SL: [id number] 10/02/2018 [facility] Chest 1 v for Placement DX Study: [...] No pneumothorax is seen. SL: [id number] 10/01/2018 [facility] Chest 1view DX Clinical Indication: Chest pain. Comparison: 12/21/2016 FINDINGS: AP view of the chest submitted for interpretation. Lungs are clear. Heart size is normal. Central pulmonary vasculature appears normal. No effusion. No pneumothorax. No radiographically apparent acute osseous abnormality. Stable appearance of presternal stimulator lead in IMPRESSION: 1. No radiographically apparent acute cardiopulmonary process. SL: [id number] 09/23/2018 [facility] Abdomen/Pelvis w/wo IV contrast CT CT ABDOMEN [...] CT abnormalities in the abdomen or pelvis. [id number] 05/19/2018 [facility] Chest 1view DX EXAM: XR CHEST 1 [...] presternal lead automatic implantable cardiac defibrillator. 07/21/2017 [facility] Ext Lower Venous Doppler Bilat US Patient Name: SIMI MCGILL : 1965; Age: 52 years Male MR: [id number] Study: Ext Lower Venous Doppler Bilat US [...] lower extremity superficial veins as described. : [id number] 07/10/2017 [facility] Carotid artery Doppler bilat US Patient Name: SIMI MCGILL : 1965; Age: 52 years Male MR: [id number] Study: Carotid artery Doppler bilat US 07/10/2017 [...] occlusion High, low, or Variable undetectable SL: [id number] 07/10/2017 [facility] Chest 1view DX Patient Name: SIMI MCGILL : 1965; Age: 51 years y/o Male MR: [id number] Study: Chest 1view DX Comparison: 07/13/2016 Clinical [...] normal. IMPRESSION: No acute cardiopulmonary process. SL: [id number] 08/20/2016 [facility] Chest 2 views DX Patient Name: SIMI MCGILL DOB: 1965; Age: 51 years y/o Male MR: [id number] Study: Chest 2 views DX 07/13/2016 1:17 [...] IMPRESSION: No acute finding. JOSE: JUSTICE 07/13/2016 [facility] Chest 2 views DX Chest 2 views [...] noted in the chest. SL: [id number] 06/26/2016 [facility] Chest 2 views DX PA and lateral chest: A left parasternal lead with left lateral chest wall generator has been placed since 12/05/2013. The cardiomediastinal silhouette, pulmonary vasculature and james are within nor mal limits. The lungs and pleural spaces are clear. There are no significant osseous abnormalities. IMPRESSION: No acute radiographic abnormalities in the chest. 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 Marzena Simons, et. al. 12/17/2015 [facility] Consultation Notes No Data Provided for This Section Discharge Summaries No Data Provided for This Section History and Physicals No Data Provided for This Section Vital Signs Vital Sign Value Date Comments Source Weight 105.085 03/21/2019 [facility] BMI Calculated 33.72 03/21/2019 [facility] Height 176.53 cm 03/21/2019 [facility] Heart Rate 81 03/21/2019 [facility] Temperature Oral (F) 98.5 F 03/21/2019 [facility] Respitory Rate 18 03/21/2019 [facility] Systolic (mm Hg) 89 03/21/2019 [facility] Diastolic (mm Hg) 57 03/21/2019 [facility] Systolic (mm Hg) 102 02/16/2019 [facility] Diastolic (mm Hg) 66 02/16/2019 [facility] Respitory Rate 18 02/16/2019 [facility] Respitory Rate 18 02/16/2019 [facility] Respitory Rate 20 02/16/2019 [facility] Temperature Oral (F) 97.2 F 02/16/2019 [facility] Systolic (mm Hg) 93 02/16/2019 [facility] Diastolic (mm Hg) 55 02/16/2019 [facility] Systolic (mm Hg) 127 02/16/2019 [facility] Diastolic (mm Hg) 60 02/16/2019 [facility] Temperature Oral (F) 97.0 F 02/16/2019 [facility] Temperature Oral (F) 97.2 F 02/16/2019 [facility] Weight 107.926 02/13/2019 [facility] Weight 113.778 02/10/2019 [facility] Height 179.71 cm 02/09/2019 [facility] Weight 107.727 02/09/2019 [facility] BMI Calculated 33.36 02/09/2019 [facility] Height 177.8 cm 02/09/2019 [facility] BMI Calculated 35.37 02/09/2019 [facility] Height 177.8 cm 02/09/2019 [facility] BMI Calculated 35.37 02/09/2019 [facility] Weight 111.364 01/18/2019 [facility] Heart Rate 80 01/18/2019 [facility] Respitory Rate 18 01/18/2019 [facility] Temperature Oral (F) 98.3 F 01/18/2019 [facility] [...] 109.091 09/28/2018 [facility] Heart Rate 74 09/24/2018 [facility] Temperature Oral (F) 97.4 F 09/24/2018 [facility] Systolic (mm Hg) 118 09/24/2018 [facility] Diastolic (mm Hg) 73 09/24/2018 [facility] Respitory Rate 18 09/24/2018 [facility] Respitory Rate 18 09/24/2018 [facility] Systolic (mm Hg) 115 09/24/2018 [facility] Diastolic (mm Hg) 70 09/24/2018 [facility] Heart Rate 61 09/24/2018 [facility] Temperature Oral (F) 97.6 F 09/24/2018 [facility] [...] [facility] Temperature Oral (F) 97.7 F 09/16/2018 [facility] Height 177.8 cm 09/16/2018 [facility] Weight 110.091 09/16/2018 [facility] BMI Calculated 34.82 09/16/2018 [facility] Temperature Oral (F) 98.2 F 09/18/2017 [facility] Respitory Rate 16 09/18/2017 [facility] Heart Rate 85 09/18/2017 [facility] Systolic (mm Hg) 125 09/18/2017 [facility] [facility] Diastolic (mm Hg) 72 09/18/2017 [facility] Heart Rate 82 09/17/2017 [facility] Systolic (mm Hg) 127 09/17/2017 [facility] Diastolic (mm Hg) 66 09/17/2017 [facility] Respitory Rate 18 09/17/2017 [facility] Temperature Oral (F) 98.1 F 09/17/2017 [facility] Heart Rate 80 09/17/2017 [facility] Systolic (mm Hg) 128 09/17/2017 [facility] Diastolic (mm Hg) 71 09/17/2017 [facility] Respitory Rate 18 09/17/2017 [facility] Weight 113.636 09/17/2017 [facility] Temperature Oral (F) 98.1 F 09/17/2017 [facility] Height 175.26 cm 09/17/2017 [facility] BMI Calculated 37 09/17/2017 [facility] Systolic (mm Hg) 132 07/22/2017 [facility] Diastolic (mm Hg) 71 07/22/2017 [facility] Respitory Rate 26 07/22/2017 [facility] Respitory Rate 21 07/22/2017 [facility] Temperature Oral (F) 97.4 F 07/22/2017 [facility] Respitory Rate 63 07/22/2017 [facility] Systolic (mm Hg) 138 07/22/2017 [facility] Diastolic (mm Hg) 66 07/22/2017 [facility] Temperature Oral (F) 96.4 F 07/22/2017 [facility] Systolic (mm Hg) 130 07/22/2017 [facility] Diastolic (mm Hg) 69 07/22/2017 [facility] Temperature Oral (F) 96.9 F 07/22/2017 [facility] BMI Calculated 37.31 07/22/2017 [facility] Weight 114.602 07/22/2017 [facility] Height 175.26 cm 07/22/2017 [facility] Height 175.26 cm 06/22/2017 [facility] Weight 114 06/22/2017 [facility] BMI Calculated 37.11 06/22/2017 [facility] Respitory Rate 20 06/22/2017 [facility] Heart Rate 92 06/22/2017 [facility] Temperature Oral (F) 98 F 06/22/2017 [facility] Systolic (mm Hg) 124 06/22/2017 [facility] Diastolic (mm Hg) 72 06/22/2017 [facility] Weight 114.176 06/02/2017 [facility] Systolic (mm Hg) 95 06/02/2017 [facility] Diastolic (mm Hg) 59 06/02/2017 [facility] Temperature Oral (F) 97.2 F 06/02/2017 [facility] Respitory Rate 18 06/02/2017 [facility] Heart Rate 74 06/02/2017 [facility] Height 175.26 cm 06/02/2017 [facility] BMI Calculated 37.17 06/02/2017 [facility] BMI Calculated 36.24 05/12/2017 [facility] Weight 114.574 05/12/2017 [facility] Height 177.8 cm 05/12/2017 [facility] Systolic (mm Hg) 101 05/12/2017 [facility] Diastolic (mm Hg) 60 05/12/2017 [facility] Temperature Oral (F) 97.2 F 05/12/2017 [facility] Respitory Rate 18 05/12/2017 [facility] Heart Rate 72 05/12/2017 [facility] Temperature Oral (F) 97.8 F 03/09/2017 [facility] Weight 116.42 03/09/2017 [facility] BMI Calculated 37.58 03/09/2017 [facility] Height 176.02 cm 03/09/2017 [facility] Respitory Rate 20 03/09/2017 [facility] Heart Rate 87 03/09/2017 [facility] Systolic (mm Hg) 123 03/09/2017 [facility] Diastolic (mm Hg) 75 03/09/2017 [facility] Systolic (mm Hg) 125 02/10/2017 [facility] Diastolic (mm Hg) 62 02/10/2017 [facility] [...] 08/20/2016 [facility] Diastolic (mm Hg) 58 08/20/2016 [facility] Heart Rate 82 08/20/2016 [facility] Temperature Oral (F) 98 F 07/13/2016 [facility] Heart Rate 78 07/13/2016 [facility] Respitory Rate 19 07/13/2016 [facility] Systolic (mm Hg) 120 07/13/2016 [facility] Diastolic (mm Hg) 69 07/13/2016 [facility] Weight 113.636 07/13/2016 [facility] Temperature Oral (F) 98.3 F 07/13/2016 [facility] Respitory Rate 20 07/13/2016 [facility] Heart Rate 90 07/13/2016 [facility] Systolic (mm Hg) 124 07/13/2016 [facility] Diastolic (mm Hg) 75 07/13/2016 [facility] Heart Rate 85 02/02/2016 [facility] Systolic (mm Hg) 130 02/02/2016 [facility] Diastolic (mm Hg) 85 02/02/2016 [facility] Respitory Rate 18 02/02/2016 [facility] Temperature Oral (F) 97.8 F 02/02/2016 [facility] Systolic (mm Hg) 132 02/02/2016 [facility] Diastolic (mm Hg) 71 02/02/2016 [facility] Respitory Rate 18 02/02/2016 [facility] Heart Rate 82 02/02/2016 [facility] Temperature Oral (F) 98.4 F 02/02/2016 [facility] Temperature Oral (F) 98.6 F 02/02/2016 [facility] Systolic (mm Hg) 116 02/02/2016 [facility] Diastolic (mm Hg) 71 02/02/2016 [facility] Heart Rate 81 02/02/2016 [facility] Respitory Rate 18 02/02/2016 [facility] Height 177.8 cm 01/31/2016 [facility] BMI Calculated 35.95 01/31/2016 [facility] Weight 113.636 01/31/2016 [facility] BMI Calculated 36.52 11/27/2015 [facility] Weight 115.455 11/27/2015 [facility] Height 177.8 cm 11/27/2015 [facility] Encounters Location Location Details Encounter Type Encounter Number Reason For Visit Attending Provider ADM Date DC Date Status Source Bedded Outpatient [id number] Corinne Awadalla 11/27/2015 11/27/2015 [facility] Outpatient [id number] Corinne Kadi 12/10/2015 12/11/2015 [facility] Outpatient [id number] Corinne Kadi 12/17/2015 12/18/2015 [facility] Outpatient [id number] Harjinder Metz 01/31/2016 02/01/2016 [facility] Bedded Outpatient [id number] Baldev Benjamin 02/01/2016 02/02/2016 [facility] Outpatient [id number] Joanne Means 06/26/2016 06/27/2016 [facility] Emergency [id number] Arcadio Hermelindaalov 07/13/2016 07/13/2016 [facility] Emergency [id number] Stacie Tran 08/20/2016 08/20/2016 [facility] Bedded Outpatient [id number] Corinne Wallis 02/10/2017 02/10/2017 [facility] Outpatient [id number] Dorinda Mai 03/09/2017 03/10/2017 [facility] Phone Message [id number] 03/23/2017 03/25/2017 [facility] Phone Message [id number] 04/01/2017 04/03/2017 [facility] Phone Message [id number] 04/01/2017 04/03/2017 [facility] Outpatient [id number] Dorinda Mai 05/12/2017 05/13/2017 [facility] Phone Message [id number] 05/19/2017 05/21/2017 [facility] Phone Message [id number] 05/19/2017 05/21/2017 [facility] Outpatient [id number] Chesterenzo Mai 06/02/2017 06/03/2017 [facility] Outpatient [id number] Chesterenzo Mai 06/22/2017 06/23/2017 [facility] Outpatient [id number] Ozzymadihamistyenzo Mai 07/10/2017 07/11/2017 [facility] Outpatient [id number] Latoya Binghami 07/16/2017 07/17/2017 [facility] Inpatient [id number] Abraham Johnson 07/22/2017 07/22/2017 [facility] Outpatient [id number] Suzanne Morales 08/08/2017 08/09/2017 [facility] Emergency [id number] Dutch Bañuelos 09/17/2017 09/18/2017 [facility] Phone Message [id number] 10/19/2017 10/21/2017 [facility] Outpatient [id number] Tremaine Noble 05/19/2018 05/20/2018 [facility] Discharged Inpatient [id number] BARBARA SHAH MD 06/25/2018 06/29/2018 [facility] [id number] JOSE MONK MD 07/23/2018 [facility] Outpatient [id number] Corinne Wallis 09/16/2018 09/16/2018 [facility] Inpatient [id number] Corinne Wallis 09/24/2018 09/24/2018 [facility] Bedded Outpatient [id number] Baldev Benjamin 10/01/2018 10/02/2018 [facility] Registered [facility] Day [facility] [id number] JOSE MONK MD 11/26/2018 [facility] Discharged Inpatient (obs) [id number] BALDEV BENJAMIN MD 12/31/2018 01/01/2019 [facility] Departed Emergency Room [id number] RUBEN HAYES MD 01/02/2019 01/02/2019 [facility] Discharged Inpatient (obs) [id number] DO TNOEY MD 01/09/2019 01/12/2019 [facility] Emergency [id number] T[place] Brook 01/18/2019 01/18/2019 [facility] Inpatient [id number] Baldev Benjamin 02/10/2019 02/16/2019 [facility] Outpatient [id number] Dorinda Mai 03/21/2019 03/22/2019 [facility] Outpatient [id number] Elvira Gracia 04/08/2019 04/09/2019 [facility] Procedures Procedure Code Date Perfomer Comments Source CYSTOSCOPY AND TREATMENT 44468 11/26/2018 [facility] CYSTOSCOPY & URETER CATHETER 01294 07/23/2018 [facility] CYSTOSCOPY AND TREATMENT 88253 07/23/[address] [facility] [address] of abdomen and pelvis without contrast [id number] 06/25/2018 [facility] Cataract extraction and insertion of intraocular lens<sup>1</sup> [id number] 11/02/2017 bilat [facility] Cataract extraction and insertion of intraocular lens<sup>1</sup> [id number] 11/02/2017 bilat [facility] ICD - Internal cardiac defibrillator procedure [id number] 02/01/2016 [facility] ICD - Internal cardiac defibrillator procedure [id number] 02/01/2016 [facility] Appendectomy [id number] [facility] Penis operations [id number] [facility] Appendectomy [id number] [facility] Penis operations [id number] [facility] Appendectomy [id number] [facility] Penis operations [id number] [facility] Cardiac catheterisation [id number] [facility] Cardiac catheterisation [id number] [facility] Assessment and Plan Assessment and Plan [...] 25mg (1 tablet): 25 mg, PO, Daily [place] 10/325 oral tablet: 1 tab, PO, Q6H, PRN: Pain Score 4-6 [place] 10/325 oral tablet: 2 tab, PO, Q6H, [...] Result minocycline: 100 mg, 1 cap, PO, [id number] potassium chloride 20 mEq oral tablet, extended [...] oral capsule: 100 mg, 1 cap, PO, [id number], for 7 day, 14 cap, 0 Refill(s) [...] mg CAP 100 mg 1 cap, PO, MSIK28H potassium chloride 20 mEq ERT 20 mEq [...] list: All Problems Anemia / SNOMED CT 604442354 / Confirmed AP (angina pectoris) / SNOMED CT 423736753 / Confirmed Cholesterol / SNOMED CT 017013797 / Confirmed Chronic systolic heart failure / SNOMED CT 7109548592 / Confirmed Diabetes mellitus type 2 / SNOMED CT 459770710 / Confirmed Diabetes / SNOMED CT [id number] / Confirmed Hypertension / SNOMED CT [id number] / Confirmed Obesity / SNOMED CT 9459528431 / Confirmed Sleep apnea / SNOMED CT 933224963 / Confirmed 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 / SNOMED CT 670603956 / Confirmed Resolved: Appendectomy / SNOMED CT 416234818 Canceled: Operation on penis / SNOMED CT 581700722, Active Problems (10) Anemia AP (angina pectoris) Cholesterol Chronic systolic heart failure Diabetes Diabetes mellitus type 2 Hypertension Obesity Sleep apnea 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 Family History: Type 1 diabetes mellitus Sister Brother Mother Father Heart disease Sister Heart attack Brother Procedure history: Cataract extraction and insertion of intraocular lens ([id number]) on 11/02/2017 at 52 Years. Comments: 02/09/2019 08:29 - Kemi Kong RN bilat ICD - Internal cardiac defibrillator procedure ([id number]) on 02/01/2016 at 50 Years. Appendectomy (662728160). Penis operations (806596466). Cardiac catheterisation (666780678). Social History Social and Psychosocial Habits Alcohol [...] as support during the nighttime #Urethral stricture -[facility] following -Underwent cystoscopy dilation with balloon and catheter insertion on 02/09/19- leave in place 7 days per urology - D/Devante Ojeda---> good urine output -Per , patient has dense scar tissue per home urologist and will need additional procedures-- consulted with [facility] and stated can perform as outpatient. [...] care with team and patient. Extracted from:Title: [facility] PCCM Consult H&P * Author: Dave Andersen [...] accuchecks - hypoglycemia protocol #Obesity/PAYTON: PSG: moderate APYTON, sleep related hypoventilation - noninvasive positive pressure ventilation as support during the nighttime Diet: HH/ADA PPx: holding AC overnight due to surgery can restart in AM per surgery team Code: Full Dispo: pending recovery from procedure Pt will be seen and staffed by [facility] in the AM. Pillo Zelaya MD [facility] Cardiovascular Medicine General Hop Strainer, PGY-4 MSO #: [id number] Extracted from:Title: HF Surgery Author: Juanpablo Bean MD Date: 02/09/19 [facility] FAIL[facility] SURGERY BRIEF OP NOTE Preop Diagnosis: Non-ischemic cardiomyopathy, EF 25%, NYHA FC II/III, s/p BSC DIRECTOR SERVICE-D Postop Diagnosis: same Procedures: Left Thoracotomy, Epicardial Lead placement x2, intercostal nerve block, RV and LV Lead extraction, PPM exchange, Capsulectomy, defibrillator placement (by Dr Benjamin, will be dictated separately) Surgeon: Truong Toney MD Schedule Maker: Juanpablo Bean MD, Marita Lewis PA-C Anesthesia: General Anesthesiologist: Burt Antibiotics: Ancef 2gr at 1306 Incision Time: 1313 Pre-op Beta Nicho: none IVF: 1700cc crystalloid EBL: 600cc Transfusions: none Cell Saver: 250cc Urine Output: 150cc Drains: 1 chest tube (left pleural) Complications: none Findings: none Specimens: leads x2, capsulectomy Meds: none Dictation #: Dr Toney Disposition: PACU 02/16/2019 [facility] Extracted from:Title: BI-VENTRICULAR PACEMAKER IMPLANTATION Author: Tomas Palacios MD Date: 10/01/18 BI-VENTRICULAR PACEMAKER IMPLANTATION PROCEDURE NOTE Procedure Date: 10/01/2018 Operators: Baldev Benjamin MD, attending Amrit Palacios MD, fellow Referring: Corinne Wallis MD History: 53 yo M with hx NICM, HFrEF who presented for new DIRECTOR SERVICE-D implantation and removal of previous SICD. Shared decision making took place and the case was discussed with Dr Wallis who concurred with the need for the DIRECTOR SERVICE-D. Pre-Op Diagnosis: Non-ischemic cardiomyopathy, EF 25%, NYHA FC II/III, QRS LBBB 148 Post-Op Diagnosis: Same s/p new BSC DIRECTOR SERVICE-D and removal of BSC SICD. Procedure: 1. Implantation of DIRECTOR SERVICE-D 2. Left arm venogram 3. Ultrasound guided access 4. Coronary sinus venogram Procedure Summary/Findings: The risks, benefits, alternatives of the device implant with sedation were explained before the procedure. Risks explained include cardiac tamponade, pneumothorax, bleeding, infection, vascular injury, IN, CVA, emergent sternotomy, intubation, . Written informed [...] injury and confirming adequate numbers on interrogation. SERBIAN showed septal position of the lead. Next [...] sponges, and a normal heart border on SERBIAN view. The patient tolerated the procedure well and was returned to a telemetry bed in stable condition. Device: [facility] DIRECTOR SERVICE-D Model G124, Serial # [id number] RA: Model [facility] 7740, Serial # [id number] RV: Model [facility] 0292, Serial # [id number] LV: Model [facility] 4592, Serial # [id number] P wave: 5.0 mV RA pacing impedance: 862 ohms RA threshold: 1.2 V @ 0.5 ms R wave: 13.3 mV RV pacing impedance: 647 ohms RV threshold: 0.6 V @ 0.5 ms LV R wave: 18.9 mV LV pacing impedance: 449 ohms LV threshold: 0.6 V @ 0.5 ms LV tip to RV Settings: DDDR 60/120; VT 170, VF 200 EXPLANTED DEVICE: C [facility] Emblem SICD. Estimated Blood Loss: Minimal Blood Administered: None Grafts or Implants: Device as above Any Specimen Removed: None Complications: None Anesthesia: Moderate conscious sedation Medications: Versed, Fentanyl, Ancef Conclusion: 1. Successful implantation of a DIRECTOR SERVICE-D and removal of SICD. 2. 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 We [...] presents for high-risk CABG. #Multivessel CAD - [facility] 02/16: 90% proximal LAD, LCX, and [...] inferior wall. - PET last month at [facility] showing inferior, basal, and inferolateral areas [...] with Dr. Mai. Zena Jaramillo PGY 4 Hop Strainer [facility]. #[id number] 07/22/2017 [facility] Extracted from:Title: Heart Failure Surgery Author: [...] recent repeat cardiac PET last month at [facility] showing inferior, basal, and inferolateral areas [...] support. STS once other testing complete. 06/23/2017 [facility] Plan of Care Plan of Care Date Source Discharge Date 01/12/19 3:42pm Disposition HOME, SELF-CARE Instructions/Education Provided Bradycardia Prescriptions See Medication Section Referrals CORINNE WALLIS MD (Cardiology) Order Date: 1-2 Weeks Entered Date: 01/12/2019 2:33pm Address: [address] [place] [address] DO TONEY MD (Internal Medicine) Order Date: 1-2 Weeks Entered Date: 01/12/2019 2:33pm Address: [address] [place] [address] BALDEV BENJAMIN MD (Cardiology) Order Date: 1-2 Weeks Entered Date: 01/12/2019 2:33pm Address: [address] [place] [address] Additional Instructions/Education ACTIVITY TOLERATED DO NOT GET THE LIFE VEST WET F/U WITH DR. BENJAMIN WHEN HE RETURNS F/U WITH DR. WALLIS IN 1-2 WEEKS NO STRENUOUS ACTIVITY NO HEAVY LIFTING 01/12/2019 [facility] Discharge Date 01/02/19 11:23pm Disposition HOME, SELF-CARE Condition at Discharge Stable Instructions/Education Provided Dermatitis (Contact) Forms Provided Work/School Excuse Prescriptions See Medication Section Additional Instructions/Education FOLLOW UP WITH DR WALLIS HE INSTRUCTED 01/02/2019 [facility] Discharge Date 06/29/18 12:25pm Disposition HOME, SELF-CARE Instructions/Education Provided Urinary Tract Infection - Men Prescriptions See Medication Section Referrals JOSE MONK MD (Urology) Order Date: 1 Month Entered Date: 06/29/2018 10:38am Address: [facility] [place] [address] Reason(s) for Referral: Acute hemorrhagic cystitis Additional Instructions/Education ADA Diet Needs Cardiac clearerncce prior to Cystoscopy for anesthesia Hold ASA Plavix one week prior to procedure. 06/29/2018 [facility] Social History Social History Date Source Social [...] 03/21/19 1quit 20 years ago2no chnage 02/09/2019 [facility] Social History TypeResponse Substance Abuse Use: [...] 03/21/19 1quit 20 years ago2no chnage 02/09/2019 [facility] Social History Problem Response Recorded Date/Time Onset [...] 10/06/2015 3:44am Not Applicable Not Applicable 01/12/2019 [facility] Social History TypeResponse Substance Abuse Use: None. Alcohol Past, Previous treatment: None.1 Smoking Status Never smoker; Lives with someone who smokes; Exposure to Tobacco Smoke Unable to obtain; Cigarette Smoking Last 365 Days No; Reg Smoking Cessation Counseling No 1quit 20 years ago 02/10/2017 [facility] Heart Failure Family History No Data Provided for This Section Advance Directives Order Name Results Value Date Source Advance Directives Advance Directives Directive Response Recorded Date/Time Does the patient have an advance directive? Yes 01/09/19 2:58pm If yes, is advance directive on file with [facility]? No 01/09/19 3:38am If not on file with [facility] will patient provide a copy? No 01/09/19 3:38am Do you have a Directive to Physician? No 01/09/19 3:38am Do you have a Medical Power of Pole Sander Operator? No 01/09/19 3:38am Do you have an [...] rights and responsibilities? Yes 01/09/19 3:38am 01/12/2019 [facility] Advance Directives Advance Directives Directive Response Recorded Date/Time Does the patient have an advance directive? No 12/31/18 10:45am If yes, is advance directive on file with [facility]? No 12/31/18 10:45am If not on file with [facility] will patient provide a copy? No 12/31/18 10:45am 01/02/2019 [facility] Advance Directives Advance Directives Directive Response Recorded Date/Time Does the patient have an advance directive? Yes 06/25/18 7:42pm If yes, is advance directive on file with [facility]? No 06/25/18 7:42pm If not on file with [facility] will patient provide a copy? Yes 06/25/18 7:42pm Do you have a Directive to Physician? No 06/25/18 3:02pm Do you have a Medical Power of Pole Sander Operator? No 06/25/18 3:02pm Do you have an [...] rights and responsibilities? Yes 06/25/18 3:02pm 06/29/2018 [facility] Functional Status No Data Provided for This Section
[2019-04-29] MEDS: INSULIN LISPRO 100 UNIT/1 ML 3ML VIAL SQ SCH (20:49)
[2019-04-29 21:46] VITALS: BP 138/84
[2019-04-29 22:24] VITALS: BP 138/84
[2019-04-29 23:50] VITALS: BP 127/75
[2019-04-30] VITALS (8 sets, daily range): BP systolic 106–143; BP diastolic 58–77
[2019-04-30 00:57] LABS: ALKALINE PHOSPHATASE 75 IU/L (40-150); CREATINE KINASE 41 IU/L (30-200)
[2019-04-30 02:25] LABS: CREATINE KINASE 37 IU/L (30-200)
[2019-04-30 05:34] LABS: BASOPHILS % 0.4 % (0.0-1.0); EOSINOPHILS # (AUTO) 0.3 (0.0-0.4); HEMATOCRIT 39.7 % (38.2-49.6); HEMOGLOBIN 12.6 g/dL (14.0-18.0); LYMPHOCYTES # (AUTO) 2.2 (1.0-3.2); LYMPHOCYTES % 29.9 % (18.0-39.1); MEAN CORPUSCULAR HEMOGLOBIN 26.2 pg (28-32); MEAN CORPUSCULAR HGB CONC 31.7 g/dL (31-35); MEAN CORPUSCULAR VOLUME 82.5 fL (81-99); MONOCYTES # (AUTO) 0.8 (0.2-0.8); MONOCYTES % 10.1 % (4.4-11.3); NEUTROPHILS # (AUTO) 4.1 (2.1-6.9); NEUTROPHILS % 54.8 % (38.7-80.0); PLATELET COUNT 260 x10e3/uL (140-360); RED BLOOD COUNT 4.81 x10e6/uL (4.3-5.7); RED CELL DISTRIBUTION WIDTH 13.7 % (11.7-14.4)
[2019-04-30 05:47] LABS: ALANINE AMINOTRANSFERASE 11 IU/L (0-55); ALBUMIN 3.6 g/dL (3.5-5.0); ALBUMIN/GLOBULIN RATIO 1.2 (0.8-2.0); ALKALINE PHOSPHATASE 61 IU/L (40-150); ANION GAP 12.4 mmol/L (8-16); BLOOD UREA NITROGEN 17 mg/dL (7-26); BUN/CREATININE RATIO 21 (6-25); CALCIUM 9.3 mg/dL (8.4-10.2); CARBON DIOXIDE 27 mmol/L (22-29); CHLORIDE 105 mmol/L (98-107); CREATININE, SERUM 0.82 mg/dL (0.72-1.25); EST GLOMERULAR FILTRATION RATE > 60 ML/MIN (60-); GLUCOSE 112 mg/dL (74-118); POTASSIUM 4.4 mmol/L (3.5-5.1); SODIUM 140 mmol/L (136-145)
[2019-04-30 06:14] LABS: CREATINE KINASE MB 1.3 ng/mL (0-5.0)
[2019-04-30] MEDS: INSULIN LISPRO 100 UNIT/1 ML 3ML VIAL SQ SCH ×5 (08:08→21:57)
[2019-04-30] MEDS: FAMOTIDINE 20 MG/2 ML VIAL IV SCH ×2 (08:32→21:57)
[2019-04-30] MEDS: CLOPIDOGREL BISULFATE 75 MG TAB PO SCH (08:32)
[2019-04-30] MEDS ORDERED: ASPIRIN 81 MG ENTERIC COATED PO SCH (09:00)
[2019-04-30 13:30] LABS: CREATINE KINASE MB 1.4 ng/mL (0-5.0)
[2019-04-30] MEDS ORDERED: ACETAMINOPHEN/CODEINE 300MG - 30MG TAB PO PRN (14:45)
[2019-04-30] MEDS ORDERED: ACETAMINOPHEN 325 MG TAB PO PRN (14:45)
[2019-04-30] MEDS ORDERED: NITROGLYCERIN 0.4 MG SUBL SL PRN (14:45)
[2019-04-30] MEDS ORDERED: DOCUSATE SODIUM 100 MG CAP PO PRN (14:45)
[2019-04-30] MEDS ORDERED: GABAPENTIN 100 MG CAP PO SCH (15:00)
[2019-04-30] MEDS: GABAPENTIN 300 MG CAP PO SCH ×2 (15:37→21:57)
[2019-04-30] MEDS: OMEGA 3 POLYUNSAT FATTY ACIDS 1000 MG SOFTGEL PO SCH (16:13)
[2019-04-30] MEDS: METOPROLOL SUCCINATE 50 MG TAB XL PO SCH (16:14)
--- NOTE | 2019-04-30 16:32 | NUR ---
not covering sliding scale as 36units ordered with meals. patient states that is what he would take at home with his meal. am afraid to drop sugar too far.
[2019-04-30] MEDS ORDERED: OMEGA ACID PO SCH (17:00)
[2019-04-30] MEDS ORDERED: NON-FORMULARY MEDICATION ([Entresto] 1 TAB) PO SCH (17:00)
--- NOTE | 2019-04-30 17:04 | Diagnostic Imaging Report ---
EXAM: CT Chest without contrast INDICATION: Left sided AICD with chest wall pain. COMPARISON: None TECHNIQUE: Chest was scanned utilizing a multidetector helical scanner from the lung apex through the level of the adrenal glands without administration of IV contrast. Coronal and sagittal reformations were obtained. Routine protocol was performed. RADIATION DOSE: Total DLP: 591.1 mGy*cm Dose modulation, iterative reconstruction, and/or weight based adjustment of the mA/kV was utilized to reduce the radiation dose to as low as reasonably achievable. COMPLICATIONS: None FINDINGS: LINES/ TUBES: There is a left anterior chest wall dual-lead AICD device. There is a left lateral chest wall single lead pacer device with lead overlying the sternum. LUNGS AND AIRWAYS: The central airways are patent. There is a 5 mm subpleural nodule in the right upper lobe on series 3, image 27. There is a 2 mm groundglass nodule in the right upper lobe on image 23. There is a 3 mm solid nodule in the right lower lobe on image 45. Scattered 1 mm calcified granulomas, for example in the right lower lobe on image 34. There is subsegmental atelectasis within the left upper and lower lobes. No evidence of lobar pneumonia or pulmonary edema. PLEURA: The pleural spaces are clear. HEART AND MEDIASTINUM: The thyroid gland is normal. No mediastinal, hilar or axillary lymphadenopathy. The heart is normal in size.. There is no pericardial effusion. Coronary atherosclerosis. Scattered atherosclerotic calcifications of the thoracic aorta and branch vessels. UPPER ABDOMEN: Limited non-contrast views of the upper abdomen demonstrate gastric varices. BONES: No acute osseous abnormality. No suspicious lytic or blastic lesions. SOFT TISSUES: Unremarkable. IMPRESSION: No etiology identified for the patient's chest wall pain. Left-sided AICD and pacer device as above. Right sided solid pulmonary nodules, measuring up to 5 mm in the right upper lobe. If there is a risk factor for malignancy such as smoking, an optional follow-up chest CT may be considered in 12 months. Signed by: Dr. Michelle Olea MD on 04/30/2019 5:01 PM
[2019-04-30] MEDS: VALSARTAN/SACUBITRIL 24MG/26MG 1 EA TAB PO SCH (17:30)
--- NOTE | 2019-04-30 17:53 | NUR ---
Patient transferred to unit from [facility]. Patient ambulated on his own with staff. Patient is AAOx3. No c/o pain at this time. No shortness of breath noted.
--- NOTE | 2019-04-30 18:45 | Consultation ---
DATE OF CONSULTATION: 04/30/2019 Cardiology Consultation REASON FOR CONSULTATION: Chest pain. HISTORY OF PRESENT ILLNESS: This is a 54-year-old man with a history of nonischemic cardiomyopathy, status post subcutaneous ICD, history of right ventricular dislodgement with replacement, history of thoracotomy, hyperlipidemia, diabetes mellitus, chronic angina, who presented to the emergency department with left nipple pain and left back/flank pain. The patient's discomfort is described as moderate in intensity, worse with certain movements, deep inspirations and palpation. No exertional angina, shortness of breath is at baseline. No other exacerbating or relieving factors. REVIEW OF SYSTEMS: A 12-point review of system was conducted, is negative otherwise as stated above in the HPI. PAST MEDICAL HISTORY: As stated above in the HPI. PAST SURGICAL HISTORY: As stated above in the HPI. FAMILY HISTORY: No premature coronary artery disease and sudden cardiac . SOCIAL HISTORY: No illicit drug, IV, or tobacco use. ALLERGIES: NO KNOWN DRUG ALLERGIES. MEDICATIONS: See medication reconciliation form. PHYSICAL EXAMINATION: VITAL SIGNS: Temperature 97, heart rate is 64, respiratory rate is 18, blood pressure is 112/62, and oxygen saturation 97% on room air. GENERAL: Well appearing, well built, in no apparent distress. Alert and oriented x3. HEAD: Normocephalic, atraumatic. EYES: Extraocular muscles are intact. Conjunctivae clear. NECK: No JVD. No bruits. CARDIOVASCULAR: Regular rate and rhythm. LUNGS: Clear to auscultation. ABDOMEN: Soft, nontender, nondistended. EXTREMITIES: Trace edema. MUSCULOSKELETAL: The patient has a scar on his left flank. There is tenderness to palpation over the left ribs and left areola. NEUROLOGIC: No focal deficits noted. LABORATORY DATA: All reviewed. Hemoglobin 12. Troponins negative x4. Creatinine 0.82. BNP is 63. Chest x-ray shows a subcutaneous ICD with well inflated lungs. IMPRESSION: 1. Musculoskeletal pain. 2. Nonischemic cardiomyopathy with subcutaneous ICD. 3. Hyperlipidemia. 4. Diabetes mellitus. RECOMMENDATIONS: We will order a CT of his chest. Start musculoskeletal pain medications per primary team. We will offer p.r.n. [place] for right now. No evidence of ischemia given negative cardiac enzymes and a stable 12-lead electrocardiogram. If the CT of his chest is within normal limits, the patient may be discharged with pain relief. No further cardiac testing is needed at this time. DO VAMSI Barton/HITESH /[id number]
--- NOTE | 2019-04-30 20:34 | History and Physical ---
PRESENTING COMPLAINT: Left chest pain yesterday, radiating to the back. HISTORY OF PRESENT ILLNESS: A 54-year-old male was admitted from ER. The patient came to the ER from home with complaints of chest pain over his left chest below the nipple area. Pain was radiating to his back. Pain was persisting for seconds to minute, compressive in nature, moderate to severe in intensity. Did not have any shortness of breath, palpitation, dizziness, nausea, or vomiting along with this chest as per the patient's statement. The patient tells that his chest pain was off and on for the last two days, but got worsened yesterday. He was evaluated by his PCP, Dr. Lewis Toney 4 days ago at the office. The patient did not have similar complaints at that time as per his statement. He also was evaluated by his regular Cardiology, Dr. Wallis last month as per the patient's statement. The patient had AICD replacement done on February 09 at [facility] by Dr. Ellis, master lay out specialist as per the patient's statement. The patient denies any other complaints at the present time. He is walking in the hallway with his now. REVIEW OF SYSTEMS: CONSTITUTIONAL: No fever, chills, or rigor. EYES AND ENT: No nasal congestion. No sore throat. No earache. CARDIOVASCULAR: Chest pain as per HPI. No palpitation. No shortness of breath. PULMONARY: No cough. No hemoptysis. No shortness of breath. GI: No abdominal pain, nausea, vomiting, episode of bloody stool or black stool. : No dysuria. No hematuria. MUSCULOSKELETAL/SKIN/LYMPHORETICULAR: No joint pain. No joint swelling. No skin rash. No swollen glands. NEUROLOGIC: No loss of consciousness, seizures, headache, or dizziness. HISTORY OF PAST MEDICAL ILLNESS: 1. Chronic systolic CHF, compensated. 2. CAD, not amenable to revascularization. 3. Dysrhythmia, status post AICD, replacement in the recent past. 4. Diabetes mellitus type 2. 5. Hypertension. 6. Hyperlipidemia. 7. Hemorrhagic cystitis in July 2018. 8. Urethral stricture on cystoscopy. HISTORY OF PAST SURGERY: 1. AICD placement followed by replacement in the recent past. 2. Appendectomy. ALLERGIES: NO KNOWN MEDICATION ALLERGY. HOME MEDICATIONS: As per med reconciliation sheet. SOCIAL HISTORY: The patient lives at home with his . is at the bedside now. HABITS: Denies smoking, drinking, or substance abuse history. FAMILY HISTORY: Positive for diabetes mellitus and hypertension. PHYSICAL EXAMINATION: VITAL SIGNS: Today, BP 142/77, pulse 62, temperature 97.2, T-max 98.7, respiratory rate 16, and SpO2 of 95% at room air. GENERAL: Alert, not in acute distress now, no recurrence of the chest pain today as per the patient's statement. HEENT: No pallor. No icterus. Pupils equally reacting. NECK: No JVD. No carotid bruit. No lymphadenopathy. No thyromegaly. HEART: S1 and S2, regular. No murmur. LUNGS: Air entry equal on both sides. No crackles. No rhonchi. ABDOMEN: Soft and nontender. No palpable mass. Bowel sounds active in all quadrants. EXTREMITIES: No edema, cyanosis, or clubbing. NEUROLOGIC: Muscle strength symmetric on both sides. Gait normal. Speech normal. LABORATORY DATA: CBC; WBC 7.69, hemoglobin 12.7, hematocrit 39.6, platelet 294, MCV 82, RDW 13, neutrophils 61, and lymphocytes 23. PT 11.9, INR 0.82, and PTT 31.5. Chemistry panel; sodium 140, potassium 4.4, chloride 105, CO2 of 27, anion gap 8, BUN 17, creatinine 0.82, glucose 112, and calcium 9.3. Total bilirubin 0.3, AST 11, ALT 11, and alkaline phosphatase 61. CK 39. CK-MB 1.3. Troponin I 0.005 two sets and 0.010 last set. BNP 63.7. Total protein 6.6, albumin 3.6, and globulin 3.0. Urinalysis negative for protein, glucose 3+, negative for ketones, nitrite positive, leukocyte esterase small, rbc's 0-5, wbc's 11-20, bacteria many. RADIOLOGICAL DATA: X-ray of the chest, single view, left subclavian implantable cardiac device, now on single lead device with lead projecting to the right atrium. Additional electronic device in the left inferolateral chest wall with lead projecting to the descending thoracic aorta. Lungs are well inflated, linear opacity in the left lung base likely reflects subsegmental atelectasis. No consolidation, pneumothorax, or effusion. Pulmonary vasculature within normal limits. No acute osseous abnormality. EKG, normal sinus rhythm at the rate of 76 beats per minute, ST depression in the inferolateral lead less than 1 mm with inverted T waves. ASSESSMENT AND PLAN: 1. Left-sided chest pain. The patient has coronary artery disease, not amenable to revascularization as per prior cardiac catheterization. He is also status post automatic implantable cardioverter-defibrillator placement, but his troponin level is within normal limits. EKG also showed chronic changes. We would continue the patient on aspirin, his regular medication, Cardiology consult is requested with Dr. Wallis, his regular health promotion specialist. We would follow his recommendation. 2. Back pain, likely musculoskeletal pain. Chest x-ray did not show any osseous change. We will monitor for now. Keep the patient on pain medication. 3. Chronic systolic congestive heart failure. BNP is normal. Compensated. Continue the patient on his regular medication. 4. Hypertension. Continue regular medication. 5. Diabetes mellitus type 2. We would continue the patient on his regular medication. He has glucosuria with normal anion gap and now ketonuria. 6. Mild urinary tract infection, asymptomatic. We will monitor for now and check the urine cultures report, the patient does not have any symptoms. 7. Deep vein thrombosis prophylaxis. The patient is ambulatory. Continue the patient on his regular medication. We would hold anticoagulation as the patient is ambulatory. 8. Discharge plan. We will discharge the patient when cleared by the health promotion specialist. MD MURPHY Kelly/MODL /[id number]
[2019-04-30] MEDS ORDERED: INSULIN DETEMIR SC SCH (21:00)
[2019-04-30] MEDS: INSULIN GLARGINE 100 UNITS/ML VIAL SQ SCH (21:57)
[2019-04-30] MEDS: ATORVASTATIN 40 MG TAB PO SCH (21:57)
[2019-05-01] VITALS (7 sets, daily range): BP systolic 104–118; BP diastolic 55–60
--- NOTE | 2019-05-01 07:18 | NUR ---
PT RESTING IN BED AA0X3. PT C/O PAIN TO CHEST RATING IT A 4/10 DESCRIBES IT INTERMITTENT SHARP THAT DOES NOT INCREASE OR DECREASE WITH ACTIVITY PT STATES PAIN IS TOLERABLE AND DOES NOT NEED PAIN MANAGEMENT AT THIS TIME NOTIFIED HIM OF HIS PRN OPTIONS AT THIS TIME IV ACCESS TO THE RIGHT FA 20 PATENT DRY AND INTACT WILL CONTINUE TO MONITOR CLOSELY, SIDE RAILSX2, BED WHEELS LOCKED, CALL LIGHT IS WITHIN EASY REACH, INSTRUCTED TO CALL FOR ASSISTANCE IF NEEDED
[2019-05-01 07:22] LABS: BLOOD UREA NITROGEN 15 mg/dL (7-26); BUN/CREATININE RATIO 19 (6-25); CALCIUM 9.2 mg/dL (8.4-10.2); CARBON DIOXIDE 26 mmol/L (22-29); CHLORIDE 106 mmol/L (98-107); CREATININE, SERUM 0.79 mg/dL (0.72-1.25); EST GLOMERULAR FILTRATION RATE > 60 ML/MIN (60-); GLUCOSE 100 mg/dL (74-118); MAGNESIUM 2.2 MG/DL (1.3-2.1); SODIUM 139 mmol/L (136-145)
[2019-05-01] MEDS: INSULIN LISPRO 100 UNIT/1 ML 3ML VIAL SQ SCH ×7 (07:30→20:46)
[2019-05-01] MEDS: FUROSEMIDE 40 MG TAB PO SCH (08:38)
[2019-05-01] MEDS: FAMOTIDINE 20 MG/2 ML VIAL IV SCH ×2 (08:38→20:45)
[2019-05-01] MEDS: NON-FORMULARY MEDICATION ([Jardiance] 25 MG) PO SCH (08:38)
[2019-05-01] MEDS: POTASSIUM CHLORIDE 20 MEQ TAB CR PO SCH (08:39)
[2019-05-01] MEDS: SPIRONOLACTONE 25 MG TAB PO SCH (08:39)
[2019-05-01] MEDS: ISOSORBIDE MONONITRATE 30 MG TAB CR PO SCH (08:39)
[2019-05-01] MEDS: VALSARTAN/SACUBITRIL 24MG/26MG 1 EA TAB PO SCH ×2 (08:39→15:51)
[2019-05-01] MEDS: TAMSULOSIN HCL 0.4 MG CAP PO SCH (08:39)
[2019-05-01] MEDS: ASPIRIN 81 MG CHEW TAB PO SCH (08:39)
[2019-05-01] MEDS: FINASTERIDE 5 MG TAB PO SCH (08:40)
[2019-05-01] MEDS: CLOPIDOGREL BISULFATE 75 MG TAB PO SCH (08:40)
[2019-05-01] MEDS: OMEGA 3 POLYUNSAT FATTY ACIDS 1000 MG SOFTGEL PO SCH ×2 (08:40→16:46)
[2019-05-01] MEDS: METOPROLOL SUCCINATE 50 MG TAB XL PO SCH ×2 (08:40→16:46)
[2019-05-01] MEDS: GABAPENTIN 300 MG CAP PO SCH ×3 (08:40→20:45)
[2019-05-01] MEDS ORDERED: ATORVASTATIN CALCIUM PO SCH (09:00)
[2019-05-01] MEDS ORDERED: CLOPIDOGREL BISULFATE 75 MG TAB PO SCH (09:00)
[2019-05-01] MEDS ORDERED: FUROSEMIDE 40 MG TAB PO SCH (09:00)
[2019-05-01] MEDS ORDERED: FUROSEMIDE 20 MG TAB PO SCH (09:00)
[2019-05-01] MEDS ORDERED: ONDANSETRON HCL 4 MG ORAL DISINTEGRATING TAB PO PRN (12:45)
[2019-05-01] MEDS: CEFTRIAXONE SOD 1 GM/NS 50 ML 50 ML IV SCH (13:59)
--- NOTE | 2019-05-01 14:17 | NUR ---
Spoke to Dr. Prakash, as he return call. Discussed pt status. Stated he is keeping pt as is (observation). He is giving IV antibiotic tonight for positive UA cx. Will dc in the morning. CM updated nurses: Tiffany VAZ and Lea VAZ.
--- NOTE | 2019-05-01 16:12 | Progress Note ---
DATE: 05/01/2019 Cardiology Progress Note SUBJECTIVE: The patient is feeling better, sitting at bedside. No chest pain or shortness of breath. OBJECTIVE: VITAL SIGNS: Temperature is 96.6, heart rate is 60, respirations 18, blood pressure is 104/55, ox saturation 96% on room air. GENERAL: Well appearing, well built, no apparent distress. CARDIOVASCULAR: Regular rate and rhythm. LUNGS: Clear to auscultation. ABDOMEN: Soft, nontender, nondistended. EXTREMITIES: No clubbing, cyanosis, or edema. NEUROLOGIC: No focal deficits noted. CARDIOVASCULAR MEDICATIONS: Reviewed. LABORATORY DATA: Reviewed. The patient ruled out for NC with four negative troponins. CT of the chest showed a left-sided AICD. No etiology identified for patient's chest wall pain. A 5 mm pulmonary nodule. IMPRESSION: 1. Nonischemic cardiomyopathy, status post subcutaneous implantable defibrillator. 2. Musculoskeletal pain. 3. Hyperlipidemia. 4. Diabetes mellitus. 5. Pulmonary nodule. RECOMMENDATIONS: Continue current cardiovascular medications. No further cardiac workup is required at this point in time. Follow up with Pulmonary for his pulmonary nodule. The patient may be discharged from a cardiovascular standpoint with outpatient followup. DO VAMSI Barton/MODL /[id number]
[2019-05-01] MEDS: ATORVASTATIN 40 MG TAB PO SCH (20:45)
[2019-05-01] MEDS: INSULIN GLARGINE 100 UNITS/ML VIAL SQ SCH (20:46)
--- NOTE | 2019-05-01 22:03 | NUR ---
Assessment done.no resp.distress.snacks provided.iv left ac #20g is patent.bed locked and in lowest position.phone and call light within reach.instructed to call for assistance as needed.
[2019-05-02 00:18] VITALS: BP 145/70
[2019-05-02 04:00] VITALS: BP 121/65
--- NOTE | 2019-05-02 06:50 | NUR ---
Bedside shift report given to the oncoming rn.walking rounds done.stable condition.
--- NOTE | 2019-05-02 07:00 | NUR ---
bedside rounds complete no distress noted, denies pain at this time, l ac 20g no ss of infiltration noted, no other co vocied call light in reach will continue ot monitor
[2019-05-02] MEDS: INSULIN LISPRO 100 UNIT/1 ML 3ML VIAL SQ SCH ×4 (07:30→12:00)
[2019-05-02 08:14] VITALS: BP 136/63
[2019-05-02] MEDS: NON-FORMULARY MEDICATION ([Jardiance] 25 MG) PO SCH (09:00)
[2019-05-02] MEDS: SPIRONOLACTONE 25 MG TAB PO SCH (09:27)
[2019-05-02] MEDS: ASPIRIN 81 MG CHEW TAB PO SCH (09:27)
[2019-05-02] MEDS: TAMSULOSIN HCL 0.4 MG CAP PO SCH (09:29)
[2019-05-02] MEDS: ISOSORBIDE MONONITRATE 30 MG TAB CR PO SCH (09:30)
[2019-05-02] MEDS: POTASSIUM CHLORIDE 20 MEQ TAB CR PO SCH (09:30)
[2019-05-02] MEDS: GABAPENTIN 300 MG CAP PO SCH (09:31)
[2019-05-02] MEDS: FUROSEMIDE 40 MG TAB PO SCH (09:31)
[2019-05-02] MEDS: FINASTERIDE 5 MG TAB PO SCH (09:32)
[2019-05-02] MEDS: OMEGA 3 POLYUNSAT FATTY ACIDS 1000 MG SOFTGEL PO SCH (09:32)
[2019-05-02] MEDS: METOPROLOL SUCCINATE 50 MG TAB XL PO SCH (09:32)
[2019-05-02] MEDS: CLOPIDOGREL BISULFATE 75 MG TAB PO SCH (09:32)
[2019-05-02] MEDS: VALSARTAN/SACUBITRIL 24MG/26MG 1 EA TAB PO SCH (09:34)
[2019-05-02 09:38] VITALS: BP 136/63
[2019-05-02] MEDS: FAMOTIDINE 20 MG/2 ML VIAL IV SCH (09:38)
[2019-05-02] MEDS ORDERED: CEFDINIR300 MG PO (11:35)
[2019-05-02 12:06] VITALS: BP 101/57
[2019-05-02] MEDS: CEFTRIAXONE SOD 1 GM/NS 50 ML 50 ML IV SCH (12:17)
--- NOTE | 2019-05-02 12:56 | Diagnostic Imaging Report ---
EXAM: Renal Ultrasound INDICATION: Recurrent UTI. COMPARISON: None TECHNIQUE: Transverse and longitudinal images of the kidneys and bladder were obtained. FINDINGS: Right Kidney: Length: Measures 11.4 x 5.6 x 5.1 cm Appearance: Normal echogenicity. Collecting system: No hydronephrosis Stones: None Cyst/Mass: None Left Kidney: Length: Measures 11.6 x 7.3 x 5.8 cm Appearance: Normal echogenicity. Collecting system: No hydronephrosis Stones: None Cyst/Mass: None Bladder: Unremarkable in appearance. Bilateral ureteral jets are present. The prevoid volume is 257 cc. Prostate: Suboptimally visualized secondary to overlying bowel gas. The prostate measures 2.3 x 2.1 x 2.0 cm. The estimated volume is 4.8 cc. IMPRESSION: Unremarkable renal ultrasound. Signed by: Dr. Michelle Olea MD on 05/02/2019 12:53 PM
--- NOTE | 2019-05-02 15:18 | Discharge Summary ---
HISTORY OF PRESENT ILLNESS: He is a 54-year-old male patient of mine, presented to the emergency room with chest pain. ADMITTING IMPRESSION/DIAGNOSES: Atypical chest pain, left-sided chest pain, back pain, UTI, chronic systolic congestive heart failure, coronary artery disease, cardiomyopathy and the patient has AICD placed and the patient had a malfunction of AICD, diabetes mellitus, and UTI. HOSPITAL COURSE SUMMARY: The patient was admitted with above diagnosis. Cardiology consultation was done. Serial EKG, cardiac enzymes was done and coronary event was ruled out. Pain was more persistent with musculoskeletal pain, but the patient also had a pulmonary nodules on the chest and UTI, so the patient was treated with Rocephin and antibiotics and Cardiology consultation was done by Dr. Prasad. DISPOSITION: The patient will be discharged home. The patient was advised to continue his home aspirin, Plavix, and folic acid, gabapentin, insulin, and metformin. Nitroglycerin p.r.n., potassium, spironolactone, tamsulosin, insulin Levemir. In addition, will be given oral antibiotic, Omnicef. The patient was advised to follow up with me as an outpatient sometime this week. The patient supposed to have a renal ultrasound done today. After ultrasound is done, the patient will be discharged home and will be followed up as an outpatient. MD CATHY Leggett/MODL /[id number]
[2019-05-02] MEDS ORDERED: FAMOTIDINE 20 MG TAB PO SCH (16:30)
== END 2019-05-02 14:30 | disposition home or self-care (01) ==
LOC: ER 15:12 → ERHOLD 20:07 → IMCU 21:28 → MED/SURG 04-30 17:28
PROVIDERS: ADMIT Internal Medicine; ATTEND Internal Medicine
DX: N39.0 Urinary tract infection, site not specified (principal); I11.0 Hypertensive heart disease with heart failure; I50.22 Chronic systolic (congestive) heart failure; Z95.810 Presence of automatic (implantable) cardiac defibrillator; E11.9 Type 2 diabetes mellitus without complications; I25.10 Atherosclerotic heart disease of native coronary artery without angina pectoris; I42.9 Cardiomyopathy, unspecified; M79.18 Myalgia, other site; R91.1 Solitary pulmonary nodule
CPT/HCPCS: 36415 ×4; 71045; 71250; 76770; 80048; 80053 ×2; 81001; 82550 ×2; 82553 ×2; 82948 ×4; 83735; 83880; 84484 ×2; 85025 ×2; 85610; 85651; 85730; 87040; 87086; 87186; 93005; 99284; G0378 ×4; J0696 ×2; J1815

== ENCOUNTER 2020-11-05 22:57 | Emergency (ER) | payer MEDICARE, OTHER ==
[~2020-11-05] VITALS: Ht 177.8 cm; Wt 104.3 kg
[~2020-11-05 22:57] MED LIST changes: +CEFDINIR300 MG PO; +FINASTERIDE5 MG PO; +FLOMAX0.4 MG PO; +POTASSIUM CHLO20 ME1 PO; +TOPROL XL50 MG PO
[2020-11-05] MEDS ORDERED: ASPIRIN 81 MG CHEW TAB PO ONE (23:45)
== END 2020-11-05 23:50 | disposition home or self-care (01) ==
LOC: ER 23:32
DX: J06.9 Acute upper respiratory infection, unspecified (principal); I50.9 Heart failure, unspecified; E11.9 Type 2 diabetes mellitus without complications; I10 Essential (primary) hypertension; E78.5 Hyperlipidemia, unspecified; G47.30 Sleep apnea, unspecified; I25.2 Old myocardial infarction; Z95.810 Presence of automatic (implantable) cardiac defibrillator
CPT/HCPCS: 93005; 99282

== ENCOUNTER 2022-02-14 20:47 | Emergency (ER) | payer MEDICARE, OTHER ==
[~2022-02-14] VITALS: Ht 177.8 cm; Wt 104.3 kg
[2022-02-14] MEDS ORDERED: ULTRAM 50MG50 MG PO (22:54)
== END 2022-02-14 23:17 | disposition home or self-care (01) ==
LOC: ER 20:58
DX: M54.9 Dorsalgia, unspecified (principal); M54.2 Cervicalgia; E11.9 Type 2 diabetes mellitus without complications; I11.0 Hypertensive heart disease with heart failure; I50.9 Heart failure, unspecified; I25.2 Old myocardial infarction; I25.10 Atherosclerotic heart disease of native coronary artery without angina pectoris; E78.5 Hyperlipidemia, unspecified; V89.2XXA Person injured in unspecified motor-vehicle accident, traffic, initial encounter; Z79.02 Long term (current) use of antithrombotics/antiplatelets; Z79.4 Long term (current) use of insulin; Z79.82 Long term (current) use of aspirin; Z79.899 Other long term (current) drug therapy; Z95.810 Presence of automatic (implantable) cardiac defibrillator
CPT/HCPCS: 70450; 72100; 72125; 99283

== ENCOUNTER 2024-10-11 22:04 | Emergency (ER) | payer MEDICARE, OTHER ==
[~2024-10-11] VITALS: Ht 177.8 cm; Wt 104.3 kg
[~2024-10-11 22:04] MED LIST changes: +ULTRAM 50MG50 MG PO
[2024-10-11 22:12] VITALS: TEMP 98.2
[2024-10-11 22:32] LABS: BASOPHILS # (AUTO) 0.1 (0.0-0.1); BASOPHILS % 0.6 % (0.0-1.0); EOSINOPHILS # (AUTO) 0.3 (0.0-0.4); EOSINOPHILS % 4.3 % (0.0-6.0); HEMATOCRIT 38.5 % (38.2-49.6); HEMOGLOBIN 12.3 g/dL (14.0-18.0); LYMPHOCYTES # (AUTO) 2.7 (1.0-3.2); LYMPHOCYTES % 33.9 % (18.0-39.1); MEAN CORPUSCULAR HEMOGLOBIN 29.4 pg (28-32); MEAN CORPUSCULAR HGB CONC 31.9 g/dL (31-35); MEAN CORPUSCULAR VOLUME 92.1 fL (81-99); MONOCYTES # (AUTO) 0.7 (0.2-0.8); MONOCYTES % 8.6 % (4.4-11.3); NEUTROPHILS # (AUTO) 4.1 (2.1-6.9); NEUTROPHILS % 52.2 % (38.7-80.0); PLATELET COUNT 270 x10e3/uL (140-360); RED BLOOD COUNT 4.18 x10e6/uL (4.3-5.7); RED CELL DISTRIBUTION WIDTH 13.2 % (11.7-14.4); WHITE BLOOD COUNT 7.82 x10e3/uL (4.8-10.8)
[2024-10-11 22:55] LABS: ALBUMIN/GLOBULIN RATIO 1.3 (0.8-2.0); BILIRUBIN,TOTAL 0.4 mg/dL (0.2-1.2); CALCIUM 9.6 mg/dL (8.4-10.2); CREATININE, SERUM 0.88 mg/dL (0.72-1.25)
[2024-10-11 23:03] VITALS: PULSE 74; RESP 17
[2024-10-11 23:15] LABS: AMPHETAMINES SCREEN,URINE NEGATIVE (NEGATIVE); BENZODIAZEPINES SCREEN,URINE NEGATIVE (NEGATIVE); CANNABINOIDS SCREEN,URINE NEGATIVE (NEGATIVE); COCAINE SCREEN,URINE NEGATIVE (NEGATIVE); METHADONE SCREEN, URINE NEGATIVE (NEGATIVE); OPIATES SCREEN,URINE NEGATIVE (NEGATIVE); PHENCYCLIDINE SCREEN,URINE NEGATIVE (NEGATIVE)
[2024-10-11 23:23] LABS: TROPONIN I 0.008 ng/mL (0-0.300)
[2024-10-11] MEDS ORDERED: PREDNISONE20 MG PO (23:34)
[2024-10-11 23:35] VITALS: BP 107/63; PULSE 75; RESP 17; TEMP 98.7; O2SAT 98
== END 2024-10-11 23:44 | disposition home or self-care (01) ==
LOC: ER 22:08
DX: M79.621 Pain in right upper arm (principal); M48.02 Spinal stenosis, cervical region; R20.0 Anesthesia of skin; I10 Essential (primary) hypertension; E11.65 Type 2 diabetes mellitus with hyperglycemia; E78.5 Hyperlipidemia, unspecified; I50.9 Heart failure, unspecified; I25.10 Atherosclerotic heart disease of native coronary artery without angina pectoris; G47.30 Sleep apnea, unspecified; I25.2 Old myocardial infarction; Z95.810 Presence of automatic (implantable) cardiac defibrillator
CPT/HCPCS: 36415; 70450; 71045; 72125; 80053; 80307; 82550; 83690; 83880; 84484; 85025; 93005; 99284